=== PATIENT | female | born 1955 | race Caucasian/White ===

== ENCOUNTER 2018-12-28 18:43 | Emergency (ER) | payer OTHER ==
[2018-12-28 19:09] LABS: Absolute Lymphocytes (CBC) 1.1 K/uL (0.7-4.9); Absolute Monocytes 0.7 K/uL (0.1-1.3); Absolute Neutrophil 9.2 K/uL (1.8-8.0); Basophils % 0.6 % (0-1.3); Eosinophils % 0.7 % (0-4.4); Hematocrit 39.7 % (36.0-45.0); Lymphocytes % 9.6 % (15.3-44.8); MPV 9.5 fL (7.6-11.3); Monocytes % 6.7 % (3.3-12.3); Protime INR 0.99; RBC Red Blood Cell Count 4.41 M/uL (3.86-4.86)
[2018-12-28 19:19] LABS: BUN Blood Urea Nitrogen 18 mg/dL (7-18); Bicarbonate 28 mmol/L (21-32); Glucose Level 126 mg/dL (74-106); Potassium 3.6 mmol/L (3.5-5.1); Sodium Level 139 mmol/L (136-145); Troponin (Emerg Dept Use Only) < 0.02 ng/mL (0.0-0.045)
--- NOTE | 2018-12-28 19:30 | RAD REPORT ---
EXAM DESCRIPTION: CT - Ct Stroke Brain Wo Cont - 12/28/2018 7:21 pm CLINICAL HISTORY: Confusion COMPARISON: None. TECHNIQUE: Computed axial tomography of the head was obtained. IV contrast was not requested. All CT scans are performed using dose optimization technique as appropriate and may include automated exposure control or mA/KV adjustment according to patient size. FINDINGS: 4 centimeter bleed posterior left frontal lobe. Mild compression of the left lateral ventr icle The ventricles are normal in caliber. No extra-axial fluid collection is noted. Fluid within the sinuses/ mastoids is not seen. IMPRESSION: 4 centimeter posterior left frontal lobe bleed Exam discussed with Dr. Jacob in the emergency room 7:25 p.m. December 28, 2018
--- NOTE | 2018-12-28 19:37 | RAD REPORT ---
EXAM DESCRIPTION: Michelle Single View12/28/2018 7:14 pm CLINICAL HISTORY: Chest pain COMPARISON: 2017 FINDINGS: The lungs appear clear of acute infiltrate. The heart is borderline enlarged IMPRESSION: No acute abnormalities displayed
[2018-12-28] MEDS ORDERED: ENALAPRILAT 1.25 MG/ML VIAL IV ONE ×2 (19:49→20:21)
--- NOTE | 2018-12-28 20:08 | EDPHYS ---
Physician Documentation [facility] Name: Mayi Coe Age: 63 yrs Sex: Female : 1955 Arrival Date: 12/28/2018 Time: 18:48 Bed 4 Private MD: ED Physician Dwayne Crawford HPI: 12/28 19:57 This 63 yrs old Female presents to ER via EMS with complaints of Altered gs Mental Status. 19:57 The patient presents with confusion. Onset: The symptoms/episode began/occurred just gs prior to arrival. Possible causes: CVA or TIA. Associated signs and symptoms: Pertinent positives: headache. Current symptoms: In the emergency department the patient's symptoms are unchanged from the initial presentation. The patient has not experienced similar symptoms in the past. Historical: - Allergies: 19:10 No Known Allergies; sv - PMHx: 19:10 Heart Murmur; Hypertension; CVA; sv - PSHx: 19:10 Hysterectomy; sv - Immunization history:: Adult Immunizations. - Social history:: Smoking status: unknown. - Ebola Screening: : No symptoms or risks identified at this time. ROS: 19:57 Unable to obtain ROS due to patient's inability to understand questions. gs Exam: 19:57 Head/Face: Normocephalic, atraumatic. Eyes: Pupils equal round and reactive to light, gs extra-ocular motions intact. Lids and lashes normal. Conjunctiva and sclera are non-icteric and not injected. Cornea within normal limits. Periorbital areas with no swelling, redness, or edema. ENT: Nares patent. No nasal discharge, no septal abnormalities noted. Tympanic membranes are normal and external auditory canals are clear. Oropharynx with no redness, swelling, or masses, exudates, or evidence of obstruction, uvula midline. Mucous membranes moist. Neck: Trachea midline, no thyromegaly or masses palpated, and no cervical lymphadenopathy. Supple, full range of motion without nuchal rigidity, or vertebral point tenderness. No Meningismus. Chest/axilla: Normal chest wall appearance and motion. Nontender with no deformity. No lesions are appreciated. Cardiovascular: Regular rate and rhythm with a normal S1 and S2. No gallops, murmurs, or rubs. Normal PMI, no JVD. No pulse deficits. Respiratory: Lungs have equal breath sounds bilaterally, clear to auscultation and percussion. No rales, rhonchi or wheezes noted. No increased work of breathing, no retractions or nasal flaring. Abdomen/GI: Soft, non-tender, with normal bowel sounds. No distension or tympany. No guarding or rebound. No evidence of tenderness throughout. Back: No spinal tenderness. No costovertebral tenderness. Full range of motion. Skin: Warm, dry with normal turgor. Normal color with no rashes, no lesions, and no evidence of cellulitis. MS/ Extremity: Pulses equal, no cyanosis. Neurovascular intact. Full, normal range of motion. 19:57 Constitutional: The patient appears awake. 19:57 Neuro: Orientation: to person, Cranial nerves: no acute changes, Motor: strength is 5/5 in the left arm and left leg, Strength is 1/5 in the right arm and right leg. Vital Signs: 18:46 BP 166 / 108; Pulse 93; Resp 18; Temp 97.5; Pulse Ox 98% ; sv 19:30 BP 166 / 97; Pulse 88; Resp 20; Pulse Ox 100% on R/A; ak1 19:30 BP 164 / 97; ak1 19:41 BP 153 / 98; Pulse 83; ak1 20:00 BP 164 / 97; Pulse 88; Resp 16; Pulse Ox 100% on R/A; ak1 20:15 BP 146 / 78; Pulse 82; Resp 14; Pulse Ox 100% on R/A; ak1 20:30 BP 152 / 97; Pulse 78; Resp 17; Pulse Ox 98% on R/A; ak1 20:40 BP 145 / 75; Pulse 77; Resp 14; Pulse Ox 100% on R/A; ak1 19:30 provider notifed of vitals, no medication to given at this time. ak1 20:15 1.25mg enalaprin held at this time per verbal order from Dr. Crawford. ak1 NIH Stroke Scale Scores: 19:57 NIHSS Score: 17 gs 20:23 NIHSS Score: 13 ak1 MDM: 18:59 Patient medically screened. 12/28 18:58 Order name: Glucose, Ancillary Testing; Complete Time: 19:43 EDOK 12/28 18:59 Order name: Troponin (emerg Dept Use Only); Complete Time: 19:43 12/28 18:59 Order name: Basic Metabolic Panel; Complete Time: 19:43 12/28 18:59 Order name: CBC with Diff; Complete Time: 19:43 12/28 18:59 Order name: Protime (+inr); Complete Time: 19:43 12/28 18:59 Order name: Ptt, Activated; Complete Time: 19:43 12/28 18:59 Order name: CT Stroke Brain w/o Contrast; Complete Time: 19:43 12/28 18:59 Order name: Stroke CXR 1 View; Complete Time: 19:43 12/28 18:59 Order name: EKG; Complete Time: 19:01 12/28 18:59 Order name: Accucheck; Complete Time: 19:22 12/28 18:59 Order name: Cardiac monitoring; Complete Time: 19:22 12/28 18:59 Order name: EKG - Nurse/Tech; Complete Time: 19:56 12/28 18:59 Order name: IV Saline Lock; Complete Time: 19:22 12/28 18:59 Order name: Labs collected and sent; Complete Time: 19:22 12/28 18:59 Order name: NPO; Complete Time: 19:22 12/28 18:59 Order name: O2 Per Protocol; Complete Time: 19:22 12/28 18:59 Order name: O2 Sat Monitoring; Complete Time: 19:22 12/28 18:59 Order name: Stroke Swallow Screen gs Administered Medications: 19:40 Drug: Enalaprilat 0.625 mg Route: IV; Rate: calculated rate; Site: left antecubital; ak1 20:30 Follow up: IV Status: Completed infusion ak1 20:40 Not Given (vitals signs reported to Dr. Crawford. ): Enalaprilat 1.25 mg IV at calculated ak1 rate once; (slow IV push) verbal order dr. crawford Point of Care Testing: Blood Glucose: 18:52 Blood Glucose: 114 mg/dL; sv Ranges: Critical Glucose Levels:Adult <50 mg/dl or >400 mg/dl <40 mg/dl or >180 mg/dl Disposition: 20:04 Critical Care:. Disposition: 12/28/18 20:07 Transfer ordered to [facility]. Diagnosis is Hemiplegia and hemiparesis following nontraumatic intracerebral hemorrhage affecting right dominant side. - Reason for transfer: Higher level of care. - Accepting physician is rut. - Condition is Stable. - Problem is new. - Symptoms are unchanged. Critical care time excluding procedures: 20:04 Critical care time: Bedside Care: 10 minutes, Consultation: 10 minutes, Family gs Intervention: 10 minutes. Total time: 30 minutes NIH Stroke Scale - NIH Stroke Score Date: 12/28/2018 Time: 19:57 Total Score = 17 1a. Level of Consciousness (LOC) - 0(Alert) 1b. Level of Consciousness (LOC) (Year \T\ Age) - 2(Neither) 1c. LOC Commands (Open \T\ Closes Eyes/Propellant Assembler) - 2(Neither) 2. Best Gaze (Lateral Gaze Paresis) - 0(Normal) 3. Visual Field Loss - 0(No visual loss) 4. Facial Palsy - 0(Normal) 5a. Left Arm: Motor (10-second hold) - 0(No drift) 5b. Right Arm: Motor (10-second hold) - 4(No movement) 6a. Left Leg: Motor (5-second hold - always test supine) - 0(No drift) 6b. Right Leg: Motor (5-second hold - always test supine) - 3(No effort against gravity) 7. Limb Ataxia (finger/nose \T\ heel/marino - test with eyes open) - 0(Absent) 8. Sensory Loss (pinprick arms/legs/face) - 1(Mild to moderate loss) 9. Best Language: Aphasia (description/naming/reading) - 2(Severe aphasia) 10. Dysarthria (speech clarity - read or repeat words) - 2(Severe) 11. Extinction and Inattention (visual/tactile/auditory/spatial/personal) - 1(Present) Initials: areli NIH Stroke Scale - NIH Stroke Score Date: 12/28/2018 Time: 20:23 Total Score = 13 1a. Level of Consciousness (LOC) - 0(Alert) 1b. Level of Consciousness (LOC) (Year \T\ Age) - 2(Neither) 1c. LOC Commands (Open \T\ Closes Eyes/Propellant Assembler) - 1(One) 2. Best Gaze (Lateral Gaze Paresis) - 0(Normal) 3. Visual Field Loss - 0(No visual loss) 4. Facial Palsy - 1(Minor Paralysis) 5a. Left Arm: Motor (10-second hold) - 0(No drift) 5b. Right Arm: Motor (10-second hold) - 3(No effort against gravity) 6a. Left Leg: Motor (5-second hold - always test supine) - 0(No drift) 6b. Right Leg: Motor (5-second hold - always test supine) - 3(No effort against gravity) 7. Limb Ataxia (finger/nose \T\ heel/marino - test with eyes open) - 1(Present in one limb) 8. Sensory Loss (pinprick arms/legs/face) - 1(Mild to moderate loss) 9. Best Language: Aphasia (description/naming/reading) - 1(Mild to moderate aphasia) 10. Dysarthria (speech clarity - read or repeat words) - 0(Normal) 11. Extinction and Inattention (visual/tactile/auditory/spatial/personal) - 0(No abnormality) Initials: [facility] Signatures: Dispatcher [employer] Birgit Woo RN RN Raquel Martinez RN RN [facility] Dwayne Crawford MD MD Corrections: (The following items were deleted from the chart) 20:43 20:07 12/28/2018 20:07 Transfer ordered to [address] Diagnosis is Hemiplegia and hemiparesis following nontraumatic intracerebral hemorrhage affecting right dominant side. Reason for transfer: Higher level of care. Accepting physician is rut. Condition is Stable. Problem is new. Symptoms are unchanged. gs
--- NOTE | 2018-12-28 20:08 | ER ---
Nurse's Notes [facility] Name: Mayi Coe Age: 63 yrs Sex: Female : 1955 Arrival Date: 12/28/2018 Time: 18:48 Bed 4 Private MD: Diagnosis: Hemiplegia and hemiparesis following nontraumatic intracerebral hemorrhage affecting right dominant side Presentation: 12/28 18:32 Method Of Arrival: EMS: [facility] 18:32 Transition of care: patient was not received from another setting of care. ss 18:32 Acuity: CRISTINE 2 ss 18:40 Presenting complaint: EMS states: spouse called EMS, pt was found in the bathroom by sv the spouse and when EMS got to her house she ambulated to the stretcher. Equal senior tech manufacturing engineering and leg strength, noted right facial droop, slurred speech and aphasic, Afib 90-120s BP 182/98 99% RA. 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 Onset of symptoms was December 28, 2018 at 18:00. Care prior to arrival: IV initiated. 18 GA, in the left antecubital area. 19:32 Risk Assessment: Do you want to hurt yourself or someone else? Patient reports no ak1 desire to harm self or others. Initial Sepsis Screen: Does the patient meet any 2 criteria? No. Patient's initial sepsis screen is negative. Does the patient have a suspected source of infection? No. Patient's initial sepsis screen is negative. 20:17 An acute neurological deficit is present. ak1 Triage Assessment: 18:46 General: Appears in no apparent distress. uncomfortable, Behavior is calm. Pain: Denies sv pain. Neuro: Level of Consciousness is awake, confused, Oriented to none Speech is slurred, with expressive aphasia noted. Respiratory: Airway is patent Respiratory effort is even, unlabored, Respiratory pattern is regular, symmetrical. Derm: Skin is normal. Stroke Activation: Physician: Stroke Attending; Name: ; Notified At: ; Arrived At: Physician: Chief Stroke Resident; Name: ; Notified At: ; Arrived At: Physician: Stroke Resident; Name: ; Notified At: ; Arrived At: Physician: ED Attending; Name: ; Notified At: ; Arrived At: Physician: ED Resident; Name: ; Notified At: ; Arrived At: 20:17 unknown, pt received from [facility] at 1900. ak1 Historical: - Allergies: 19:10 No Known Allergies; sv - PMHx: 19:10 Heart Murmur; Hypertension; CVA; sv - PSHx: 19:10 Hysterectomy; sv - Immunization history:: Adult Immunizations. - Social history:: Smoking status: unknown. - Ebola Screening: : No symptoms or risks identified at this time. Screenin:31 Abuse screen: Denies threats or abuse. Denies injuries from another. Nutritional ak1 screening: No deficits noted. Tuberculosis screening: No symptoms or risk factors identified. Fall Risk None identified. Assessment: 18:49 Reassessment: family at bedside speaking with Dr. Crawford. 19:00 Reassessment: Spouse states pt does not take any blood thinners but she did take an ASA sv 325 mg PO about an hour ago "because she felt weird". 19:32 General: Appears in no apparent distress. Pain: Denies pain. Neuro: Level of ak1 Consciousness is awake, alert, confused, pt unable to recall name or date of .. Oriented to person, pt responds to name and verbal stimuli but can not stated her birthday or name. . Office Services Representative are weak on right pt unable to make a fist, surveillance supervisor or plate gauger right arm. . Paralysis pt with paralysis to right arm and right leg. . Gait is pt unable to move right leg. Speech clear. Cardiovascular: No deficits noted. Respiratory: No deficits noted. GI: No signs and/or symptoms were reported involving the gastrointestinal system. : No signs and/or symptoms were reported regarding the genitourinary system. EENT: No signs and/or symptoms were reported regarding the EENT system. Derm: No signs and/or symptoms reported regarding the dermatologic system. Musculoskeletal: No signs and/or symptoms reported regarding the musculoskeletal system. 19:35 Reassessment: Neurologist at [facility] requested the BP meds be given. ak1 19:45 Reassessment: family updated no beds at [facility]. Dr. Crawford on phone with [address] 20:23 The patient has not been NPO before screening. The patient is alert, and able to follow ia1 commands. The patient does not exhibit slurred or garbled speech. The patient is not exhibiting difficulty speaking. The patient is exhibiting difficulty understanding words. The patient is able to swallow own secretions with no drooling or need for suction. The patient did not tolerate one teaspoon of water. Drooling, immediate coughing, gurgling, or clearing of the throat was noted. Bedside swallow screening discontinued. Patient kept NPO until cleared by Speech Therapy or Physician. T-PA (Activase) Screening: Contraindications: Intracranial hemorrhage and its risk factor and suspicion of subarachnoid bleed: Yes. 20:26 Reassessment: pt daughter Shelby [phone], pt son Gil [phone]. ak1 20:26 Provider notified of bedside swallow screening results: Dwayne Crawford MD. ak1 20:41 Reassessment: pt drooling with unclear speech, lethargic and drowsy while loading on to [facility] stretcher. 145/75 BP 77 pulse. report given to Alexei Mcghee air support control officer. Vital Signs: 18:46 BP 166 / 108; Pulse 93; Resp 18; Temp 97.5; Pulse Ox 98% ; sv 19:30 BP 166 / 97; Pulse 88; Resp 20; Pulse Ox 100% on R/A; ak1 19:30 BP 164 / 97; ak1 19:41 BP 153 / 98; Pulse 83; ak1 20:00 BP 164 / 97; Pulse 88; Resp 16; Pulse Ox 100% on R/A; ak1 20:15 BP 146 / 78; Pulse 82; Resp 14; Pulse Ox 100% on R/A; ak1 20:30 BP 152 / 97; Pulse 78; Resp 17; Pulse Ox 98% on R/A; ak1 20:40 BP 145 / 75; Pulse 77; Resp 14; Pulse Ox 100% on R/A; ak1 19:30 provider notifed of vitals, no medication to given at this time. ak1 20:15 1.25mg enalaprin held at this time per verbal order from Dr. Crawford. ak1 NIH Stroke Scale Scores: 19:57 NIHSS Score: 17 gs 20:23 NIHSS Score: 13 ak1 ED Course: 18:[address] via stretcher. sv 18:40 Maintain EMS IV. Dressing intact. Good blood return noted. Site clean \\T\\ dry. Gauge \\T\\ sv site: 18G L AC. 18:45 Patient moved back from CT. sv 18:45 Arm band placed on. sv 18:45 Patient has correct armband on for positive identification. Placed in gown. Bed in low sv position. Call light in reach. Adult w/ patient. equipment monitor phototypesetting on. Pulse ox on. NIBP on. Head of bed elevated. 18:48 Patient arrived in ED. ss 18:49 Triage completed. ss 18:50 Initial lab(s) drawn, by ED staff, sent to lab. sv 18:59 Dwanye Crawford MD is Attending Physician. gs 19:05 Report given to Asia TAMAYO and Raquel RN. sv 19:15 Stroke CXR 1 View In Process Unspecified. EDMS 19:21 CT Stroke Brain w/o Contrast In Process Unspecified. EDMS 19:29 Raquel Martinez, BELKIS is Primary Nurse. ak1 20:27 No provider procedures requiring assistance completed. Patient transferred, IV remains ak1 in place. Administered Medications: 19:40 Drug: Enalaprilat 0.625 mg Route: IV; Rate: calculated rate; Site: left antecubital; ak1 20:30 Follow up: IV Status: Completed infusion ak1 20:40 Not Given (vitals signs reported to Dr. Crawford. ): Enalaprilat 1.25 mg IV at calculated ak1 rate once; (slow IV push) verbal order dr. crawford Point of Care Testing: Blood Glucose: 18:52 Blood Glucose: 114 mg/dL; sv Ranges: Outcome: 20:07 ER care complete, transfer ordered by . gs 20:28 Transferred by ground EMS to [facility], Transfer form completed. X-rays sent ak1 w/ patient. Note: report given to Cris [facility] ER triage nurse. 20:28 Condition: stable 20:28 Instructed on the need for transfer. 20:43 Patient left the ED. ak1 NIH Stroke Scale - NIH Stroke Score Date: 12/28/2018 Time: 19:57 Total Score = 17 1a. Level of Consciousness (LOC) - 0(Alert) 1b. Level of Consciousness (LOC) (Year \\T\\ Age) - 2(Neither) 1c. LOC Commands (Open \\T\\ Closes Eyes/Swatch Checker) - 2(Neither) 2. Best Gaze (Lateral Gaze Paresis) - 0(Normal) 3. Visual Field Loss - 0(No visual loss) 4. Facial Palsy - 0(Normal) 5a. Left Arm: Motor (10-second hold) - 0(No drift) 5b. Right Arm: Motor (10-second hold) - 4(No movement) 6a. Left Leg: Motor (5-second hold - always test supine) - 0(No drift) 6b. Right Leg: Motor (5-second hold - always test supine) - 3(No effort against gravity) 7. Limb Ataxia (finger/nose \\T\\ heel/marino - test with eyes open) - 0(Absent) 8. Sensory Loss (pinprick arms/legs/face) - 1(Mild to moderate loss) 9. Best Language: Aphasia (description/naming/reading) - 2(Severe aphasia) 10. Dysarthria (speech clarity - read or repeat words) - 2(Severe) 11. Extinction and Inattention (visual/tactile/auditory/spatial/personal) - 1(Present) Initials: NIH Stroke Scale - NIH Stroke Score Date: 12/28/2018 Time: 20:23 Total Score = 13 1a. Level of Consciousness (LOC) - 0(Alert) 1b. Level of Consciousness (LOC) (Year \\T\\ Age) - 2(Neither) 1c. LOC Commands (Open \\T\\ Closes Eyes/Swatch Checker) - 1(One) 2. Best Gaze (Lateral Gaze Paresis) - 0(Normal) 3. Visual Field Loss - 0(No visual loss) 4. Facial Palsy - 1(Minor Paralysis) 5a. Left Arm: Motor (10-second hold) - 0(No drift) 5b. Right Arm: Motor (10-second hold) - 3(No effort against gravity) 6a. Left Leg: Motor (5-second hold - always test supine) - 0(No drift) 6b. Right Leg: Motor (5-second hold - always test supine) - 3(No effort against gravity) 7. Limb Ataxia (finger/nose \\T\\ heel/marino - test with eyes open) - 1(Present in one limb) 8. Sensory Loss (pinprick arms/legs/face) - 1(Mild to moderate loss) 9. Best Language: Aphasia (description/naming/reading) - 1(Mild to moderate aphasia) 10. Dysarthria (speech clarity - read or repeat words) - 0(Normal) 11. Extinction and Inattention (visual/tactile/auditory/spatial/personal) - 0(No abnormality) Initials: ak1 Signatures: Dispatcher [employer] Birgit Woo RN Lexi Moreno RN RN ss Krenek, Amber, RN RN ak1 Dwayne Crawford MD MD gs Corrections: (The following items were deleted from the chart) 19:14 18:40 Presenting complaint: EMS states: spouse called EMS, pt was found in the bathroom by the spouse and when EMS got to her house she ambulated to the stretcher. 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 20:43 20:15 BP 152 / 97; Pulse 78bpm; Resp 17bpm; Pulse Ox 98% RA; ak1 ak1
[2018-12-28 21:59] VITALS: TEMP 97.5
[2018-12-28 22:06] VITALS: BP 145/75; O2SAT 100
--- NOTE | 2018-12-29 07:48 | EKG ---
Test Date: 2018-12-28 Test Time: 19:10:15 Curriculum Writer: [place] MEASUREMENT RESULTS: Intervals: Rate: 77 CA: 162 QRSD: 78 QT: 398 QTc: 450 [place]: P: 21 CA: 162 QRS: 28 T: 48 INTERPRETIVE STATEMENTS: Sinus rhythm with premature atrial complexes ST abnormality, non specific Abnormal ECG Compared to ECG 02/26/2017 06:40:35 Atrial premature complex(es) now present Sinus bradycardia no longer present ST (T wave) deviation still present Electronically Signed On 12-29-18 07:47:56 PATTERN CHANGER by Mateo Mai
== END 2018-12-28 20:43 | disposition short-term general hospital (02) ==
LOC: ER 18:43
DX: I61.9 Nontraumatic intracerebral hemorrhage, unspecified (principal); G81.91 Hemiplegia, unspecified affecting right dominant side; I10 Essential (primary) hypertension; Z86.73 Personal history of transient ischemic attack (TIA), and cerebral infarction without residual deficits
CPT/HCPCS: 36415; 70450; 71045; 80048; 82962; 84484; 85025; 85610; 85730; 93005; 96365; 99285

== ENCOUNTER 2019-05-11 11:34 | Observation (INO) | payer OTHER ==
--- NOTE | 2019-05-11 12:18 | RAD REPORT ---
EXAM DESCRIPTION: RAD - Chest Single View - 05/11/2019 12:10 pm CLINICAL HISTORY: CHEST PAIN Chest pain. COMPARISON: Chest Single View dated 12/28/2018; Chest Single View dated 02/25/2017 FINDINGS: Portable technique limits examination quality. Mild interstitial pulmonary edema. The heart is mildly enlarged in size. Mild dextroscoliosis of the thoracic spine.Trace left pleural fluid. IMPRESSION: Mild CHF versus volume overload pattern.
[2019-05-11 12:41] LABS: Absolute Lymphocytes (CBC) 0.5 K/uL (0.7-4.9); Basophils % 1.1 % (0-1.3); Eosinophils % 3.3 % (0-4.4); Hematocrit 36.5 % (36.0-45.0); Lymphocytes % 11.5 % (15.3-44.8); MPV 9.2 fL (7.6-11.3); Monocytes % 12.1 % (3.3-12.3); Protime INR 0.96; RBC Red Blood Cell Count 4.05 M/uL (3.86-4.86)
[2019-05-11 12:50] LABS: BUN Blood Urea Nitrogen 10 mg/dL (7-18); Bicarbonate 29 mmol/L (21-32); Glucose Level 100 mg/dL (74-106); NT PRO-BNP 311 pg/mL (<125); Sodium Level 139 mmol/L (136-145); Troponin (Emerg Dept Use Only) < 0.02 ng/mL (0.0-0.045)
--- NOTE | 2019-05-11 14:14 | ER ---
Nurse's Notes [facility] Name: Mayi Coe Age: 63 yrs Sex: Female : 1955 Arrival Date: 05/11/2019 Time: 11:37 Bed 6 Private MD: Diagnosis: Chest pain, unspecified Presentation: 05/11 11:50 Presenting complaint: EMS states: Pt was doing some strenuous physical therapy when she tr5 started to have some chest pain and felt some pressure in her chest. Pt was hypertensive with the systolics in the 160s. Pt has a history of stroke with a R sided weakness. Transition of care: patient was not received from another setting of care. Onset of symptoms was May 11, 2019. Risk Assessment: Do you want to hurt yourself or someone else? Patient reports desire/thoughts of hurting themselves or someone else. Provider notified. Initial Sepsis Screen: Does the patient meet any 2 criteria? No. Patient's initial sepsis screen is negative. Does the patient have a suspected source of infection? No. Patient's initial sepsis screen is negative. Care prior to arrival: None. 11:50 Method Of Arrival: EMS: [facility] tr5 11:50 Acuity: CRISTINE 2 tr5 Triage Assessment: 12:02 General: Appears in no apparent distress. Behavior is calm, cooperative. Pain: tr5 Complains of pain in xyphoid area and mid-sternal area Pain does not radiate. Quality of pain is described as pressure, Pain began 1 hour ago. Alleviated by rest. EENT: No signs and/or symptoms were reported regarding the EENT system. Neuro: Level of Consciousness is awake, alert, obeys commands, Oriented to person, place, time, situation, Neuro:. Cardiovascular: Reports chest pain, Heart tones present Bruits absent Capillary refill < 3 seconds Pulses are all present. Edema is absent. Respiratory: Airway is patent Trachea midline Respiratory effort is even, unlabored, Respiratory pattern is regular, symmetrical, Breath sounds are clear bilaterally. GI: No signs and/or symptoms were reported involving the gastrointestinal system. : No signs and/or symptoms were reported regarding the genitourinary system. Derm: Skin is intact, is healthy with good turgor, Skin is dry, Wound noted top of head Wound is Pt had a craniectomy done in the past and has a helmet she wears at all time for protection. Musculoskeletal: Capillary refill < 3 seconds, Range of motion: intact in all extremities. Historical: - Home Meds: 12:00 amlodipine oral [Active]; lisinopril Oral [Active]; tr5 - PMHx: 12:00 CVA; Heart Murmur; Hypertension; tr5 - Immunization history:: Adult Immunizations up to date. - Social history:: Smoking status: Patient/guardian denies using tobacco, never smoked. - Ebola Screening: : Patient negative for fever greater than or equal to 101.5 degrees Fahrenheit, and additional compatible Ebola Virus Disease symptoms. - Family history:: Mother has/had heart disease. - Hospitalizations: : No recent hospitalization is reported. - History obtained from: . Screenin:10 Abuse screen: Denies threats or abuse. Nutritional screening: No deficits noted. tr5 Tuberculosis screening: No symptoms or risk factors identified. Fall Risk No fall in past 12 months (0 pts). Secondary diagnosis (15 points) impaired mobility, CVA, IV access (20 points). Ambulatory Aid- None/Bed Rest/Nurse Assist (0 pts). Gait- Normal/Bed Rest/Wheelchair (0 pts) Mental Status- Oriented to own ability (0 pts). Total Crockett Fall Scale indicates Low Risk Score (25-44 pts). Side Rails Up X 2 Placed close to Nursing Station Family Present and informed to notify staff if they need to leave bedside As available Patient and Family Educated on Fall Prevention Program and strategies. Assessment: 13:13 Pain: Denies pain. tr5 13:13 Reassessment: Patient appears in no apparent distress at this time. Patient and/or tr5 family updated on plan of care and expected duration. Pain level reassessed. Patient is alert, oriented x 3, equal unlabored respirations, skin warm/dry/pink. 14:30 Reassessment: Patient appears in no apparent distress at this time. Patient and/or tr5 family updated on plan of care and expected duration. Pain level reassessed. Patient states feeling better. 15:50 Reassessment: Patient and/or family updated on plan of care and expected duration. Pain tr5 level reassessed. Patient is alert, oriented x 3, equal unlabored respirations, skin warm/dry/pink. 16:26 Reassessment: Called to give report. Nurse will call back to receive report. tr5 16:55 Reassessment: Report given to Billie TAMAYO. tr5 Vital Signs: 11:49 BP 146 / 78; Pulse 62; Resp 17; Temp 98.9(O); Pulse Ox 98% on R/A; mh5 12:50 BP 152 / 76; Pulse 62; Resp 15; Pulse Ox 97% on R/A; tr5 13:15 BP 152 / 76; Pulse 60; Resp 12; Pulse Ox 98% on R/A; mh5 14:10 BP 157 / 79; Pulse 62; Resp 16; Temp 98.7(O); Pulse Ox 99% ; mh5 14:42 BP 151 / 70; Pulse 62; Resp 17; Temp 97.7(O); Pulse Ox 97% on R/A; mh5 15:49 BP 147 / 70; Pulse 63; Resp 16; Pulse Ox 98% on R/A; tr5 ED Course: 11:37 Patient arrived in ED. sv 11:39 Mendoza Gudino MD is Attending Physician. rn 11:49 Antonio Moody RN is Primary Nurse. tr5 11:51 Arm band placed on. sv 11:51 Patient has correct armband on for positive identification. Bed in low position. Call [facility] light in reach. Side rails up X 1. Adult w/ patient. monitor technician on. Pulse ox on. NIBP on. 11:53 Triage completed. tr5 11:55 EKG done, by computer engineering technologist. reviewed by Mendoza Gudino MD. at1 11:55 Patient maintains SpO2 saturation greater than 95% on room air. tr5 11:55 Inserted saline lock: 20 gauge in right forearm, using aseptic technique. tr5 12:00 SEIZURE PADS ON BED. mh5 12:10 XRAY Chest (1 view) In Process Unspecified. EDMS 13:10 Basic Metabolic Panel Sent. sv 13:10 CBC with Diff Sent. sv 13:10 NT PRO-BNP Sent. sv 14:13 Gay Root MD is Hospitalizing Provider. rn 14:50 EMPTIED 1000 CC FROM FERMIN. mh5 15:50 Awaiting bed assignment. tr5 16:54 transfer. tr5 17:46 No provider procedures requiring assistance completed. Patient admitted, IV remains in tr5 place. Administered Medications: No medications were administered Outcome: 14:13 Decision to Hospitalize by Provider. rn 17:48 Admitted to Med/surg accompanied by tech, via stretcher, with chart, Report called to tr5 Billie TAMAYO 17:49 Condition: stable tr5 17:49 Instructed on the need for admit. 17:50 Patient left the ED. tr5 Signatures: Dispatcher [employer] Birgit Woo RN RN sv Nieto, Roman, MD MD rn Gonzales, Amanda, worm farmer EKG Tat1 Kai, Angela Antonio Soni RN RN tr5 Corrections: (The following items were deleted from the chart) 16:54 16:54 transfer transportation to receiving facility. tr5 tr5
--- NOTE | 2019-05-11 14:14 | EDPHYS ---
Physician Documentation [facility] Name: Mayi Coe Age: 63 yrs Sex: Female : 1955 Arrival Date: 05/11/2019 Time: 11:37 Bed 6 Private MD: ED Physician Mendoza Gudino HPI: 05/11 12:18 This 63 yrs old Female presents to ER via EMS with complaints of Chest Pain. rn 12:19 The patient or guardian reports chest pain that is located primarily in the substernal rn area. Onset: just prior to arrival. The pain does not radiate. Associated signs and symptoms: The patient has no apparent associated signs or symptoms, Pertinent negatives: abdominal pain, cough, diaphoresis, dizziness, lightheadedness, palpitations, shortness of breath, syncope, vomiting. The chest pain is described as a heaviness. Duration: The patient or guardian reports a single episode, that is still ongoing. Modifying factors: The symptoms are alleviated by nothing. the symptoms are aggravated by nothing. Severity of pain: At its worst the pain was moderate in the emergency department the pain has improved. The patient has not experienced similar symptoms in the past. The patient has not recently seen a physician. Patient had intense PT session today, was doing ok, a little tired, took a nap, woke up with chest pain, non-radiating, not worse with movement or palpation, no cough or sob, reports doesn't normally have chest pain, steadily getting better without treatment, didn't just eat, no trauma, no diaphoresis. . Historical: - Home Meds: 12:00 amlodipine oral [Active]; lisinopril Oral [Active]; tr5 - PMHx: 12:00 CVA; Heart Murmur; Hypertension; tr5 - Immunization history:: Adult Immunizations up to date. - Social history:: Smoking status: Patient/guardian denies using tobacco, never smoked. - Ebola Screening: : Patient negative for fever greater than or equal to 101.5 degrees Fahrenheit, and additional compatible Ebola Virus Disease symptoms. - Family history:: Mother has/had heart disease. - Hospitalizations: : No recent hospitalization is reported. - History obtained from: . ROS: 12:19 Constitutional: Negative for fever, chills, and weight loss, Eyes: Negative for injury, rn pain, redness, and discharge, Neck: Negative for injury, pain, and swelling, Cardiovascular: Negative for palpitations, and edema, Respiratory: Negative for shortness of breath, cough, wheezing, and pleuritic chest pain, Abdomen/GI: Negative for abdominal pain, nausea, vomiting, diarrhea, and constipation, MS/Extremity: Negative for injury and deformity, Skin: Negative for injury, rash, and discoloration, Neuro: Negative for headache, weakness, numbness, tingling, and seizure. Exam: 12:19 Constitutional: This is a well developed, well nourished patient who is awake, alert, rn and in no acute distress. Head/Face: Normocephalic, atraumatic. ENT: dry MM Cardiovascular: Regular rate and rhythm. No pulse deficits. Respiratory: Lungs have equal breath sounds bilaterally, clear to auscultation. No increased work of breathing, no retractions or nasal flaring. Abdomen/GI: soft, non-tender MS/ Extremity: Pulses equal, no cyanosis. Neurovascular intact. Full, normal range of motion. Equal circumference. Neuro: Awake and alert, GCS 15, oriented to person, place, time, and situation. + slurred and broken speech. + residual right sided weakness. Vital Signs: 11:49 BP 146 / 78; Pulse 62; Resp 17; Temp 98.9(O); Pulse Ox 98% on R/A; mh5 12:50 BP 152 / 76; Pulse 62; Resp 15; Pulse Ox 97% on R/A; tr5 13:15 BP 152 / 76; Pulse 60; Resp 12; Pulse Ox 98% on R/A; mh5 14:10 BP 157 / 79; Pulse 62; Resp 16; Temp 98.7(O); Pulse Ox 99% ; mh5 14:42 BP 151 / 70; Pulse 62; Resp 17; Temp 97.7(O); Pulse Ox 97% on R/A; mh5 15:49 BP 147 / 70; Pulse 63; Resp 16; Pulse Ox 98% on R/A; tr5 MDM: 11:39 Patient medically screened. rn 14:09 Differential diagnosis: acute myocardial infarction, acute pericarditis, coronary rn artery disease chest wall pain, costochondritis, gastroesophageal reflux disease (GERD), pericarditis, pleurisy, pneumonia, pneumothorax, stable angina, unstable angina. HEART Score: History: Slightly Suspicious (0), ECG: Non specific repolarization disturbance / LBTB / PM (1), Age: > or = 65 years (2), Risk Factors: > or = 3 Risk factors for atherosclerotic disease (2), Troponin: < or = 1 x Normal Limit (0). Data reviewed: vital signs, nurses notes, lab test result(s), EKG, radiologic studies, plain films, and as a result, I will admit patient. Counseling: I had a detailed discussion with the patient and/or guardian regarding: the historical points, exam findings, and any diagnostic results supporting the discharge/admit diagnosis, lab results, radiology results, the need for further work-up and treatment in the hospital. Response to treatment: the patient's symptoms have mildly improved after treatment, and as a result, I will admit patient. Admission orders: after a detailed discussion of the patient's condition and case, the admit orders are written by me. ED course: Pt without clear etiology of chest pain, no recent stress or cath, HEART score 5, and new symptom for her, states not normally type to complain. Will admit for chest pain rule out.. 05/11 11:49 Order name: Basic Metabolic Panel 05/11 11:49 Order name: CBC with Diff 05/11 11:49 Order name: NT PRO-BNP 05/11 11:49 Order name: PT-INR; Complete Time: 13:07 05/11 11:49 Order name: Troponin (emerg Dept Use Only); Complete Time: 13:07 05/11 11:50 Order name: Basic Metabolic Panel; Complete Time: 13:07 [facility] 05/11 11:49 Order name: XRAY Chest (1 view); Complete Time: 12:26 05/11 11:50 Order name: CBC with Automated Diff; Complete Time: 13:07 [facility] 05/11 11:50 Order name: NT PRO-BNP; Complete Time: 13:07 [facility] 05/11 14:45 Order name: Echo with Doppler [facility] 05/11 14:46 Order name: Troponin I [facility] 05/11 14:46 Order name: Troponin I [facility] 05/11 14:46 Order name: Troponin I [facility] 05/11 14:46 Order name: Troponin I [facility] 05/11 11:49 Order name: EKG; Complete Time: 11:51 rn 05/11 11:49 Order name: Cardiac monitoring; Complete Time: 11:50 rn 05/11 11:49 Order name: EKG - Nurse/Tech; Complete Time: 11:51 rn 05/11 11:49 Order name: IV Saline Lock; Complete Time: 11:51 rn 05/11 11:49 Order name: Labs collected and sent; Complete Time: 11:51 rn 05/11 11:49 Order name: O2 Per Protocol; Complete Time: 11:51 rn 05/11 11:49 Order name: O2 Sat Monitoring; Complete Time: 11:51 rn 05/11 14:45 Order name: CONS Physician Consult [facility] Administered Medications: No medications were administered Disposition: 05/11/19 14:13 Hospitalization ordered by Gay Root for Observation. Preliminary diagnosis is Chest pain, unspecified. - Bed requested for Telemetry/MedSurg (observation). - Status is Observation. tr5 - Condition is Stable. - Problem is new. - Symptoms have improved. UTI on Admission? No Signatures: Dispatcher [employer] [facility] Pooja Landry RN RN dw Nieto, Roman, MD MD rn Rodriguez, Tommie, RN RN tr5 Corrections: (The following items were deleted from the chart) 13:07 12:19 Constitutional: This is a well developed, well nourished patient who is awake, rn alert, and in no acute distress. Head/Face: Normocephalic, atraumatic. ENT: dry MM Cardiovascular: Regular rate and rhythm. No pulse deficits. Respiratory: Lungs have equal breath sounds bilaterally, clear to auscultation. No increased work of breathing, no retractions or nasal flaring. Abdomen/GI: soft, non-tender MS/ Extremity: Pulses equal, no cyanosis. Neurovascular intact. Full, normal range of motion. Equal circumference. Neuro: Awake and alert, GCS 15, oriented to person, place, time, and situation. + slurred and broken speech. + residual right sided weakness. rn 16:16 14:13 Hospitalization Ordered by Gay Root MD for Observation. Preliminary dw diagnosis is Chest pain, unspecified. Bed requested for Telemetry/MedSurg (observation). Status is Observation. Condition is Stable. Problem is new. Symptoms have improved. UTI on Admission? No. rn 17:50 16:16 05/11/2019 14:13 Hospitalization Ordered by Gay Root MD for Observation. tr5 Preliminary diagnosis is Chest pain, unspecified. Bed requested for Telemetry/MedSurg (observation). Status is Observation. Condition is Stable. Problem is new. Symptoms have improved. UTI on Admission? No. dw
--- NOTE | 2019-05-11 15:14 | P.HP ---
Certification for Inpatient Patient admitted to: Observation With expected LOS: <2 Midnights Patient will require the following post-hospital care: None Practitioner: I am a practitioner with admitting privileges, knowledge of patient current condition, hospital course, and medical plan of care. Services: Services provided to patient in accordance with Admission requirements found in Title 42 Section 412.3 of the Code of Federal Regulations Patient History Date of Service: 05/11/19 Reason for admission: Chest pain History of Present Illness: 63-year-old female with significant past medical history of hypertension, previous CVA who presented to the ED with chest pain. Patient said the chest pain started last night and has got progressively worse and the she decided to come to the ER to get a further checked out. Patient denies having any shortness of breath nausea vomiting abdominal pain or any other associated symptoms. Patient describes pain as dull. Pain is not radiating anywhere. In the ER patient had extensive workup done along with lab work. Troponin x1 was negative. EKG was nonspecific. Given the past medical history and high HAART score patient was admitted to the hospital for further workup Allergies No Known Allergies Allergy (Unverified 09/01/17 08:39) Home Medications: Acetylcarnitine [Acetyl l-Carnitine] 500 mg PO DAILY 02/25/17 Alpha Lipoic Acid 200 mg PO DAILY 02/25/17 Amlodipine [Norvasc*] 5 mg PO DAILY 02/25/17 Aspirin [Aspirin EC 81 MG] 81 mg PO DAILY 02/25/17 Ca Citrate/Mgox/Vit D3/B6/Min [Citracal Plus Tablet] 1 each PO DAILY 02/25/17 Estrogens,Conj [Premarin*] 0.3 mg PO SEECOM 02/25/17 Lisinopril 40 mg PO DAILY AFTER SUPPER 02/25/17 Multivitamin [One-Daily Multi-Vitamin] 1 each PO SEECOM 02/25/17 Ubidecarenone [Co Q-10] 100 mg PO DAILY 02/25/17 Vitamin E 400 unit PO DAILY 02/25/17 Codeine/APAP [Tylenol W/Codeine #3 tab] 1 tab PO Q4HP PRN #30 tab 09/02/17 Sulfamethoxazole/Trimethoprim [Bactrim Ds Tablet] 1 each PO BID #10 tablet 09/02 - Past Medical/Surgical History Diabetic: No -: htn -: CVA Past Surgical History: Reviewed- Non-Contributory -: hysterectomy - Family History Family History: Reviewed- Non-Contributory - Social History Smoking Status: Never smoker Smoking therapy provided: No Patient receptive to therapy: No Alcohol use: Yes CD- Drugs: No Caffeine use: Yes Place of Residence: Home Review of Systems 10-point ROS is otherwise unremarkable Physical Examination - Physical Exam General: Alert, In no apparent distress HEENT: Atraumatic, PERRLA, Mucous membr. moist/pink, EOMI, Sclerae nonicteric Neck: Supple, 2+ carotid pulse no bruit, No LAD, Without JVD or thyroid abnormality Respiratory: Clear to auscultation bilaterally, Normal air movement Cardiovascular: Regular rate/rhythm, Normal S1 S2 Gastrointestinal: Normal bowel sounds, No tenderness Musculoskeletal: No tenderness Integumentary: No rashes Neurological: Normal gait, Normal speech, Normal strength at 5/5 x4 extr, Normal tone, Normal affect Lymphatics: No axilla or inguinal lymphadenopathy - Studies Laboratory Data (last 24 hrs) 05/11/19 12:05: PT 11.4, INR 0.96 05/11/19 12:05: WBC 4.5 D, Hgb 12.3, Hct 36.5, Plt Count 281 05/11/19 12:05: Sodium 139, Potassium 4.0, BUN 10, Creatinine 0.71, Glucose 100 Assessment and Plan - Problems (Diagnosis) (1) Chest pain Current Visit: No Status: Acute Plan: Chest pain ACS rule out. HAART score of 5 -initial troponin x1 negative in the ER along with EKG with nonspecific changes -fissure with no chest pain at this time -cardiac tele at this time. Will consult cardiology -echocardiogram ordered at this time as well will trend troponin x2 -ACS medication Qualifiers: Chest pain type: unspecified (2) CVA (cerebral vascular accident) Current Visit: Yes Status: Chronic Plan: Prior history of CVA with right-sided residual deficit -will monitor patient closely Qualifiers: CVA mechanism: unspecified Qualified Code(s): I63.9 - Cerebral infarction, unspecified (3) HTN (hypertension) Current Visit: No Status: Chronic Plan: Stable at this time Qualifiers: Hypertension type: essential hypertension (4) MVP (mitral valve prolapse) Current Visit: No Status: Chronic Plan: Stable at this time - Plan Admit patient to med surg for ACS rule out. Discharge Plan: Home Plan to discharge in: 48 Hours - Advance Directives Does patient have a Living Will: No Does patient have a Durable POA for Healthcare: No - Code Status/Comfort Care Code Status Assessed: Yes Critical Care: No
[2019-05-11] MEDS: INSULIN -REGULAR HUMAN 50 UNIT/0.5 ML ML SQ SCH ×2 (18:28→21:00)
[2019-05-11] MEDS ORDERED: GLUCAGON 1 MG/VIAL IM PRN (18:41)
[2019-05-11] MEDS ORDERED: D50W 25 GM/50 ML SYRINGE IV PRN (18:41)
[2019-05-11] MEDS: ENOXAPARIN 40 MG/0.4 ML SQ SCH (21:56)
[2019-05-12 06:21] LABS: Urine Appearance TURBID; Urine Bilirubin NEGATIVE (NEG); Urine Blood 2+ (NEG); Urine Color YELLOW; Urine Glucose NEGATIVE (NEG); Urine Protein TRACE (NEG); Urine Specific Gravity <=1.005 (1.005-1.030); Urine Urobilinogen 0.2 mg/dL (0.2-1.0)
[2019-05-12 06:31] LABS: Absolute Lymphocytes (CBC) 0.6 K/uL (0.7-4.9); Basophils % 1.5 % (0-1.3); Eosinophils % 3.5 % (0-4.4); Lymphocytes % 12.3 % (15.3-44.8); MPV 8.9 fL (7.6-11.3); Monocytes % 11.8 % (3.3-12.3); RBC Red Blood Cell Count 3.99 M/uL (3.86-4.86)
[2019-05-12 06:32] LABS: Urine Microscopic Reflex ORDER UMIC
[2019-05-12 06:35] LABS: Albumin 3.6 g/dL (3.4-5.0); Bilirubin Total 0.6 mg/dL (0.2-1.0); Potassium 3.9 mmol/L (3.5-5.1); Protein, Total 6.8 g/dL (6.4-8.2)
[2019-05-12 06:39] LABS: Urine Culture Reflex Order REFLEXED
[2019-05-12 06:40] LABS: Urine Bacteria LOADED /HPF (<20)
--- NOTE | 2019-05-12 07:04 | EKG ---
Test Date: 2019-05-11 Test Time: 11:52:08 Enterprise Resource Planning Consultant: RAZA MEASUREMENT RESULTS: Intervals: Rate: 63 VA: 184 QRSD: 76 QT: 432 QTc: 442 [place]: P: 24 VA: 184 QRS: 42 T: 56 INTERPRETIVE STATEMENTS: Sinus rhythm with marked sinus arrhythmia Left ventricular hypertrophy with repolarization abnormality Abnormal ECG Compared to ECG 12/28/2018 19:10:15 Left ventricular hypertrophy now present Early repolarization now present Atrial premature complex(es) no longer present ST (T wave) deviation no longer present Electronically Signed On 05-12-19 07:02:32 CDT by Sathya Gonzalez
[2019-05-12] MEDS: INSULIN -REGULAR HUMAN 50 UNIT/0.5 ML ML SQ SCH ×3 (07:30→15:29)
[2019-05-12] MEDS: ENOXAPARIN 40 MG/0.4 ML SQ SCH (09:01)
--- NOTE | 2019-05-12 11:51 | P.SSS ---
Patient History Date of Service: 05/12/19 Reason for admission: Chest pain History of Present Illness: 63-year-old female with significant past medical history of hypertension, previous CVA who presented to the ED with chest pain. Patient said the chest pain started last night and has got progressively worse and the she decided to come to the ER to get a further checked out. Patient denies having any shortness of breath nausea vomiting abdominal pain or any other associated symptoms. Patient describes pain as dull. Pain is not radiating anywhere. In the ER patient had extensive workup done along with lab work. Troponin x1 was negative. EKG was nonspecific. Given the past medical history and high HAART score patient was admitted to the hospital for further workup Allergies No Known Allergies Allergy (Unverified 09/01/17 08:39) Home Medications: Acetaminophen [Tylenol] 2 tab PO Q6H PRN 05/12/19 Buspirone HCl [Buspar] 1 tab PO BID 05/12/19 Citalopram [Celexa*] 1 tab PO DAILY 05/12/19 Cyclosporine [Restasis] 1 drop EACH EYE Q12H 05/12/19 Docusate [Colace Cap*] 1 tab PO BID 05/12/19 Enema, Fleet Adult [Fleet Enema Adult*] 1 appl DAILY PRN 05/12/19 Gabapentin 1 tab PO BEDTIME 05/12/19 Labetalol HCl [Trandate*] 1 tab PO TID 05/12/19 Lisinopril [Prinivil*] 1 tab PO Q12H 05/12/19 Loratadine [Claritin*] 1 tab PO DAILY 05/12/19 Memantine HCl 2 tab PO BID 05/12/19 Pantoprazole [Protonix Tab*] 1 tab PO DAILY 05/12/19 Polyethyl Gly 3350 [Glycolax*] 17 gm PO DAILY PRN 05/12/19 Potassium Chloride 30 ml PO DAILY 05/12/19 Sennosides 2 tab PO BID 05/12/19 Simethicone 1 tab PO Q8H PRN 05/12/19 - Past Medical/Surgical History Has patient received pneumonia vaccine in the past: Yes Diabetic: No -: htn -: CVA -: hysterectomy -: craniotomy - Family History Family History: Reviewed- Non-Contributory - Social History Smoking Status: Never smoker Alcohol use: Yes CD- Drugs: No Caffeine use: Yes Place of Residence: [facility] Review of Systems 10-point ROS is otherwise unremarkable Physical Examination - Vital Signs Temperature: 97.1 F Blood Pressure: 133/73 Pulse: 69 Respirations: 17 Pulse Ox (%): 98 - Physical Exam General: Alert, In no apparent distress HEENT: Atraumatic, PERRLA, Mucous membr. moist/pink, EOMI, Sclerae nonicteric Neck: Supple, 2+ carotid pulse no bruit, No LAD, Without JVD or thyroid abnormality Respiratory: Clear to auscultation bilaterally, Normal air movement Cardiovascular: Regular rate/rhythm, Normal S1 S2 Gastrointestinal: Normal bowel sounds, No tenderness Musculoskeletal: No tenderness Integumentary: No rashes Neurological: Normal gait, Normal speech, Normal strength at 5/5 x4 extr, Normal tone, Normal affect Lymphatics: No axilla or inguinal lymphadenopathy - Studies Laboratory Data (last 24 hrs) 05/11/19 12:05: PT 11.4, INR 0.96 05/11/19 12:05: WBC 4.5 D, Hgb 12.3, Hct 36.5, Plt Count 281 05/11/19 12:05: Sodium 139, Potassium 4.0, BUN 10, Creatinine 0.71, Glucose 100 - Diagnosis (Problem(s)) (1) Chest pain Current Visit: No Status: Acute Plan: Chest pain ACS rule out. HAART score of 5 -initial troponin x1 negative in the ER along with EKG with nonspecific changes -echocardiogram with no acute changes -cardiology consulted recommendations appreciated at this time -no further workup required to rule out ACS -will discharge patient back to [facility] Qualifiers: Chest pain type: unspecified (2) CVA (cerebral vascular accident) Current Visit: Yes Status: Chronic Qualifiers: CVA mechanism: unspecified Qualified Code(s): I63.9 - Cerebral infarction, unspecified (3) HTN (hypertension) Current Visit: No Status: Chronic Qualifiers: Hypertension type: essential hypertension (4) MVP (mitral valve prolapse) Current Visit: No Status: Chronic Treatment Summary: Discharge patient back to [facility] at this time. - Disposition Disposition: TRANSFER TO [facility] Condition: GOOD Diet: Regular Activity: Ad marleni
[2019-05-12 13:32] VITALS: O2SAT 98
[2019-05-12 14:05] VITALS: BP 152/72; TEMP 98
--- NOTE | 2019-05-13 08:01 | ECHO ---
HEIGHT: 5 ft 0 in WEIGHT: 102 lb 9.6 oz DATE OF STUDY: 05/11/[address]: Gay Root MD 2-DIMENSIONAL: YES M.MODE: YES DOPPLER: YES COLOR FLOW: YES TDS: NO PORTABLE: YES DEFINITY: NO BUBBLE STUDY: NO DIAGNOSIS: CHEST PAIN CARDIAC HISTORY: CATHERIZATION: NO SURGERY: NO PROSTHETIC VALVE: NO PACEMAKER: NO MEASUREMENTS (cm) DIASTOLIC (NORMALS) SYSTOLIC (NORMALS) IVSd 0.8 (0.6-1.2) LA Diam 2.8 (1.9-4.0) LVEF 71% LVIDd 4.5 (3.5-5.7) LVIDs 2.7 (2.0-3.5) %FS 41% LVPWd 1.1 (0.6-1.2) Ao Diam 2.9 (2.0-3.7) 2 DIMENSIONAL ASSESSMENT: RIGHT ATRIUM: NORMAL LEFT ATRIUM: NORMAL RIGHT VENTRICLE: NORMAL LEFT VENTRICLE: NORMAL TRICUSPID VALVE: NORMAL MITRAL VALVE: MITRAL VALVE PROLAPSE PULMONIC VALVE: NORMAL AORTIC VALVE: NORMAL PERICARDIAL EFFUSION: NONE AORTIC ROOT: NORMAL LEFT VENTRICULAR WALL MOTION: NORMAL. DOPPLER/COLOR FLOW: MILD MITRAL, TRICUSPID AND AORTIC REGURGITATION. COMMENTS: MILD MITRAL, TRICUSPID AND AORTIC REGURGITATION. NORMAL LEFT VENTRICULAR SIZE AND FUNCTION. MITRAL VALVE PROLAPSE. NO WALL MOTION ABNORMALITY. TECHNOLOGIST: LEONIDAS FERREIRA
--- NOTE | 2019-05-13 12:03 | CON ---
Date of Consultation: 05/12/[address] Root's service on 05/11/2019 for chest pain. I saw the patient on 05/12/2019. History Of Present Illness: The patient is a 63-year-old white woman. She has a history of CVA in t he past, mitral valve prolapse, mitral regurgitation, gastroesophageal reflux disease, and hypertensi on. She came in with atypical chest pain, sharp, stabbing. No nausea or vomiting, diaphoresis. She denied PND, orthopnea, pedal edema, palpitations, or syncope. She has already ruled out for NE by t he time I saw her. Her EKG showed sinus rhythm with occasional PACs. Chest x-ray showed mild conges tive heart failure. She is diuresed and improved and is asymptomatic now. Echocardiogram shows normal ejection fraction with mitral valve prolapse and mild mitral regurgitatio n. Allergies: NONE. Review of Systems: Negative. Social History: Negative. Family History: Noncontributory. Medications: Include labetalol, gabapentin, Celexa, Protonix, BuSpar, Prinivil. Physical Examination: General: She was in no acute distress. Vital Signs: Stable. She was afebrile. HEENT: Negative. Neck: Supple without any bruit, lymphadenopathy, JVD, or thyromegaly. Chest: Her chest revealed some fine rales at both bases. Cardiac: Revealed a regular rhythm and rate without any murmurs, gallops, or rubs. Abdomen: Her abdomen was benign. Extremities: Revealed no clubbing, cyanosis, or edema. Diagnostic Data: As stated earlier. Impression And Plan: 1.Mild congestive heart failure, acute diastolic. 2.Mitral valve prolapse. 3.Mild mitral regurgitation. 4.Premature ventricular contractions. 5.History of cerebrovascular accident. 6.Hypertension. 7.Gastroesophageal reflux disease. I think Ms. Coe needs to continue her present regimen at home. She is already on an BRUCE inhi bitor. I would put her on a low dose Lasix. She can go home whenever it is okay with Dr. Root. I will make arrangements for her to have an outpatient stress test. SHANA/RAMU Voice ID: [id number] Report ID: [id number]
== END 2019-05-12 19:36 ==
LOC: ER 11:34 → ERHOLD 14:43 → 2ND 17:44
PROVIDERS: ADMIT Family Medicine; ATTEND Family Medicine
DX: R07.9 Chest pain, unspecified (principal); I11.0 Hypertensive heart disease with heart failure; I50.31 Acute diastolic (congestive) heart failure; K21.9 Gastro-esophageal reflux disease without esophagitis; I34.1 Nonrheumatic mitral (valve) prolapse; I49.3 Ventricular premature depolarization; Z86.73 Personal history of transient ischemic attack (TIA), and cerebral infarction without residual deficits
CPT/HCPCS: 93005; 93306; 87088; 85025 ×2; 87086; 80048; 36415; 85610; 82962 ×4; 87077; 87186; 84484 ×3; 80053; 83880; 71045; 99285; J1650 ×2; G0378 ×2; 81003; 81015

== ENCOUNTER 2019-12-22 11:17 | Emergency (ER) | payer OTHER ==
[2019-12-22 12:09] LABS: Absolute Lymphocytes (CBC) 0.5 K/uL (0.7-4.9); Basophils % 1.2 % (0-1.3); Hematocrit 39.6 % (36.0-45.0); Lymphocytes % 13.7 % (15.3-44.8); MPV 8.7 fL (7.6-11.3)
[2019-12-22 12:33] LABS: Albumin 3.8 g/dL (3.4-5.0); Bilirubin Direct 0.2 mg/dL (0-0.2); Bilirubin Total 0.5 mg/dL (0.2-1.0); Potassium 3.9 mmol/L (3.5-5.1); Protein, Total 7.4 g/dL (6.4-8.2)
--- NOTE | 2019-12-22 12:38 | RAD REPORT ---
EXAM DESCRIPTION: RAD - Abdomen Acute Series - 12/22/2019 12:17 pm CLINICAL HISTORY: Abd pain;Constipation COMPARISON: Chest Single View dated 05/11/2019; Chest Single View dated 12/28/2018; Chest Single View d ated 02/25/2017 FINDINGS: Lung volumes are normal. Patient has a baseline prominent interstitial pattern. Numerous s mall areas of airspace opacification have developed primarily in the upper lung garrett, worse in the left upper lobe. No large area of consolidation. Correlation is needed with any clinical presentation for pneumonia or possibly atypical mycoplasma pneumonia. Heart size and pulmonary vasculature are no rmal. No pleural effusion or pneumothorax. Heart size is upper normal and stable. Vasculature is raffy lar to comparison. Prominent right convex scoliotic curvature is noted. Bowel gas pattern is nonspecific. There is present filling but not dilating the colon. No abnormal st ool volume. No dilated small bowel loops. No free air or pneumatosis present. Stomach size is normal. No suspicious calcifications seen. Left convex scoliotic curvature in the lower lumbar degenerative change present. No other suspicious for significant findings. IMPRESSION: No abnormal stool volume. No obstruction, free air or other significant abdominal or pel wendy finding. Patient does have multiple small nodular opacities in the lung garrett primarily left upper lobe. Thes e are new from the May 2019 study. Correlation is needed with any pneumonia clinical findings. This could be an atypical mycoplasma pneu monia.
--- NOTE | 2019-12-22 13:28 | ER ---
Nurse's Notes [facility] Name: Mayi Coe Age: 64 yrs Sex: Female : 1955 Arrival Date: 12/22/2019 Time: 11:23 Bed 6 Private MD: Diagnosis: Pneumonia, unspecified organism;Weakness Presentation: 12/22 11:24 Presenting complaint: EMS states: Pt from home, called EMS for abdominal pain, ph reports that she has not had a BM for 2 days which is not normal for her, gave enemas this AM and she had 1 BM before EMS arrival, pt reports abdominal pain 5/10, denies N/V or fever. Transition of care: patient was not received from another setting of care. Onset of symptoms was December 22, 2019. Risk Assessment: Do you want to hurt yourself or someone else? Patient reports no desire to harm self or others. Initial Sepsis Screen: Does the patient meet any 2 criteria? No. Patient's initial sepsis screen is negative. Does the patient have a suspected source of infection? No. Patient's initial sepsis screen is negative. Care prior to arrival: IV initiated. 20 GA, in the left hand. 11:24 Method Of Arrival: EMS: [email or web address] ph 11:24 Acuity: CRISTINE 4 ph Historical: - Allergies: 11:28 No Known Allergies; ph - PMHx: 11:28 CVA; Heart Murmur; Hypertension; Crohn's; Diverticulitis; Seizures; Aphasia; ph - Immunization history:: Adult Immunizations unknown. - Coronavirus screen:: The patient has NOT traveled to [place] in the past 14 days. The patient has NOT had contact with known/suspected case of Coronavirus?. - Social history:: Smoking status: unknown. - Ebola Screening: : No symptoms or risks identified at this time. Screenin:32 Abuse screen: Denies threats or abuse. Denies injuries from another. Nutritional ph screening: No deficits noted. Tuberculosis screening: No symptoms or risk factors identified. Fall Risk None identified. Assessment: 11:26 General: Appears in no apparent distress. comfortable, slender, Behavior is calm, rb1 cooperative, Denies fever. Pain: Denies pain. Neuro: Level of Consciousness is awake, alert, obeys commands, Oriented to person, place, situation, Speech with expressive aphasia noted. Cardiovascular: Capillary refill < 3 seconds is brisk in bilateral fingers. Respiratory: Airway is patent Respiratory effort is even, unlabored, Respiratory pattern is regular, symmetrical. GI: Bowel sounds present X 4 quads. Abd is soft Abd is non tender X 4 quads Parent/caregiver reports the patient having constipation, reports that he administered 2 Fleet enemas this morning at 0945 and had results a few minutes later. reports a large bowel movement with loose stool and some formed stool. : No signs and/or symptoms were reported regarding the genitourinary system. Derm: Skin is pink, warm \T\ dry. 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 11:26 General: reports that the pt. complained of lower left abdominal pain this rb1 morning. Pt. denies pain at this time. 12:25 Reassessment: Patient appears in no apparent distress at this time. Patient and/or rb1 family updated on plan of care and expected duration. Pain level reassessed. Patient is alert, oriented x 3, equal unlabored respirations, skin warm/dry/pink. 13:35 Reassessment: Patient appears in no apparent distress at this time. No changes from rb1 previously documented assessment. at the bedside. Vital Signs: 11:29 BP 174 / 94; Pulse 59; Resp 18; Temp 98.3; Pulse Ox 99% on R/A; ph 12:29 BP 180 / 86; Pulse 57; Resp 17; Pulse Ox 98% on R/A; rb1 13:25 BP 182 / 83; Pulse 60; Resp 19; Pulse Ox 99% on R/A; rb1 ED Course: 11:23 Patient arrived in ED. ph 11:24 Sukhwinder Carreno MD is Attending Physician. kdr 11:26 Maintain EMS IV. Dressing intact. Good blood return noted. Site clean \T\ dry. Gauge \T\ rb 1 site: 18 G left wrist. 11:27 Triage completed. ph 11:29 Arm band placed on Patient placed in an exam room, on a stretcher. ph 11:32 Patient has correct armband on for positive identification. Bed in low position. Call ph light in reach. Side rails up X 1. Pulse ox on. NIBP on. Door closed. Noise minimized. Warm blanket given. 11:41 Jacey Castro, RN is Primary Nurse. rb1 12:00 Initial lab(s) drawn, by wa, sent to lab. 3 14:11 No provider procedures requiring assistance completed. IV discontinued, intact, rb1 bleeding controlled, No redness/swelling at site. Pressure dressing applied. Administered Medications: 13:50 Drug: Doxycycline 100 mg Route: PO; rb1 14:12 Follow up: Response: No adverse reaction rb1 Outcome: 13:27 Discharge ordered by . [facility] 14:11 Discharged to home via wheelchair, with family. rb1 14:11 Condition: stable 14:11 Discharge instructions given to family, Instructed on discharge instructions, follow up and referral plans. medication usage, Demonstrated understanding of instructions, follow-up care, medications, Prescriptions given X 1. 14:12 Patient left the ED. rb1 Signatures: Sukhwinder Carreno MD MD [facility] Malu Faria RN RN Jacey Castro, BELKIS RN [facility] Natalia Tobar 3
--- NOTE | 2019-12-22 13:29 | EDPHYS ---
Physician Documentation [facility] Name: Mayi Coe Age: 64 yrs Sex: Female : 1955 Arrival Date: 12/22/2019 Time: 11:23 Bed 6 Private MD: ED Physician Sukhwinder Carreno HPI: 12/22 14:23 This 64 yrs old Female presents to ER via EMS with complaints of Constipation.kdr 14:23 The patient presents with abdominal pain Possible obstruction. Onset: The kdr symptoms/episode began/occurred today. The symptoms do not radiate. Associated signs and symptoms: Pertinent positives: constipation, nausea, Pertinent negatives: anorexia, blood in stools, chest pain, diarrhea, dysuria, fever, headache, hematuria, nausea, palpitations, shortness of breath, vaginal discharge, vomiting. The symptoms are described as achy, dull, intermittent, vague. Modifying factors: The symptoms are alleviated by nothing, the symptoms are aggravated by nothing. Severity of pain: At its worst the pain was mild in the emergency department the pain has resolved. The patient has experienced similar episodes in the past, a few times. The patient has not recently seen a physician. Historical: - Allergies: 11:28 No Known Allergies; ph - PMHx: 11:28 CVA; Heart Murmur; Hypertension; Crohn's; Diverticulitis; Seizures; Aphasia; ph - Immunization history:: Adult Immunizations unknown. - Coronavirus screen:: The patient has NOT traveled to [place] in the past 14 days. The patient has NOT had contact with known/suspected case of Coronavirus?. - Social history:: Smoking status: unknown. - Ebola Screening: : No symptoms or risks identified at this time. ROS: 14:23 Constitutional: Negative for fever, chills, and weight loss, Eyes: Negative for injury, kdr pain, redness, and discharge, ENT: Negative for injury, pain, and discharge, Neck: Negative for injury, pain, and swelling, Cardiovascular: Negative for chest pain, palpitations, and edema, Respiratory: Negative for shortness of breath, cough, wheezing, and pleuritic chest pain, Back: Negative for injury and pain, : Negative for injury, bleeding, discharge, and swelling, MS/Extremity: Negative for injury and deformity, Skin: Negative for injury, rash, and discoloration, Neuro: Negative for headache, numbness, tingling, and seizure activity - she is weak on the right from a prior stroke and these findings are currently unchanged Psych: Negative for depression, anxiety, suicide ideation, homicidal ideation, and hallucinations, Allergy/Immunology: Negative for hives, rash, and allergies, Endocrine: Negative for neck swelling, polydipsia, polyuria, polyphagia, and marked weight changes, Hematologic/Lymphatic: Negative for swollen nodes, abnormal bleeding, and unusual bruising. 14:23 Abdomen/GI: Positive for abdominal pain, constipation, Negative for nausea, vomiting, and diarrhea. Exam: 14:23 Constitutional: This is a well developed, well nourished patient who is awake, alert, kdr and in no acute distress. Head/Face: Normocephalic, atraumatic. Eyes: Pupils equal round and reactive to light, extra-ocular motions intact. Lids and lashes normal. Conjunctiva and sclera are non-icteric and not injected. Cornea within normal limits. Periorbital areas with no swelling, redness, or edema. Neck: Trachea midline, no thyromegaly or masses palpated, and no cervical lymphadenopathy. Supple, full range of motion without nuchal rigidity, or vertebral point tenderness. No Meningismus. Chest/axilla: Normal chest wall appearance and motion. Nontender with no deformity. No lesions are appreciated. Cardiovascular: Regular rate and rhythm with a normal S1 and S2. No gallops, murmurs, or rubs. Normal PMI, no JVD. No pulse deficits. Respiratory: Lungs have equal breath sounds bilaterally, clear to auscultation and percussion. No rales, rhonchi or wheezes noted. No increased work of breathing, no retractions or nasal flaring. Abdomen/GI: Soft, non-tender, with normal bowel sounds. No distension or tympany. No guarding or rebound. No evidence of tenderness throughout. Back: No spinal tenderness. No costovertebral tenderness. Full range of motion. Skin: Warm, dry with normal turgor. Normal color with no rashes, no lesions, and no evidence of cellulitis. MS/ Extremity: Pulses equal, no cyanosis. Neurovascular intact. Full, normal range of motion. Psych: Awake, alert, with orientation to person, place and time. Behavior, mood, and affect are within normal limits. 14:23 Abdomen/GI: Rectal exam: is unremarkable, rectal tone normal, Stool: Vital Signs: 11:29 BP 174 / 94; Pulse 59; Resp 18; Temp 98.3; Pulse Ox 99% on R/A; ph 12:29 BP 180 / 86; Pulse 57; Resp 17; Pulse Ox 98% on R/A; rb1 13:25 BP 182 / 83; Pulse 60; Resp 19; Pulse Ox 99% on R/A; rb1 MDM: 13:27 Patient medically screened. kdr 14:23 Data reviewed: vital signs, nurses notes, lab test result(s), radiologic studies. kdr Counseling: I had a detailed discussion with the patient and/or guardian regarding: the historical points, exam findings, and any diagnostic results supporting the discharge/admit diagnosis, lab results, radiology results, the need for outpatient follow up. 12/22 11:43 Order name: Basic Metabolic Panel [facility] 12/22 11:43 Order name: CBC with Diff [facility] 12/22 11:43 Order name: Creatinine for Radiology [facility] 12/22 11:43 Order name: Hepatic Function [facility] 12/22 11:43 Order name: Lipase [facility] 12/22 12:10 Order name: CBC with Automated Diff; Complete Time: 12:38 EDPR 12/22 11:43 Order name: IV Saline Lock; Complete Time: 11:53 [facility] 12/22 11:43 Order name: Abdomen Acute Series XRAY [facility] 12/22 12:33 Order name: Creatinine (Radiology Only); Complete Time: 12:38 EDPR 12/22 12:37 Order name: Basic Metabolic Panel; Complete Time: 12:38 EDPR 12/22 12:37 Order name: Liver (Hepatic) Function; Complete Time: 12:38 EDPR 12/22 12:37 Order name: Lipase; Complete Time: 12:38 EDPR 12/22 12:47 Order name: RAD; Complete Time: 13:18 EDPR 12/22 11:43 Order name: Labs collected and sent; Complete Time: 12:04 kdr Administered Medications: 13:50 Drug: Doxycycline 100 mg Route: PO; rb1 14:12 Follow up: Response: No adverse reaction rb1 Disposition: 12/22/19 13:27 Discharged to Home. Impression: Pneumonia, unspecified organism, Weakness. - Condition is Stable. - Discharge Instructions: Community-Acquired Pneumonia, Adult, [id number], Weakness, [id number]. - Prescriptions for Doxycycline Hyclate 100 mg Oral Tablet - take 1 tablet by ORAL route every 12 hours for 7 days; 14 tablet. - Medication Reconciliation Form, Thank You Letter, Antibiotic Education form. - Follow up: Private Physician; When: 2 - 3 days; Reason: If symptoms return, Further diagnostic work-up, Recheck today's complaints, Continuance of care, Re-evaluation by your physician. - Problem is new. - Symptoms have improved. - Notes: Your chest X-ray indicated that you may have mycoplasma pneumonia. Please follow-up with your dotors at your earliest convenience Signatures: Dispatcher [employer] EDMS Sukhwinder Carreno MD MD kdr Malu Faria RN RN ph Jacey Castro, RN RN rb1 Corrections: (The following items were deleted from the chart) 13:27 13:27 12/22/2019 13:27 Discharged to Home. Impression: Pneumonia, unspecified organism. kdr Condition is Stable. Forms are Medication Reconciliation Form, Thank You Letter, Antibiotic Education, Prescription Opioid Use. Follow up: Private Physician; When: 2 - 3 days; Reason: If symptoms return, Further diagnostic work-up, Recheck today's complaints, Continuance of care, Re-evaluation by your physician. Problem is new. Symptoms have improved. kdr 14:12 13:27 12/22/2019 13:27 Discharged to Home. Impression: Pneumonia, unspecified organism; rb1 Weakness. Condition is Stable. Forms are Medication Reconciliation Form, Thank You Letter, Antibiotic Education, Prescription Opioid Use. Follow up: Private Physician; When: 2 - 3 days; Reason: If symptoms return, Further diagnostic work-up, Recheck today's complaints, Continuance of care, Re-evaluation by your physician. Problem is new. Symptoms have improved. kdr
[2019-12-22] MEDS ORDERED: DOXYCYCLINE 100 MG CAP PO ONE (13:48)
[2019-12-23 08:37] VITALS: TEMP 98.3
[2019-12-23 08:39] VITALS: BP 182/83; O2SAT 99
== END 2019-12-22 14:12 | disposition home or self-care (01) ==
LOC: ER 11:17
DX: J18.9 Pneumonia, unspecified organism (principal); I10 Essential (primary) hypertension
CPT/HCPCS: 36415; 74022; 80048; 80076; 83690; 85025; 99284

== ENCOUNTER 2020-05-02 22:02 | Emergency (ER) | payer OTHER ==
--- OUTSIDE RECORDS SUMMARY | 2020-05-02 22:13 | XMS REPORT | Continuity of Care Document ---
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 Neuro, Staphylococcus [place] aureus (organism) [facility], Carlos Alberto Johnson [facility] IPH Active 12/28/[address] ICH Active 12/28/[address] NONTRAUMATIC Active 12/28/19 [facility] INTRACEREBRAL 19 HEMORRHAGE IN BI/SAH Active 12/28/19 [facility] Traumatic subdural 02/13/2019 [facility] hemorrhage without loss of consciousness, initial encounter Epilepsy, 09/07/2019 unspecified, not [place] intractable, without status epilepticus Cerebrovascular Active Problem 09/07/201912/28-right [facility], [place] accident (disorder) [facility], Elizabeth 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) Queenie ro,[facility], Carlos Alberto Johnson [facility] 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) Neuro,[facility], Carlos Alberto Johnson [facility] Dysphagia Active Problem 09/07/2019 Mischer (disorder) Neuro,[facility], Carlos Alberto Johnson [facility] Global aphasia Active Problem 09/07/2019 Misc her (finding) Neuro,[facility], Carlos Alberto Johnson [facility] 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/07/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, systemic N euro, arterial (disorder) [facility],Carlos Alberto Medel [facility] Intracerebral Active Problem 09/07/2019 Misch er hemorrhage, Neuro,MH intraventricular [place] as (disorder) [facility],Carlos Alberto Medel [facility] Subcortical Active Problem 09/07/2019 Mischer hemorrhage Neuro,MH (disorder) [facility],[place] Johnson,Carlos Alberto H [facility] 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, 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 Medical (disorder) Center,[place] Johnson,Carlos Alberto H [facility] NONTRAUMATIC [place] INTRACEREBRAL Medica [place] HEMORRHAGE, U Center TRAUM SUBDR HEM W/O Active [facility] LOSS OF CONSCIOUSNES OTHER MUSCLE SPASM Active H [facility] EPILEPSY, UNSP, NOT Active [facility] INTRACTABLE, Sophia WITHOUT UNSPECIFIED Active [facility] CONVULSIONS Sophia ENCNTR FOR GENERAL Active emorial ADULT MEDICAL EXAM H ermann W/ DVRTCLOS OF LG INT Active [facility]orial W/O PERFORATION OR H ermann AB Medications Medication Details Route Status Patient Ordering Order Source Instructions Provider Date Levetiracetam 500 1,000 mg = 2 Active H MG Oral Tablet tab, PO, Q12H, 2018 Hai tovar [Keppra] # 360 tab, 2 Refill(s), Pharmacy: [facility]/pharmacy #[id number] Levetiracetam 500 Notes: (Same No Longer MG Oral Tablet as:Keppra) Active 2018 Livan nd [Keppra] Keppra Notes: Same as: Inactive Keppra 2019 Gray Levetiracetam 500 Notes: (Same No Longer MG Oral Tablet as:Keppra) Active 2018 Livan nd [Keppra] Buspirone Notes: (Same No Longer As: BuSpar) Active 2019 [place] Citalopram 10 mg, 1 tab, No Longer Route: PO, Drug Active 2019 [place] form: TAB, Daily, Dosing Weight 52.273, kg, Start date: 09/03/19 9:00:00 CDT, Duration: 30 day, Stop date: 10/02/19 9:00:00 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 (Same Active 2018 [place] as:Trandate, Normodyne) Memantine Notes: (Same No Longer As: Namenda) Active 2019 [place] Potassium Chloride Notes: (Same No Longer 1.33 MEQ/ML Oral as: Potassium Active 2018 [place] Solution Chloride) sennosides, [facility] Notes: (Same No Longer H 8.6 MG Oral Tablet as: Senokot) Active 2018 [place] Miralax Notes: Dissolve No Longer in 8 oz of Active 2018 [place] water or juice. (Same as: Miralax) pantoprazole Notes: Tablet No Longer should not be Active 2018 [place] chewed or crushed. (Same as: Protonix) gabapentin 300 MG Notes: (Same No Longer Oral Capsule as: Neurontin) Active 2018 [facility] Lisinopril Notes: (Same No Longer as: Prinivil, Active 2018 [place] Zestril) Simethicone Notes: (Same No Longer as: Mylicon) Active 2019 [place] Docusate Sodium Notes: (Same No Longer H 100 MG Oral as: Colace) (Do Active 2018 [facility] Capsule Not Crush) Cyclosporine 0.5 1 drp, BOTH No Longer H MG/ML Ophthalmic EYES, BID, # 30 Active 2019 [place] Suspension mL, 0 Refill(s) [Restasis] POLYETHYLENE 17 gm, PO, Active GLYCOL 3350 142 Daily, # 255 2019 [place] MG/ML Oral gm, 0 Refill(s) Solution [Glycolax] duloxetine 30 MG 30 mg = 1 cap, Active Enteric Coated PO, Daily, # 30 2019 [place] Capsule [Cymbalta] cap, 0 Refill(s) Lorazepam Notes: (Same No Longer as: Ativan) Active 2019 [place] Sodium Chloride 1,000 mL, Rate: No Longer 0.9% IV 1,000 mL 125 ml/hr, Active 2019 [facility] Infuse over: 8 hr, Route: IV, Dosing Weight 48.636 kg, Total Volume: 1,000, Start date: 09/02/19 14:00:00 CDT, Duration: 30 day, Stop date: 10/02/19 13:59:00 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, 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, m2, 0 Saline Flush 0.9% Notes: Same as: No Longer 08/10 BD Posiflush Active 2019 [place] Sterile Levetiracetam 1,000 mg, 100 Inactive mL, Route: IV, 2019 Gray Drug form: INJ, ONCE, Dosing Weight 48.636, kg, Priority: STAT, Start date: 09/02/19 13:47:00 CDT, Stop date: 09/02/19 13:47:00 CDT, 0 Levetiracetam 500 500 mg = 1 tab, Active [place] MG Oral Tablet PO, BID, # 60 2019 Med ical [Keppra] tab, 0 Center Refill(s) Docusate Sodium 100 mg = 1 cap, Active [place] 100 MG Oral PO, Daily, PRN 2019 Medic al Capsule Constipation, # Center 20 cap, 0 Refill(s) tramadol 50 mg = 1 tab, Active [place] hydrochloride 50 PO, Q4H, PRN 2019 Me dical MG Oral Tablet Pain, X 10 day, C enter # 60 tab, 0 Refill(s) heparin sodium, Notes: porcine No Longer [place] porcine 2500 heparin Active 2019 Medical UNT/ML Injectable Center Solution Rocephin 1 gm, Route: No Longer [place] IVPB, Drug Active 2019 Medical form: PDR/INJ, Center [id number], Dosing Weight 48.636, kg, Start date: 07/21/19 9:00:00 CDT, Duration: 1 day, Stop date: 07/21/19 9:00:00 CDT, ABX Indication: Surgical Prophylaxis Vancomycin 2001 mg: Inactive [place] infuse over 2.5 2019 Medical hours Center gabapentin 50 Notes: (Same No Longer [place] MG/ML Oral as: Neurontin) Active 2019 Medica l Solution Center remove patch Notes: Remove No Longer [place] patch 12 hours Active 2018 Medical after Center application each day. Rocephin Notes: (Same No Longer [place] As: Rocephin). Active 2018 Medical MEDICATION Center WASTE Product Size: 2000 mg Product Wasted: ___ mg Hydralazine Notes: (Same Inactive [place] as as: Apresoline) 2019 Medical Push over 5 Center minutes ondansetron (ANES) Route: IV, Drug Inactive 07/10 [place] form: INJ, 2018 Medical ONCE, Stop Center date: 07/20/19 12:54:00 CDT Isolyte S PH 7.4 Route: IV, Inactive [place] (ANES) 1000 mL Total Volume: 2018 Med ical 1,000, Start Center date: 07/20/19 10:49:00 CDT, Stop date: 07/20/19 11:49:00 CDT glycopyrrolate Route: IV, Drug Inactive [place] (ANES) form: INJ, 2018 Medical ONCE, Stop Center date: 07/20/19 10:06:00 CDT lidocaine (ANES) Route: IV, Drug Inactive [place] form: INJ, 2018 Medical ONCE, Stop Center date: 07/20/19 10:01:00 CDT propofol (ANES) Route: IV, Drug Inactive [place] form: INJ, 2018 Medical ONCE, Stop Center date: 07/20/19 10:01:00 CDT rocuronium (ANES) Route: IV, Drug Inactive 07/20 [place] form: INJ, 2018 Medical ONCE, Stop Center date: 07/20/19 10:01:00 CDT fentaNYL (ANES) Route: IV, Drug Inactive [place] form: INJ, 2018 Medical ONCE, Stop Center date: 07/20/19 10:01:00 CDT dexamethasone Route: IV, Drug Inactive H [place] (ANES) form: INJ, 2018 Medical ONCE, Stop Center date: 07/20/19 10:01:00 CDT phenylephrine Route: IV, Drug Inactive H [place] (ANES) form: INJ, 2018 Medical ONCE, Stop Center date: 07/20/19 10:01:00 CDT ePHEDrine (ANES) Route: IV, Drug Inactive [place] form: INJ, 2019 Medical ONCE, Stop Center date: 07/20/19 10:01:00 CDT cefTRIAXone (ANES) Route: IV, Drug Inactive 07/10 [place] form: INJ, 2018 Medical ONCE, Stop Center date: 07/20/19 10:01:00 CDT busPIRone 5 mg 5 mg = 1 tab, Active [place] oral tablet PO, BID, 0 2018 Medical Refill(s) Center Sodium Chloride Route: IV, Drug Inactive [place] 0.9% IV (ANES) 90 form: INJ, 2018 Med ical mL + levETIRAcetam Start date: C enter (ANES) 1000 mg 07/20/19 9:44:00 CDT, Stop date: 07/20/19 10:44:00 CDT memantine 10 mg 10 mg = 1 tab, Active H [place] oral tablet PO, BID, # 60 2019 Medica l tab, 0 Center Refill(s) Cyclosporine 0.5 1 drp, BOTH Active [place] MG/ML Ophthalmic EYES, BID, # 30 2019 Medical Suspension mL, 0 Refill(s) Cente r [Restasis] Potassium Chloride 40 mEq = 30 mL, Active 07/20 [place] 1.33 MEQ/ML Oral PO, Daily, 0 2019 Me dical Solution Refill(s) Center citalopram 10 mg 10 mg = 1 tab, Active [place] oral tablet PO, Daily, 0 2019 Medical Refill(s) Center gabapentin 300 MG 300 mg = 1 cap, Active [place] Oral Capsule PO, Bedtime, 0 2019 Medi zak Refill(s) Center famotidine (ANES) Route: IV, Drug Inactive 07/20 [place] form: INJ, 2018 Medical ONCE, Stop Center date: 07/20/19 9:31:00 CDT Sodium Chloride Route: IV, Drug Inactive [place] 0.9% IV (ANES) 235 form: INJ, 2018 Me dical mL + vancomycin Start date: Cent er (ANES) 1500 mg 07/20/19 9:24:00 CDT, Stop date: 07/20/19 10:24:00 CDT propofol (ANES) 10 Route: IV, Drug Inactive 07/10 [place] mg form: INJ, 2018 Medical Start date: Center 07/20/19 9:15:00 CDT, Stop date: 07/20/19 10:15:00 CDT remifentanil Route: IV, Drug Inactive [place] (ANES) 1 mg form: INJ, 2018 Medical Start date: Center 07/20/19 9:15:00 CDT, Stop date: 07/20/19 10:15:00 CDT Sodium Chloride Route: IV, Inactive [place] 0.9% IV (ANES) 500 Total Volume: 2019 Medical mL 500, Start Center date: 07/20/19 9:15:00 CDT, Stop date: 07/20/19 10:15:00 CDT Levetiracetam Notes: Same as No Longer [place] Keppra Mix Active 2019 Medical with 100 mL NS, Center LR or D5W MEDICATION WASTE Product Size: 500 mg Product Wasted: ___ mg Vancomycin 1,000 mg, Inactive [place] Route: IVPB, 2018 Medical Drug form: INJ, Center Q12H, Dosing Weight 48.636, kg, TIME CRITICAL MEDICATION, Start date: 07/20/19 9:00:00 CDT, Duration: 1 doses or times, Stop date: 07/20/19 9:00:00 CDT, ABX Indication: Surgical Prophylaxis Docusate Notes: (Same No Longer [place] as: Colace) (Do Active 2019 Medical Not Crush) Center sennosides, [facility] Notes: (Same No Longer [place] as: Senokot) Active 2019 Medical Center Lidocaine 0.05 Notes: Apply No Longer [place] MG/MG Transdermal only once for Active 2019 Medical Patch up to 12 hours Center in a 24-hour period (12 hours on and 12 hours off). (Same as: Lidoderm) "Remove old patch before application of new patch" Saline Flush 0.9% Notes: (Same No Longer [place] as: BD Active 2019 Medical Posiflush) Center Citalopram Notes: (Same No Longer [place]an as As: CeleXA) Active 2019 Medical Center Labetalol Notes: With No Longer [place] food. (Same Active 2019 Medical as:Trandate, Center Normodyne) Lisinopril Notes: (Same No Longer [place] as as: Prinivil, Active 2019 [facility] Zestril) Center Memantine Notes: (Same No Longer [place] As: Namenda) Active 2019 Medical Center pantoprazole Notes: Tablet No Longer [place] should not be Active 2019 Medical chewed or Center crushed. (Same as: Protonix) Miralax Notes: Dissolve No Longer [place] as in 8 oz of Active 2019 Medical water or juice. Center (Same as: Miralax) Buspirone Notes: (Same No Longer [place] As: BuSpar) Active 2019 Medical Center Lactated Ringers Route: IV, Inactive [place] Injection IV Total Volume: 2019 Medic al (ANES) 1000 mL 1,000, Start Cent er date: 07/20/19 8:49:00 CDT, Stop date: 07/20/19 9:49:00 CDT Simethicone Notes: (Same No Longer [place] as: Mylicon) Active 2019 Medical Center Acetaminophen Notes: Do not No Longer [place] exceed 4 Active 2019 Medical gm/day. (Same Center as: Tylenol) Bisacodyl Notes: (Same No Longer [place] As: Dulcolax, Active 2019 [facility] Bisco-Lax) Center Ondansetron Notes: (Same No Longer [place] as: Zofran) Active 2019 Medical MEDICATION Center WASTE Product Size: 4 mg Product Wasted: ___ mg Hydralazine Notes: (Same No Longer [place] as: Apresoline) Active 2019 Medical Push over 5 Center minutes Labetalol 10 mg, 2 mL, No Longer [place] Route: IVP, Active 2019 Medical Drug form: INJ, Center Q15Min, Dosing Weight 48.636, kg, PRN Hypertension, Start date: 07/20/19 8:21:00 CDT, Duration: 3 doses or times, Stop date: Limited # of times, 0 phenol Notes: No Longer [place] Chloraseptic Active 2019 Medical [place] (Same as: [place] Chloraseptic, Sore Throat [place]) WASTE: F/P - Black; E - Municipal Trash Bin Dilaudid Notes: Same as No Longer [place] as Dilaudid Active 2018 [facility] Tramadol Notes: Not to [place] Longer [place] exceed Active 2019 Medical 400mg/day. Center (Same As: Ultra) Reglan Notes: (Same No Longer [place] as: Reglan) Active 2019 [facility] Center Saline Flush 0.9% Notes: (Same No Longer [place] as: BD Active 2018 [facility] Posiflush) [place] Dextrose 50% 25 gm, 50 mL, No Longer [place] Syringe Route: IVP, Active 2018 Medical Drug Form: INJ, [place] Dosing Weight 48.636, kg, PRN, PRN Abnormal Lab Result, Start date: 07/20/19 8:21:00 CDT, Duration: 30 day, Stop date: 08/19/19 8:20:00 CDT, 0 Regular Insulin, Notes: (Same No Longer [place] Human 100 UNT/ML as: Humulin R) Active 2018 Medical Injectable Roll in palms Center Solution of hands gently; Do not shake vigorously. WASTE: F/P - Black; E - Municipal Trash Bin Stable for 31 days at room temperature Expires in days from D ate ceFAZolin Notes: (Same as No Longer [place] Ancef) Active 2019 [facility] NS + KCL 20mEq/L Notes: PREMIX No Longer [place] 1000ml (Premix) IV - Do Not Active 2018 Medi zak 1,000 mL Alter WASTE: Center F/P - Sink; E - Municipal Trash Bin simethicone 80 mg 80 mg = 1 tab, Active [place] oral tablet PO, TID-After 2019 Medica l Meals, 0 Center Refill(s) potassium chloride 20 mEq = 10 mL, No Longer [place] 30 mEq/15 mL oral PO, Daily, # Active 2019 M edical liquid 900 ml, 0 Center Refill(s) Miralax 17 gm, PO, Active [place] Daily, 0 2018 Medical Refill(s) Center tramadol 50 mg = 1 tab, Active [facility] hydrochloride 50 PO, Q6H, PRN 2019 MG Oral Tablet Pain Score 6-10, X 7 day, # 50 tab, 0 Refill(s) Tramadol 50 mg, 1 tab, Inactive [facility] Route: PO, Drug 2019 form: TAB, ONCE, Dosing Weight 46.932, kg, Start date: 02/11/19 0:38:00 CDT, Stop date: 02/11/19 0:38:00 CDT Bethanechol Notes: Take on No Longer [facility] empty stomach. Active 2018 (Same As: Urecholine) Lisinopril Notes: (Same No Longer [facility] as: Prinivil, Active 2018 Zestril) lisinopril 10 mg 10 mg = 1 tab, Active [facility] oral tablet PO, Q12H, 0 2019 Refill(s) labetalol 100 mg 100 mg = 1 tab, Active [facility] oral tablet PEG, Q8H-06, 0 2018 Refill(s) heparin 5,000 unit = 1 Active [facility] mL, SUB-Q, 2019 Q8H-06, 0 Refill(s) citalopram 20 mg 10 mg = 0.5 Active [facility] oral tablet tab, PEG, 2019 Daily, 0 Refill(s) Acetaminophen 650 mg = 20.3 Active [facility] mL, PEG, Q6H, 2019 PRN Pain Score 4-6, 0 Refill(s) pantoprazole 40 mg 40 mg = 1 tab, Active [facility] oral enteric PO, BID, STOP 2019 coated tablet DATE 03/11/19, was for H. pylori treatment, 0 Refill(s) memantine 5 mg 10 mg = 2 tab, Active [facility] oral tablet PO, BID, 0 2019 Refill(s) gabapentin 50 300 mg, PEG, Active TI RR MG/ML Oral Bedtime, 0 2018 Solution Refill(s) sennosides, [facility] 25.8 mg = 3 Active T [facility] 8.6 MG Oral Tablet tab, PEG, 2019 QNoon, 0 Refill(s) Potassium Chloride 40 mEq, PEG, Active [facility] 1.33 MEQ/ML Oral Daily, 0 2018 Solution Refill(s) Docusate Sodium 283 mg = 1 ea, Active H [facility] 56.6 MG/ML Enema AK, Every Other 2019 [Enemeez] Day-5PM, 0 Refill(s) Docusate Sodium 100 mg = 1 cap, Active [facility] 100 MG Oral PO, TID, 0 2018 Capsule [Colace] Refill(s) Protonix Notes: Tablet No Longer [facility] should not be Active 2019 chewed or crushed. (Same as: Protonix) Bethanechol Notes: Take on No Longer [facility] empty stomach. Active 2019 (Same As: Urecholine) Memantine Notes: (Same No Longer [facility] As: Namenda) Active 2019 Lisinopril Notes: (Same No Longer [facility] as: Prinivil, Active 2019 Zestril) Docusate Sodium Notes: (Same No Longer H [facility] 100 MG Oral as: Colace) (Do Active 2019 Capsule [Colace] Not Crush) Docusate Sodium Notes: Same as Inactive [facility] 56.6 MG/ML Enema Enemeez Non 2019 [Enemeez] formulary item Bisacodyl Notes: (Same Inactive [facility] As: Dulcolax, 2019 Bisco-Lax) Miralax Notes: Dissolve No Longer [facility] in 8 oz of Active 2019 water or juice. (Same as: Miralax) Mupirocin 0.02 1 appl, Route: No Longer [facility] MG/MG Nasal NASAL, BID, Active 2018 Ointment Drug form: OINT, Start date: 02/04/19 21:00:00 CDT, Duration: 5 day, Stop date: 02/09/19 8:30:00 CDT Docusate Sodium Notes: (Same No Longer H [facility] 100 MG Oral as: Colace) (Do Active 2019 Capsule [Colace] Not Crush) potassium nitrate Notes: WASTE: No Longer [facility] 250 MG/ML / Silver F/P - Black; E Active 2018 Nitrate 750 MG/ML - Municipal Medicated Pad Trash Bin Marinol Notes: (Same No Longer [facility] as: Marinol) Active 2019 sennosides, [facility] Notes: (Same No Longer H [facility] as: Senokot) Active 2018 Saline Flush 0.9% Notes: (Same No Longer [facility] as: BD Active 2018 Posiflush) normal saline 0.9% 1,000 mL, Rate: No Longer [facility] IV 1,000 mL 100 ml/hr, Active 2019 Infuse over: 10 hr, Route: IV, Dosing Weight 46.932 kg, Total Volume: 1,000, Start date: 02/03/19 8:26:00 CDT, Duration: 2 day, Stop date: 02/05/19 8:25:00 CDT, 1.45, m2 Rocephin Notes: (Same No Longer [facility] As: Rocephin). Active 2018 Use with 100 mL NS and infuse over 30 min MEDICATION WASTE Product Size: 2000 mg Product Wasted: ___ mg Saline Flush 0.9% Notes: (Same No Longer [facility] as: BD Active 2019 Posiflush) Bethanechol Notes: Take on No Longer [facility] empty stomach. Active 2019 (Same As: Urecholine) Labetalol Notes: With No Longer [facility] food. (Same Active 2018 as:Trandate, Normodyne) Docusate Sodium Notes: Same as No Longer [facility] 56.6 MG/ML Enema Enemeez Non Active 2019 [Enemeez] formulary item Memantine Notes: (Same No Longer [facility] As: Namenda) Active 2019 Potassium Chloride Notes: (Same No Longer [facility] 1.33 MEQ/ML Oral as: K-Dur 20) Active 2019 Solution "Do Not Crush" Give with food and full glass of water For patients unable to swallow tablet, dissolve in one half glass of water. Allow about 2 minutes for the tablets to disintegrate. Stir before giving to prepare slurry and administer. Please exclude Patient’s with feeding tube less than 14 Swiss (Dobhoff, J-tube etc) and pediatric and patients. Mupirocin 0.02 1 appl, Route: No Longer [facility] MG/MG Nasal NASAL, BID, Active 2019 Ointment Drug form: OINT, Start date: 01/26/19 21:00:00 CDT, Duration: 5 day, Stop date: 01/31/19 8:30:00 CDT Docusate Sodium Notes: Same as No Longer [facility] 56.6 MG/ML Enema Enemeez Non Active 2019 [Enemeez] formulary item Potassium Chloride Notes: (Same No Longer [facility] 1.33 MEQ/ML Oral as: Potassium Active 2019 Solution Chloride) sennosides, [facility] Notes: (Same No Longer H [facility] as: Senokot) Active 2019 gabapentin 300 MG Notes: (Same No Longer [facility] Oral Capsule as: Neurontin) Active 2019 monofluorophosphat Notes: Same as: No Longer [facility] e Biotene with Active 2019 Calcium Fleet Enema 133 mL, Route: Inactive [facility] AK, Drug Form: 2019 ZAC, Dosing Weight 46.932, kg, ONCE, Start date: 01/23/19 12:40:00 CDT, Stop date: 01/23/19 12:40:00 CDT Potassium Chloride Notes: (Same No Longer [facility] 1.33 MEQ/ML Oral as: K-Dur 20) Active 2019 Solution "Do Not Crush" Give with food and full glass of water For patients unable to swallow tablet, dissolve in one half glass of water. Allow about 2 minutes for the tablets to disintegrate. Stir before giving to prepare slurry and administer. Please exclude Patient’s with feeding tube less than 14 Swiss (Dobhoff, J-tube etc) and pediatric and patients. Potassium Chloride Notes: (Same No Longer [facility] 1.33 MEQ/ML Oral as: Potassium Active 2018 Solution Chloride) pneumococcal Notes: Shake No Longer [facility] 13-valent vaccine well prior to 2018 use (Same as: Prevnar 13) Nystatin Notes: (Same No Longer [facility] as:Mycostatin) Active 2018 Shake well. Tylenol 650 mg, Route: Inactive [facility] PEG, Drug form: 2019 LIQ, Q6H, Dosing Weight 46.932, kg, PRN Pain Score 6-10, Start date: 01/20/19 12:07:00 CDT, Duration: 30 day, Stop date: 02/19/19 12:06:00 CDT Potassium Chloride Notes: (Same No Longer [facility] 1.33 MEQ/ML Oral as: K-Dur 20) Active 2018 Solution "Do Not Crush" Give with food and full glass of water For patients unable to swallow tablet, dissolve in one half glass of water. Allow about 2 minutes for the tablets to disintegrate. Stir before giving to prepare slurry and administer. Please exclude Patient’s with feeding tube less than 14 Swiss (Dobhoff, J-tube etc) and pediatric and patients. Lisinopril Notes: (Same No Longer [facility] as: Prinivil, Active 2018 Zestril) Citalopram Notes: (Same No Longer [facility] As: CeleXA) Active 2018 Amlodipine Notes: (Same No Longer [facility] as: Norvasc) Active 2019 Labetalol Notes: With No Longer [facility] food. (Same Active 2018 as:Trandate, Normodyne) heparin Notes: porcine No Longer [facility] heparin Active 2018 Streptococcus 0.5 mL, Route: No Longer 01/20/ H [facility] pneumoniae IM, ONCALL, Active 2019 serotype 1 Start date: capsular antigen 01/19/19 diphtheria [id number] 21:39:24 CDT, protein conjugate Stop date: vaccine / 02/18/19 Streptococcus 21:34:24 CDT pneumoniae serotype 14 capsular antigen diphtheria [id number] protein conjugate vaccine / Streptococcus pneumoniae serotype 18C capsular antigen d lansoprazole Notes: Take 1 No Longer [facility] hour before or Active 2019 2 hours after meal; Expires in 14 days. Shake well before use. (Same as:Prevacid) Compounded Product - formulation not commercially available guar gum oral Notes: (Same No Longer [facility] powder as: Nutrisource Active 2019 (NutriSource) Fiber) Dissolve packet in at least 4 oz (120 mL) of water and stir until completely dissolved before administering down the feeding tube. Clarithromycin Notes: (Same No Longer [facility] As: Biaxin) Active 2019 Amoxicillin Notes: (Same No Longer TI RR as: Amoxil) Active 2019 Levetiracetam Notes: Same as No Longer H [facility] Keppra Mix Active 2019 with 100 mL NS, LR or D5W MEDICATION WASTE Product Size: 500 mg Product Wasted: ___ mg Midazolam Notes: (Same No Longer [facility] as:Versed) Active 2019 Saline Flush 0.9% Notes: (Same No Longer [facility] as: BD Active 2018 Posiflush) Tramadol Notes: Not to No Longer [facility] exceed Active 2019 400mg/day. (Same As: Ultram) Acetaminophen Notes: Max No Longer TI RR acetaminophen = Active 2019 4000mg/day (4 gm/day). (Same as: Tylenol) Acetaminophen 650 mg, PEG, No Longer [facility] Q6H, 0 Active 2018 Refill(s) Tramadol 50 mg, PEG, No Longer [facility] Q6H, PRN Pain, Active 2019 # 20 tab, 0 Refill(s) Citalopram 10 mg, PEG, No Longer [facility] Daily, 0 Active 2018 Refill(s) tramadol Notes: Not to Inactive [place] hydrochloride 50 exceed 2019 Medical MG Oral Tablet 400mg/day. Center (Same As: Ultram) Centrum Silver Notes: (Same Inactive [place] [facility] as:Thera-M, 2019 Medical Theragran-M) Center WASTE: F/P - Black; E - Municipal Trash Bin Give with food. Potassium Chloride Notes: (Same Inactive [facility] as: KCL) 2019 Medical Infuse over 2 Center hours. Potassium Chloride Notes: (Same Inactive [facility] 1.33 MEQ/ML Oral as: Potassium 2019 [facility] Solution Chloride) [place] Potassium Chloride Notes: (Same Inactive [facility] as: KCL) 2019 Medical Infuse over 2 Center hours. Citalopram 10 mg, 1 tab, [place] Route: PO, Drug Active 2019 Medical form: TAB, Center Daily, Dosing Weight 63.636, kg, Start date: 01/18/19 9:30:00 CDT, Duration: 30 day, Stop date: 02/17/19 9:00:00 CDT Lanolin 0.157 1 appl, Route: Inactive [place] MG/MG / Menthol TOP, Dosing 2018 Medi zak 0.0044 MG/MG / Weight 63.636, Ce nter Petrolatum 0.24 kg, PRN, PRN MG/MG / Zinc Oxide Perineal Care, 0.206 MG/MG Start date: Topical Ointment 01/17/19 [Calmoseptine] 7:07:00 CDT lansoprazole 30 mg, PEG, [place] Q12H, 0 2018 Medical Refill(s) [place] Lanolin 0.157 1 appl, TOP, 5X No Longer [facility] [place] MG/MG / Menthol Day, PRN as Active 2019 Medi zak 0.0044 MG/MG / needed for [place] Petrolatum 0.24 itching, 0 MG/MG / Zinc Oxide Refill(s) 0.206 MG/MG Topical Ointment [Calmoseptine] labetalol 200 mg 200 mg = 1 tab, On Hold [facility] oral tablet DHT, Q8H, 0 2018 Medical Refill(s) [place] heparin 5000 SUB-Q, Q8H, 0 [place] units/0.5 mL Refill(s) 2019 Medical injectable [place] solution guar gum oral PEG, Q12H, 0 [place] powder Refill(s) 2019 Medical ([employer]) [place] clarithromycin 250 500 mg = 10 mL, On Hold 01/14 [facility] mg/5 mL oral PEG, [id number], 0 2019 Med ical liquid Refill(s) Center amoxicillin 250 1,000 mg = 20 On Hold [facility] [place] mg/5 mL oral mL, PEG, 2019 Medical liquid [id number], 0 Center Refill(s) lisinopril 10 mg 10 mg = 1 tab, On Hold [facility] [place] oral tablet PO, Daily, 0 2018 Medical Refill(s) Center amLODIPine 10 mg 10 mg = 1 tab, On Hold [facility] [place] oral tablet GT, Daily, 0 2018 Medical Refill(s) Center Amoxil Notes: (Same No Longer [facility] [place] As: Amoxil) Active 2019 Medical Center Zosyn Notes: (Same Inactive [facility] [place] as: Zosyn) 2019 Medical Dosing based on Center Piperacillin component MEDICATION WASTE Product Size: 4500 mg Product Wasted: _0__ mg Lanolin 0.157 Notes: (Same No Longer [facility] [place] MG/MG / Menthol as: Active 2019 Medical 0.0044 MG/MG / Calmoseptine) [address] Petrolatum 0.24 MG/MG / Zinc Oxide 0.206 MG/MG Topical Ointment [Calmoseptine] Versed Notes: (Same Inactive [facility] [place] as: Versed) 2019 Medical MEDICATION Center WASTE Product Size: 2 mg Product Wasted: _0__ mg Lisinopril Notes: (Same No Longer [place] as as: Prinivil, Active 2019 Medical Zestril) [place] Potassium Chloride Notes: (Same Inactive [facility] [place] 1.33 MEQ/ML Oral as: Potassium 2019 edical Solution Chloride) [place] Potassium Chloride 40 mEq, 30 mL, Inactive 01/11 [facility] 1.33 MEQ/ML Oral Route: PO, Drug 2019 Medical Solution form: LIQ, Center ONCE, Dosing Weight 63.636, kg, Start date: 01/11/19 8:02:00 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, Stop date: 01/11/19 8:02:00 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 Dextrose 50% 50 mL, Route: Inactive [place] Syringe IVP, Dosing 2019 Medical Weight 63.636, Center kg, PRN, PRN Blood Glucose Results, Start date: 01/10/19 15:23:00 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, Duration: 30 day, Stop date: 02/09/19 16:22:00 CDT Glucagon 1 mg, Route: Inactive [facility] [place] IM, PRN, Dosing 2019 Medical Weight 63.636, Center kg, PRN Blood Glucose Results, Start date: 01/10/19 15:23:00 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, Duration: 30 day, Stop date: 02/09/19 16:22:00 CDT Amoxicillin 1,000 mg, Inactive [facility] [place] Route: PEG, 2019 Medical BID, Dosing Center Weight 63.636, kg, Start date: 01/09/19 17:00:00 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, Duration: 30 day, Stop date: 02/08/19 9:00:00 CDT Prevacid Notes: Take 1 [place] Longer [place] hour before or Active 2019 Medical 2 hours after Center meal; Expires in 14 days. Shake well before use. (Same as:Prevacid) Compounded Product - formulation not commercially available Protonix 40 mg, Route: Inactive [facility] PEG, Drug form: 2019 Medical GRAN/REC, Center BID-Before Meals, Dosing Weight 63.636, kg, Start date: 01/09/19 16:30:00 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, Duration: 30 day, Stop date: 02/08/19 7:30:00 CDT Clarithromycin Notes: DO NOT No Longer 01/09/ H [place] Refrigerate - Active 2019 [facility] [place] (Same As: Biaxin) Amoxicillin Notes: (Same [place] As: Amoxil) Active 2019 [facility] guar gum oral 4 gm, 1 pkt, No Longer [facility] powder Route: PEG, Active 2019 Medical ([employer]) Drug Form: [place] PCKT, Dosing Weight 63.636, kg, Q12H, Start date: 01/09/19 10:53:00 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, Duration: 30 day, Stop date: 02/08/19 9:00:00 CDT Sodium Chloride 3% Notes: SEE RT No Longer 01/09 [facility] [place] inhalation DOCUMENTATION Active 2019 Medical solution (Same as: [place] Hypertonic Saline 3%, Inhalation) Albuterol 0.833 Notes: (Same No Longer [facility] MG/ML / as: Duoneb) Active 2019 Medical Ipratropium Center [place] 0.167 MG/ML Inhalant Solution [DuoNeb] NS (Bolus) IV 1,000 mL, 1,000 Inactive [facility] ml/hr, Infuse 2019 Medical Over: 1 hr, [place] Route: IV, ONCE, Priority: STAT, Dosing Weight 63.636 kg, Start date: 01/08/19 16:51:00 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, Stop date: 01/08/19 16:51:00 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 Lasix Notes: (Same Inactive [facility] [place] as: Lasix) 2019 [facility] Sodium Chloride 3% Notes: SEE RT No Longer 01/08 [facility] [place] inhalation DOCUMENTATION Active 2019 Medical solution (Same as: [place] Hypertonic Saline 3%, Inhalation) Lasix Notes: (Same Inactive [facility] [place] as: Lasix) 2019 [facility] Vancomycin 2001 mg: No Longer [facility] infuse over 2.5 Active 2019 Medical hours For [place] adult patients only: Round to nearest 250 mg per Medical Staff approval MEDICATION WASTE Product Size: 1000 mg Product Wasted: ___ mg magnesium citrate Notes: (Same Inactive [facility] 58.2 MG/ML Oral as: Citrate of 2018 edical Solution Magnesia) Center Concentration: 1.745 gm / 30 mL Labetalol Notes: With No Longer [facility] food. (Same Active 2019 Medical as:Trandate, [place] Normodyne) Vancomycin 2001 mg: Inactive [facility] infuse over 2.5 2019 Medical hours For [place] adult patients only: Round to nearest 250 mg per Medical Staff approval MEDICATION WASTE Product Size: 1000 mg Product Wasted: ___ mg Vancomycin 20 mg/kg, Inactive [facility] [place] Route: IV, Drug 2019 Medical form: INJ, Center ONCE, Dosing Weight 63.636, kg, Start date: 01/06/19 13:45:00 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, Stop date: 01/06/19 13:45:00 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, Pediatric Dosing, ABX Indication: Pneumonia Zosyn Notes: (Same No Longer [facility] [place] as: Zosyn) Active 2019 Medical Dosing based on Center Piperacillin component MEDICATION WASTE Product Size: 4500 mg Product Wasted: ___ mg Sodium Chloride 3% Notes: SEE RT No Longer 01/06 [facility] [place] inhalation DOCUMENTATION Active 2019 Medical solution (Same as: [place] Hypertonic Saline 3%, Inhalation) Iohexol Notes: (Same Inactive [facility] [place] as:Omnipaque 2019 Medical 350). WASTE: Center F/P - Black; E - Municipal Trash Bin normal saline 0.9% 1,000 mL, Rate: No Longer [facility] IV 1,000 mL 75 ml/hr, Active 2019 Medical Infuse over: Center 13.3 hr, Route: IV, Dosing Weight 63.636 kg, Total Volume: 1,000, Start date: 01/06/19 8:53:00 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, Duration: 30 day, Stop date: 02/05/19 8:52:00 CDT, 1.69, m2 Dulcolax Laxative Notes: (Same Inactive [facility] [place] As: Dulcolax, 2019 Medical Bisco-Lax) Center Albuterol 0.833 Notes: (Same No Longer [facility] MG/ML / as: Duoneb) Active 2019 Medical Ipratropium Center [place] 0.167 MG/ML Inhalant Solution [DuoNeb] Lasix Notes: (Same Inactive [facility] as: Lasix) 2019 Medical MEDICATION Center WASTE Product Size: 40 mg Product Wasted: ___ mg Water 1000 MG/ML 914.5 mL, Rate: No Longer 01/05 [facility] [place] Injectable 75 ml/hr, Active 2019 Medical Solution Infuse over: Center 13.3 hr, Route: IV, Dosing Weight 63.636 kg, Total Volume: 1,000, Start date: 01/05/19 9:08:00 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, Duration: 30 day, Stop date: 02/04/19 9:07:00 CDT, For IMU and ICU use only. See Order Comments!!, 1.69, m2 Tylenol 650 mg, Route: Inactive [place] PO, ONCE, 2019 Medical Dosing Weight Center 63.636, kg, Priority: NOW, Start date: 01/05/19 8:04:00 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, Stop date: 01/05/19 8:04:00 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 vancomycin Notes: TIME No Longer [facility] s CRITICAL Active 2019 Medical MEDICATION Center (Same As: Vancocin) For adult patients only: Round to nearest 250 mg per Medical Staff approval Albuterol 0.833 Notes: (Same Inactive [facility] MG/ML / as: Duoneb) 2019 [facility] Ipratropium Center [place] 0.167 MG/ML Inhalant Solution [DuoNeb] Calcium Carbonate Notes: (Same No Longer [facility] [place] 500 MG Chewable As: Tums) Active 2018 Medica l Tablet Calcium Center Carbonate 500 mg = 200 mg elemental calcium Dose = mg calcium carbonate ( mg elemental calcium) Potassium Chloride Notes: (Same No Longer [facility] [place] as: KCL) Active 2018 Medical Infuse no Center faster than 10 mEq/hr if given peripherally. sodium phosphate Notes: Infuse No Longer [facility] [place] over 4 hour. Do Active 2018 Medical not infuse Center phosphorous concurrently in the same line as TPN or IVF that contains calcium. For double lumen central lines, phosphorous may be infused in a separate lumen from TPN. potassium Notes: (Same No Longer [facility] phosphate as: K Active 2018 Medical Phosphate.) Do Center not infuse phosphorous concurrently in the same line as TPN or IVF that contains calcium. For double lumen central lines, phosphorous may be infused in a separate lumen from TPN. 1 mMol phoshate has 1.47 mEq potassium Infuse over 4 hours Calcium Gluconate Notes: WASTE: No Longer [facility] F/P - Sink; E - Active 2018 [facility] Trash Center Bin Magnesium Sulfate Notes: WASTE: No Longer [facility] F/P - Sink; E - Active 2018 [facility] Trash Center Bin potassium Notes: (Same No Longer [facility] phosphate-sodium as: Phos-NaK) Active 2018 edical phosphate 250 Each 1.5 gm pkt Ce nter mg-280 mg-160 mg has 250mg oral powder for phosphorous. reconstitution Mix w/2.5oz water and stir. Magnesium Oxide Notes: (Same No Longer [facility] as: Mag-Ox 400) Active 2018 [facility] Magnesium oxide Center [id number] elemental magnesium Dose=____mg magnesium oxide (___mg elemental magnesium) vancomycin + 2001 mg: Inactive [place] Sodium Chloride infuse over 2.5 2019 Medical 0.9% IV 250 mL hours For Center adult patients only: Round to nearest 250 mg per Medical Staff approval MEDICATION WASTE Product Size: 1000 mg Product Wasted: ___ mg cefepime Notes: (Same No Longer [place] As: Maxipime) Active 2019 Medical MEDICATION Center WASTE Product Size: 1000 mg Product Wasted: _0__ mg Albuterol 0.833 Notes: (Same No Longer H [place] MG/ML / as: Duoneb) Active 2019 [facility] Ipratropium Center [place] 0.167 MG/ML Inhalant Solution [DuoNeb] Prevacid Notes: Take 1 [place] Longer [place] hour before or Active 2019 Medical 2 hours after Center meal; Expires in 14 days. Shake well before use. (Same as:Prevacid) Compounded Product - formulation not commercially available Ondansetron 4 mg, Route: Inactive [place] as IVP, ONCE, 2019 Medical Dosing Weight Center 63.636, kg, PRN Nausea & Vomiting, Start date: 01/03/19 9:48:00 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 Flumazenil 0.2 mg, Route: Inactive [place] IVP, PRN, 2019 Medical Dosing Weight [place] 63.636, kg, PRN Benzodiazepine Reversal, Initial dose, Start date: 01/03/19 9:48:00 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, Duration: 30 day, Stop date: 02/02/19 10:47:00 CDT Naloxone 0.4 mg, Route: [place]active [place] IVP, Q2MIN, 2018 Medical Dosing Weight Center 63.636, kg, PRN Narcotic Reversal, Start date: 01/03/19 9:48:00 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, Duration: 8 doses or times, Stop date: Limited # of times Oxycodone 5 mg, Route: Inactive [place] NG, Drug form: 2019 Medical LIQ, Q4H, [place] Dosing Weight 63.636, kg, PRN Pain Score 4-6, Start date: 01/03/19 9:48:00 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, Duration: 30 day, Stop date: 02/02/19 9:47:00 CDT Morphine 2 mg, Route: Inactive [place] IVP, Q5Min, 2019 Medical Dosing Weight Center 63.636, kg, PRN Pain Score 4-6, Start date: 01/03/19 9:48:00 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, Duration: 5 doses or times, Stop date: Limited # of times Labetalol 10 mg, Route: Inactive [place] IVP, Q5Min, 2019 Medical Dosing Weight Center 63.636, kg, PRN Elevated BP, Start date: 01/03/19 9:48:00 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, Duration: 5 doses or times, Stop date: Limited # of times Acetaminophen 1,000 mg, Inactive [place] Route: PO, Drug 2019 Medical form: TAB, Center ONCE, Dosing Weight 63.636, kg, PRN Pain Score 1-3, Start date: 01/03/19 9:48:00 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 Labetalol Notes: With No Longer [place] food. (Same Active 2019 Medical as:Trandate, [place] Normodyne) potassium 1 pkt, Route: Inactive [place] phosphate-sodium PO, Dosing 2019 Medi zak phosphate 250 Weight 63.636, [address] mg-280 mg-160 mg kg, BID, Start oral powder for date: 01/01/19 reconstitution 17:00:00 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, Duration: 30 day, Stop date: 01/31/19 9:00:00 CDT Hydralazine Notes: (Same [place] Long[place] as: Apresoline) Active 2019 Medical Push over 5 Center minutes potassium Notes: (Same Inactive [place] phosphate-sodium as: Phos-NaK) 2019 M edical phosphate 250 Each 1.5 gm pkt Ce nter mg-280 mg-160 mg has 250mg oral powder for phosphorous. reconstitution Mix w/2.5oz water and stir. Miralax Notes: Dissolve No Longer [place] as in 8 oz of Active 2019 Medical water or juice. Center (Same as: Miralax) Amlodipine Notes: (Same No Longer [place] as as: Norvasc) Active 2019 Medical Center Tylenol Notes: Do not No Longer [place] exceed 4 Active 2019 Medical gm/day. (Same Center as: Tylenol) heparin sodium, Notes: porcine No Longer [place] porcine 2500 heparin Active 2018 Medical UNT/ML Injectable Center Solution sennosides, [facility] Notes: (Same No Longer M H [place] 8.6 MG Oral Tablet as: Senokot) Active 2019 [facility] docusate sodium Notes: (Same No Longer H [place] as: Colace) Active 2019 [facility] Amlodipine Notes: (Same No Longer [place] as: Norvas) Active 2019 [facility] lisinopril 40 mg 40 mg = 1 tab, No Longer [place] oral tablet PO, Daily, 0 Active 2018 Medical Refill(s) [place] omega-3 PO, 0 Refill(s) No Longer [place] as polyunsaturated Active 2018 [facility] fatty acids [place] amLODIPine 5 mg 5 mg = 1 tab, No Longer [place] oral tablet PO, Daily, 0 Active 2018 Medical Refill(s) [place] Aspirin 81 MG 81 mg = 1 tab, No Longer [place] Enteric Coated PO, Daily, # 90 Active 2018 edical Tablet tab, 3 Center Refill(s) Alpha Lipoic Acid PO, 0 Refill(s) No Longer 12/11 [facility] Active 2019 [facility] Vitamin E PO, Daily, [address] [facility] Active 2019 [facility] Estrogens, 0.3 mg = 1 tab, No Longer [place] Conjugated ([facility]) PO, 0 Refill(s) Active 2019 Medical 0.3 MG Oral Tablet Cente r [Premarin] Co-Q10 100 mg oral 100 mg = 1 cap, No Longer [place] capsule PO, Daily, 0 Active 2018 Medical Refill(s) [place] Labetalol Notes: With No Longer [place] food. (Same Active 2019 Medical as:Trandate, [place] Normodyne) Keppra Notes: Same as Inactive [place] Keppra Mix 2019 Medical with 100 mL NS, Center LR or D5W MEDICATION WASTE Product Size: 500 mg Product Wasted: ___ mg Famotidine Notes: (Same No Longer [place] as as: Pepcid) Can Active 2018 Medical be dilute in Center 5-10cc NS IVP: Slow IV push over at least 2 minutes. Saline Flush 0.9% Notes: (Same No Longer [place] as: BD Active 2018 Medical Posiflush) Center sennosides, [facility] Notes: (Same Inactive [place] 8.6 MG Oral Tablet as: Senokot) 2019 [facility] docusate sodium Notes: (Same Inactive [place] as: Colace) 2019 Medical Center Ancef Notes: (Same No Longer [place] As: Ancef, Active 2018 Medical Kefzol) Center MEDICATION WASTE Product Size: 1000 mg Product Wasted: ___ mg ocular lubricant Notes: (Same No Longer [place] as: Lacri-Lube, Active 2018 Medical Puralube, [place] Duratears Naturale, Artificial Tears, and Tears Again ) Fentanyl 1,000 Inactive [place] microgram, 2018 Medical mL, Rate: Center Titrate, Start Dose: 50 microgram/hr, Titration: 25 microgram/hour every 15 minutes, Goal(s): RASS 0, Max Dose: 300 microgram/hr, Route: IV, Dosing Weight 63.636 kg, Total Volume: 20, Start date: 12/29/18 5:36:00 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, Dur... NS (Bolus) IV 1,000 mL, 1,000 Inactive H [place] ml/hr, Infuse 2019 Medical Over: 1 hr, [place] Route: IV, 1,000, Drug form: INJ, ONCE, Priority: STAT, Dosing Weight 63.636 kg, Start date: 12/29/18 5:36:00 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, Stop date: 12/29/18 5:36:00 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 chlorhexidine Notes: (Same No Longer [place] gluconate 1.2 As: Peridex) Active 2018 Medic al MG/ML Mouthwash Center Dextrose 50% 25 gm, 50 mL, No Longer [place] Syringe Route: IVP, 2018 Medical Drug Form: INJ, Center Dosing Weight 63.636, kg, PRN, PRN Blood Glucose Results, Start date: 12/29/18 3:27:00 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, Duration: 30 day, Stop date: 01/28/19 4:26:00 CDT Glucagon 1 mg, Route: No Longer [place] IM, Drug form: Active 2019 Medical PDR/INJ, PRN, Center Dosing Weight 63.636, kg, PRN Blood Glucose Results, Start date: 12/29/18 3:27:00 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, Duration: 30 day, Stop date: 01/28/19 4:26:00 CDT Insulin regular 60 units) No Longer [place] WASTE: F/P - Active 2019 Medical Black; E - Center Municipal Trash Bin Stable for 28 days at room temperature Expires in days from D ate chlorhexidine Notes: (Same No Longer [place] gluconate 1.2 As: Peridex) Active 2018 Medic al MG/ML Mouthwash Center [facility] Notes: (Same No Longer [place] as: Zofran) Active 2019 Medical MEDICATION Center WASTE Product Size: 4 mg Product Wasted: ___ mg Tylenol Notes: Do not No Longer [place] exceed 4 Active 2019 Medical gm/day. (Same Center as: Tylenol) Labetalol 10 mg, 2 mL, [place] Longer [place] Route: IVP, Active 2018 Medical Drug form: INJ, Center Q1H, Dosing Weight 63.636, kg, PRN Hypertension, Start date: 12/29/18 3:27:00 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, Duration: 30 day, Stop date: 01/28/19 4:26:00 CDT Hydralazine Notes: (Same [place] Long[place] as: Apresoline) Active 2019 Medical Push over 5 Center minutes normal saline 0.9% 1,000 mL, Rate: No Longer [place] IV 1,000 mL 50 ml/hr, Active 2019 Medical Infuse over: 20 Center hr, Route: IV, Dosing Weight 63.636 kg, Total Volume: 1,000, Start date: 12/29/18 3:26:00 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, Duration: 30 day, Stop date: 01/28/19 3:25:00 CDT, 1.69, m2 Nicardipine Notes: Same as: Inactive [place] Cardene 2019 Medical Concentration: Center (0.1 mg/ 1 ml) Potassium Chloride Notes: (Same No Longer [place] as: Potassium Active 2018 Medical Chloride) Center Magnesium Oxide Notes: (Same No Longer H [place] as: Mag-Ox 400) Active 2018 [facility] Magnesium oxide Center [id number] elemental magnesium Dose=____mg magnesium oxide (___mg elemental magnesium) Magnesium Sulfate Notes: WASTE: No Longer [place] F/P - Sink; E - Active 2019 [facility] Trash [place] Bin potassium Notes: (Same No Longer [facility] phosphate-sodium as: Phos-NaK) Active 2018 edical phosphate 250 Each 1.5 gm pkt Ce nter mg-280 mg-160 mg has 250mg oral powder for phosphorous. reconstitution Mix w/2.5oz water and stir. sodium phosphate Notes: Infuse No Longer [place] over 4 hour. Do Active 2018 Medical not infuse Center phosphorous concurrently in the same line as TPN or IVF that contains calcium. For double lumen central lines, phosphorous may be infused in a separate lumen from TPN. potassium Notes: (Same No Longer [facility] phosphate as: K Active 2018 Medical Phosphate.) Do Center not infuse phosphorous concurrently in the same line as TPN or IVF that contains calcium. For double lumen central lines, phosphorous may be infused in a separate lumen from TPN. 1 mMol phoshate has 1.47 mEq potassium Infuse over 4 hours Calcium Gluconate Notes: WASTE: No Longer [place] F/P - Sink; E - Active 2018 [facility] Bin Calcium Carbonate Notes: (Same No Longer [place] 500 MG Chewable As: Tums) Active 2018 Medica l Tablet Calcium Center Carbonate 500 mg = 200 mg elemental calcium Dose = mg calcium carbonate ( mg elemental calcium) fentaNYL (ANES) Route: IV, Drug Inactive [place] form: INJ, 2019 Medical ONCE, Stop Center date: 12/29/18 1:34:00 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 calcium chloride Route: IV, Drug Inactive [place] (ANES) form: INJ, 2018 Medical ONCE, Stop Center date: 12/29/18 0:54:00 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 propofol (ANES) Route: IV, Drug Inactive [facility] form: INJ, 2018 Medical ONCE, Stop Center date: 12/29/18 0:24:00 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 rocuronium (ANES) Route: IV, Drug Inactive 12/29 [facility] [place] form: INJ, 2018 Medical ONCE, Stop Center date: 12/29/18 0:24:00 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 ceFAZolin (ANES) Route: IV, Drug Inactive [facility] [place] form: INJ, 2018 Medical ONCE, Stop Center date: 12/29/18 0:14:00 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 dexamethasone Route: IV, Drug Inactive [place] (ANES) form: INJ, 2018 Medical ONCE, Stop Center date: 12/29/18 0:14:00 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 Isolyte S PH 7.4 Route: IV, Inactive [place] (ANES) 1000 mL Total Volume: 2018 Med ical 1,000, Start Center date: 12/29/18 0:12:00 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, Stop date: 12/29/18 1:12:00 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 mannitol (ANES) Route: IV, Drug No Longer [facility] 200 mg form: INJ, Active 2018 Medical Start date: [place] 12/28/18 23:50:00 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, Stop date: 12/29/18 0:50:00 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 potassium chloride Route: IV, Drug No Longer [place] (ANES) 0.2 mEq form: INJ, Active 2018 Medica l Start date: [place] 12/28/18 23:47:00 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, Stop date: 12/29/18 0:47:00 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 levETIRAcetam Route: IV, Drug No Longer [facility] [place] (ANES) 100 mg form: INJ, Active 2018 Medical Start date: [place] 12/28/18 23:45:00 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, Stop date: 12/29/18 0:45:00 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 SUFentanil (ANES) Route: IV, Drug No Longer 12/11 [place] 50 microgram form: INJ, Active 2018 Medical Start date: [place] 12/28/18 23:36:00 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, Stop date: 12/29/18 0:36:00 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 Sodium Chloride Route: IV, No Longer [place] 0.9% IV (ANES) 500 Total Volume: Active 2018 Medical mL 500, Start Center date: 12/28/18 23:36:00 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, Stop date: 12/29/18 0:36:00 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 propofol (ANES) 10 Route: IV, Drug No Longer [place] mg form: INJ, Active 2018 Medical Start date: Center 12/28/18 23:36:00 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, Stop date: 12/29/18 0:36:00 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 Sodium Chloride Route: IV, No Longer [place] 0.9% IV (ANES) Total Volume: Active 2018 Med ical 1000 mL 1,000, Start Center date: 12/28/18 23:30:00 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, Stop date: 12/29/18 0:30:00 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 Saline Flush 0.9% Notes: (Same No Longer [place] as: BD Active 2018 Medical [place]) Center Labetalol 140mmHg, Start No Longer [place] date: 12/28/18 Active 2019 Medical 23:15:00 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, Center Duration: 3 doses or times, Stop date: Limited # of times Sodium Chloride 250 mL, Rate: No Longer Facundo 0.9% (titrate) 250 To prime line Active 2018 [facility] mL and flush Center remaining blood products., Dosing Weight 63.636, kg, Route: IV, Total Volume: 250, Start Date: 12/28/18 23:00:00 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, Duration: 30 day, Stop date: 01/27/19 22:59:00 CDT, Replace Every: 24 hr iodixanol 60 mL, Route: Inactive [place] IVP, Drug Form: 2019 Medical SOLN, Dosing Center Weight 63.636, kg, ONCALL, STAT, Start date: 12/28/18 22:57:00 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, Duration: 1 doses or times, Dose = 2.2ml/kg, Max dose = 100ml -- "To be infused by Radiology Staff ONLY" Nicardipine Notes: Same as: No Longer Facundo Cardene Active 2019 Medical Concentration: Center (0.2 mg /1 ml ) propofol 10 mg/mL Notes: If No Longer Facundo (Titrate.) IV Diprivan - Active 2018 Medical 1,000 mg change bottle & Center tubing every 12 hr Per state nursing law propofol can only be given by a nurse if patient is intubated or being intubated (unless the nurse is a SOFTWARE INSTALLATION ENGINEER). Same as: Diprivan Propofol Notes: If No Longer [place] Diprivan - Active 2018 Medical change bottle & Center tubing every 12 hr Per state nursing law propofol can only be given by a nurse if patient is intubated or being intubated (unless the nurse is a SOFTWARE INSTALLATION ENGINEER). Same as: Diprivan Rocuronium Notes: (Same No Longer [place] as as: Zemeron) Active 2018 Medical Center Keppra Notes: Same as No Longer [place] Keppra Mix Active 2018 Medical with 100 mL NS, Center LR or D5W MEDICATION WASTE Product Size: 500 mg Product Wasted: ___ mg Saline Flush 0.9% Notes: (Same No Longer [place] as: BD Active 2018 Medical [place]) Center Allergies, Adverse Reactions, Alerts Substance Category Reaction Severity Reaction Status Date Comments S ource type Reported No Known Assertion Drug Medication allergy Yissel and Allergies Immunizations Immunization Date Given Site Status Last Comments Source Updated pneumococcal 01/24/2019 Left completed Brody weaver 13-valent vaccine deltoid Ne uro,[facility] [place], Carlos Alberto Johnson [facility] Results Order Name Results Value Reference Date Interpretation Comments Yuli rce Range CHEM PANEL Magnesium 1.6 1.8 - 2.4 09/05 Lvl Gray CHEM PANEL Phosphorus 3.3 2.5 - 4.5 09/05 [facility] ELECTROLYTE AGAP 10.2 10.0 - 09/05 S 20.0 [facility] ELECTROLYTE Glucose Lvl 84 70 - 99 09/05 S [facility] ELECTROLYTE BUN 11 7 - 22 09/05 S [facility] ELECTROLYTE Creatinine 0.69 0.50 - 09/05 MH S Lvl 1.40 [facility] ELECTROLYTE Sodium Lvl 140 135 - 145 09/05 S [facility] ELECTROLYTE Potassium 3.2 3.5 - 5.1 09/05 S Lvl Gray ELECTROLYTE Chloride Lvl 109 95 - 109 09/05 [facility] ELECTROLYTE CO2 24 24 - 32 09/05 [facility] ELECTROLYTE Calcium Lvl 8.4 8.5 - 10.5 09/05 [facility] ELECTROLYTE eGFR 91 09/05 Comment: The Gray eGFR is calculated using the CKD-EPI formula. In most young, healthy individuals the eGFR will be >90 mL/min/1.73m2 . The eGFR declines with age. An eGFR of 60-89 may be normal in some populations, particularly the elderly, for whom the CKD-EPI formula has not been extensively validated. Use of the eGFR is not recommended in the following populations:< br/>
Cary viduals with unstable creatinine concentration s, including patients and those with serious co-morbid conditions.<b r/>
Patie nts with extremes in muscle mass or diet.

The data above are obtained from the National Kidney Disease Education Program (NKDEP) which additionally recommends that when the eGFR is used in patients with extremes of body mass index for purposes of drug dosing, the eGFR should be multiplied by the estimated BMI. HEMATOLOGY WBC 3.5 3.7 - 10.4 09/05 [facility] HEMATOLOGY RBC 3.77 4.20 - 09/05 MH 5.40 [facility] HEMATOLOGY Hgb 11.2 12.0 - 09/05 MH 16.0 [facility] HEMATOLOGY Hct 34.1 36.0 - 09/05 MH 48.0 [facility] HEMATOLOGY MCV 90.5 80.0 - 09/05 MH 98.0 [facility] HEMATOLOGY MCH 29.7 27.0 - 09/05 MH 31.0 [facility] HEMATOLOGY MCHC 32.8 32.0 - 09/05 MH 36.0 [facility] HEMATOLOGY RDW 15.2 11.5 - 09/05 MH 14.5 [facility] HEMATOLOGY Platelet 217 133 - 450 09/05 [facility] HEMATOLOGY MPV 8.6 7.4 - 10.4 09/05 [facility] HEMATOLOGY Segs 63.3 45.0 - 09/05 MH 75.0 /2018 [facility] HEMATOLOGY Lymphocytes 16.4 20.0 - 09/05 MH 40.0 [facility] HEMATOLOGY Monocytes 13.3 2.0 - 12.0 09/05 [facility] HEMATOLOGY Eosinophils 5.6 0.0 - 4.0 09/05 [facility] HEMATOLOGY Basophils 1.4 0.0 - 1.0 09/05 [facility] HEMATOLOGY Neutrophils 2.2 1.5 - 8.1 09/05 [facility] HEMATOLOGY Lymphocytes 0.6 1.0 - 5.5 09/05 [facility] HEMATOLOGY Monocytes # 0.5 0.0 - 0.8 09/05 [facility] HEMATOLOGY Eosinophils 0.2 0.0 - 0.5 09/05 [place] CHEM PANEL Glucose Lvl 99 70 - 99 09/04 [place] CHEM PANEL BUN 9 7 - 22 09/04 [facility] CHEM PANEL Creatinine 0.77 0.50 - 09/04 Lvl 1.40 [facility] CHEM PANEL Sodium Lvl 140 135 - 145 09/04 [facility] CHEM PANEL Potassium 3.9 3.5 - 5.1 09/04 Lvl [place] CHEM PANEL Chloride Lvl 109 95 - 109 09/04 [facility] CHEM PANEL CO2 26 24 - 32 09/04 [facility] CHEM PANEL Calcium Lvl 8.2 8.5 - 10.5 09/04 [facility] CHEM PANEL eGFR 81 09/04 [facility] Comment: The Gray eGFR is calculated using the CKD-EPI formula. In most young, healthy individuals the eGFR will be >90 mL/min/1.73m2 . The eGFR declines with age. An eGFR of 60-89 may be normal in some populations, particularly the elderly, for whom the CKD-EPI formula has not been extensively validated. Use of the eGFR is not recommended in the following populations:< br/>
Cary viduals with unstable creatinine concentration s, including patients and those with serious co-morbid conditions.<b r/>
Patie nts with extremes in muscle mass or diet.

The data above are obtained from the National Kidney Disease Education Program (NKDEP) which additionally recommends that when the eGFR is used in patients with extremes of body mass index for purposes of drug dosing, the eGFR should be multiplied by the estimated BMI. CHEM PANEL AGAP 8.9 10.0 - 09/04 MH 20.0 [facility] HEMATOLOGY Segs 71.4 45.0 - 09/04 MH 75.0 /2018 [facility] HEMATOLOGY Lymphocytes 11.2 20.0 - 09/04 MH 40.0 Gray HEMATOLOGY Monocytes 12.7 2.0 - 12.0 09/04 [facility] HEMATOLOGY Eosinophils 3.8 0.0 - 4.0 09/04 [facility] HEMATOLOGY Basophils 0.9 0.0 - 1.0 09/04 [facility] HEMATOLOGY Neutrophils 2.7 1.5 - 8.1 09/04 MH # /2018 [facility] HEMATOLOGY Lymphocytes 0.4 1.0 - 5.5 09/04 MH # Gray HEMATOLOGY Monocytes # 0.5 0.0 - 0.8 09/04 [facility] HEMATOLOGY Eosinophils 0.1 0.0 - 0.5 09/04 MH # /2018 [facility] HEMATOLOGY WBC 3.8 3.7 - 10.4 09/04 [facility] HEMATOLOGY RBC 3.77 4.20 - 09/04 MH 5.40 Gray HEMATOLOGY Hgb 11.5 12.0 - 09/04 MH 16.0 Gray HEMATOLOGY Hct 33.6 36.0 - 09/04 MH 48.0 Gray HEMATOLOGY MCV 89.1 80.0 - 09/04 MH 98.0 Gray HEMATOLOGY MCH 30.6 27.0 - 09/04 MH 31.0 Gray HEMATOLOGY MCHC 34.4 32.0 - 09/04 MH 36.0 Gray HEMATOLOGY RDW 15.3 11.5 - 09/04 MH 14.5 Gray HEMATOLOGY Platelet 192 133 - 450 09/04 [facility] HEMATOLOGY MPV 8.0 7.4 - 10.4 09/04 Gray DRUG SCREEN U Amph Scr Negative Negative 09/02 *NA* Gray (09/02/19 2:51 PM) DRUG SCREEN U Norma Scr Negative Negative 09/02 MH *NA* [facility] (09/02/19 2:51 PM) DRUG SCREEN U Benzodiaz Negative Negative 09/02 MH Scr *NA* [facility] (09/02/19 2:51 PM) DRUG SCREEN U Cocaine Negative Negative 09/02 MH Scr *NA* [facility] (09/02/19 2:51 PM) DRUG SCREEN U Cannab Scr Negative Negative 09/02 *NA* [facility] (09/02/19 2:51 PM) DRUG SCREEN U Opiate Scr Negative Negative 09/02 MH *NA* [facility] (09/02/19 2:51 PM) DRUG SCREEN U Negative Negative 09/02 Phencyclidin *NA Gray e Scr (09/02/19 2:51 PM) DRUG SCREEN U Methadone Negative Negative 09/02 Scr *NA* [facility] (09/02/19 2:51 PM) DRUG SCREEN U Propoxyph Negative Negative 09/02 Scr *NA* Gray (09/02/19 2:51 PM) DRUG SCREEN UDS Note See Note 09/02 (09/02/19 2:51 PM) Ysisel and URINE AND UA Color Yellow Yellow 09/02 STOOL *NA* Gray (09/02/19 2:51 PM) URINE AND UA Turbidity Marked Clear 09/02 STOOL *ABN* Gray (09/02/19 2:51 PM) URINE AND UA Spec Grav 1.009 <=1.030 09/02 STOOL Gray URINE AND UA pH 7.0 5.0 - 8.0 09/02 STOOL Gray URINE AND UA Protein Negative Negative 09/02 STOOL mg/dL mg/dL Gray URINE AND UA Ketones Negative Negative 09/02 STOOL mg/dL mg/dL Gray URINE AND UA Bili Negative Negative 09/02 STOOL *NA* Gray (09/02/19 2:51 PM) URINE AND UA Blood Negative Negative 09/02 STOOL (09/02/19 2:51 PM) Yissel and URINE AND UA Nitrite Negative Negative 09/02 STOOL (09/02/19 2:51 PM) Yissel and URINE AND UA Leuk Est Negative Negative 09/02 STOOL (09/02/19 2:51 PM) Yissel and URINE AND UA Sq Epi Occasional Few /LPF 09/02 STOOL /LPF /2018 Gray URINE AND UA WBC 2 0 - 5 09/02 STOOL Gray URINE AND UA Bacteria Occasional None Seen 09/02 STOOL /HPF /HPF Gray URINE AND UA Mucus Few /LPF None Seen 09/02 STOOL /LPF Gray URINE AND UA Glucose 50 09/02 STOOL Gray URINE AND UA <=1.0 0.1 - 1.0 09/02 STOOL Urobilinogen mg/dL Gray CHEM PANEL Glucose Lvl 110 70 - 99 09/02 [facility] CHEM PANEL BUN 10 7 - 22 09/02 [facility] CHEM PANEL Creatinine 0.89 0.50 - 10 MH Lvl 1.40 [facility] CHEM PANEL Sodium Lvl 136 135 - 145 09/02 [facility] CHEM PANEL Potassium 3.6 3.5 - 5.1 09/02 Lvl [facility] CHEM PANEL Chloride Lvl 106 95 - 109 09/02 [facility] CHEM PANEL CO2 25 24 - 32 09/02 [facility] CHEM PANEL Calcium Lvl 9.1 8.5 - 10.5 09/02 [facility] CHEM PANEL Total 7.3 6.4 - 8.4 09/02 Protein Gray CHEM PANEL Albumin Lvl 3.8 3.5 - 5.0 09/02 Gray CHEM PANEL ALT 14 0 - 65 09/02 [facility] CHEM PANEL AST 18 0 - 37 09/02 [facility] CHEM PANEL Alk Phos 85 39 - 136 09/02 [facility] CHEM PANEL Bili Total 0.6 0.2 - 1.3 09/02 Gray CHEM PANEL eGFR 67 09/02 Comment: The Gray eGFR is calculated using the CKD-EPI formula. In most young, healthy individuals the eGFR will be >90 mL/min/1.73m2 . The eGFR declines with age. An eGFR of 60-89 may be normal in some populations, particularly the elderly, for whom the CKD-EPI formula has not been extensively validated. Use of the eGFR is not recommended in the following populations:< br/>
Cary viduals with unstable creatinine concentration s, including patients and those with serious co-morbid conditions.<b r/>
Patie nts with extremes in muscle mass or diet.

The data above are obtained from the National Kidney Disease Education Program (NKDEP) which additionally recommends that when the eGFR is used in patients with extremes of body mass index for purposes of drug dosing, the eGFR should be multiplied by the estimated BMI. CHEM PANEL AGAP 8.6 10.0 - 09/02 MH 20.0 Gray CHEM PANEL B/C Ratio 11 6 - 25 09/02 [facility] CHEM PANEL Globulin 3.5 2.7 - 4.2 09/02 Gray CHEM PANEL A/G Ratio 1.1 0.7 - 1.6 09/02 Gray CHEM PANEL Lactic Acid 1.5 0.5 - 2.2 09/02 MH Lvl /2018 [facility] HEMATOLOGY WBC 6.1 3.7 - 10.4 09/02 [facility] HEMATOLOGY RBC 4.39 4.20 - 09/02 MH 5.40 Gray HEMATOLOGY Hgb 13.3 12.0 - 09/02 MH 16.0 Gray HEMATOLOGY Hct 38.7 36.0 - 09/02 MH 48.0 Gray HEMATOLOGY MCV 88.2 80.0 - 09/02 MH 98.0 Gray HEMATOLOGY MCH 30.2 27.0 - 09/02 MH 31.0 Gray HEMATOLOGY MCHC 34.2 32.0 - 09/02 MH 36.0 Gray HEMATOLOGY RDW 15.4 11.5 - 09/02 MH 14.5 Gray HEMATOLOGY Platelet 249 133 - 450 09/02 Gray HEMATOLOGY MPV 7.8 7.4 - 10.4 09/02 [facility] HEMATOLOGY Segs 84.9 45.0 - 09/02 MH 75.0 Gray HEMATOLOGY Lymphocytes 6.4 20.0 - 09/02 MH 40.0 Gray HEMATOLOGY Monocytes 8.2 2.0 - 12.0 09/02 [facility] HEMATOLOGY Eosinophils 0.1 0.0 - 4.0 09/02 [facility] HEMATOLOGY Basophils 0.4 0.0 - 1.0 09/02 [facility] HEMATOLOGY Neutrophils 5.2 1.5 - 8.1 09/02 MH # Gray HEMATOLOGY Lymphocytes 0.4 1.0 - 5.5 09/02 MH # Gray HEMATOLOGY Monocytes # 0.5 0.0 - 0.8 09/02 Gray CHEM PANEL Glucose Lvl 88 70 - 99 07/21 [facility] CHEM PANEL BUN 10 7 - 22 07/21 [facility] CHEM PANEL Creatinine 0.82 0.50 - 07/21 [facility] Lvl 1.40 [facility] CHEM PANEL Sodium Lvl 134 135 - 145 07/21 [facility] CHEM PANEL Potassium 5.0 3.5 - 5.1 07/21 Result [facility] [place] Comment: [facility] hemolyzed.. CHEM PANEL Chloride Lvl 102 95 - 109 07/21 [facility] CHEM PANEL CO2 27 24 - 32 07/21 [facility] CHEM PANEL Calcium Lvl 9.0 8.5 - 10.5 07/21 [facility] CHEM PANEL AGAP 10.0 10.0 - 07/21 20.0 [facility] CHEM PANEL eGFR 75 07/21 Result Comment: The Medical eGFR is Center calculated using the CKD-EPI formula. In most young, healthy individuals the eGFR will be >90 mL/min/1.73m2 . The eGFR declines with age. An eGFR of 60-89 may be normal in some populations, particularly the elderly, for whom the CKD-EPI formula has not been extensively validated. Use of the eGFR is not recommended in the following populations:< br/>
Cary viduals with unstable creatinine concentration s, including patients and those with serious co-morbid conditions.<b r/>
Patie nts with extremes in muscle mass or diet.

The data above are obtained from the National Kidney Disease Education Program (NKDEP) which additionally recommends that when the eGFR is used in patients with extremes of body mass index for purposes of drug dosing, the eGFR should be multiplied by the estimated BMI. CHEM PANEL Magnesium 1.9 1.8 - 2.4 07/21 [facility] CHEM PANEL Phosphorus 3.6 2.5 - 4.5 07/21 [facility] HEMATOLOGY WBC 6.5 3.7 - 10.4 07/21 [facility] HEMATOLOGY RBC 3.99 4.20 - 07/21 MH [place] 5.40 [facility] HEMATOLOGY Hgb 12.1 12.0 - 07/21 [facility] 16.0 /2019 [facility] HEMATOLOGY Hct 36.2 36.0 - 07/21 [place] 48.0 /2019 [facility] HEMATOLOGY MCV 90.6 80.0 - 07/21 [place] 98.0 /2019 [facility] HEMATOLOGY MCH 30.4 27.0 - 07/21 [place] 31.0 /2019 [facility] HEMATOLOGY MCHC 33.5 32.0 - 07/21 [place] 36.0 /2019 [facility] HEMATOLOGY RDW 14.4 11.5 - 07/21 [facility] 14.5 /2019 [facility] HEMATOLOGY Platelet 296 133 - 450 07/21 [facility] /2018 [facility] HEMATOLOGY MPV 9.3 7.4 - 10.4 07/21 [facility] /2018 [facility] HEMATOLOGY Segs 80.3 45.0 - 07/21 [facility] 75.0 [facility] HEMATOLOGY Lymphocytes 9.0 20.0 - 07/21 [facility] 40.0 [facility] HEMATOLOGY Monocytes 9.6 2.0 - 12.0 07/21 [facility] /2018 [facility] HEMATOLOGY Eosinophils 0.6 0.0 - 4.0 07/21 [facility] s /2018 [facility] HEMATOLOGY Basophils 0.5 0.0 - 1.0 07/21 [facility] HEMATOLOGY Neutrophils 5.2 1.5 - 8.1 07/21 [place] # /2018 [facility] HEMATOLOGY Lymphocytes 0.6 1.0 - 5.5 07/21 [facility] s # /2019 [facility] HEMATOLOGY Monocytes # 0.6 0.0 - 0.8 07/21 [facility] 2019 [facility] BLOOD BANK ABO/Rh A POS 07/20 [facility] [place] RESULTS [facility] BLOOD BANK Antibody Negative 07/20 [facility] RESULTS Scrn (07/20/19 7:43 AM) [facility] ELECTROLYTE AGAP 13.0 10.0 - 07/20 [facility] S 20.0 2019 [facility] ELECTROLYTE Glucose Lvl 99 70 - 99 07/20 [facility] S /2019 [facility] ELECTROLYTE BUN 12 7 - 22 07/20 [facility] /2019 [facility] ELECTROLYTE Creatinine 1.04 0.50 - 07/20 [facility] S Lvl 1.40 [facility] ELECTROLYTE Sodium Lvl 137 135 - 145 07/20 [facility]2019 [facility] ELECTROLYTE Potassium 4.0 3.5 - 5.1 07/20 [facility] S Lvl [facility] ELECTROLYTE Chloride Lvl 101 95 - 109 07/20 [facility] S [facility] ELECTROLYTE CO2 27 24 - 32 07/20 [facility] S [facility] ELECTROLYTE Calcium Lvl 9.2 8.5 - 10.5 07/20 [place] [facility] ELECTROLYTE eGFR 57 07/20 [facility] Comment: The Medical eGFR is Center calculated using the CKD-EPI formula. In most young, healthy individuals the eGFR will be >90 mL/min/1.73m2 . The eGFR declines with age. An eGFR of 60-89 may be normal in some populations, particularly the elderly, for whom the CKD-EPI formula has not been extensively validated. Use of the eGFR is not recommended in the following populations:< br/>
Cary viduals with unstable creatinine concentration s, including patients and those with serious co-morbid conditions.<b r/>
Patie nts with extremes in muscle mass or diet.

The data above are obtained from the National Kidney Disease Education Program (NKDEP) which additionally recommends that when the eGFR is used in patients with extremes of body mass index for purposes of drug dosing, the eGFR should be multiplied by the estimated BMI. HEMATOLOGY Segs 61.4 45.0 - 07/20 [facility] 75.0 [facility] HEMATOLOGY Lymphocytes 19.7 20.0 - 07/20 [facility] 40.0 [facility] HEMATOLOGY Monocytes 14.1 2.0 - 12.0 07/20 [facility] HEMATOLOGY Eosinophils 1.8 0.0 - 4.0 07/20 [facility] s [facility] HEMATOLOGY Basophils 3.0 0.0 - 1.0 07/20 [facility] HEMATOLOGY Neutrophils 1.9 1.5 - 8.1 07/20 [facility] s # [facility] HEMATOLOGY Lymphocytes 0.6 1.0 - 5.5 07/20 [facility] # [facility] HEMATOLOGY Monocytes # 0.4 0.0 - 0.8 07/20 [facility] s [facility] HEMATOLOGY Eosinophils 0.1 0.0 - 0.5 07/20 [facility] # [facility] HEMATOLOGY Basophils # 0.1 0.0 - 0.2 07/20 [place] /2018 [facility] HEMATOLOGY WBC 3.0 3.7 - 10.4 07/20 [facility] HEMATOLOGY RBC 4.32 4.20 - 07/20 [place] 5.40 /2018 [facility] HEMATOLOGY Hgb 13.3 12.0 - 07/20 [place] 16.0 /2018 [facility] HEMATOLOGY Hct 39.0 36.0 - 07/20 [place] 48.0 /2018 [facility] HEMATOLOGY MCV 90.2 80.0 - 07/20 [place] 98.0 /2018 [facility] HEMATOLOGY MCH 30.7 27.0 - 07/20 [place] 31.0 /2018 [facility] HEMATOLOGY MCHC 34.1 32.0 - 07/20 [place] 36.0 /2018 [facility] HEMATOLOGY RDW 14.1 11.5 - 07/20 [facility] 14.5 [facility] HEMATOLOGY Platelet 267 133 - 450 07/20 [facility] HEMATOLOGY MPV 8.2 7.4 - 10.4 07/20 [facility] HEMATOLOGY INR 1.01 0.85 - 07/20 [place] 1.17 /2018 [facility] HEMATOLOGY PT 13.1 12.0 - 07/20 [place] 14.7 /2018 [facility] HEMATOLOGY PTT 27.5 22.9 - 07/20 [place] 35.8 /2019 [facility] CHEM PANEL Globulin 3.5 2.7 - 4.2 02/09 [facility] CHEM PANEL B/C Ratio 16 6 - 25 02/09 [facility] CHEM PANEL AGAP 12.9 10.0 - 02/09 [facility] 20.0 CHEM PANEL A/G Ratio 0.9 0.7 - 1.6 02/09 [facility] CHEM PANEL eGFR 95 02/09 [facility] Comment: The eGFR is calculated using the CKD-EPI formula. In most young, healthy individuals the eGFR will be >90 mL/min/1.73m2 . The eGFR declines with age. An eGFR of 60-89 may be normal in some populations, particularly the elderly, for whom the CKD-EPI formula has not been extensively validated. Use of the eGFR is not recommended in the following populations:< br/>
Cary viduals with unstable creatinine concentration s, including patients and those with serious co-morbid conditions.<b r/>
Patie nts with extremes in muscle mass or diet.

The data above are obtained from the National Kidney Disease Education Program (NKDEP) which additionally recommends that when the eGFR is used in patients with extremes of body mass index for purposes of drug dosing, the eGFR should be multiplied by the estimated BMI. CHEM PANEL Potassium 3.9 3.5 - 5.1 04/ [facility] Lvl /2018 CHEM PANEL Chloride Lvl 104 95 - 109 / [facility] /2018 CHEM PANEL CO2 25 24 - 32 04/ [facility] /2018 CHEM PANEL Calcium Lvl 9.7 8.5 - 10.5 / [facility] /2018 CHEM PANEL Bili Total 0.2 0.2 - 1.3 02/09 [facility] /2018 CHEM PANEL Total 6.8 6.4 - 8.4 02/09 [facility] Protein CHEM PANEL AST 14 0 - 37 / [facility] /2018 CHEM PANEL Creatinine 0.63 0.50 - 04/ MH [facility] Lvl 1.40 /2018 CHEM PANEL Sodium Lvl 138 135 - 145 / [facility] /2018 CHEM PANEL ALT 24 0 - 65 / [facility] /2018 CHEM PANEL Albumin Lvl 3.3 3.5 - 5.0 / [facility] /2018 CHEM PANEL Alk Phos 87 39 - 136 / [facility] /2018 CHEM PANEL Glucose Lvl 77 70 - 99 / [facility] /2018 CHEM PANEL BUN 10 7 - 22 / [facility] /2018 CHEM PANEL Magnesium 2.3 1.8 - 2.4 / [facility] Lvl /2018 HEMATOLOGY Basophils # 0.1 0.0 - 0.2 / [facility] /2018 HEMATOLOGY Eosinophils 0.2 0.0 - 0.5 / [facility] # /2018 HEMATOLOGY Monocytes # 0.5 0.0 - 0.8 / [facility] /2018 HEMATOLOGY Lymphocytes 0.8 1.0 - 5.5 / [facility] # /2018 HEMATOLOGY Neutrophils 1.8 1.5 - 8.1 / [facility] # /2018 HEMATOLOGY Segs 54.1 45.0 - 04/03 [facility] 75.0 /2018 HEMATOLOGY Basophils 2.0 0.0 - 1.0 04/ MH [facility] /2018 HEMATOLOGY Eosinophils 5.0 0.0 - 4.0 04/ MH [facility] /2018 HEMATOLOGY Monocytes 15.2 2.0 - 12.0 04/ MH [facility] /2018 HEMATOLOGY Lymphocytes 23.7 20.0 - 04/03 MH [facility] 40.0 HEMATOLOGY MPV 8.1 7.4 - 10.4 04/ [facility] /2018 HEMATOLOGY Platelet 285 133 - 450 04/ MH [facility] /2018 HEMATOLOGY MCH 30.3 27.0 - 04/ MH [facility] 31.0 HEMATOLOGY MCV 89.5 80.0 - 04/ [facility] 98.0 /2018 HEMATOLOGY RDW 15.7 11.5 - 04 [facility] 14.5 HEMATOLOGY MCHC 33.8 32.0 - 04/ [facility] 36.0 HEMATOLOGY Hgb 11.8 12.0 - 02/09 [facility] 16.0 HEMATOLOGY RBC 3.89 4.20 - 02/09 [facility] 5.40 HEMATOLOGY WBC 3.3 3.7 - 10.4 04 [facility] /2018 HEMATOLOGY Hct 34.8 36.0 - 04 [facility] 48.0 ELECTROLYTE Chloride Lvl 104 95 - 109 02/04 [facility] R S ELECTROLYTE Potassium 3.9 3.5 - 5.1 02/04 [facility] S Lvl ELECTROLYTE CO2 26 24 - 32 02/04 [facility] S ELECTROLYTE Glucose Lvl 90 70 - 99 02/04 [facility] S ELECTROLYTE BUN 13 7 - 22 02/04 [facility] S ELECTROLYTE Creatinine 0.61 0.50 - 02/04 [facility] S Lvl 1.40 ELECTROLYTE Sodium Lvl 138 135 - 145 02/04 [facility] S ELECTROLYTE eGFR 96 02/04 Result [facility] S Comment: The eGFR is calculated using the CKD-EPI formula. In most young, healthy individuals the eGFR will be >90 mL/min/1.73m2 . The eGFR declines with age. An eGFR of 60-89 may be normal in some populations, particularly the elderly, for whom the CKD-EPI formula has not been extensively validated. Use of the eGFR is not recommended in the following populations:< br/>
Cary viduals with unstable creatinine concentration s, including patients and those with serious co-morbid conditions.<b r/>
Patie nts with extremes in muscle mass or diet.

The data above are obtained from the National Kidney Disease Education Program (NKDEP) which additionally recommends that when the eGFR is used in patients with extremes of body mass index for purposes of drug dosing, the eGFR should be multiplied by the estimated BMI. ELECTROLYTE Calcium Lvl 9.6 8.5 - 10.5 02/04 [facility] S /2018 ELECTROLYTE AGAP 11.9 10.0 - 02/04 [facility] S 20.0 GENTAMICIN: Culture: >100,000 02/03 [facility] SUSC:PT:ISO Urine CFU/mL /2018 LATE:ORDQN: [place] KELY a coli GENTAMICIN: Escherichia [place] 02/03 TI RR SUSC:PT:ISO coli a coli LATE:ORDQN: KELY URINE AND UA [place] Yeast Few /HPF None Seen 02/02 [facility] R STOOL /HPF /2018 URINE AND UA Bacteria Many /HPF None Seen 02/02 [facility] R STOOL /HPF /2018 URINE AND UA RBC 13 0 - 2 02/02 [facility] STOOL URINE AND UA WBC >182 0 - 5 02/02 [facility] STOOL URINE AND UA Sq Epi Occasional Few /LPF 02/02 [facility] STOOL /LPF /2018 URINE AND UA pH 6.0 5.0 - 8.0 02/02 [facility] STOOL URINE AND UA Protein 30 mg/dL Negative 02/02 [facility] STOOL mg/dL URINE AND UA Spec Grav 1.010 <=1.030 02/02 [facility] STOOL URINE AND UA Leuk Est Large Negative 02/02 [facility] STOOL *ABN* /2018 (02/02/19 6:06 PM) URINE AND UA Glucose Negative Negative 02/02 [facility] STOOL *NA* /2018 (02/02/19 6:06 PM) URINE AND UA Ketones Negative Negative 02/02 [facility] STOOL *NA* /2018 (02/02/19 6:06 PM) URINE AND UA <1.0 0.1 - 1.0 02/02 [facility] STOOL Urobilinogen /2018 URINE AND UA Nitrite Positive Negative 02/02 MH [facility] STOOL *ABN* /2018 (02/02/19 6:06 PM) URINE AND UA Bili Negative Negative 02/02 [facility] STOOL *NA* (02/02/19 6:06 PM) URINE AND UA Blood Negative Negative 02/02 [facility] STOOL (02/02/19 6:06 PM) URINE AND UA Color Dark Yellow Yellow 02/02 [facility] STOOL *NA* /2018 (02/02/19 6:06 PM) URINE AND UA Turbidity Marked Clear 02/02 [facility] STOOL *ABN* (02/02/19 6:06 PM) CHEM PANEL Magnesium 2.1 1.8 - 2.4 02/02 [facility] Lvl CHEM PANEL eGFR 96 02/02 [facility] Comment: The eGFR is calculated using the CKD-EPI formula. In most young, healthy individuals the eGFR will be >90 mL/min/1.73m2 . The eGFR declines with age. An eGFR of 60-89 may be normal in some populations, particularly the elderly, for whom the CKD-EPI formula has not been extensively validated. Use of the eGFR is not recommended in the following populations:< br/>
Cary viduals with unstable creatinine concentration s, including patients and those with serious co-morbid conditions.<b r/>
Patie nts with extremes in muscle mass or diet.

The data above are obtained from the National Kidney Disease Education Program (NKDEP) which additionally recommends that when the eGFR is used in patients with extremes of body mass index for purposes of drug dosing, the eGFR should be multiplied by the estimated BMI. CHEM PANEL Bili Total 0.3 0.2 - 1.3 02/02 [facility] CHEM PANEL Total 7.0 6.4 - 8.4 02/02 [facility] Protein CHEM PANEL AST 15 0 - 37 02/02 [facility] CHEM PANEL CO2 24 24 - 32 02/02 [facility] CHEM PANEL Calcium Lvl 10.1 8.5 - 10.5 02/02 [facility] CHEM PANEL Chloride Lvl 101 95 - 109 02/02 [facility] CHEM PANEL BUN 15 7 - 22 02/02 [facility] CHEM PANEL Creatinine 0.60 0.50 - 02/02 [facility] Lvl 1.40 CHEM PANEL Sodium Lvl 136 135 - 145 02/02 [facility] /2018 CHEM PANEL Potassium 4.0 3.5 - 5.1 02/02 [facility] Lvl /2018 CHEM PANEL Glucose Lvl 82 70 - 99 02/02 [facility] /2018 CHEM PANEL ALT 23 0 - 65 02/02 [facility] /2018 CHEM PANEL Albumin Lvl 3.3 3.5 - 5.0 02/02 [facility] /2018 CHEM PANEL Alk Phos 93 39 - 136 02/02 [facility] /2018 CHEM PANEL A/G Ratio 0.9 0.7 - 1.6 02/02 [facility] /2018 CHEM PANEL B/C Ratio 25 6 - 25 02/02 [facility] /2018 CHEM PANEL Globulin 3.7 2.7 - 4.2 02/02 [facility] /2018 CHEM PANEL AGAP 15.0 10.0 - 02/02 [facility] 20.0 HEMATOLOGY Hgb 11.4 12.0 - 02/02 [facility] 16.0 HEMATOLOGY Hct 33.7 36.0 - 02/02 [facility] 48.0 HEMATOLOGY RBC 3.73 4.20 - 02/02 [facility] 5.40 HEMATOLOGY RDW 16.3 11.5 - 02/02 [facility] 14.5 HEMATOLOGY MCV 90.3 80.0 - 02/02 [facility] 98.0 HEMATOLOGY MCH 30.5 27.0 - 02/02 [facility] 31.0 HEMATOLOGY MCHC 33.7 32.0 - 02/02 [facility] 36.0 HEMATOLOGY MPV 9.5 7.4 - 10.4 02/02 [facility] HEMATOLOGY Platelet 244 133 - 450 02/02 [facility] HEMATOLOGY WBC 6.2 3.7 - 10.4 02/02 [facility] HEMATOLOGY Eosinophils 0.2 0.0 - 0.5 02/02 [facility] # HEMATOLOGY Monocytes # 0.8 0.0 - 0.8 02/02 [facility] HEMATOLOGY Basophils # 0.1 0.0 - 0.2 02/02 [facility] HEMATOLOGY Monocytes 12.7 2.0 - 12.0 02/02 [facility] HEMATOLOGY Eosinophils 3.3 0.0 - 4.0 02/02 [facility] HEMATOLOGY Segs 72.8 45.0 - 02/02 [facility] 75.0 HEMATOLOGY Lymphocytes 10.3 20.0 - 02/02 [facility] 40.0 HEMATOLOGY Lymphocytes 0.6 1.0 - 5.5 02/02 [facility] HEMATOLOGY Basophils 0.9 0.0 - 1.0 02/02 [facility] HEMATOLOGY Neutrophils 4.5 1.5 - 8.1 02/02 [facility] CHEM PANEL Albumin Lvl 3.4 3.5 - 5.0 01/26 [facility] CHEM PANEL Alk Phos 103 39 - 136 01/26 [facility] CHEM PANEL Bili Total 0.5 0.2 - 1.3 01/26 [facility] CHEM PANEL Total 6.9 6.4 - 8.4 01/26 [facility] CHEM PANEL AST 24 0 - 37 01/26 [facility] CHEM PANEL ALT 39 0 - 65 01/26 [facility] CHEM PANEL A/G Ratio 1.0 0.7 - 1.6 01/26 [facility] CHEM PANEL B/C Ratio 17 6 - 25 01/26 [facility] CHEM PANEL Globulin 3.5 2.7 - 4.2 01/26 [facility] CHEM PANEL Magnesium 2.2 1.8 - 2.4 01/26 [facility] l HEMATOLOGY Basophils # 0.1 0.0 - 0.2 01/26 [facility] HEMATOLOGY Lymphocytes 22.1 20.0 - 01/26 [facility] 40.0 HEMATOLOGY Eosinophils 7.5 0.0 - 4.0 01/26 [facility] HEMATOLOGY Eosinophils 0.2 0.0 - 0.5 01/26 [facility] HEMATOLOGY Monocytes # 0.5 0.0 - 0.8 01/26 [facility] HEMATOLOGY Segs 54.3 45.0 - 01/26 [facility] 75.0 HEMATOLOGY Monocytes 14.2 2.0 - 12.0 01/26 [facility] HEMATOLOGY Lymphocytes 0.7 1.0 - 5.5 01/26 [facility] HEMATOLOGY Neutrophils 1.7 1.5 - 8.1 01/26 [facility] # /2018 HEMATOLOGY Basophils 1.9 0.0 - 1.0 01/26 [facility] /2018 HEMATOLOGY Platelet 270 133 - 450 01/26 [facility] /2018 HEMATOLOGY RDW 16.2 11.5 - 01/26 [facility] 14.5 HEMATOLOGY MCHC 33.7 32.0 - 01/26 [facility] 36.0 /2018 HEMATOLOGY MPV 9.1 7.4 - 10.4 01/26 [facility] /2018 HEMATOLOGY WBC 3.2 3.7 - 10.4 01/26 [facility] /2018 HEMATOLOGY MCH 30.2 27.0 - 01/26 [facility] 31.0 HEMATOLOGY Hct 33.4 36.0 - 01/26 [facility] 48.0 HEMATOLOGY Hgb 11.2 12.0 - 01/26 [facility] 16.0 HEMATOLOGY RBC 3.73 4.20 - 01/26 [facility] 5.40 HEMATOLOGY MCV 89.7 80.0 - 01/26 [facility] 98.0 CHEM PANEL Phosphorus 3.1 2.5 - 4.5 01/20 [facility] HEMATOLOGY Anisocyte 1+ None Seen 01/20 [facility] *ABN* /2018 (01/20/19 5:09 AM) HEMATOLOGY Plt Morph Normal 01/20 [facility] (01/20/19 5:09 AM) IMMUNOLOGY Prealbumin 26.9 18.0 - 01/20 [facility] 45.0 ELECTROLYTE Potassium 3.2 3.5 - 5.1 01/19 [facility] /2018 [facility] ELECTROLYTE Chloride Lvl 104 95 - 109 01/19 [facility] ELECTROLYTE CO2 29 24 - 32 01/19 [facility] S /2018 [facility] ELECTROLYTE AGAP 12.2 10.0 - 01/19 [facility] 20.0 [facility] ELECTROLYTE Calcium Lvl 9.3 8.5 - 10.5 01/19 [place] /2018 [facility] ELECTROLYTE eGFR 83 01/19 [facility] Comment: The Medical eGFR is Center calculated using the CKD-EPI formula. In most young, healthy individuals the eGFR will be >90 mL/min/1.73m2 . The eGFR declines with age. An eGFR of 60-89 may be normal in some populations, particularly the elderly, for whom the CKD-EPI formula has not been extensively validated. Use of the eGFR is not recommended in the following populations:< br/>
Cary viduals with unstable creatinine concentration s, including patients and those with serious co-morbid conditions.<b r/>
Patie nts with extremes in muscle mass or diet.

The data above are obtained from the National Kidney Disease Education Program (NKDEP) which additionally recommends that when the eGFR is used in patients with extremes of body mass index for purposes of drug dosing, the eGFR should be multiplied by the estimated BMI. ELECTROLYTE Sodium Lvl 142 135 - 145 01/19 [facility] ELECTROLYTE Potassium 3.2 3.5 - 5.1 01/[address] ELECTROLYTE Creatinine 0.76 0.50 - 01/19 [facility] 1.40 [facility] ELECTROLYTE Glucose Lvl 134 70 - 99 01/[address] ELECTROLYTE BUN 11 7 - 22 01/[address] CHEM PANEL Phosphorus 3.0 2.5 - 4.5 01/[address] CHEM PANEL Magnesium 2.0 1.8 - 2.4 01/[address] CHEM PANEL eGFR 93 01/19 [facility] Comment: The Medical eGFR is Center calculated using the CKD-EPI formula. In most young, healthy individuals the eGFR will be >90 mL/min/1.73m2 . The eGFR declines with age. An eGFR of 60-89 may be normal in some populations, particularly the elderly, for whom the CKD-EPI formula has not been extensively validated. Use of the eGFR is not recommended in the following populations:< br/>
Cary viduals with unstable creatinine concentration s, including patients and those with serious co-morbid conditions.<b r/>
Patie nts with extremes in muscle mass or diet.

The data above are obtained from the National Kidney Disease Education Program (NKDEP) which additionally recommends that when the eGFR is used in patients with extremes of body mass index for purposes of drug dosing, the eGFR should be multiplied by the estimated BMI. CHEM PANEL AGAP 13.1 10.0 - 01/19 [facility] 20.0 [facility] CHEM PANEL Calcium Lvl 9.2 8.5 - 10.5 01/19 [facility] CHEM PANEL Sodium Lvl 141 135 - 145 01/19 [facility] CHEM PANEL CO2 29 24 - 32 01/19 [facility] CHEM PANEL BUN 11 7 - 22 01/19 [facility] CHEM PANEL Creatinine 0.66 0.50 - 01/19 [facility] Lvl 1.40 [facility] CHEM PANEL Potassium 2.1 3.5 - 5.1 01/19 Result [facility] Comment: Medical Critical Center Result(s) called to Jeana Montes 01/19/2019 05:39 byJP. Read back OK. CHEM PANEL Chloride Lvl 101 95 - 109 01/19 [facility] CHEM PANEL Glucose Lvl 97 70 - 99 01/19 [facility] HEMATOLOGY RDW 15.1 11.5 - 01/19 [facility] 14.5 [facility] HEMATOLOGY MCHC 34.1 32.0 - 01/19 36.0 [facility] HEMATOLOGY Platelet 526 133 - 450 01/19 [facility] HEMATOLOGY MCH 30.1 27.0 - 01/19 [facility] 31.0 2019 [facility] HEMATOLOGY MCV 88.3 80.0 - 01/19 [facility] 98.0 [facility] HEMATOLOGY MPV 7.5 7.4 - 10.4 01/19 [facility] HEMATOLOGY RBC 3.77 4.20 - 01/19 5.40 2019 [facility] HEMATOLOGY WBC 3.7 3.7 - 10.4 01/19 [facility] HEMATOLOGY Hct 33.3 36.0 - 01/19 48.0 2019 [facility] HEMATOLOGY Hgb 11.4 12.0 - 01/19 [facility] 16.0 2019 [facility] HEMATOLOGY Monocytes 13.6 2.0 - 12.0 01/19 [facility] HEMATOLOGY Lymphocytes 15.6 20.0 - 01/19 [facility] 40.0 2019 [facility] HEMATOLOGY Eosinophils 0.2 0.0 - 0.5 01/19 [facility] s # [facility] HEMATOLOGY Basophils # 0.1 0.0 - 0.2 01/19 [facility] HEMATOLOGY Basophils 2.8 0.0 - 1.0 01/19 [facility] HEMATOLOGY Eosinophils 4.5 0.0 - 4.0 01/19 [facility] s [facility] HEMATOLOGY Neutrophils 2.4 1.5 - 8.1 01/19 [facility] # /2018 [facility] HEMATOLOGY Monocytes # 0.5 0.0 - 0.8 01/19 [facility] s /2018 [facility] HEMATOLOGY Lymphocytes 0.6 1.0 - 5.5 01/19 [facility] # [facility] HEMATOLOGY Segs 63.5 45.0 - 01/19 [facility] 75.0 [facility] ELECTROLYTE CO2 25 24 - 32 01/13 [facility] S /2018 [facility] ELECTROLYTE Chloride Lvl 109 95 - 109 01/13 [facility] ELECTROLYTE eGFR 94 01/13 [facility] Comment: The Medical eGFR is Center calculated using the CKD-EPI formula. In most young, healthy individuals the eGFR will be >90 mL/min/1.73m2 . The eGFR declines with age. An eGFR of 60-89 may be normal in some populations, particularly the elderly, for whom the CKD-EPI formula has not been extensively validated. Use of the eGFR is not recommended in the following populations:< br/>
Cary viduals with unstable creatinine concentration s, including patients and those with serious co-morbid conditions.<b r/>
Patie nts with extremes in muscle mass or diet.

The data above are obtained from the National Kidney Disease Education Program (NKDEP) which additionally recommends that when the eGFR is used in patients with extremes of body mass index for purposes of drug dosing, the eGFR should be multiplied by the estimated BMI. ELECTROLYTE AGAP 11.5 10.0 - 01/13 [facility] 20.0 [facility] ELECTROLYTE Calcium Lvl 8.7 8.5 - 10.5 01/13 [place] [facility] ELECTROLYTE Sodium Lvl 142 135 - 145 01/13 [facility] ELECTROLYTE Creatinine 0.63 0.50 - 01/13 [facility] Lvl 1.40 [facility] ELECTROLYTE Glucose Lvl 86 70 - 99 01/13 [facility] /2018 [facility] ELECTROLYTE BUN 24 7 - 22 01/13 [facility] S [facility] CARDIAC BNP 119 <=100 03/ [facility] ENZYMES pg/mL /2018 [facility] CHEM PANEL Phosphorus 3.1 2.5 - 4.5 03/ [facility] CHEM PANEL Magnesium 2.1 1.8 - 2.4 03/ [facility] Lvl /2018 [facility] HEMATOLOGY WBC 9.8 3.7 - 10.4 03/ [facility] HEMATOLOGY RBC 3.48 4.20 - 03/05 [place] 5.40 /2019 [facility] HEMATOLOGY Hgb 10.5 12.0 - 03/05 [facility] 16.0 2019 [facility] HEMATOLOGY MPV 7.0 7.4 - 10.4 03 [facility] HEMATOLOGY MCV 89.6 80.0 - 0305 [facility] 98.0 /2019 [facility] HEMATOLOGY MCH 30.0 27.0 - 0305 [facility] 31.0 2019 [facility] HEMATOLOGY MCHC 33.5 32.0 - 03/05 [facility] 36.0 [facility] HEMATOLOGY RDW 14.4 11.5 - 03 [facility] 14.5 [facility] HEMATOLOGY Hct 31.2 36.0 - 03/05 [facility] 48.0 2019 [facility] HEMATOLOGY Platelet 515 133 - 450 03 [facility] HEMATOLOGY Eosinophils 0.3 0.0 - 0.5 03 [facility] HEMATOLOGY Basophils # 0.1 0.0 - 0.2 03/ [facility] HEMATOLOGY Eosinophils 2.7 0.0 - 4.0 03/ [facility] HEMATOLOGY Basophils 0.5 0.0 - 1.0 03/ [facility] HEMATOLOGY Neutrophils 8.3 1.5 - 8.1 03/ [facility] HEMATOLOGY Lymphocytes 0.6 1.0 - 5.5 03/ [facility] HEMATOLOGY Monocytes # 0.6 0.0 - 0.[address] [facility] 2019 [facility] HEMATOLOGY Segs 84.7 45.0 - 03/05 [facility] 75.0 /2019 [facility] HEMATOLOGY Lymphocytes 5.7 20.0 - 03/05 [facility] 40.0 2019 [facility] HEMATOLOGY Monocytes 6.4 2.0 - 12.0 03/ [facility] CHEM PANEL Magnesium 2.2 1.8 - 2.4 03/ [facility] Lvl /2018 [facility] CHEM PANEL Phosphorus 3.4 2.5 - 4.5 03/ [facility] HEMATOLOGY Platelet 547 133 - 450 03/ [facility] HEMATOLOGY MPV 7.4 7.4 - 10.4 03/ [facility] HEMATOLOGY RDW 14.7 11.5 - 03 [facility] 14.5 2019 [facility] HEMATOLOGY MCH 30.3 27.0 - 03 [facility] 31.0 /2019 [facility] HEMATOLOGY MCHC 34.1 32.0 - 03/ [facility] 36.0 2019 [facility] HEMATOLOGY WBC 9.8 3.7 - 10.4 03 [facility] HEMATOLOGY Hgb 10.0 12.0 - 03 [facility] 16.0 /2019 [facility] HEMATOLOGY RBC 3.29 4.20 - 0304 [place] 5.40 /2019 [facility] HEMATOLOGY MCV 89.0 80.0 - 03 [facility] 98.0 2019 [facility] HEMATOLOGY Hct 29.3 36.0 - 03 [facility] 48.0 2019 [facility] HEMATOLOGY Segs 83.9 45.0 - 03/04 [facility] 75.0 /2019 [facility] HEMATOLOGY Lymphocytes 5.4 20.0 - 03/04 [place] 40.0 /2019 [facility] HEMATOLOGY Monocytes 7.2 2.0 - 12.0 03/ [address] HEMATOLOGY Eosinophils 0.3 0.0 - 0.[address] [facility] # /2018 [facility] HEMATOLOGY Basophils # 0.1 0.0 - 0.2 03 [facility] s 2019 [facility] HEMATOLOGY Basophils 0.8 0.0 - 1.0 03/ [address] HEMATOLOGY Lymphocytes 0.5 1.0 - 5.[address] [facility] # /2019 [facility] HEMATOLOGY Eosinophils 2.7 0.0 - 4.[address] [facility] /2019 [facility] HEMATOLOGY Neutrophils 8.2 1.5 - 8.[address] [facility] # /2019 [facility] HEMATOLOGY Monocytes # 0.7 0.0 - 0.[address] [facility] 2019 [facility] PARATHYROID Ca Norm WB 1.19 1.05 - 0304 [facility] [place] PROFILE 1.25 /2019 [facility] PARATHYROID Ca Ion WB 1.18 1.05 - 01/10 [facility] PROFILE 12.03 [facility] TOXICOLOGY Vanco Tr TND * 01/10 [facility] TOXICOLOGY Vanco Tr 15.9 01/10 [facility] HEMATOLOGY INR 1.01 0.85 - 01/09 [facility] 1.17 [facility] HEMATOLOGY PT 13.1 12.0 - 01/09 [facility] 14.7 [facility] HEMATOLOGY PTT 30.3 22.9 - 03 [facility] 35.8 [facility] PARATHYROID Ca Ion WB 1.13 1.05 - 01/09 [facility] PROFILE 12.03 [facility] PARATHYROID Ca Norm WB 1.18 1.05 - 01/09 [facility] PROFILE 12.03 [facility] PARATHYROID Ca Norm WB 1.10 1.05 - 01/08 [facility] PROFILE 12.03 [facility] PARATHYROID Ca Ion WB 1.04 1.05 - 01/08 [facility] PROFILE 12.03 [facility] TOXICOLOGY Vanco Tr TND 2000 01/08 [facility] TOXICOLOGY Vanco Tr 12.5 01/[address] IMMUNOLOGY H pylori Ag Positive Negative 01/07 Result [facility] St[facility] Comment: Medical Performed At: [facility]
[address] [place] [address] [phone]<br/ >Radu Baker MD Ph:[phone] CHEM PANEL Procalcitoni 0.95 0.00 - 01/06 [facility] n Lvl 0.10 [facility] CHEM PANEL Osmolality 282 280 - 300 01/05 [facility] URINE CHEM U Sodium 63 01/[address] URINE CHEM U Osmolality 879 300 - 800 01/05 [facility] BACTERIAL - MRSA by PCR Positive 1 01/05 [place] [facility] *ABN* /2018 Comment: Medical (01/04/19 6:15 PM) "Significant C enter Findings called to Shirin Kwong at 01/05/2019 12:38 by bf. Read Back OK." URINE AND UA Sq Epi None Seen 01/04 [facility] STOOL /2018 [facility] URINE AND UA Mucus Few /LPF None Seen 01/04 [facility] STOOL /LPF /2018 [facility] URINE AND UA WBC <1 0 - 5 01/04 [facility] STOOL /2018 [facility] URINE AND UA Leuk Est Negative Negative 01/04 [facility] STOOL (01/04/19 9:48 AM) /2018 [facility] URINE AND UA RBC <1 0 - 2 01/04 [facility] STOOL [facility] URINE AND UA Bili Negative Negative 01/04 [facility] STOOL *NA* /2018 [facility] (01/04/19 9:48 AM) [place] URINE AND UA 4.0 0.1 - 1.0 01/04 [facility] Urobilinogen /2018 [facility] URINE AND UA Blood Negative Negative 01/04 [facility] STOOL (01/04/19 9:48 AM) /2018 [facility] URINE AND UA Nitrite Negative Negative 01/04 [facility] (01/04/19 9:48 AM) [facility] URINE AND UA Ketones Negative Negative 01/04 [facility] STOOL mg/dL mg/dL [facility] URINE AND UA Protein 20 mg/dL Negative 01/04 [facility] STOOL mg/dL [facility] URINE AND UA pH 6.5 5.0 - 8.0 01/04 [facility] STOOL [facility] URINE AND UA Glucose Negative Negative 01/04 [facility] mg/dL mg/dL [facility] URINE AND UA Turbidity Clear Clear 01/04 [facility] (01/04/19 9:48 AM) [facility] URINE AND UA Spec Grav 1.027 <=1.030 01/04 [facility] STOOL [facility] URINE AND UA Color Yellow Yellow 01/04 [facility] STOOL *NA* /2018 [facility] (01/04/19 9:48 AM) [place] HEMATOLOGY PT 12.5 12.0 - 01/03 [place] 14.7 [facility] HEMATOLOGY INR 0.95 0.85 - 01/03 [place] 1.17 [facility] MOLECULAR C difficile Negative Negative 01/02 [facility] DIAGNOSTIC DNA (01/02/19 3:20 AM) /2018 [facility] HEMATOLOGY Plav Effect 347 12/29 [facility] Plt /2018 [facility] BACTERIAL - MRSA by PCR Negative 12/[place] (12/29/18 3:47 AM) /2018 [facility] CARDIAC Troponin-I 0.02 0.00 - 12/29 [facility] ENZYMES 0.40 Medical Center CHEM PANEL Lactic Acid 1.8 0.5 - 2.2 12/29 [place] L[place] /2018 [facility] CHEM PANEL Total 5.8 6.4 - 8.4 12/29 [facility] Protein [facility] CHEM PANEL Albumin Lvl 3.1 3.5 - 5.0 12/[place] /2018 [facility] CHEM PANEL B/C Ratio 18 6 - 25 12/[address] CHEM PANEL Alk Phos 69 39 - 136 12/29 [facility] CHEM PANEL ALT 23 0 - 65 12/29 [facility] CHEM PANEL AST 20 0 - 37 12/29 [facility] CHEM PANEL Globulin 2.7 2.7 - 4.2 12/29 [facility] CHEM PANEL A/G Ratio 1.1 0.7 - 1.6 12/29 [facility] CHEM PANEL Bili Total 0.4 0.2 - 1.3 12/[address] DRUG SCREEN U Opiate Scr Negative Negative 12/29 [place] *NA* Medical (12/29/18 3:47 AM) Center DRUG SCREEN U Cocaine Negative Negative 12/29 [facility] Scr *NA* Medical (12/29/18 3:47 AM) Center DRUG SCREEN UDS Note See Note 12/29 [facility] (12/29/18 3:47 AM) /2018 Medica l Center DRUG SCREEN U Negative Negative 12/29 [facility] Phencyclidin Medical e Scr (12/29/18 3:47 AM) Center DRUG SCREEN U Norma Sc[place] Negative Negative 12/[place] *[place] Medical (12/29/18 3:47 AM) Center DRUG SCREEN U Benzodiaz Negative Negative 12/29 [place] *NA* Medical (12/29/18 3:47 AM) Center DRUG SCREEN U Cannab Scr Negative Negative 12/29 [place] *NA* Medical (12/29/18 3:47 AM) Center DRUG SCREEN U Amph Scr Negative Negative 12/[place] *NA* Medical (12/29/18 3:47 AM) Center HEMATOLOGY INR 1.10 0.85 - 12/29 [place] 1.17 /2018 [facility] HEMATOLOGY PT 14.0 12.0 - 12/29 [facility] [place] 14.7 /2018 [facility] HEMATOLOGY PTT 26.1 22.9 - 12/29 [place] 35.8 /2018 [facility] HEMATOLOGY R-time Rapid 0.6 0.4 - 0.7 12/29 [facility] HEMATOLOGY [place] 0.5 12/29 [facility] HEMATOLOGY ACT (TEG) 105 86 - 118 12/29 [facility] HEMATOLOGY Angle Rapid 76 64 - 80 12/29 [facility] HEMATOLOGY K-time Rapid 1.2 0.6 - 2.3 12/29 [facility] HEMATOLOGY G-value 8.9 5.0 - 11.6 12/29 [facility] HEMATOLOGY Max 64 52 - 71 12/29 [facility] HEMATOLOGY Estimated % 2.7 0.0 - 7.5 12/29 [place] L[place] [facility] LIPIDS CHD Risk 1.78 3.90 - 12/29 [place] 5.80 [facility] LIPIDS HDL 77 >=61 mg/dL 12/29 [facility] LIPIDS Chol 137 <=199 12/29 [facility] mg/dL [facility] LIPIDS Trig 32 <=149 12/29 [facility] mg/dL [facility] LIPIDS LDL 54 <=99 mg/dL 12/29 [facility] (Calculated) [facility] LIPIDS VLDL 6 12/29 [facility] URINE AND UA Amorph Few /HPF None Seen 12/29 [facility] [place] STOOL Nicolasa /HPF /2018 [facility] URINE AND UA WBC 2 0 - 5 12/29 [facility] [place] STOOL [facility] URINE AND UA Leuk Est Negative Negative 12/29 [facility] [place] STOOL (12/29/18 3:47 AM) [facility] [place] [facility] Nitrite Negative Negative 12/29 [facility] [place] STOOL (12/29/18 3:47 AM) [facility] [place] URINE AND UA Blood Negative Negative 12/29 [facility] [place] STOOL (12/29/18 3:47 AM) [facility] [place] URINE AND UA Bili Negative Negative 12/29 [facility] [place] STOOL *NA* /2018 [facility] (12/29/18 3:47 AM) Center URINE AND UA Ketones Negative Negative 12/29 [facility] [place] STOOL mg/dL mg/dL [facility] URINE AND UA Glucose Negative Negative 12/29 [facility] [place] STOOL mg/dL mg/dL [facility] URINE AND UA <=1.0 0.1 - 1.0 12/29 [facility] [place] STOOL Urobilinogen mg/dL [facility] URINE AND UA Sq Epi None Seen 12/29 [facility] [place] STOOL [facility] URINE AND UA Protein Negative Negative 12/29 [facility] [place] STOOL mg/dL mg/dL [facility] URINE AND UA pH 7.5 5.0 - 8.0 12/29 [facility] [place] STOOL [facility] URINE AND UA Spec Grav 1.027 <=1.030 12/29 [facility] [place] STOOL [facility] URINE AND UA Turbidity Slight Clear 12/29 [facility] [place] STOOL *ABN* /2018 [facility] (12/29/18 3:47 AM) [place] URINE AND UA Color Light Yellow Yellow 12/29 [facility] [place] STOOL *NA* [facility] (12/29/18 3:47 AM) [place] BLOOD BANK ABO/Rh A POS 12/29 [facility] [place] RESULTS [facility] BLOOD BANK Antibody Negative 12/29 [facility] [place] RESULTS Scrn (12/28/18 11:11 PM) [facility] HEMATOLOGY Estimated % 0.8 0.0 - 7.5 12/29 [place] [facility] HEMATOLOGY [place] 0.5 12/29 [facility] HEMATOLOGY ACT (TEG) 105 86 - 118 12/29 [facility] [place] [facility] HEMATOLOGY R-time Rapid 0.6 0.4 - 0.7 12/29 [place] [facility] HEMATOLOGY K-time Rapid 0.8 0.6 - 2.3 12/29 [facility] HEMATOLOGY G-value 12.0 5.0 - 11.6 12/29 [place] Rapid [facility] HEMATOLOGY Max 71 52 - 71 12/29 [facility] Amplitude [facility] HEMATOLOGY Angle Rapid 80 64 - 80 12/29 [facility] BLOOD BANK Platelet Product available 12/29 [facility] [place] RESULTS product (12/28/18 11:00 PM) [facility] CHEM PANEL POC 0.6 0.5 - 1.4 12/29 [facility] Creatinine [facility] CARDIAC Total CK 67 12 - 191 12/29 [facility] [place] ENZYMES [facility] CARDIAC Troponin-I <0.02 0.00 - 12/29 [facility] [place] ENZYMES 0.40 [facility] HEMATOLOGY PTT 20.2 22.9 - 02 [facility] [place] 35.8 /2019 [facility] HEMATOLOGY Plt Morph Normal 12/29 [facility] [place] (12/28/18 9:55 PM) [facility] HEMATOLOGY RBC Morph Normal 12/29 [facility] (12/28/18 9:55 PM) [facility] Pathology Reports No Data Provided for This Section Diagnostic Reports Report Value Date Source Brain wo contrast MRI PROCEDURE INFORMATION: 09/03/2019 [facility] misha Vora Exam: MR Head Without Contrast Exam date and time: 09/03/2019 4:25 PM Clinical history: 64 years old, female; Numbness / parasthesia; Right; Additional info: /worsening rle weakness TECHNIQUE: Imaging protocol: MR of the head without contras t. COMPARISON: BRAIN WO CONTRAST MRI 01/11/2019 2:24 PM, BRAIN WO CONTRAST MRI 01/11/2019 2:24:14 PM FINDINGS: Brain: Encephalomalacic changes and gliosis invo lving the left temporal lobe, left parietal lobe, and left subinsular region w ith few areas of T2 shine through. Foci of susceptibil ity artifact within the left temporal lobe and left basal ganglia compatible with remote microhemorr hages. Confluent areas of hyperintense FLAIR signal within the periventric ular and deep white matter. Diffuse cortical atrophy. No acute ischemic even t, hemorrhage, extra-axial fluid collections, or herniation. The midline st ructures including the corpus callosum and pituitary gland are unremarkable. Brainstem: No signal abnormalities. Ventricles: No hydrocephalus. Normal for age. Bones/joints: Left hemispheric craniotom y changes noted with thickening of the underlying dura. Soft tissues: Unremarkable. Sinuses: Clear. Mastoid air cells: The left mastoid air cells are completely fluid filled. The right mastoid air cells are clear. Orbits: Unremarkable. IMPRESSION: No acute intracranial abnormalities. Encephalomalacic changes and gliosis involving t he left temporal lobe, left parietal lobe, and left subinsular region compat ible with remote infarct. Advanced chronic white matter ischemic changes a nd diffuse cortical atrophy. Left hemispheric craniotomy changes noted. The left mastoid air cells are completely fluid filled. Rosmery Brewster MD On 09/03/2019 17:02:22; [id number] Brain wo contrast CT Radiation Dose CTDIVOL = 0 (mGy): DLP = 904.8 (mGy-cm) 09/03/2019 [facility] PROCEDURE INFORMATION: Exam: CT Head Without Contrast Exam date and time: 09/03/2019 10:27 AM Clinical history: 64 years old, female; Pain; Ot her: Seizure TECHNIQUE: Imaging protocol: Computed tomography of the hea d without contrast. Total DLP: 904.8 mGy-cm Radiation optimization: All CT scans at this facility use at least one of these dose optimization techniques: automated exposure control; mA and/or kV adjustment per patient size (includes targeted e xams where dose is matched to clinical indication); or iterative reconstructio n. COMPARISON: BRAIN WO CONTRAST CT 07/05/2019 and 12/28/2018 FINDINGS: Brain: No acute parenchymal hemorrhage or large subacute infarction. No mass effect or midline shift. Redemonstration of ence phalomalacia in the left frontal lobe, temporal lobe and inferior left parietal lobule. Redemonstration of moderate to severe microvascular ischemic bhavani nges. Ventricles: Widened, consistent with volume los s. Bones: Prior left hemicraniectomy, post interval cranioplasty compared to prior, with expected mild thickening of the dura inferior to the craniotomy. Sinuses: Visualized sinuses are unremarkable. Mastoid air cells: Unchanged opacified left midd le ear and mastoid air cells. Thickening of the right tympanic membrane. Soft tissues: No soft tissue swelling or hematom a. IMPRESSION: No acute intracranial hemorrhage, mass effect or large subacute infarction. Apollo Diamond MD On 09/03/2019 10:50:28; VR-E [id number] Abdomen AP DX ABDOMEN SINGLE VIEW 02/04/2019 [facility] Clinical Indication: Constipation; Comparison: 02/02/2019 FINDINGS: The AP supine view of the ab domen shows a non-obstructive bowel gas pattern. Small volume formed fecal material noted at the descending colon. No rectal fecal impaction. No free intraperitoneal air. The re has been previous cholecy stectomy. Gastrostomy tube noted, tip overlies the stomach. IMPRESSION: 1. Unobstructed bowel gas pattern. 2. Small volume formed fecal material at the teresa cending colon. 3. Stable G-tube position. 4. Previous cholecystectomy. SL: [id number] Abdomen AP DX 1 VIEW ABDOMEN 02/02/2019 [facility] INDICATION: Assess stool burden.. COMPARISON: 01/20/2019 [facility]. Percutaneous gastrostomy tub e projects over the gastric air bubble. There is a moderate amount of colonic stool. Small bowel gas pattern normal. Soft tissues and bony structures normal. Lung bases not included in the [id number]. IMPRESSION: Moderate amount of colonic stool. PEG tube appea rs in good position. END IMPRESSION SL: [id number] Esophagus BA swallow Clinical Indication: Left-si ded intracranial hemorrhage status post craniotomy. 01/24/2019 [facility] w function Rehab DX Comparison: 01/12/2019 Findings: Modified barium swallow study was performed with speech pathologist. Patient ingested barium of v arious textures and consistency while under fluoroscopic evaluation. There was intermittent flash penetration with thin consistency barium self-administered by cup and by straw. No aspiration. Fluoroscopy time: 1.43 minutes; Reference Air Ke rma: 3.37 mGy Impression: No aspiration. Intermittent flash penetration wi th thin consistency barium. Please see speech pathologist report for complet e details. Abdomen AP DX Procedure: Abdominal Radiograph. 01/20/2019 [facility] Clinical Indication: Neurogenic bladder, assess stool burden. Comparison: Abdominal radiograph 01/19/2019. FINDINGS: A supine radiograp h of the abdomen in 2 views demonstrates the balloon tip of a PEG tube projected overlying the stomach bubble. There is a nonspecific bowel gas pattern with minimal retained fecal matter most pronounced in the sigmoid colon. There are colonic diverticula most pronounced in the descending and sigmoid colon. No pathologic calcifications are identified. There are surgical clip s in the right upper quadrant likely postcholecy stectomy. IMPRESSION: 1. Minimal retained fecal matter with colonic di verticulosis. [id number] Chest 1view DX PROCEDURE: Chest Radiograph. 01/20/2019 [facility] Clinical Indication: Shortness of breath. Comparison: Chest radiograph 01/12/2019. FINDINGS: The chest shows minimal diff use bilateral interstitial infiltrate/edema. No focal consolidation is observed. A very small left pleural effusion is suspected. The cardiac silhouette is up per limits of normal in size. There is dextroscoliosis involving the thoracic spine. IMPRESSION: 1. Minimal diffuse bilateral interstitial infiltrate/edema with a very small left pleural effusion. [id number] Abdomen AP DX EXAM: XR ABDOMEN 1 VIEW 01/19/[address] [facility] DATE: 01/19/2019 10:[address] INDICATION: - abdominal pain COMPARISON: 12/31/2018 TECHNIQUE: AP view of the abdomen. FINDINGS: Percutaneous gastrostomy tub e overlies the stomach.. Interval removal of the nasogastric feeding tube. Right upper quadrant surgical clips from cholecystectomy. Bowel: No dilated bowel loops. Solid organs: No organomegal y. Multiple small round calcific densities in the pelvis, likely retained contrast in diverticula. Bones: Grossly unremarkable. IMPRESSION: No abdominal abnormalities. Esophagus BA swallow EXAM: FLUOROSCOPY MODIFIED BARIUM SWALLOW 0 01/12/[address] [facility] function video DX DATE: 01/12/2019 at 1044 hours C enter INDICATION: Dysphagia. ADDITIONAL INFORMATION: None. COMPARISON: None. TECHNIQUE: Oral barium contr ast of differing consistencies was given to the patient to assess swallowing mechanism. The study was performed in conjunction with speech pathology. FLUOROSCOPY TIME: 2 minutes and 34 seconds SKIN DOSE: 10.13 mGy DISCUSSION: The patient was given barium contrast of differe nt consistencies. Thin barium: Symptomatic aspiration. Cowden barium: Penetration into laryngeal vestib ule without aspiration. Pudding barium: No aspiration or penetration. Solid with barium: No aspiration or penetration. IMPRESSION: 1. Symptomatic aspiration of thin barium. 2. Laryngeal penetration without aspiration of nectar consistency barium. 3. No aspiration or penetration with pudding an d solid consistency barium. 4. Please also see detailed chart note by chemo ray pathology. Chest 1view DX EXAM: XR CHEST 1 VIEW 01/12/2019 [facility] edical DATE: 01/12/2019 3:00 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 Center INDICATION: - cough COMPARISON: 01/10/2019 TECHNIQUE: AP chest IMPRESSION: 1. Patchy airspace opacitie s are seen in both lungs suggestive of multifocal infection, improved compared to previous study. 2. Cardiomediastinal is upp er limit of normal size. Aortic atherosclerotic disease. 3. Small right and moderate left bilateral pleu ral effusions. 4. Osseous structures are stable. Brain wo contrast MRI 01/11/2019 [facility] edical EXAMINATION: MRI brain without contrast Center DATE: 01/11/2019 INDICATION: Change in mental status. Fullness of flap FINDINGS: Noncontrast MRI images the b rain consisting of diffusion-weighted, fluid attenuated, and gradient echo axial images are compared to a CT study dated 01/04/2019. There is some conspicuous ar eas restricted diffusion in the posterior limb of the left internal capsule and in the external capsule representing resolving/residual hematoma. Mild areas of diffusion rest riction are present in both caudate head and in the anterior half the lentiform nucleus which could represent some degree of ischemic change. These findings also present on the ADC map. Encephalomalacia changes are present in the perirolandic cortex, chiefly in the left temporal pole. There is a resolving epidura l hemorrhage at the site of the flap. This is smaller than on the comparison CT. No pseudomeningocele is identified. There is a background of chr onic small vessel ischemic changes and global volume loss. IMPRESSION: Expected evolution of findin gs evident on the noncontrast CT exam. There are some mild ischemic changes in the basal ganglia which were not evident. I do not see any progressive edema or enlarging fluid collection to suggest infection. Chest 1view DX EXAM: XR CHEST 1 VIEW 01/10/2019 [facility] edical DATE: 01/10/2019 10:56 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 Center INDICATION: - evaluate for possible PNA COMPARISON: 01/08/2018 TECHNIQUE: AP chest. FINDINGS: Stable enlarged cardiomedias tinal silhouette. There is interval progression of patchy alveolar opacities throughout the lungs. Small left pleural effusion. No pneumothorax. IMPRESSION: 1. Stable enlarged cardiac mediastinal silhouet te. 2. There is interval progre ssion of patchy alveolar opacities through the lungs which may represent edema, ARDS or multifocal pneumonia. 3. Small left pleural effusion. Chest 1view DX EXAM: XR CHEST 1 VIEW 01/08/2019 [facility] edical DATE: 01/08/2019 3:00 AM 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 Cente r INDICATION: - pneumonia COMPARISON: 01/07/2019 TECHNIQUE: AP chest IMPRESSION: 1. Patchy airspace opacitie s are seen in both lungs suggestive of multifocal infection, slightly improved compared to previous study. 2. Cardiomediastinal is upp er limit of normal size. Aortic atherosclerotic disease. 3. Small right and moderate left bilateral pleu ral effusions. 4. Osseous structures are stable. Chest 1view DX EXAM: XR CHEST 1 VIEW 01/07/2019 [facility] edical DATE: 01/07/2019 7:37 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 Center INDICATION: - mucous plug COMPARISON: December 29 8018 TECHNIQUE: AP chest IMPRESSION: 1. Patchy airspace opacitie s are seen in both lungs suggestive of multifocal infection, slightly progressed compared to previous study. 2. Cardiomediastinal is upp er limit of normal size. Aortic atherosclerotic disease. 3. Small bilateral pleural effusions. 4. Osseous structures are stable. Chest Pulmonary EXAM: CTA CHEST WITH CONTRAST 01/06/2019 [facility] DATE: 01/06/2019 8:48 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 Center INDICATION: - respiratory distress, desatting, ADDITIONAL INFORMATION: -- T his is a 63-year-old female with respiratory distress and desaturations. Evaluate for pulmonary embolism. COMPARISON: No prior chest CT is available for c omparison. TECHNIQUE: Volumetric CT acq uisition of the chest was obtained during pulmonary arterial phase after the intravenous administration of contrast. Axial, sagittal, coronal, and oblique MIP reconstructions were created at the acquisition workstation. IV Contrast Dose: 100 mL Omnipaque 350 contras t Total Exam DLP: 457 mGy-- cm FINDINGS: Pulmonary arteries: No filli ng defects are identified in the pulmonary arteries to suggest a pulmonary embolism. Heart is shifted into the le ft hemithorax. Cardiothoracic ratio measures 12/24 cm. The ascending aorta is slightly ectatic measuring 37 mm. The pulmonary trunk is normal in caliber. Scattered aortic zak cifications. Calcifications identified in the left anterior descending and right coronary arteries. No pericardial effusion. The re is a small left pleural effusion. Tiny right pleural effusion. A subcarinal lymph node jose ures 15 mm. Several additional subcentimeter mediastinal lymph nodes. A left hilar lymph node is 12 mm. There are right hilar lymph nodes measuring up to 10 mm. Calcified med iastinal and hilar lymph nodes are the result of granulomatous disease. Scattered debris/mucus in th e trachea. Most of the left lower lobe and left upper lobe bronchi are occluded and filled with mucous. There is volume loss in the left lung. There is abundant, heterogeneously enhancing consolidation in the left lower lobe and in the left upper lobe. There are innumerable, small pulmonary nodules scatte red throughout the lungs barbara aterally that mostly range in size from 2 to 7 mm; they demonstrate an upper lobe predilection.. Rightward curvature of the thoracic spine. IMPRESSION: 1. No pulmonary embolism. 2. Volume loss with heteroge neously enhancing consolidation in the left upper lobe and left lower lobe. This is due to a combination of atelectasis and superimposed infection or aspiration in these lobes. 3. There are innumerable sma ll pulmonary nodules throughout the lungs bilaterally ranging in size from 2 to 7 mm with an upper lung predilection. The 2 major differential diagnostic considerations inclu de infection (including atyp ical etiologies such as mycobacterial and fungal) and pulmonary metastases, depending on the clinical picture. Sarcoidosis is also a consideration. 4. Small left pleural effusion. Tiny right pleur al effusion. 5. Almost all of the left up per lobe and left lower lobe bronchi are filled with mucous/secretions. Consider airway suctioning for clearance. 6. Enlarged mediastinal and hilar lymph nodes. 7. Evidence of old healed granulomatous disease. 8. Aortic and coronary artery calcifications. Chest 1view DX EXAM: XR CHEST 1 VIEW 01/06/2019 [facility] edical DATE: 01/06/2019 3:00 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 Center INDICATION: - respiratory failure. FINDINGS: Comparison is made to yesterday. Cardiomediastinal silhouette is prominent but unchanged. Coronary artery calcifications. Left retrocardiac opacity co uld be due to atelectasis, aspiration or pneumonia. There are diffuse tiny nodules throughout the lungs bilaterally. This could be due to disseminated infection including aty pical etiologies such as myc obacterial and fungal versus metastatic disease depending on the clinical history. IMPRESSION: 1. Diffuse tiny nodularity t hroughout the lungs bilaterally. The two major differential diagnostic considerations include infection (including atypical etiologies such as mycobacterial and fungal) and pulmonary metastases. 2. Left retrocardiac opacity could be due to ate lectasis or consolidation. 3. Left pleural effusion not excluded. Chest 1view DX EXAM: XR CHEST 1 VIEW 01/05/2019 [facility] edical DATE: 01/05/2019 3:00 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 Center INDICATION: - concern for pna COMPARISON: 01/04/2018 TECHNIQUE: AP chest. FINDINGS: Stable prominent cardiac med iastinal silhouette. Stable left retrocardiac opacity is likely pleural effusion with or without consolidation or atelectasis. There is a slight interval improvement of patch y opacities throughout the l ungs bilaterally which may represent edema or multifocal infection. No pneumothorax. IMPRESSION: 1. Slight interval improvem ent of patchy opacities throughout the lungs bilaterally which may represent edema multifocal infection. Other findings are stable. Brain wo contrast CT EXAM: CT BRAIN WITHOUT CONTRAST 01/04/[address] [facility] DATE: 01/04/2019 1:32 PM Center INDICATION: 63-year-old fema le with history of left frontotemporal parenchymal hemorrhage status post evacuation, presenting with a follow-up study for change in mental status, fullness of flap COMPARISON: Noncontrast brain CT 12/30/2018 TECHNIQUE: Axial CT images o f the brain were obtained. Sagittal and coronal reformats. IV contrast: None. DLP: 1018 mGy-cm FINDINGS: Postoperative changes of lef t hemicraniectomy are redemonstrated, with interval resolution of pneumocephalus. Interval removal of extradural drainage catheter is noted, with residual hematoma along the catheter tract. Continuing evolution of resi dual left temporal and left thalamic hematoma, with increased vasogenic edema of the posterior left frontal lobe, the anterior left parietal lobe, and the superior left tempo ral lobe. Despite this, ther e is improving mass effect is demonstrated by resolution of midline shift and decreased effacement of the ipsilateral aspect of the 3rd ventricle. Residual intraventricular ex tension is present with dependently layering hemorrhage in the occipital horns of the lateral ventricles bilaterally, which is slightly decreased on the left. No new intracranial hemorrha ge is identified. Barrios-white matter differentiation is preserved. IMPRESSION: 1. Increased vasogenic carlie a of the subcortical left cerebral hemisphere is likely related to evolving postoperative changes of parenchymal hemorrhage evacuation. Short-term follow-up is recommended. 2. Interval decrease in mas s effect with continuing evolution of residual left temporal and left thalamic hematoma, with slight decrease in intraventricular extension. Chest 1view DX EXAM: XR CHEST 1 VIEW 01/04/2019 [facility] DATE: 01/04/2019 8:40 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 Center INDICATION: - pulse ox 91 on 4L COMPARISON: 12/28/2018 TECHNIQUE: AP chest IMPRESSION: 1. Cardiomediastinal silhou ette is enlarged, unchanged. Aortic atherosclerotic disease. 2. Prominent lung reticulat ions again seen with peribronchial cuffing suggestive of pulmonary edema. Superimposed infection cannot be excluded. 3. Small bilateral pleural effusions. 4. There are left retrocard iac opacities obscuring the left hemidiaphragm and silhouette of the descending thoracic aorta which may represent left pleural effusion with or without underlying atelectasis or consolidation of left lower lobe. 5. Interval extubation. 6. Osseous structures are stable. Abdomen AP DX EXAM: XR ABDOMEN 1 VIEW 12/31/[address] [facility] DATE: 12/31/2018 10:39 PM 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 [facility] INDICATION: - NJ placement COMPARISON: 12/29/2018 TECHNIQUE: Limited AP view of the abdomen for tube placement assessment. Number of images: 1 FINDINGS: Transesophageal feeding tube tip overlying the right lower quadrant, likely in the distal stomach. Transesophageal suction tube: None. Other tubes and lines: None. No other changes. IMPRESSION: Tube positions as above. Brain wo contrast CT EXAM: CT BRAIN WITHOUT CONTRAST 12/30/[address] [facility] DATE: 12/30/2018 4:00 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 Center INDICATION: - Post-op scan COMPARISON: CT brain without contrast 12/29/2018 at 0307. TECHNIQUE: Routine axial pepe ges of the brain were obtained without contrast.Coronal and sagittal reformatted images. IV contrast: None. FINDINGS: Again noted are postoperativ e changes related to decompressive left hemicraniectomy and evacuation of the parenchymal hematoma from the left insula and temporal operculum. Resolving areas of postoperati ve pneumocephalus. The drain age catheter along the left cerebral convexity is unchanged. Expected evolution of areas of residual hemorrhage in the left temporal lobe and thalamus. Intraventricular exten [place] of hemorrhage is again noted with blood products layering dependently in the ventricles. Evolving areas of subarachnoid hemorrhage with decreased conspicuity in the region of the left sylvian fissu re. Although the degree of m idline shift to the right is stable at 5 mm, there is decreased mass effect with decreased effacement of the left lateral and third ventricles. No hydrocephalus. The basal ci sterns are patent. The cerebellar tonsils are ab ove the foramen magnum. IMPRESSION: Expected findings following left hemicraniectomy and evacuation of the left temporal parenchymal hematoma. Decreased mass effect with decreased effacement of the left lateral and third ventricles. 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 Number of images: 1 FINDINGS: Transesophageal feeding tube tip overlying the right lower quadrant, likely within fluid distended distal stomach. Transesophageal suction tube has been removed in the interval. Other tubes and lines: None. No other changes. IMPRESSION: Tube positions as above. Abdomen AP DX EXAM: XR ABDOMEN 1 VIEW 12/29/[address] [facility] DATE: 12/29/2018 8:36 AM Center INDICATION: - line placement ADDITIONAL INFORMATION: None. COMPARISON: 12/28/2018 chest radiograph TECHNIQUE: Limited AP view of the abdomen for tube placement assessment. Number of images: 2 FINDINGS: Transesophageal feeding tube (tip): The tip is in the distal stomach near the pylorus, position just to the right midline on the 2nd image. Transesophageal suction tube (sidehole): The tip and sidehole are in the gastric fundus region. Other tubes, lines and hardware: Cholecystectomy clips are noted. Other: No abnormal intestinal dilatation is iden tified. IMPRESSION: 1. Dobbhoff tube tip is in the stomach. Repositioning recommended if postpyloric feeding is desired. 2. Satisfactory position of gastric suction tub e. Brain wo contrast CT EXAM: CT BRAIN WITHOUT CONTRAST 12/29/[address] [facility] DATE: 12/29/2018 3:07 AM 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 Cent er INDICATION: - S/P L Hemicraniectomy, COMPARISON: Brain CT dated 12/28/2018 TECHNIQUE: Routine axial CT images of the brain were obtained. Reformatted images in the sagittal and coronal plane were included. IV contrast: None. DLP: 963 mGy-cm FINDINGS: Interval decompressive crani ectomy and evacuation of the parenchymal hematoma in the left insula and temporal operculum has been performed. Intraventricular hemorrhage persists, with significant improve ment in the effacement and r ightward displacement of the lateral ventricles. There is still 5 mm rightward midline shift. The perimesencephalic cisterns are now visible. Subarachnoid hemorrhage in the s ylvian fissure is again demo nstrated. There is a drainage catheter in the superficial soft tissues. IMPRESSION: Expected findings following hemicraniectomy and evacuation of the parenchymal hematoma. Brain/Neck CTA EXAM: CT ANGIOGRAM OF THE BRAIN 12/28/[address] [facility] EXAM: CT ANGIOGRAM OF THE NECK C enter DATE: 12/28/2018 10:32 PM 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 INDICATION: - left frontal bleed COMPARISON: Contemporaneous CT examination of [facility] head TECHNIQUE: -Rapid acquisition spiral im ages of the brain and neck were obtained between the aortic arch and the cranial vertex during intravenous infusion of iodinated contrast for the purposes of CT angiography. 3-D CT angiographic images a re created using maximum intensity projection technique at the acquisition workstation. The source images are also presented for interpretation. IV contrast: 60 mL Visipaque 320 ESTIMATED DOSE: Total DLP 15 98 mGy*cm inclusive of the head CT dictated separately FINDINGS: NECK CTA: Partial imaging of the upper thorax demonstrates numerous pulmonary nodules and interstitial increased attenuation. A few calcifications are present. Extensive mediastinal adenopathy is also present. Aortic arch: The great vesse ls originate from the aortic arch in the standard configuration. No origin stenosis is identified. The vertebral artery origins are patent bilaterally. Carotid arteries: Apart from tortuosity, cervical common carotid arteries and cervical internal carotid arteries have a normal course, caliber, and contour. There are areas of calcification at the carot id bifurcations. No resulti ng hemodynamically significant stenosis of the carotid bifurcations or internal carotid arteries is present by NASCET criteria. There is no evidence of vascular injury. Vertebral arteries:The verte bral arteries are co-dominant. The left vertebral artery forms an S-shaped loop at C4-C5. The vertebral arteries have an otherwise normal course, caliber and contour. The soft tissues of the neck and remaining incid ental structures are normal. BRAIN CTA: As a consequence of the larg e hematoma in the posterior frontal and left temporal lobe there is medial displacement of the sylvian branches of the internal carotid artery and elevation of the sylvian triangle which is markedly compressed. A focus of active contrast e xtravasation is noted within the hematoma at its anterior 3rd. A 2nd punctate focus of active hemorrhage is detected in the superolateral portion of the hematoma on MIP image s (series 12 B image 77). Th ere is, however, no lesion at the margin of the hemorrhage to indicate that the hematoma is a result of an underlying arteriovenous malformation. Also as a result of the hemo rrhage there is [id number] subfalcine herniation leading to displacement of the anterior cerebral arteries across midline. These, however, remain patent. Compression of th e left posterior cerebral ar michelle is in correspondence with the tentorial incisura leading to mild stenosis. The anterior and posterior c irculations have an otherwise normal appearance and a standard branching pattern. No branch occlusion, vascular injury, arteritis, vascular malformation or aneurysm is identified. The deep cerebral veins and major venous sinuses are normal. IMPRESSION: 1. Active extravasation int o the left frontotemporal intraparenchymal hemorrhage which now demonstrates intraventricular extension and increased midline shift compared to the outside CT brain at 1843 h ours. There is approximately 1.2 cm rightward midline shift and bilateral uncal herniation. 2. Fluid within the pharynx and hypopharynx is not unusual in a patient who is intubated. 3. Extensive biapical peril ymphatic nodules with large mediastinal lymph nodes. The primary differential for this appearance is sarcoidosis. Atypical infection is also a possibility. Preliminary findings were di scussed by the on-call resident with Dr. 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 Reformatted images in the sagittal and coronal plane were included. IV contrast: None. FINDINGS: Considerable expansion of th e hematoma in the posterior left external capsule has occurred. On similar images where the lesion previously measured 29 x 30 mm it now measures up to 63 x 59 mm. Intraventr icular and subarachnoid spac e extension have occurred. The hemorrhage has dissected inferiorly into the temporal lobe and extends to the anterior temporal pole. Superiorly, the lesion now involves the s ubcortical white matter of t he anterior portion of the superior parietal lobule on the left. As a consequence of the mass ana enlargement of the hemorrhage there is almost complete compression of the left lateral ventricle and development of 11 mm of [id number]-[id number]-ctard subfalcine herniation. Trapping of CSF has occurred within the right lateral ventricle due to compression of the 3rd ventricle and foramen of Monro. Hypodensity surrounds the frontal and atrial portions of the right lateral ventricle indicative of transependyma l CSF flow. The basal cisterns, however, remain patent. No territorial infarct is evident. Incidental imaging of the or bits, paranasal sinuses, skull, and skull base also demonstrates no interval change. IMPRESSION: 1. The left frontotemporal intraparenchymal hemorrhage has significantly increased in size compared to the outside head CT at 1843 hours. 2. The hemorrhage now demon strates intraventricular an subarachnoid space extension. 3. There is increased mass effect with 11 mm rightward midline shift, effacement of the left lateral ventricle and enlargement of the right lateral ventricle with findings of acute hydrocephalus. Preliminary findings were di scussed with via telephone at 2301 hours. Chest 1view DX EXAM: XR CHEST 1 VIEW 12/28/2018 [facility]ical DATE: 12/28/2018 at 2222 hours Ce nter INDICATION: - stroke ADDITIONAL INFORMATION: 'Tra [facility] from [facility] for hemorrhagic CVA w aphasia- onset 1800 HTN CVA heart murmur' COMPARISON: Chest 1 view 12/28/2018 at 1909 hour s TECHNIQUE: AP supine chest. FINDINGS: Lines, tubes and hardware: E ndotracheal tube tip terminates approximately 2 cm above the max. Lungs and pleura: The lungs are hyperinflated. Hilar prominence and indistinct vascularity suggestive of pulmonary vascular congestion. No focal consolidations, pleural effusions, or pneumothorax. Heart and mediastinum: The h eart size is normal for technique. The thoracic aorta is mildly tortuous. Bones: No acute abnormality. There is generalized decreased bone density. Rightward curvature of the mid thoracic spine may be positional or related to scoliosis. IMPRESSION: 1. Interval intubation with the endotracheal tube tip approximately 2 cm above the max. 2. Pulmonary vascular congestion. 3. Hyperinflated lungs. UT SECTION: ER Consultation Notes No Data Provided for This Section Discharge Summaries No Data Provided for This Section History and Physicals No Data Provided for This Section Vital Signs Vital Sign Value Date Comments Source Temperature Oral (F) 97.7 F 09/05/2019 [facility] Heart Rate 58 09/05/2019 [facility] Respitory Rate 16 09/05/2019 [facility] Systolic (mm Hg) 168 09/05/2019 [facility] Diastolic (mm Hg) 82 09/05/2019 [place] Temperature Oral (F) 98.1 F 09/05/2019 [facility] Heart Rate 57 09/05/2019 [facility] Respitory Rate 18 09/05/2019 [facility] Systolic (mm Hg) 159 09/05/2019 [facility] Diastolic (mm Hg) 85 09/05/2019 [place] Temperature Oral (F) 98.4 F 09/05/2019 [facility] Heart Rate 61 09/05/2019 [facility] Respitory Rate 20 09/05/2019 [facility] Systolic (mm Hg) 150 09/05/2019 [facility] Diastolic (mm Hg) 71 09/05/2019 [place] Height 157.48 cm 09/02/2019 [facility] Weight 52.273 09/02/2019 [facility] BMI Calculated 21.08 09/02/2019 [facility] Temperature Oral (F) 97.9 F 07/22/2019 [facility] Heart Rate 76 07/22/2019 [facility] Respitory Rate 18 07/22/2019 [facility] Center Systolic (mm Hg) 133 07/22/2019 [facility] Diastolic (mm Hg) 68 07/22/2019 [facility] Temperature Oral (F) 98.0 F 07/22/2019 [facility] Heart Rate 74 07/22/2019 [facility] Respitory Rate 18 07/22/2019 [facility] Systolic (mm Hg) 127 07/22/2019 [facility] Diastolic (mm Hg) 63 07/22[facility] Systolic (mm Hg) 108 07/22/2019 [facility] Diastolic (mm Hg) 54 07/22/2019 [facility] Heart Rate 80 07/22/2019 [facility] Temperature Oral (F) 97.8 F 07/22/2019 [facility] Center Respitory Rate 17 07/22/2019 [facility] Height 160.02 cm 07/20/2019 [facility] Weight 48.636 07/20/2019 [facility] BMI Calculated 18.99 07/20/2019 [facility] Height 160.02 cm 07/15/2019 [facility] Weight 48.636 07/15/2019 [facility] BMI Calculated 18.99 07/15/2019 [facility] Diastolic (mm Hg) 86 02/11/2019 [facility] Systolic (mm Hg) 154 02/11/2019 [facility] Respitory Rate 16 02/11/2019 [facility] Heart Rate 61 02/11/2019 [facility] Systolic (mm Hg) 163 02/11/2019 [facility] Diastolic (mm Hg) 81 02/11/2019 [facility] Respitory Rate 18 02/11/2019 [facility] Heart Rate 61 02/11/2019 [facility] Systolic (mm Hg) 136 02/10/2019 [facility] Diastolic (mm Hg) 72 02/10/2019 [facility] Heart Rate 59 02/10/2019 [facility] Respitory Rate 16 02/10/2019 [facility] Temperature Oral (F) 98.2 F 02/02/2019 [facility] Weight 46.932 01/20/2019 [facility] BMI Calculated 18.33 01/20/2019 [facility] Height 160.02 cm 01/20/2019 [facility] Temperature Oral (F) 98 F 01/20/2019 [facility] Systolic (mm Hg) 135 01/19/2019 [facility] Diastolic (mm Hg) 69 01/19/2019 [facility] Heart Rate 63 01/19/2019 [facility] Heart Rate 64 01/19/2019 [facility] Temperature Oral (F) 98 F 01/19/2019 [facility] Systolic (mm Hg) 125 01/19/2019 [facility] Diastolic (mm Hg) 75 01/19/2019 [facility] Respitory Rate 16 01/19/2019 [facility] Respitory Rate 16 01/19/2019 [facility] Systolic (mm Hg) 117 01/19/2019 [facility] Diastolic (mm Hg) 64 01/19/2019 [facility] Heart Rate 64 01/19/2019 [facility] Temperature Oral (F) 97.9 F 01/19/2019 [facility] Center Respitory Rate 16 01/19/2019 [facility] Temperature Oral (F) 97.6 F 01/19/2019 [facility] Height 157.48 cm 01/06/2019 [facility] Weight 63.636 01/06/2019 [facility] Weight 63.636 01/04/2019 [facility] Height 157.48 cm 01/04/2019 [facility] Weight 63.636 01/04/2019 [facility] Height 157.48 cm 01/04/2019 [facility] [place] [facility] BMI Calculated 25.66 12/29/2018 [facility] Encounters Location Location Encounter Encounter Reason Attending ADM DC Stat us Source Details Type Number For Provider Date Date Visit [facility] [id number] Dwayne 12/29 01/20 [facility] Diony 0 Jacob [facility] Inpatient [id number] Theresa 01/20 02/11 [facility] 0 Dragojlovic Diony MNA Phone [id number] 06/13 06/15 [facility] Neurosurger Message Neur o y [facility] Inpatient [id number] Wolf 07/20 07/22 [facility] 3 [place] [facility] Inpatient [id number] Kodak Arthur 09/04 09/05 [facility] Outpatient [id number] Jesus Krell 12/20 [facility] Outpatient [id number] Jesus Krell 01/31 [facility] Outpatient [id number] Jesus Krell 05/02 [facility] Procedures Procedure Code Date Perfomer Comments Source Craniotomy [id number] [facility] Hysterectomy [id number] [facility] Assessment and Plan Assessment and Plan Date Source Extracted from:Title: Discharge Summary * 09/05/2019 [facility] Author: Jenelle Samson MD Date: 09/05/19 Discharge Plan Discharge Summary Plan Discharge Status: improved. Discharge instructions given: to patient. Discharge disposition: discharge to home into the care of [facility]. Prescriptions: continue same medications, written and given to patient. Diagnosis History of hemorrhagic stroke with resid ual hemiparesis (DFD63-RC I69.359, Working, Medical). New onset seizure ([id number]-YA R56.9, Working, Medical). Pancolonic diverticulosis (RMT69-TR K57.30, Working, Medical ). Course Improving. Extracted from:Title: TELENEUROLOGY PROGRESS NOTE Author: Jessie Nina MD Date: 09/05/19 TELEMEDICINE NEUROLOGY - PROGRESS NOTE CC: seizure HISTORY OF PRESENT ILLNESS: PER MEDICAL RECORDS: Hx obtained from nurse, previous charts and H &P. 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 Yesterday, she passed out and then ta deangelo to outside hospital where she had a GTC, she was given keppra and sent for evaluation. UPDATED: No concerning events overnight. says she is much imp roved. INPATIENT MEDS: 09/03/19 DULoxetine (Cymbalta) 30 mg PO Daily 09/03/19 busPIRone 5 mg PO BID 09/03/19 citalopram 10 mg PO Daily 09/03/19 cycloSPORINE ophthalmic (Restas is 0.05% ophthalmic emulsion) 1 drp BOTH EYES BID 09/02/19 gabapentin (gabapentin 300 mg oral capsule) 300 mg PO Bedtime 09/03/19 labetalol 100 mg PO TID 09/04/19 levETIRAcetam (Keppra 500 mg oral tablet) 1,000 mg PO Q12H 09/02/19 lisinopril 10 mg PO Q12H 09/03/19 memantine 10 mg PO BID 09/03/19 pantoprazole 40 mg PO Before Breakfast 09/03/19 polyethylene glycol 3350 (MiraLax) 17 gm PO Daily 09/03/19 potassium chloride (potassium c hloride 20 mEq/15 mL oral liquid) 40 mEq PO Daily 09/03/19 senna (senna 8.6 mg oral tablet) 17.2 mg PO BID 09/02/19 simethicone 80 mg PO TID-After Meals PHYSICAL EXAM: -Alert, answers questions appropriately, follows commands -Baseline aphasia present -RUE: not antigravity (baseline) -RLE: + drift (baseline) -LUE: no drift -LLE: no drift DIAGNOSTICS TESTING: MRI brain: No acute intracranial abnormalities. Encephalomalacic changes and gliosis involving the left temp oral lobe, left parietal lobe, and left subinsular region compatible with re mote infarct. Advanced chronic white matter ischemic changes and diffuse c ortical atrophy. Left hemispheric craniotomy changes noted. The left mastoid air cells are completely fluid filled. EEG: The EEG during wakefulness exhibits a ma ximal 9 Hz occipital dominant rhythm. There is prominent left hemispheric slowing noted, maximally in the left temporal region. Throughout much of the recording, sharp waves in the left temporal region are noted, maximally at T5, with periodicity, consistent with periodic lateralized epileptiform discharges (PLEDs). This EEG is very similar to the prior EEG date d 09/03/19, with perhaps very minor impr ovement in that the frequency of periodic sharp waves is slightly less, but overall, this is a similar record. There is occasional myogenic and kinesiogenic artif act. The single channel traffic monitor specialist was not monitored. IMPRESSION: This continues to be a similarly abnorma l EEG due to the presence of left temporal slowing and periodic sharp waves, consistent with PLEDs and a focal disturbance. No obvious ongoing seizure activity noted. Clinical correlation advised. ASSESSMENT/ PLAN: PER MEDICAL RECORDS: Hx obtained from nurse, previous charts and H &P. 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 Yesterday, she passed out and then ta deangelo to outside hospital where she had a GTC, she was given keppra and sent for evaluation. UPDATED: No concerning events overnight. says she is much imp roved. First-time convulsion Previous IPH with craniotomy -Seizure precautions -Continue Keppra 1000mg BID -Ok to discharge when seizure-free for 24 hours -Follow up with Dr. Nate Urrutia [facility] Neurology [address] [facility] [address] [place], [place] [address] (or Neurologist of choice) Discussed with the patient and . All questions answer ed. Will sign off. Please call with questions. ---- Jessie Nina MD (TC) Vascular Neurology [facility] Call Center: [phone] Extracted from:Title: Teleneurology Routine New Consult Author: Edwige Mckay MD Date: 09/03/19 TELEMEDICINE NEUROLOGY - CONSULTATION Date of Consult: 09/03/2019 Time on camera: 8:15 am CC: seizure HISTORY OF PRESENT ILLNESS: Hx obtained from nurse, previous charts and H &P. 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 Yesterday, she passed out and then ta deangelo to outside hospital where she had a GTC, she was given keppra and sent for evaluation. PAST MEDICAL HISTORY: HTN ICH FAMILY MEDICAL HISTORY: Non contributory SOCIAL HISTORY: No history of alcohol us e, tobacco use (smoking and dipping), and drug use (prior and current). MEDS: Buspirone Citalopram Cymbalta Gabapentin Labetalol Lisinopril Memantine Pantoprazole Senna ALLERGIES: None PHYSICAL EXAM: VITAL SIGNS: BP:138/76, T 97.6 Pt is alert, awake, opens and closes eye s, cannot follow any other commands, cannot name, read or repeat. Expressive >Receptive aphasia, HH on right, Rt facial droop, Motor - RUE 2/5 RLE 3/5 LUE 5/5 LLE 5/5 Sensation- decreased on the right Coordination: pt unable to do FTN, HTS d/t weakness and price ot follow commands ASSESSMENT/ PLAN: 64 year old woman with hx of Lt temporal parietal ICH presen ts after a GTC. Currently appears to be back to baseline . No more seizures overnight. There is some mention of pt not tolerating keppra in the past (which was being given for likely seizure prophylaxis). She got keppra overnight and has tolerated it well so far. This hx can be obtained from family. Would empirically treat her with AED at this point given hx of ICH. -Check CT head -EEG routine -Keppra 500mg BID -Seizure precautions Extracted from:Title: PM&R 02/11/2019 [facility] Author: Theresa Vera DO Date: 02/11/19 PM&R DISCHARGE SUMMARY PATIENT NAME: MAYI NINA DATE OF : 51 DATES OF ADMISSION: 01/19/19 -- 02/11/19 ADMITTING PHYSICIAN: Theresa fuller DO, #[id number], Physical Medicine and Rehabilitation, pager [phone] ADMITTING DIAGNOSES: Nontraumatic intracerebral hemorrhage in hemisphere, subcort ical (I61.0) Nontraumatic intracerebral hemorrhage, intraventricular (I61 .5) Aphasia (R47.01) Dysphagia following nontraumatic intracerebral hemorrhage (I 69.191) DISCHARGE DIAGNOSES: Nontraumatic intracerebral hemorrhage in hemisphere, subcort ical (I61.0) Nontraumatic intracerebral hemorrhage, intraventricular (I61 .5) Aphasia (R47.01) Dysphagia following nontraumatic intracerebral hemorrhage (I 69.191) BRIEF HISTORY OF PRESENT ILLNESS: 63yo female PMH HTN presented 12/28/18 wi th right facial weakness, aphasia, and right hemiparesis, found to have L temporoparietal ICH, complicated by cerebral edema requiring decompressive hemicraniecto my and clot evacuation 12/28/18, dysphag ia s/p PEG01/03/19, acute course complicated by H. pylori infection. BRIEF HOSPITAL COURSE: Procedures: none. Consulting Physicians: (none on file) Mayi did well during inpatient rehabili tation with improvements in mobility, self care, and ADLs. While at [facility], she completed antibiotic course for H. pylori infection. She remains on PPI through 03/11/19. She will need H pylori stool antigen rechecked on 02/26/19 and 03/25/19 to assess for eradication. She will require GI follow up for this. To aid in cognitive and language recovery, she was started o n Memantine. For neurogenic bladder, she required lefty eduled laxatives in the setting of history of diverticulitis. Due to neurogenic bladder, she was unabl e to void despite multiple medication trials. She was placed on intermittent cath program, but given discharge to SNF, Humphries replaced. Voiding trial will need to be re-attempted in future, and patient should be seen by Uro logy service. During her rehabilitation course, she di d have an E coli UTI diagnosed 02/03/19 and completed 7 day Rocephin course. She tolerated speech therapies well, and was transitioned to oral diet. However, she continued to require free water flushes to maintain adequate volume due to reduced oral intake. She required potassium supplement due to hypokalemia. She is discharging to SNF for ongoing re habilitation with goal to discharge home thereafter. DISCHARGE PHYSICAL EXAMINATION: Vitals and Temp: Vitals Tmp(F) Pulse BP RR SpO2 FIO2 02/10 19:30 97.4 61 163/81 18 --- --- 02/10 13:00 ---- 59 136/72 -- --- --- 02/10 12:30 97.3 62 146/81 16 --- --- 02/10 08:00 97 65 164/88 16 --- --- 02/09 19:54 98 60 148/73 18 --- --- 24 Hr Tmax: 97.4F (36.33c) at 02/10 19:3 0 Vital Signs are the last 5 in the past 48 hours. Const: resting in bed, comfortable appearing Eyes: anicerteric sclerae, no discharge noted ENT: L hemicrani site mildy sunken, MMM CV: regular S1/S2, no peripheral edema, intact distal pulses Pulm: CTA B GI: regular BS, soft, NT/ND. PEG site C/D. MSK: No pain with PROM of the spastic R upper or lower limb s. Neuro: - Awake, alert, fluent aphasia with para phasias, anomic and grammatical errors. Requires cues regularly to stick to yes/no answers. - No spontaneous movement in the R upper limb. Trace movements against gravity in the R foot and R ankle, otherwise absent on right .Full strength on left. - R facial weakness. Psych: Calm, cooperative DISCHARGE FIM SCORES: PT Current Status PT Treatment Recommendations PT Treatment Recommendations: Ms. Shazia crowley is a 63 y/o female with a PMH of HTN who initially presented to OSH after spouse found patient to be acting strangely and reporting she "didn't fe el right" and doing strange behaviors. C T revealed L temporal/parietal ICH; repeat imaging revealed massive ICH with diffuse brain compression and hydrocephalus. She was taken to OR emergently for decompression hemicraniectomy and clot e vacuation. Pt referred to [facility] for comprehesive inpatient rehab to address deficits. At initial eval, pt presented w/ communication deficits (global aphasia) and postural hypotension, along with signifi cant right sided weakness and functional mobility deficits. Increased tone noted in R PF, knee flexors and hip extensors, with significant spastic dystonia noted in L knee flexors and L hip adductors du ring standing and ambulation tasks. Pt was min A for rolling to L and supervision for rolling to R w/ use of bed rails. Pt is mod A for supine to sit and squat pi vot transfer to [facility] Pt mod-max A for si t to stand and able to tolerate static standing for ~1 min w/ max A for balance. Pt hypotensive w/ positional changes (84/52 seated in [facility] however this improved during second day of evaluation. Pt sco red 11/36 on the Postural Assessment for Stroke Scale and 4/56 on the Coe Balance Scale which puts her at a 100% risk for falls per evidence based norms. Barrier s to therapy include hypotensive episode s w/ positional changes and communication deficits. Pt will benefit from skilled inpatient physical therapy services with emphasis on LE strengthening, transfer t raining, balance re-training, and endura nce training, in order to maximize overall functional mobility and allow her to return to home functioning as safely and independently as possible and with decreased caregiver burden. Performed: 01/20/19 12:50 Mobility Transfer Bed to and From Chair: Minimal contact assistance Performed: 02/11/19 09:35 Ambulation Level Surfaces Ambulation Device: None Performed: 02/11/19 09:35 Ambulation Distance: 110 ft Performed: 02/11/19 09:35 Ambulation Uneven Surfaces Locomotion Walk: Tot A - 1 Performed: 02/11/19 09:35 Locomotion Stair: Does not occur Performed: 02/11/19 09:35 Bed,Chair,Wheelchair: Min A - 4 Performed: 02/11/19 09:35 Wheelchair Mobility Level Surfaces Wheelchair Mobility Level Distance: 55 ft Performed: 09:35 OT Current Status ADL Eating: Supvn/Setup - 5 Performed: 02/11/19 07:35 Grooming: Mod A - 3 Performed: 02/11/19 07:35 Grooming Descriptors: Wheelchair Performed: 02/08/19 02:14 Bathing: Mod A - 3 Performed: 02/11/19 07:35 Bathing Descriptors: Shower, roll in, Corona pported short sit Performed: 02/08/19 02:14 Bathing Equipment: Shower chair w/back Performed: 02/08/19 02:14 Upper Extremity Dressing: Min A - 4 Performed: 02/11/19 07: 35 Lower Extremity Dressing: Min A - 4 Performed: 02/11/19 07: 35 Dressing Descriptors: Jeff techniques, S tanding, Supported short sit Performed: 02/08/19 02:14 Dressing Equipment: Bed rail, Dycem Performed: 02/08/19 02: 14 Toileting: Max A - 2 Performed: 02/10/19 13:26 Toileting Descriptors: Sitting without b ack support, Standing with device Performed: 02/08/19 02:14 Toileting Equipment: Grab bars/rail Performed: 02/08/19 02: 14 Toilet Transfer: Min A - 4 Performed: 02/11/19 09:35 Shower Transfer: Mod A - 3 Performed: 02/11/19 09:35 Vision Vision Status: WFL Performed: 02/11/19 07:35 REGIONAL MAINTENANCE MANAGER Current Status Severity Level Comprehension: Tot A - 1 Performed: 02/11/19 10:00 Comprehension Mode: Auditory, Visual Performed: 02/11/19 10 :00 Expression: Tot A - 1 Performed: 02/11/19 10:00 Expression Mode: Vocal, Nonvocal Performed: 02/11/19 10:00 Memory: Maximal prompting - 2 Performed: 02/11/19 10:00 Problem Solving: Maximal prompting - 2 Performed: 02/11/19 10:00 Social Interaction: Moderate prompting - 3 Performed: 02/11 10:00 DISCHARGE MEDICATIONS: Medications Active Scheduled Meds : 01/20/19 citalopram 10 mg PEG Daily 01/25/19 docusate (Enemeez Mini 283 mg r ectal enema) 283 mg AK Every Other Day-5PM 02/06/19 docusate (Colace 100 mg oral capsule) 100 mg PO TID 01/23/19 gabapentin 300 mg PEG Bedtime 01/20/19 heparin 5,000 unit SUB-Q Q8H-06 01/31/19 labetalol 100 mg DHT Q8H-06 02/10/19 lisinopril 10 mg PO Q12H 02/08/19 memantine 10 mg PO BID 02/10/19 pantoprazole (Protonix) 40 mg PO BID 01/27/19 potassium chloride (potassium c hloride 20 mEq/15 mL oral liquid) 40 mEq PEG Daily 02/03/19 senna 25.8 mg PEG QNoon 02/03/19 sodium chloride (Saline Flush 0.9%) 10 ml IVP Q12H Unscheduled Meds: None PRN Meds (7): 01/19/19 acetaminophen 650 mg PEG Q6H 01/29/19 docusate (Enemeez Mini 283 mg rectal enema) 283 mg AK Bedtime 01/19/19 levETIRAcetam 1,500 mg IV PRN 01/19/19 midazolam 5 mg IM PRN 01/23/19 saliva substitutes 1 appl Swab Mouth QID 01/19/19 sodium chloride (Saline Flush 0.9%) 10 mL IVP PRN 02/03/19 sodium chloride (Saline Flush 0.9%) 10 ml IVP PRN DISCHARGE DIET: Diet Dysphagia -- 01/27/19 14:28:00 CDT, Dysphagia Level Dysphagia-Advanced (chop), Liquid Consistency Thin Liquids, Extra Gravy FREE WATER VIA PEG 300ml q4h x 5 regardless of oral intake Oral Supplements -- 02/09/19 14:18:00 CD T, Order details: Magic Cup with lunch and dinner DISCHARGE ACTIVITY: helmet when out of bed DISCHARGE CONDITION: good DISCHARGE DISPOSITION: SNF DISCHARGE FOLLOW UPS: Helpful Information Gas Turbine Powerplant Mechanic: Gas Turbine Powerplant Mechanic - Sushma Medellin [id number] [id number] [id number] [facility] repeat MRI brain w /wo contrast in mid-March 2019. Clinic #[phone] Christine in 2 -4 wee ks after discharge to discuss cranioplasty , 3. [facility] in 3 months w/ r epeat CTA chest due to pulmonary nodules seen incidentally, 4. [facility] PM&R Outpatient clinic 5. [facility] Urology, call for appointment 6. PCP in 2-3 weeks for post hospitalization care This discharge plan was reviewed and dis cussed at length with the patient's family and they were educated and counseled on the information necessary to ensure the patient's health and safety. They were given the opportunity to ask any questions which were answered to the best of my knowledge. Theresa Vera DO, #[id number] Pager [phone] Attending Physician, Physical Medicine and Rehabilitation Addendum by Theresa Vera DO on 02/11/2019 10:40 I certify that greater than 30 minutes o f floor time was spent on the care of this patient in the coordination and planning of discharge. Extracted from:Title: PM&R Author: Theresa Vera DO Date: 02/10/19 PM&R PROGRESS NOTE CHIEF COMPLAINT f/u for rehabilitation after stroke Consulting Physicians: (none on file) SUBJECTIVE - Patient unable to offer report of symp toms due to cognitive communication impairment. However, denies pain. - Nursing has no issues reportable from overnight. - Patient medications and lab results discussed with teodoro preciado pharmacist - Last BM: 02/08 Sleep Documentation 02/09/19 22:00 Sleep Hours at Night: 8 01/31/19 05:58 Sleep Hours During Day: 0 OBJECTIVE Medications (20) Active Scheduled Meds (13): 02/09/19 bethanechol 20 mg PO TID 01/20/19 citalopram 10 mg PEG Daily 01/25/19 docusate (Enemeez Mini 283 mg r ectal enema) 283 mg AK Every Other Day-5PM 02/06/19 docusate (Colace 100 mg oral capsule) 100 mg PO TID 01/23/19 gabapentin 300 mg PEG Bedtime 01/20/19 heparin 5,000 unit SUB-Q Q8H-06 01/31/19 labetalol 100 mg DHT Q8H-06 02/10/19 lisinopril 10 mg PO Q12H 02/08/19 memantine 10 mg PO BID 02/10/19 pantoprazole (Protonix) 40 mg PO BID 01/27/19 potassium chloride (potassium c hloride 20 mEq/15 mL oral liquid) 40 mEq PEG Daily 02/03/19 senna 25.8 mg PEG QNoon 02/03/19 sodium chloride (Saline Flush 0.9%) 10 ml IVP Q12H Unscheduled Meds: None PRN Meds (7): 01/19/19 acetaminophen 650 mg PEG Q6H 01/29/19 docusate (Enemeez Mini 283 mg rectal enema) 283 mg AK Bedtime 01/19/19 levETIRAcetam 1,500 mg IV PRN 01/19/19 midazolam 5 mg IM PRN 01/23/19 saliva substitutes 1 appl Swab Mouth QID 01/19/19 sodium chloride (Saline Flush 0.9%) 10 mL IVP PRN 02/03/19 sodium chloride (Saline Flush 0.9%) 10 ml IVP PRN One Time Meds: None Continuous Infusions: None Missed Scheduled Medications 02/09/19 09:00 bethanechol 10 mg PO TID 02/10/19 13:04 labetalol (Trandate, Normodyne) 100 mg DHT Q8 H-02/10/19 05:36 labetalol (Trandate, Normodyne) 100 mg DHT Q8 H-06 02/10/19 08:32 sodium chloride (BD Posiflush) IVP Q12H 02/09/19 20:26 sodium chloride (BD Posiflush) IVP Q12H Lines, Tubes, and Drains: 01/20/2019 08:00 Gastric Tubes: Percutaneous endo gastrostom y Abdominal wall Vitals Tmp(F) Pulse BP RR SpO2 FIO2 02/09 19:54 98 60 148/73 18 --- --- 02/09 13:08 97.8 67 142/76 18 --- --- 02/09 07:52 97.4 58 141/80 18 --- --- 02/09 05:10 ---- 60 153/75 -- --- --- 02/08 19:29 98 65 116/65 16 --- --- 24 Hr Tmax: 98F (36.67c) at 02/09 19:54 Vital Signs are the last 5 in the past 48 hours. PHYSICAL EXAMINATION: Const: resting in bed, comfortable appearing Eyes: anicerteric sclerae, no discharge noted ENT: L hemicrani site mildy sunken, MMM CV: regular S1/S2, no peripheral edema, intact distal pulses Pulm: CTA B GI: regular BS, soft, NT/ND. PEG site C/D. MSK: No pain with PROM of the spastic R upper or lower limb s. Neuro: - Awake, alert, fluent aphasia with para phasias, anomic and grammatical errors. Requires cues regularly to stick to yes/no answers. - No spontaneous movement in the R upper limb. Trace movements against gravity in the R foot and R ankle, otherwise absent on right .Full strength on left. - R facial weakness. Psych: Calm, cooperative (no lab data in past 24 hours) Imaging Studies (last 36 hours) (none) ASSESSMENT Nontraumatic intracerebral hemorrhage in hemisphere, subcort ical (I61.0) Nontraumatic intracerebral hemorrhage, intraventricular (I61 .5) Aphasia (R47.01) Dysphagia following nontraumatic intracerebral hemorrhage (I 69.191) Unspecified bacterial pneumonia (J15.9) Other specified bacterial intestinal infections (A04.8) PLAN # Left temporal/parietal ICH - status post left decompressive hemicra niectomy with evacuation on 12/28/[address] 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 Incontinent thus far. Timed voids ongoing. #Neurogenic bladder Admitted with Humphries, timed void trial f cesia, started ICP every 4 hours. Unable to empty thus far. -- 02/02 Started Bethanecol TID, 02/09 incr eased but has not been able to void and has required around the clock ICPs - Given upcoming transition to SNF, Fole y replaced 02/10/19. Will need to repeat voiding trial in future, with Urology follow up as outpatient. #E coli UTI Started On Rocephin 02/03/19 x 7 days, sensitive, completed course. #Pain: Tylenol PRN available # Esophagitis # Peptic ulcer disease # H. pylori - On admit, was started on triple therapy for 14 days Clarithromycin 500 mg p.o. twice daily, stop date , completed. Amoxicillin 1 g p.o. twice daily, stop date 01/26/19, co mpleted. Lansoprazole twice daily with end d ate 03/11/19 (8-week total treatment due to evidence of ulceration) According to records, patient will have a stool antigen checked 4 weeks after antibiotic completion (02/26/19) and 2 weeks off PPI (03/25) to test for eradication. #Respiratory failure #Hospital acquired pneumonia CT chest with multiple pulmonary nodule s concerning for metastasis versus atypical infection. Pulmonary team was consulted and patient will follow up with [facility] in 3 months with repeat CTA chest Completed course of vancomycin/Zosyn without recurrence Repeat chest x-ray negative for acute changes #Hypertension SBP goal<150/90 per Neuro notes Admitted on Amlodipine, Labetolol, Bharti nopril. Had Orthostasis, so Amlodipine held - Titrating Lisinopril # DVT Prophylaxis: Heparin #GI prophylaxis: on PPI for H. pylori as above # Nutrition/Dysphagia: - Admitted on dysphagia diet w/o liquids - 01/24 after MBS, upgraded to puree with thin liquids - FW flushes via PEG regardless of PO intake - REGIONAL MAINTENANCE MANAGER treatments ongoing - Product Controller consulted - Hypokalemia: serial BMPs ongoing, on s cheduled potassium replacement with improvement - Oral thrush: identified on admit, Nystatin 14 day course c ompleted 02/03/19 # Disposition: -Anticipated discharge date 02/11 to SNF #Follow-up 1. [facility] repeat MRI brain w /wo contrast in 3 months. Clinic #[phone] Christine in 2 -4 wee ks - to discuss cranioplasty , 3. PCP in 1-2 weeks for post hospitalization care 4. [facility] in 3 months w/ repeat CTA chest, [phone] 5. PCP 6. [facility] 7. [facility], call for appointment Theresa Vera DO #[id number] Pager [phone] Attending Physician, Physical Medicine and Rehabilitation Extracted from:Title: PM&R History and Physical Author: Dex Valentine DO Date: 01/20/19 PHYSICAL MEDICINE and REHABILITATION HISTORY AND PHYSICAL DATE OF ADMISSION: 01/19/19 TRANSFERRING FACILITY: [facility] [place] ADMITTING REHAB DIAGNOSIS: Left temporal/parietal ICH ATTENDING PHYSICIAN: Dr. Vera Previous documentation in the medical re cord was comprehensively reviewed, patient was interviewed and examined to formulate this history and physical. CHIEF COMPLAINT: Follow-up rehabilitation for CVA HISTORY OF PRESENT ILLNESS: Patient is a 63-year-old female with PMH of hypertension who presented on 12/28/18 with hypertensive urgency and strange behaviors, found to have a left temporal/parietal ICH with IVH extension and non-t raumatic SAH. Subsequently, repeat imag ing revealed massive ICH with diffuse brain compression and hydrocephalus for which she received a decompressive hemicraniectomy and clot evacuation. Her hospita l course was complicated by dysphagia st atus post PEG on 01/03, SIADH, HCAP status/post Vanco/Zosyn 7-day course, and esophagitis with H pylori currently on triple therapy for 14 days clarithromycin, amoxicillin, and lansoprazole. Patient seen at bedside. She was unable to provide full review of systems due to cognitive impairment. During physical therapy evaluation, patient was hypotensive with BP 89/52 when edge of bed and wa s less responsive. Consequently, a ther apy session was aborted as patient was placed back in bed with resolution of symptoms and improvement in her blood pressure. PAST MEDICAL HISTORY: Hypertension PAST SURGICAL HISTORY: Hysterectomy MEDICATIONS: Medications (16) Active Scheduled Meds (10): 01/20/19 (Suspended) amLODIPine 10 mg GT Daily 01/19/19 amoxicillin 1,000 mg PEG [id number] 01/20/19 citalopram 10 mg PEG Daily 01/19/19 clarithromycin 500 mg PEG [id number] 01/20/19 heparin 5,000 unit SUB-Q Q8H-06 01/20/19 labetalol 200 mg DHT Q8H-06 01/19/19 lansoprazole 30 mg PEG Q12H 01/20/19 lisinopril 10 mg PO Daily 01/20/19 nystatin 500,000 unit Swab Mouth TID 01/20/19 potassium chloride 40 mEq PEG BID Unscheduled Meds: None PRN Meds (4): 01/19/19 acetaminophen 650 mg PEG Q6H 01/19/19 levETIRAcetam 1,500 mg IV PRN 01/19/19 midazolam 5 mg IM PRN 01/19/19 sodium chloride (Saline Flush 0.9%) 10 mL IVP PRN One Time Meds (2): 01/21/19 (Ordered) pneumococcal 13-valent vaccine 0.5 mL IM ONCE 01/19/19 (Completed) potassium chloride (potassium chloride 20 mEq/15 mL oral liquid) 40 mEq PO ONCE Continuous Infusions: None ALLERGIES: Allergies (1) Active Reaction NKDA None documented FAMILY HISTORY: No known family history of hypertension, diabetes, cancer SOCIAL HISTORY: Unable to obtain social history due to patient's current cog nitive status According to records, patient does not smoke, drink, or use any drugs FUNCTIONAL HISTORY: Prior functional history unknown due to patient's current cognitive status. No family at bedside to obtain history Preadm Current Functional Status Bathing : Total A Bed Mobility : Total A Bladder : Total A Bowel : Total A Eating : Total A Lower Body Bathing : Total A Lower Extremity Dressing : Total A Upper Body Bathing : Total A Upper Extremity Dressing : Total A Bed Wheelchair Transfer : Does not occur Grooming : MAX A Locomotion Walk : Does not occur Locomotion Wheelchair : Does not occur Rolling-Left to Right : MAX A Rolling-Right to Left : MAX A Toilet Transfer : Does not occur Sit to Stand : Does not occur Supine to Sit : MOD A, MAX A Tub, Shower Transfer : Does not occur REVIEW OF SYSTEMS: Unable to obtain 10 point review of syst ems due to patient's current cognitive status PHYSICAL EXAMINATION: Vitals Tmp(F) Tmp(C) Ttype B P MAP Pulse RR SpO2 FIO2 ETCO2 01/20 12:50 ---- ---- ---- 9 --- --- -- --- --- --- 01/20 12:30 97 36.11 scan 10 --- 54 16 --- --- --- 01/20 07:20 97.6 36.44 scan 126/73 --- 56 16 --- --- --- 01/19 19:40 98 36.67 oral 12 --- 88 18 --- --- --- 24 Hr Tmax: 98F (36.67c) at 01/19 19:40 Vital Signs are the last 5 in the past 48 hours. 24 Hr Tmin: 97F (36.11c) at 01/20 12:30 Weights are the last 5 in 60 days, plus initial. Date Wt(kg) Wt(lb) Ht(cm) Ht(in) Method BM I BSA 01/19 (initial) 46.93 103.25 Measured 18. 3 1.44 01/19 160.02 63.00 Stated 24 Hr Point of Care Glucoses 01/20 1236 Glucose POC 125 H 01/20 0810 Glucose POC 94 01/19 2100 Glucose POC 99 Most Recent Scores: 01/20/19 Pain Intensity NRS (0-10) 0 01/20/19 [facility] Fall Score 15 01/20/19 Quinten Score 17 Lines, Tubes, and Drains: 01/20/2019 08:00 Gastric Tubes: Percutaneous endo gastrostom y Abdominal wall (no surgical procedures documented) Lines, Tubes, and Drains: 01/20/2019 08:00 Gastric Tubes: Percutaneous endo gastrostom y Abdominal wall GENERAL: laying comfortably in bed, no acute distress HEAD: normocephalic, status post left hemicraniectomy site h ealing well EYES: pupils equally round and reactive to light, extraocula r muscles intact ENT: Auditory acuity intact, nares patent, + oral thrush CARDIOVASCULAR: regular rate, no obvious murmur RESPIRATORY: good air entry bilaterally, no wheezes, rales or rhonchi auscultated SKIN AND WOUND: no open areas of breakdown noted in exposed areas GASTROINTESTINAL: soft, non-distended, bowel sounds present , PEG tube intact NEUROLOGIC: A and O x1 to person. Speec h is dysarthric, comprehension is impaired. aphasia both receptive and expressive. Follows simple commands. Unable to perform multistep commands. Signs of inattention and impulsivity noted. Reflexes: R, L Bicep2/4, 2/4 Tricep 2/4, 2/4 Patella2/4, 2/4 Ankle2/4, 2/4 HoffmannNeg. Neg. BabinskiNeg. Neg. PSYCHIATRIC: appropriate affect and interaction. MUSCULOSKELETAL: No peripheral edema. I ncreased tone in right lower extremity. Hypotonic in the right upper extremity Patient able to move left upper and lower extremity at least antigravity No movement seen in the right upper and lower extremity LABORATORY DATA: All laboratory data has been personally reviewed, recent pertinent laboratory data includes: 24hr Labs 01/20 1236 POC Performing Locatio See Note Glucose POC 125 H 01/20 0810 POC Performing Locatio See Note Glucose POC 94 01/20 0509 Magnesium Lvl 2.2 Phosphorus 3.1 T4 Free 1.25 TSH 6.930 H Sodium Lvl 139 Potassium Lvl 2.4 C Chloride Lvl 101 CO2 30 AGAP 10.4 Glucose Lvl 82 Creatinine Lvl 0.64 BUN 17 B/C Ratio 27 H Total Protein 7.1 Albumin Lvl 3.3 L Globulin 3.8 A/G Ratio 0.9 Calcium Lvl 9.5 ALT 51 AST 31 Alk Phos 113 Bili Total 0.7 eGFR 94 WBC 3.1 L RBC 3.75 L Hgb 11.1 L Hct 33.2 L MCV 88.4 MCH 29.6 MCHC 33.5 RDW 14.9 H Platelet 457 H MPV 8.1 Segs 56.3 Monocytes 15.5 H Lymphocytes 21.2 Eosinophils 4.4 H Basophils 2.6 H Neutrophils # 1.7 Lymphocytes # 0.6 L Monocytes # 0.5 Eosinophils # 0.1 Basophils # 0.1 Plt Morph Normal Anisocyte 1+ Prealbumin 26.9 01/19 2100 POC Performing Locatio See Note Glucose POC 99 IMAGING: Patients diagnostic imaging and reports have been personally reviewed and visualized. Pertinent imaging reports include: CT Head 01/11/19: IMPRESSION: Expected evolution of findings evident o n the noncontrast CT exam. There are some mild ischemic changes in the basal ganglia which were not evident. PRECAUTIONS: Fall precautions, DVT precautions ASSESSMENT: Patient is a 63-year-old female with PMH of HTN who presented on 12/28/18 with a left temporal/parietal ICH with IVH extension S/P left sided hemicraniectomy with evacuation, ntSAH, hydrocephalus, aphasi a, and residual right hemiparesis. Curr ently admitted to [facility] for comprehensive of brain injury rehabilitation. IMPAIRMENTS: Left parietal/temporal ICH Cognitive deficits Communication deficits Neurogenic bowel Neurogenic bladder Right hemiparesis Decreased strength Decreased activity tolerance Gait abnormality Impaired mobility Impaired balance and coordination Impaired self-care Impaired basic activities of daily living Impaired instrumental activities of daily living Impaired cognition and memory Impaired fine motor skills Impaired community access Impaired avocation ACTIVITY LIMITATIONS: Decreased mobility Decreased transfers Impairments of ability to perform ADLs Impairments of ability to perform iADLs Impairments of speech Impairments of cognition Communication deficits PARTICIPATION RESTRICTIONS: Taking care of the home Recreational leisure activities Community reintegration PLAN: # Rehabilitation:Patient will benefit fr om 3 hours daily of inpatient rehabilitation to help return to prior level of independence.Patient will require physician specializing in physical medicine and re habilitation to provide oversight of isa abilitation therapies and close medical supervision of rehabilitation specific issues, some of which include: pain management, sleep disturbance, coordination of treatment plan and monitoring for compli cations.Patient will require physical therapy for a minimum of 1 to 1-1/2 hours daily at least 5 out of 7 days per week to improve functional mobility, balance, s trengthening, transfers, range of motion , endurance and gait training.Patient will require occupational therapy for a minimum of 1 to 1-1/2 hours daily at least 5 out of 7 days per week to improve activ ities of daily living including eating, grooming, bathing, dressing, toileting, toilet transfers, splinting and other activities to be determined.Patient requires speech and language pathology at least 1 hour a day for a minimum of 2 to 3 day s per week for cognitive evaluation/deficits.Patient will require 24-hour rehabilitation nursing for pain issues, identifying and preventing risk factors, monitor ing and reporting current medical condit ions, assisting with ambulation, transfers, and all ADLs, bowel and bladder issues and skin integrity.Patient may require protective services social worker and/or case management f or discharge planning and arranging home equipment or services.Patient will require dietary and nutrition services for adequate nutrition and nutritional supplements. #Stroke Left temporal/parietal ICH status post left decompressive hemicraniectomy with evacuation on 12/28/[address] Wolf Christine SBP goal<150/90 Repeat MRI of brain with/without contrast in 3 months Follow-up with neurosurgery, Dr. Dee botello, in 2-4 weeks with potential discussion of flap placement #Cognitive/communication deficits #Aphasia REGIONAL MAINTENANCE MANAGER consulted for speech and cognitive impairments. Neuropsych to provide testing if/when appropriate Monitor sleep/wake cycles #Right sided hemiparesis As a result of recent stroke Monitor for spasticity Continue PT/OT #Depression Started citalopram #Neurogenic bowel At risk due to recent CVA Follow-up with [facility] and escalate BM meds as appropriate Goal 1 to soft, formed bowel movements every 1-2 days #Neurogenic bladder Continue ICP every 6 hours. Will trans ition to timed voids once patient is more cognitively aware and able #Pain Continue Tylenol 600 mg every 6 hours as needed #Esophagitis #Peptic ulcer disease #H. pylori Continue triple therapy for 14 days Clarithromycin 500 mg p.o. twice daily, stop date 01/23/19 Amoxicillin 1 g p.o. twice daily, stop date 01/26/19 Lansoprazole twice daily with end date 03/11/19 (8-week total treatment due to evidence of ulceration) According to records, patient will have a stool antigen checked 4 weeks after antibiotic completion (01/26) and 2 weeks off PPI (03/25) to test for eradication. #Respiratory failure #Hospital acquired pneumonia CT chest with multiple pulmonary nodule s concerning for metastasis versus atypical infection. Pulmonary team was consulted and patient will follow up with [facility] pulmonary clinic in 3 months with repeat CTA chest Completed course of vancomycin/Zosyn Repeat chest x-ray pending #Hypertension Admitted on amlodipine 10 mg daily and labetalol 200 mg 3 t imes daily Due to episodes of orthostatic hypotension, will DC amlodip ine ID hospitalist consulted for comanagement #Hypokalemia K is 2.4 on admission Replaced and will repeat labs tomorrow #Normocytic anemia Present on admission Continue to monitor # Skin: Turn patient every 2-3 hours when in bed to prevent skin br eakdown #Oral thrush Started nystatin for 14 days # DVT Prophylaxis: Heparin #GI prophylaxis on PPI for H. pylori # Nutrition/Dysphagia: - Consult tobacco sprayer. - REGIONAL MAINTENANCE MANAGER for swallowing exercises -Currently on dysphagia diet with pured consistency with no liquids. Continue free water 300 cc every 4 hours x5 through PEG tube # Goals:Potential functional goals for t his patient to achieve by discharge include increased independence with bed mobility, transfers, upper body dressing, lower body dressing, toileting, bathing and grooming. Patient pain will be controll ed.Patients skin will remain intact and free from infection.Patient will receive adequate nutrition. Patients prognosis for significant practi zak improvement within a reasonable period of time appears t o be good. #Disposition: -Anticipated discharge date to be [facility] ined. Will discuss at interdisciplinary team rounds -Estimated length of stay: 3-4 weeks #Follow-up - [facility]. repeat MRI brain w/w o contrast in 3 months. Clinic #[phone] - Neurosurgery in 2 -4 weeks - flap , - PCP in 1-2 weeks for post hospitalization care - GI for possible PEG removal in 8 weeks - [facility] in 3 months w/ repeat CTA chest, Dex Valentine DO PGY-3 Physical Medicine and Rehabilitation Addendum by Theresa Vera DO on 01/20/2019 18:44 PM&R ATTENDING PHYSICIAN ADDENDUM POST-ADMISSION PHYSICIAN EVALUATION I saw, examined and discussed the patien t with the resident, Dr. Valentine and agree with the documentation except for the strikethrough and/or edits noted here: Labs reviewed, hypokalemia corrected. Will need repeat monit oring. Hypertensives held, ID hospitalist consulted. Patient admitted without free water supp lementation at previous hospital; started FW supplement to suspect orthostasis 2/2 hypovolemia which is notable on exam. The patient presents for inpatient rehab ilitation following L subcortical ICH with SAH, IVH incurred on date 12/28. There are no medical or functional changes since the pre-admission assessment. The nadia ent has ongoing medical and functional i mpairments that can safely be met in the IRF setting, and these needs cannot be adequately addressed in a lower level of care, as the patient requires 24 hour kong sing and daily medical management. The p atient also has comorbidities including: pneumonia on IV antibiotics, oropharyngeal dysphagia, Peptic ulcer disease with H pylori infection, which also necessita te close medical supervision, specialize d rehabilitation nursing, and skilled therapy intervention. The patient is able to participate in and benefit from an acute inpatient rehabilitation program, with anticipated measurable gains as a resul t of this program. Prior to this event, the patient was independent. Currently, the patient is max to total A. There are no obvious barriers to disposition to the community following the IRF admission. Initial Plan of Care: Patient will require oversight by a reha bilitation physician and 24 hour rehabilitation nursing for management of bowel, bladder, skin integrity, medication management, safety measures, and preventing r isk factors and complications. Patient w ill require a minimum of 3 hours of therapy a day for 5-7 days a week throughout the hospitalization, including at least the followin-2 hours Physical Therapy , 1-2 hours Occupational Therapy, and 1 hour Speech-Language pathology, Neuropsychology, Exercise and Multidisciplinary Groups. These disciplines will be needed in order to improve the patient's im pairments in mobility, transfers, activi ties of daily living, swallowing and cognition, and evaluation of durable medical equipment if needed at discharge. Social Work and Case Management will be consul yesenia to assist with discharge planning and family coping stra tegies. Date of service: 01/20/19 Prognosis: good Estimated Length of Stay: 3-4 weeks Discharge disposition: expected home w/ family, to be discussed further in team conference Nontraumatic intracerebral hemorrhage in hemisphere, subcort ical (I61.0) Nontraumatic intracerebral hemorrhage, intraventricular (I61 .5) Aphasia (R47.01) Dysphagia following nontraumatic intracerebral hemorrhage (I 69.191) Unspecified bacterial pneumonia (J15.9) Other specified bacterial intestinal infections (A04.8) Theresa Vera DO #[id number] Pager #[phone] Attending Physician, Physical Medicine and Rehabilitation Extracted from:Title: Stroke 01/20/2019 [facility] Author: Patricia Negron NP Date: 01/18/19 STROKE TEAM PROGRESS NOTE Chief Complaint: RFD, dysarthria, RSW HISTORY OF PRESENT ILLNESS: per medical record 63 y/o F PMH HTN who initially presented to OSH after spouse found patient to be acting strangely at about 5:30 pm today said she didnt feel right and doing strange behaviors. Blood pressure at home was taken by was 180> systolic. No headache. No thinners. ASP today 321 mg today because she did not feel like herself but patient does not regularly take aspirin. no head trauma. Hospital Course: 12/30: Patient extubated and breathing well on nasal cannula . 12/31: Stable, ready for transfer out of ICU to stroke unit. 01/01: exam stable 01/02: exam remains stable, nsgy s/o. galina l discuss PEG with family today. BP meds adjusted. transferred to floor 01/03: s/p PEG 01/04: called by nurse for increased resp iratory rate and O2 demands and decreased mental status. Septic work-up sent. Vanc/Cefepime started 01/05: Improved, ICU weaning vapotherm 01/06: desatted again requiring vasotherm . Started treatmetnf for SIADH overnight, appears slightly more alert but still requires stimulation to open eyes 01/09: H pylori came back positive, patien t transferred to [facility], reordered therapies day 02/13 of broad spectrum antibiotics 01/10: No acute changes in neurological ex amination overnight. PEG tube was evaluated by GI with the Bumper tightened from 3.5 cm to 3.0 cm to preevnt further leakage of tube feeds. Will continue tripple therapy x 14 days for H. pylori treatmen t. Of note remains on VAnc and zosyn , thus will re-evaluate antibiotics therapy. 01/11: exam stable, Pulmonary consulted to evaluate CT chest results, MRI brain w/o, BNP pending. BP meds adjusted, transferred to floor 01/12: exam unchanged, passed MBS puree/no liquid, family at bedside, update provided. 01/13: exam stable. Pulmonary recommending repeat CT chest in 3 months, and clinic FU, deemed high risk for invasive diagnostic testing. completed abx course for PNA. still pending bed at [facility]. medically ready 01/14: Medically ready for DC. H Pylori tr eatment to end on 01/26 (clarithromycin 500 mg PEG [id number], lansoprazole (Prevacid) 30 mg PEG BID, amoxicillin (Amoxil) 1,000 mg PEG [id number]) Recommend treatment for H. pylori with t riple therapy for 14 days (quadruple therapy regimen not available as inpatient): Clarithromycin 500 mg PO bid Amoxicillin 1 g PO bid -> resumed 01/13/19, stop date 01/26/19 Lansoprazole BID (need to continue PPI f or 8 weeks total due to ulcers)(end date 03/11/19) Patient will need to have Stool Ag check ed 4 weeks after antibiotics (02/26) and 2 weeks off PPI (03/25), to test for eradication. 01/15: Medically ready for DC. No family at bedside this am. 01/16: Medically ready for DC. [facility] bed p edning. #3 of 9 patients waiting per CM. 01/17: exam unchanged, Medically ready for DC. [facility] bed pendi ng 01/18: exam stable, citalopram added. Medically ready for DC. [facility] bed pending REVIEW OF SYSTEMS: APOORVA pt aphasic Medications (17) Active Scheduled Meds (9): 12/31/18 amLODIPine 10 mg GT Daily 01/13/19 amoxicillin (Amoxil) 1,000 mg PEG [id number] 01/09/19 clarithromycin 500 mg PEG [id number] 01/09/19 guar gum (guar gum oral powder ([employer])) 4 gm PEG Q12H 12/30/18 heparin (heparin 5000 units/mL injectable solution) 5,000 unit SUB-Q Q8H 01/06/19 labetalol 200 mg DHT Q8H 01/09/19 lansoprazole (Prevacid) 30 mg PEG Q12H 01/11/19 lisinopril 10 mg PO Daily 12/29/18 sodium chloride (Saline Flush 0.9%) 10 ml IVP Q12H Unscheduled Meds: None PRN Meds (8): 12/30/18 acetaminophen (Tylenol) 650 mg GT Q4H 01/06/19 albuterol-ipratropium (DuoNeb inhalation solution) 3 ml NEB PRN 01/01/19 hydrALAZINE 10 mg IVP Q2H 12/29/18 labetalol 10 mg IVP Q1H 01/11/19 lanolin/menthol/petrolatum/Zn o xide top (Calmoseptine topical ointment) 1 appl TOP 5X Day 12/29/18 ondansetron (Zofran) 4 mg IVP Q8H 12/28/18 sodium chloride (Saline Flush 0.9%) 10 mL IVP PRN 12/28/18 sodium chloride (Saline Flush 0.9%) 10 ml IVP PRN One Time Meds: None Continuous Infusions: None Vitals Tmp(F) Pulse BP RR SpO2 FIO2 01/18 11:02 97.3 63 112/68 18 97 --- 01/18 07:18 99.1 67 126/70 18 98 --- 01/18 04:00 97.7 60 128/70 16 98 --- 01/17 23:28 97.3 60 131/70 18 97 --- 01/17 19:55 97.4 59 103/58 16 96 --- 24 Hr Tmax: 99.1F (37.28c) at 01/18 07:1 8 Vital Signs are the last 5 in the past 48 hours. NEURO: Mental status: awake, following commands . opens eyes spontaneously. aphasia (able to say a few words) Cranial nerves: Pupils 3mm equal, round, and reactive. PERRL. RFD. tracks bilaterally Motor: Purposeful with L side, . WD to pain on RUE. plegic R LE Sensation: Intact to pain in all extremities Labs (Last four charted values) WBC 9.8 (JAN 11) 9.8 (JAN 10) H 13.1 (JAN 09) H 13.7 (JAN 08) Hgb L 10.5 (Jan 5) L 10.0 (JAN 10) L 9.5 (JAN 09) L 8.7 (JAN 08) Hct L 31.2 (JAN 0 5) L 29.3 (JAN 10) L 28.1 (JAN 09) L 26.3 (JAN 08) Plt H 515 (JAN 11 ) H 547 (JAN 10) H 506 (JAN 09) 448 (JAN 08) Na 142 (JAN 13) 138 (JAN 11) 139 (JAN 10) 138 (JAN 09) K 3.5 (JAN 13) L 3.3 (JAN 11) 3.7 (JAN 10) L 3.4 (JAN 09) CO2 25 (JAN 13) 24 (JAN 11) 26 (JAN 10) 25 (JAN 09) Cl 109 (JAN 13) 104 (JAN 11) 104 (JAN 10) 101 (JAN 09) Cr 0.63 (JAN 13) 0.54 (JAN 11) 0.59 (JAN 10) 0.54 (JAN 09) BUN H 24 (JAN 13) 20 (JAN 11) 21 (JAN 10) 19 (JAN 09) Glucose Random 86 (JAN 13) H 127 (JAN 11) H 112 (JAN 10) H 124 (JAN 09) Mg 2.1 (JAN 11) 2.2 (JAN 10) 2.3 (JAN 09) 2.2 (JAN 08) Phos 3.1 (JAN 11) 3.4 (JAN 10) 3.7 (JAN 09) 3.1 (JAN 08) Ca 8.7 (JAN 13) 8.8 (JAN 11) 8.7 (JAN 10) 8.9 (JAN 09) PT 13.1 (JAN 09) 12.5 (JAN 03) 14.0 (DEC 29) 12.7 (DEC 28) INR 1.01 (JAN 09) 0.95 (JAN 03) 1.10 (DEC 29) 0.97 (DEC 28) PTT 30.3 (JAN 09) 26.1 (DEC 29) L 20.2 (DEC 28) Troponin 0.02 (DEC 29) <0.02 (DEC 28 ) Total CK 67 (DEC 28) CHD Risk: 1.78 Low (12/29/18 03:47:00) Chol: 137 mg/dL (12/29/18 03:47:00) HDL: 77 mg/dL (12/29/18 03:47:00) LDL (Calculated): 54 mg/dL (12/29/18 03:47:00) Tri mg/dL (12/29/18 03:47:00) VLDL: 6 (12/29/18 03:47:00) Stroke work-up: Brain wo contrast CT 01/04/2019 13:47 Impression: 1. Increased vasogenic edema of the sub cortical left cerebral hemisphere is likely related to evolving postoperative changes of parenchymal hemorrhage evacuation. Short-term follow-up is recommended. 2. Interval decrease in mass effect wit h continuing evolution of residual left temporal and left thalamic hematoma, with slight decrease in intraventricular extension. Chest 1view DX 01/04/2019 10:08 Impression: 1. Cardiomediastinal silhouette is enla rged, unchanged. Aortic atherosclerotic disease. 2. Prominent lung reticulations again s een with peribronchial cuffing suggestive of pulmonary edema. Superimposed infection cannot be excluded. 3. Small bilateral pleural effusions. 4. There are left retrocardiac opacitie s obscuring the left hemidiaphragm and silhouette of the descending thoracic aorta which may represent left pleural effusion with or without underlying atelectasis or consolidation of left lower lobe. 5. Interval extubation. 6. Osseous structures are stable. Chest Xray 01/11/19 1. Patchy airspace opacities are seen i n both lungs suggestive of multifocal infection, improved compared to previous study. 2. Cardiomediastinal is upper limit of normal size. Aortic atherosclerotic disease. 3. Small right and moderate left bilateral pleural effusion s. 4. Osseous structures are stable. CTH 12/28: 1. The left frontotemporal intraparench ymal hemorrhage has significantly increased in size compared to the outside head CT at 1843 hours. 2. The hemorrhage now demonstrates intr aventricular an subarachnoid space extension. 3. There is increased mass effect with 11 mm rightward midline shift, effacement of the left lateral ventricle and enlargement of the right lateral ventricle with findings of acute hydrocephalus. CTH 12/29: Expected findings following left hemicra niectomy and evacuation of the left temporal parenchymal hematoma. Decreased mass effect with decreased effacement of the left lateral and third ventricles. CTH 12/30: Expected findings following left hemicra niectomy and evacuation of the left temporal parenchymal hematoma. Decreased mass effect with decreased effacement of the left lateral and third ventricles. CTH 01/04: 1. Increased vasogenic edema of the sub cortical left cerebral hemisphere is likely related to evolving postoperative changes of parenchymal hemorrhage evacuation. Short-term follow-up is recommended. 2. Interval decrease in mass effect wit h continuing evolution of residual left temporal and left thalamic hematoma, with slight decrease in intraventricular extension. CTA: 1. Active extravasation into the left f rontotemporal intraparenchymal hemorrhage which now demonstrates intraventricular extension and increased midline shift compared to the outside CT brain at 1843 h ours. There is approximately 1.2 cm righ tward midline shift and bilateral uncal herniation. 2. Fluid within the pharynx and hypopha rynx is not unusual in a patient who is intubated. 3. Extensive biapical perilymphatic nod ules with large mediastinal lymph nodes. The primary differential for this appearance is sarcoidosis. Atypical infection is also a possibility. CT Chest: 1. No pulmonary embolism. 2. Volume loss with heterogeneously enha ncing consolidation in the left upper lobe and left lower lobe. This is due to a combination of atelectasis and superimposed infection or aspiration in these lobes. 3. There are innumerable small pulmonary nodules throughout the lungs bilaterally ranging in size from 2 to 7 mm with an upper lung predilection. The 2 major differential diagnostic considerations inclu de infection (including atypical etiolog ies such as mycobacterial and fungal) and pulmonary metastases, depending on the clinical picture. Sarcoidosis is also a consideration. 4. Small left pleural effusion. Tiny right pleural effusion. 5. Almost all of the left upper lobe and left lower lobe bronchi are filled with mucous/secretions. Consider airway suctioning for clearance. 6. Enlarged mediastinal and hilar lymph nodes. 7. Evidence of old healed granulomatous disease. 8. Aortic and coronary artery calcifications. MRI: Expected evolution of findings evident o n the noncontrast CT exam. There are some mild ischemic changes in the basal ganglia which were not evident. I do not see any progressive edema or en larging fluid collection to suggest infection. TTE: 1) Normal LV size and systolic function. LVEF is estimated a t 65%. 2) Grade 2 LV diastolic dysfunction. 3) Normal RV size and systolic function. 4) Moderate atrial dilatation. Normal right atrial size. 5) No interatrial shunt demonstrated by saline contrast stud y, at rest or during Valsalva maneuver. 6) Normal aortic root dimension. 7) Trace aortic regurgitation. 8) There is moderate thickening of the mitral leaflets, shari cially the leaflet tips. There is anterior > posterior mitral leaflet prolapse, associated with at least moderate eccentric regurgitation. 9) Moderate tricuspid regurgitation. 10) Estimated systolic pulmonary artery pressure 39 mmHg, as suming right atrial pressure of 12 mmHg. 11) No pericardial effusion seen. 12) No prior study available. Assessment: 63 y/o F PMH HTN who presented with RFD, aphasia and Right hemiaresis, CT revealed L temporal/parietal ICH. repeat imaging revealed massive ICH with diffuse brain compression and hydrocephalus. she was taken to OR emergently for decompression hemicrani and clot evacuation. L temporal/parietal ICH IVH SAH CE/ brain herniation Hydrocephalus Etiology: HTN vs amyloid Plan: - continue neurochecks - exam stable - SBP goal <150 - NSGY s/o - PT/OT/ST HTN - norvasc 10 mg q D /labetalol 100 TID - PRN >150 Esophagitis/ PUD H. Pylori Stool Ag Positive Recommend treatment for H. pylori with t riple therapy for 14 days (quadruple therapy regimen not available as inpatient): Clarithromycin 500 mg PO bid Amoxicillin 1 g PO bid -> resumed 01/13/19, stop date 01/26/19 PPI bid -- on Lansoprazole bid (need to continue PPI for 8 weeks total due to ulcers) Patient will need to have Stool Ag check ed 4 weeks after antibiotics and 2 weeks off PPI, to test for eradication. -01/10/19: PEG tube was evaluated by GI wi th the Bumper tightened from 3.5 cm to 3.0 cm to preevnt further leakage of tube feeds. Will continue tripple therapy x 14 days for H. pylori treatment. Purulent Discharge around PEG -noticed by ICU nursing -GI consulted ; not infected but erythem atous; tightened bumper to 3.0 cm -> do not let bumpter get looser than 3.0 cm Anemia -Present on arrival -stable -no active signs of bleeding, stools normal -on PPI for esophagitis Respiratory Failure HCAP Fever Leukocytosis - Tylenol for fever - Respiratory status improved-off of high flow and toleratin g NC at present - CTA Chest with mulptiple pulp nodules concerning for mets vs atypical infection -> pulmonary consulted 01/11/19 - completed 7 day course of Vanc/Zosyn per ICU - Outpatient follow up for repeat CT [facility] to evaluate cause of pulmonary nodules (malignancy, infection vs. atypical) Hypokalemia -replaced, monitor Thrombocytosis -likely reactive, continue to monitor Post stroke depression - citalopram Diet: s/p PEG - passed dysphagia puree/no liquids 01/12/19 PT - IPR OT - IPR Prophylaxis DVT prophylaxis: YESENIA/SCD, heparin sub Q GI prophylaxis: PPI Dispo: [facility] Social: Full code status Follow-up post hospitalization 1. Stroke - repeat MRI brain w/wo contrast in 3 months. [phone] 2. Neurosurgery in 2 -4 weeks - flap , 3. GI - PEG tube 4. PCP - post hospitalization care 5. [facility] in 3 months w/ repeat CTA chest, [phone] Extracted from:Title: Pulmonology Consultation Author: Pete Benoit MD Date: 01/12/19 Patient is a 63 year old woman who prese nted with SAH s/p L hemicraniectomy/evacuation. Post op course has been complicated by HCAP and H pylori infection. CT PE scan showed innumerable pulmonary nodule s bilaterally measuring 2-7 mm. Pulmonol ogy has been consulted to evaluate pulmonary nodules. Plan/recommendations -Per discussion with , patient has no smoking history -No recent respiratory sxs -Unable to fully assess respiratory status on exam -Recommend repeat CT in 3 months as nadia ent is asymptomatic and would be high risk for invasive diagnostic testing. Pulmonology will sign off. Thank you for the consult. Pete Benoit MD PGY-1 Addendum by Tari Laguna MD on 01/13/2019 08:30 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 Pulmonary Consult Attending I have seen and examined the patient. Fu rthermore, I have reviewed /international marketing specialist's note date01/12/19 and agree with the exam, assessment and plan. I have personally reviewed the relevant labs and imaging. Patient clinically asx from respiratory standpoint. On RA. Lifelong non smoker. CT chest with multiple pulmonary nodules. Recommend f/u ct chest in 3 months. Can f/u in [facility] clinic. Please call with any questions. Extracted from:Title: Stroke History and Physical Author: Janett Chahal DO Date: 12/29/18 Stroke History and Physical Patient:Mayi Nina MRN:Fin#:[id number] Chief Complaint: altered mental status History of Present Illness: Patient is a 63 y/o F PMH HTN who initia lly presented to OSH after spouse found patient to be acting strangely at about 5:30 pm today said she didnt feel right and doing strange behaviors. Blood pressur e at home was taken by was 180> systolic. No headache. No thinners. ASP today 321 mg today because she did not feel like herself but patient does not regularly take aspirin. no head trauma. On EMS arrival patient was noted to have right facial droop, slurred speech, aphasia, RSW. On arrival to outside ER BP 182/98, noted that patient was plegic on right leg and arm. Found to have 4 cm lef t posterior frontal hemorrhage as well a s SAH with mild compression of lateral ventricle. Transferred to [facility] for HLOC. On arrival to our ED patient noted to be aphasic, roving eyes, right sided pleg ia, vomiting, and getting drowsy subsequ ently intubated. Repeat CT done showed large expansion of hematoma with significant midline shift, IVH. NSGY consulted and was taken to hemicrani/evacuation. Review of Systems: could not obtain 2/2 to current clinical status Past Medical History: HTN Past Surgical History:none Family Medical History: unknown Social History: lives with family Medications: Medications (53) Active Scheduled Meds (9): 12/29/18 ceFAZolin (Ancef) 1 gm IVPB [id number] 12/29/18 chlorhexidine topical (chlorhex idine topical 0.12% liquid) 15 mL Swab Mouth Q4H 12/29/18 docusate (docusate sodium) 100 mg PO Q12H 12/29/18 famotidine 20 mg IVP Q12H 12/30/18 heparin (heparin 5000 units/mL injectable solution) 5,000 unit SUB-Q Q8H 12/29/18 levETIRAcetam + Sodium Chloride 0.9% IV 100 mL (Keppra + Sodium Chloride 0.9% IV 100 mL) 500 mg IVPB Q12H 400 ml/hr 12/29/18 ocular lubricant 1 appl BOTH EYES Q6H 12/29/18 senna (senna 8.6 mg oral tablet) 8.6 mg PO Q12H 12/29/18 sodium chloride (Saline Flush 0.9%) 10 ml IVP Q12H Unscheduled Meds: None PRN Meds (31): 12/29/18 Dextrose 50% in Water IV (Dextrose 50% Syringe) 12. 5 gm IVP PRN 12/29/18 Dextrose 50% in Water IV (Dextrose 50% Syringe) 25 gm IVP PRN 12/29/18 Insulin regular 1 unit SUB-Q Sliding Scale 12/29/18 Insulin regular 2 unit SUB-Q Sliding Scale 12/29/18 Insulin regular 3 unit SUB-Q Sliding Scale 12/29/18 Insulin regular 4 unit SUB-Q Sliding Scale 12/29/18 Insulin regular 5 unit SUB-Q Sliding Scale 12/29/18 acetaminophen (Tylenol) 650 mg PO Q4H 12/29/18 calcium carbonate (calcium carb diogenes 500 mg (200 mg elemental calcium) oral tablet) 500 mg PO PRN 12/29/18 calcium carbonate (calcium carb diogenes 500 mg (200 mg elemental calcium) oral tablet) 1,000 mg PO PRN 12/29/18 calcium gluconate + Sodium Chlo ride 0.9% IV 50 mL 1 gm IVPB PRN 120 ml/hr 12/29/18 chlorhexidine topical (chlorhex idine topical 0.12% liquid) 15 mL Swab Mouth PRN 12/29/18 glucagon 1 mg IM PRN 12/29/18 hydrALAZINE 20 mg IVP Q4H 12/29/18 labetalol 10 mg IVP Q1H 12/29/18 magnesium oxide 800 mg PO PRN 12/29/18 magnesium sulfate 2 gm IVPB PRN 25 ml/hr 12/29/18 ondansetron (Zofran) 4 mg IVP Q8H 12/29/18 potassium chloride 20 mEq IVPB PRN 50 ml/hr 12/29/18 potassium chloride 10 mEq IVPB PRN 50 ml/hr 12/29/18 potassium chloride 20 mEq PO PRN 12/29/18 potassium chloride 20 mEq [place] PRN 12/29/18 potassium phosphate + Sodium Ch loride 0.9% IV 250 mL 15 mmol IVPB PRN 63.75 ml/hr 12/29/18 potassium phosphate + Sodium Ch loride 0.9% IV 250 mL 30 mmol IVPB PRN 65 ml/hr 12/29/18 potassium phosphate + Sodium Ch loride 0.9% IV 250 mL 45 mmol IVPB PRN 66.25 ml/hr 12/29/18 potassium phosphate-sodium phos phate (potassium phosphate-sodium phosphate 250 mg-280 mg-160 mg oral powder for reconstitution) 2 pkt PO PRN 12/28/18 sodium chloride (Saline Flush 0.9%) 10 mL IVP PRN 12/28/18 sodium chloride (Saline Flush 0.9%) 10 ml IVP PRN 12/29/18 sodium phosphate + Sodium Chlor rafi 0.9% IV 250 mL 15 mmol IVPB PRN 63.75 ml/hr 12/29/18 sodium phosphate + Sodium Chlor rafi 0.9% IV 250 mL 30 mmol IVPB PRN 65 ml/hr 12/29/18 sodium phosphate + Sodium Chlor rafi 0.9% IV 250 mL 45 mmol IVPB PRN 66.25 ml/hr One Time Meds (10): 12/29/18 (Completed) Sodium Chloride 0. 9% IV (NS (Bolus) IV) 1,000 mL IV ONCE 1,000 ml/hr (Completed) calcium chloride (calcium chloride (AN ES)) IV ONCE (Completed) ceFAZolin (ceFAZolin (ANES)) IV ONCE (Completed) dexamethasone (dexamethasone (ANES)) I V ONCE (Completed) fentaNYL (fentaNYL (ANES)) IV ONCE 12/28/18 (not done) levETIRAcetam + Sod ium Chloride 0.9% IV 100 mL (Keppra + Sodium Chloride 0.9% IV 100 mL) 1,000 mg IV ONCE 400 ml/hr 12/28/18 (Completed) propofol 90 mg IVP ONCE (Completed) propofol (propofol (ANES)) IV ONCE 12/28/18 (Completed) rocuronium 70 mg IVP ONCE (Completed) rocuronium (rocuronium (ANES)) IV ONCE Continuous Infusions (3): 12/29/18 Sodium Chloride 0.9% IV 1,000 m L (normal saline 0.9% IV 1,000 mL) 1,000 mL 50 ml/hr 12/29/18 fentaNYL 1,000 microgram (fenta NYL 1000 microgram in 20 mL NS (Titrate.) IV 1,000 microgram) 1,000 microgram Titrate 12/29/18 niCARdipine 20 mg (niCARdipine 20 mg in NS 200 mL (Titrate.) IV 20 mg) 20 mg Titrate Allergies:NKDA Physical Exam: Vitals Tmp(F) Pulse BP RR SpO2 FIO2 12/29 06:00 ---- 70 106/60 45 100 --- 12/29 05:00 ---- 66 143/79 18 100 --- 12/29 04:17 ---- --- ----- -- 100 50% 12/29 04:00 93.2 49 119/65 12 --- --- 12/29 03:00 ---- 53 90/53 15 100 --- 24 Hr Tmax: 98.3F (36.83c) at 12/28 23:1 8 Vital Signs are the last 5 in the past 48 hours. GENERAL: somnolent HEENT: - Normocephalic and atraumatic, LUNGS - Clear to auscultation bilaterally CV - S1S2 RRR, no m/r/g, ABDOMEN - Soft, nontender, nondistended NEURO: Mental Status: aphasic, somnolent but can be awoke with tact ile stimuli Language: global aphasia Cranial Nerves: PERRL__3__mm/brisk. seen to track throughout, had roving eye movements, right facial droop Motor:plegic on right, antigravity on left Tone: is normal and bulk is normal Sensation- grimaced to pain in all 4 extremitiees Coordination: could not perform Gait- deferred Pre-Morbid MRS 0-Completely asymptomatic and back to baseline post-stroke NIH Stroke Scale (NIHSS) 1 1a. Level of Consciousness; 0-alert 1-drowsy 2-stupor 3-coma 2 1b. LOC Questions month and age; 0-both 1-one 2-neither 2 1c. LOC Commands open/close eyes, e learning specialist/r elease non-paretic hand; 0-both 1-one 2-neither 0 2. Best Gaze; 0-nl 1-partial 2-forced gaze 0 3. Visual Cantu; 0-No visual loss. 1-Partial hemianop ia 2-Complete 3-Bilateral 2 4. Facial Palsy; 0-none 1-minor 2-partial 3-complete 4 5. Motor - R arm; 0-No drift 1-Drift 2-S ome antigravity 3-No antigravity 4-No movement 4 6. Motor - R leg; 0-No drift 1-Drift 2-S ome antigravity 3-No antigravity 4-No movement 0 7. Motor - L arm; 0-No drift 1-Drift 2-S ome antigravity 3-No antigravity 4-No movement 0 8. Motor - L leg; 0-No drift 1-Drift 2-S ome antigravity 3-No antigravity 4-No movement x could not perform 9. Limb Ataxia; 0 absent 1 - 1limb 2 - 2 limbs 0 10. Sensory; 0-nl 1-partial loss 2-dense loss 3 11. Best Language; 0-nl 1-mild/mod 2-severe 3-mute x 12. Dysarthria; 0-nl 1-mild/mod 2-severe x-untestable could not perform 13. Extinction and Inattention (formerly Neglect); 0- none 1-partial 2-complete 18 Total Score Labs: Labs (Last four charted values) WBC 8.8 (DEC 29) H 11.4 (DEC 28 ) Hgb L 10.4 (DEC 29) 13.2 (DEC 10) Hct L 30.8 (DEC 29) 40.2 (DEC 10 9) Plt 176 (DEC 29) 253 (DEC 28) Na 138 (DEC 29) L 134 (DEC 28) K 4.1 (DEC 29) 3.7 (DEC 28) CO2 L 21 (DEC 29) L 22 (DEC 28) Cl 107 (DEC 29) 98 (DEC 28) Cr 0.88 (DEC 29) 0.73 (DEC 28) BUN 16 (DEC 29) 16 (DEC 28) Glucose Random H 116 (DEC 29) H 160 (DEC 10) Mg 1.9 (DEC 29) Phos 3.6 (DEC 29) Ca L 7.9 (DEC 29) 9.4 (DEC 28) PT 14.0 (DEC 29) 12.7 (DEC 28) INR 1.10 (DEC 29) 0.97 (DEC 28) PTT 26.1 (DEC 29) L 20.2 (DEC 10) Troponin 0.02 (DEC 29) <0.02 (DEC 28 ) Total CK 67 (DEC 28) EKG: Imaging: CT Head: CTA H&N: Assessment: Patient is a 63 y/o F [facility] HTN Plan: Subcortical ICH, nontraumatic Acuity: Acute Laterality: left Current suspected etiology:to be determined Treatment: -Admit to [facility] -ICH Score:3 on our repeat scan -ICH Volume:87 cc on our repeat scan -BP control goal SYS<140 -s/p hemicrani and evacuation, nsgy following -PT/OT/ST -neuromonitoring PERSONAL CARE AIDE Cerebral edema Compression of brain -s/p craniectomy and evacuation -NSGY consult -Close neuro monitoring Dysphagia following ICH -NPO until cleared by speech -ST Hemiplegia following nontraumatic intra cerebral hemorrhage affecting right dominant side -Continue PT/OT/ST RESP Acute Respiratory Failure -vent management per ICU -wean when able CV Hypertensive Emergency -Aggressive BP control, goal SBP <140 -Titrate oral agents GI/ - no acute issues HEME - no acute issues Fluid/Electrolyte Disorders -Replete as needed -Trend Prophylaxis DVT:hold in ICH GI:famotidine Bowel: Diet: NPO until cleared by speech Code Status:Full Code THE FOLLOWING WERE PRESENT ON ADMISSION: PERSONAL CARE AIDE - SAH, ICH, Hemiparesis ACUTE STROKE BENCHMARKS: TIME PT LAST SEEN NORMAL 5 PM EMS PRE-NOTIFICATION CODE STROKE ACTIVATION 9:47 PM ARRIVAL TIME 9:41 PM TIME OF STROKE TEAM EVALUATION 9:[address] HEAD READ TIME 10:30 (our read) IV tPA bolus (time and dose) IV tPA infusion (time and dose) If not a candidate for IV tPA, why? had ICH Delays in this process: (None) An Chahal, DO PGY2, [facility] Neurology STROKE NEUROLOGY ATTENDING I have seen and examined the patient. Shelby warner, I have discussed the case with and reviewed the resident's note and agree with the history, exam, assessment and plan. See note below for additi ons and/or exceptions and my findings. I have personally viewed the patient's radiographic studies and laboratory tests. Notable Exam findings: sedated, figh ts when I try to open her eyes. No gaze pref. +Dolls eyes. Pupils are 3mm and sluggish. Right hemiplegia and triple flexion in the right leg. Localizes on the left. Notable Labs: Platelets Coags: normal Imaging: Initial CTH/A : large right BG/temporal lobe ICH. +2 spot signs within the hematoma and no AVM/vascular lesion to explain the ICH. Follow up CTH: significantly enlarged I CH with mass effect and herniation. Mild IVH. Post-op CTH: good decompression and evacuation with no re-b leeding. THE FOLLOWING WERE PRESENT ON ADMISSION: PERSONAL CARE AIDE - coma. Brain herniation. Respiratory - Ventilator dependent, Respiratory failure Assessment/Plan: [id number] admission Principal Diagnosis: I61.0 Nontraumatic intracerebral hemorrhage in hemisphere , subcortical I61.1 Nontraumatic intracerebral hemorrhage in hemisphere , cortical I61.5 Nontraumatic intracerebral hemorrhage, intraventric ular G93.5 Compression [Herniation] of the brain Acuity: Acute Current suspected etiology: Hypertensi on most likely due to chronic ischemic WM changes vs. Amyloid. Need to discuss with family her PMH (for example, long-standing history of HTN +/- medical non-c ompliance; or memory loss indicative of amyloid/dementia). Continue evaluation: Repeat CT-Head to ensure hemorrhage stability in am, monitor clinical exam. Order amyloid stains on any brain tissue received in pathology. Treatment/Plan: Aggressive blood press ure control (Goal SBP 110-140), Patient underwent hemicraniectomy and clot evacuation. NSU following. May need repeat MRI brain w/ and w/o contrast in 8-12 weeks if no etiology is elicited during admission. I10 Essential (primary) hypertension Treatment: Aggressive BP control, goal SBP 110-140 mmHg. Brain Herniation/Cerebral edema - monitor and repeat CT scan in am. Veronica juarez resolved/treated maximally with large hemicraniectomy decompression. J96.00 Acute respiratory failure Treatment: Mechanically ventilated. Pl an to wean as tolerated per Neurocritical care team. Patient currently on CPAP. Physical Therapy/Occupational Therapy Evaluation Disposition recommendation: pending, n ot appropriate clinically at this time. Likely SNF candidate. Speech and Language Recommendations: DHT tube feeds. DVT Prophylaxis Treatment: YESENIA hoses and SCDs. Start SQ Heparin 24-48 hours post-operatively and if surgical site/ICH stable on follow-up scans. No family at bedside. Apparently, husba nd/family to arrive tomorrow per nursing. Davion Serrano MD MS Vascular Neurology Professor Of Chemistry - [facility] Pager: [phone] Plan of Care No Data Provided for This Section Social History Social History Date Source Social History TypeResponse 07/15/2019 [facility] Alcohol Current, Frequency: 1-2 times per month. Smoking Status Never smoker; Ready to change: No; Natasha rns about tobacco use in household: No; Exposure to Tobacco Smoke None; Cigarette Smoking Last 365 Days No; Reg Smoking Cessation Counseling No entered on: 07/20/19 Social History TypeResponse 07/15/2019 [facility] Alcohol Current, Frequency: 1-2 times per month. Smoking Status Never smoker; Ready to change: No; Natasha rns about tobacco use in household: No; Exposure to Tobacco Smoke None; Cigarette Smoking Last 365 Days No; Reg Smoking Cessation Counseling No entered on: 09/02/19 Social History TypeResponse 12/29/2018 [facility] Alcohol Never Smoking Status Never smoker; Ready to change: No; Natasha rns about tobacco use in household: No; Exposure to Tobacco Smoke None; Cigarette Smoking Last 365 Days No; Reg Smoking Cessation Counseling No entered on: 01/19/19 Social History TypeResponse 12/29/2018 [facility] Alcohol Never Smoking Status Never smoker; Ready to change: No; Natasha rns about tobacco use in household: No; Exposure to Tobacco Smoke None; Cigarette Smoking Last 365 Days No; Reg Smoking Cessation Counseling No entered on: 01/19/19 Family History No Data Provided for This Section Advance Directives No Data Provided for This Section Functional Status No Data Provided for This Section
--- OUTSIDE RECORDS SUMMARY | 2020-05-02 22:20 | XMS REPORT | Continuity of Care Document ---
:1955 Author Organization [facility] t Address [address] [place] [address] Care Team Providers Name Role Phone Chapin Attending Clinician Geri Christine Attending Clinician Jody Attending Clinician Chana Pop Attending Clinician Chapin Admitting Clinician Geri Christine Admitting Clinician Jody Admitting Clinician Jacob Mancera Admitting Clinician Problems Condition Condition Condition Status Onset Resolution Last Treating Co mments Source Name Details Category Date Date Treatment Clinician Date NEW ONSET Diagnosis Active 2018-112019-09-03 Memoria SEIZURE 0-25 18:35:00 l NEW 10:53: Filer ONSET 00 SEIZURE Active 09/02/[address] [facility] [place] [place] NEW ONSET Diagnosis Active 2018-112019-09-15 Memoria SEIZURE,PA 0-25 21:47:00 l NCOLONIC NEW 10:53: Filer DIVERTICUL ONSET 00 O SEIZURE,[place] NCOLONIC DIVERTICUL O Active 09/02/[address] 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 Julianna Neuro,[facility], [facility] IPH Diagnosis Active 2018-12-28 Mem oria 2 21:50:00 l IPH 00:00: Filer 00 Active 12/28/2018 [facility] ICH Diagnosis Active 2019-01-25 Mem oria 12-28 22:13:00 l ICH 00:00: Diony 00 Active 12/28/2018 [facility] NONTRAUMAT Diagnosis Active 2019-01-19 Memoria IC 12-28 12:51:00 l INTRACEREB 00:00: Rene n RAL NONTRAUMAT 00 HEMORRHAGE IC IN INTRACEREB RAL HEMORRHAGE IN Active 9 [facility] BI/SAH Diagnosis Active 2019-02-01 Mem oria 12-28 18:48:00 l BI/SAH 00:00: Filer 00 Active 12/28/2018 [facility] Traumatic Problem 2019-02-13 Me moria subdural 21:18:28 l hemorrhage Rene n without Traumatic loss of subdural consciousn hemorrhage ess, without initial loss of encounter consciousn ess, initial encounter 02/13/2019 [facility] Epilepsy, Problem 2019-09-07 Me moria unspecifie 21:31:10 l d, not Filer intractabl Epilepsy, e, without unspecifie status d, not epilepticu intractabl s e, without status epilepticu s 09/07/2019 [facility] Cerebrovas Problem Active 2019-09-07 M emoria cular 21:31:10 l accident Diony (disorder) Cerebrovas cular accident (disorder) Active Problem 09/07/201912/28-righ t sided weakness [facility] Compressio Problem Active 2019-09-07 M emoria n of brain 21:31:10 l (disorder) Rene n Compressio n of brain (disorder) Active Problem 09/07/2019 [facility] Cortical Problem Active 2019-09-07 Mem oria hemorrhage 21:31:10 l (disorder) 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 Global Problem Active 2019-09-07 Memor ia aphasia 21:31:10 l (finding) Global Deb nn aphasia (finding) Active Problem 09/07/2019 [facility] Hypertensi Problem Active 2019-09-07 M emoria ve 21:31:10 l disorder, Diony systemic Hypertensi arterial ve (disorder) disorder, systemic arterial (disorder) Active Problem 09/07/2019 [facility] Intracereb Problem Active 2019-09-07 M emoria ral 21:31:10 l hemorrhage Rene n , Intracereb intraventr ral icular hemorrhage (disorder) , intraventr icular (disorder) Active Problem 09/07/2019 [facility] Subcortica Problem Active 2019-09-07 M emoria l 21:31:10 l hemorrhage Rene n (disorder) Subcortica l hemorrhage (disorder) Active Problem 09/07/2019 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 NONTRAUMAT Diagnosis Active 2019-01-25 Memoria IC 22:13:00 l INTRACEREB Rene n RAL NONTRAUMAT HEMORRHAGE IC , U INTRACEREB RAL HEMORRHAGE , U Active [facility] TRAUM Diagnosis Active 2019-02-01 Mem oria SUBDR HEM 18:48:00 l W/O LOSS TRAUM Filer OF SUBDR HEM CONSCIOUSN W/O LOSS ES OF CONSCIOUSN ES Active [facility] OTHER Diagnosis Active 2019-07-29 Mem oria MUSCLE 17:14:00 l SPASM OTHER Filer MUSCLE SPASM Active [facility] EPILEPSY, Diagnosis Active 2019-09-02 Memoria UNSP, NOT 13:35:00 l INTRACTABL Rene n E, WITHOUT EPILEPSY, UNSP, NOT INTRACTABL E, [facility]PEC[facility] Diagnosis Active 2019-09-15 Memoria D 21:47:00 l CONVULSION Rene n S UNSPECIFIE D CONVULSION S Active [facility] [place] ENCNTR FOR Diagnosis Active 2019-09-03 Memoria GENERAL 10:18:00 l ADULT ENCNTR Filer MEDICAL FOR EXAM W/ GENERAL ADULT MEDICAL EXAM W/ Active [facility] [place] DVRTCLOS Diagnosis Active 2019-09-15 M emoria OF LG INT 21:47:00 l W/O DVRTCLOS Rene n PERFORATIO OF LG INT N OR AB W/O PERFORATIO N OR AB Active [facility] [place] [place] Allergies, Adverse Reactions, Alerts Allergy Allergy Status Severity Reaction(s) Onset Inactive Treating Comm ents Source Name Type Date Date Clinician No Known No Known Active Memori a Medicati Medicati l on on Filer Allergie Allergie s s Social History Social Habit Start Date Stop Date Quantity Comments Source Social History 2018-12-29 2018-12-29 [facility] beau 11:21:31 11:21:31 Medications Ordered Filled Start Stop Current Ordering Indication Dosage Frequency Signature Comments Components Source Medication Medication Date Date Medication? Clinician (SIG) Name Name Levetiracet 2018-11 Yes 1,000 mg = Memoria am 500 MG 0-28 2 tab, PO, l Oral Tablet 16:08: Q12H, # Her whaley [Keppra] 00 360 tab, 2 Refill(s), Pharmacy: [id number] Levetiracet 2018-11 No Notes: Farhat cornell am 500 MG 0-28 (Same l Oral Tablet 01:07: as:Keppra) Diony [Keppra] 00 Keppra 2018-11 No Notes: Memoria 0-27 Same as: l 14:48: Kierra Vora Levetiracet 2018-11 No Notes: Farhat cornell am 500 MG 0-26 (Same l Oral Tablet 14:46: as:Keppra) Filer [Keppra] 00 Buspirone 2018-11 No Notes: Memori a 0-26 (Same As: l 14:00: BuSpar) Filer 00 Citalopram 2018-11 No 10 mg, 1 Mem oria 0-26 tab, l 14:00: Route: PO, Diony 00 Drug form: TAB, Daily, Dosing Weight 52.273, kg, Start date: 09/03/19 9:00:00 CDT, Duration: 30 day, Stop date: 10/02/19 9:00:00 [employer], 0 Cyclosporin 2018-11 No Notes: Farhat cornell e 0.5 MG/ML 0-26 (Same as: l Ophthalmic 14:00: Restasis) He rmann Suspension [Restasis] Cymbalta 2018-11 No Notes: Memoria 0-26 (Same as: l 14:00: Cymbalta) Diony (Do Not Crush) Labetalol 2018-11 No Notes: Memori a 0-26 With food. l 14:00: (Same Filer 00 as:Trandat e, Normodyne) Memantine 2018-11 No Notes: Memori a 0-26 (Same As: l 14:00: Namenda) Filer 00 Potassium 2018-11 No Notes: Memori a Chloride 0-26 (Same as: l 1.33 MEQ/ML 14:00: Potassium H ermann Oral 00 Chloride) Solution sennosides, 2018-11 No Notes: Farhat cornell LONG-TERM 8.6 MG 0-26 (Same as: l Oral Tablet 14:00: Senokot) rm Miralax 2018-11 No Notes: Memoria 0-26 Dissolve l 14:00: in 8 oz of Diony 00 water or juice. (Same as: Miralax) pantoprazol 2018-11 No Notes: Farhat cornell e 0-26 Tablet l 12:30: should not Filer 00 be chewed or crushed. (Same as: Protonix) gabapentin 2018-11 No Notes: Memor ia 300 MG Oral 0-26 (Same as: l Capsule 02:00: Neurontin) Herm Lisinopril 2018-11 No Notes: Memor ia 0-26 (Same as: l 02:00: Prinivil, Diony 00 Zestril) Simethicone 2018-11 No Notes: Farhat cornell 0-25 (Same as: l 22:30: Mylicon) Diony 00 Docusate 2018-11 No Notes: Memoria Sodium 100 0-25 (Same as: l MG Oral 22:21: Colace) Diony Capsule 00 (Do Not Crush) Cyclosporin 2018-11 No 1 drp, Farhat cornell e 0.5 MG/ML 0-25 BOTH EYES, l Ophthalmic 22:03: BID, # 30 He rmann Suspension 00 mL, 0 [Restasis] Refill(s) POLYETHYLEN 2018-11 Yes 17 gm, PO, Memoria E GLYCOL 0-25 Daily, # l 3350 142 22:03: 255 gm, 0 Herm selene MG/ML Oral 00 Refill(s) Solution [Glycolax] duloxetine 2018-11 Yes 30 mg = 1 Me moria 30 MG 0-25 cap, PO, l Enteric 22:03: Daily, # Rene n Coated 00 30 cap, 0 Capsule Refill(s) [Cymbalta] Lorazepam 2018-11 No Notes: Memori a 0-25 (Same as: l 19:00: Ativan) Filer 00 Sodium 2018-11 No 1,000 mL, Memori a Chloride 0-25 Rate: 125 l 0.9% IV 19:00: ml/hr, Diony 1,000 mL 00 Infuse over: 8 hr, Route: IV, Dosing Weight 48.636 kg, Total Volume: 1,000, Start date: 09/02/19 14:00:00 CDT, Duration: 30 day, Stop date: 10/02/19 13:59:00 [employer], 1.48, m2, 0 Saline 2018-11 No Notes: Memoria Flush 0.9% 0-25 Same as: l 19:00: BD Filer 00 Posiflush Sterile Levetiracet 2018-11 No 1,000 mg, M emoria am 0-25 100 mL, l 18:47: Route: IV, Filer Drug form: INJ, ONCE, Dosing Weight 48.636, kg, Priority: STAT, Start date: 09/02/19 13:47:00 CDT, Stop date: 09/02/19 13:47:00 CDT, 0 Levetiracet Yes 500 mg = 1 Memoria am 500 MG 9-13 tab, PO, l Oral Tablet 10:42: BID, # 60 H ermann [Keppra] 00 tab, 0 Refill(s) Docusate Yes 100 mg = 1 Mem oria Sodium 100 9-13 cap, PO, l MG Oral 10:42: Daily, PRN Herm selene Capsule 00 Constipati on, # 20 cap, 0 Refill(s) tramadol Yes 50 mg = 1 Farhat cornell hydrochlori 9-13 tab, PO, l de 50 MG 10:42: Q4H, PRN Deb nn Oral Tablet 00 Pain, X 10 day, # 60 tab, 0 Refill(s) heparin No Notes: Memoria sodium, 07-21 porcine l porcine 21:00: heparin Diony 2500 UNT/ML 00 Injectable Solution Rocephin No 1 gm, Memoria 07-21 Route: l 14:00: IVPB, Drug form: PDR/INJ, [id number], Dosing Weight 48.636, kg, Start date: 07/21/19 9:00:00 CDT, Duration: 1 day, Stop date: 07/21/19 9:00:00 CDT, ABX Indication : Surgical Prophylaxi s Vancomycin No 2001 mg: Me moria 07-21 infuse l 03:30: over 2.5 Diony 00 hours gabapentin No Notes: Memor ia 50 MG/ML 07-21 (Same as: l Oral 02:00: Neurontin) Filer Solution 00 remove No Notes: Memoria patch 07-21 Remove l 02:00: patch 12 Filer 00 hours after applicatio n each day. Rocephin No Notes: Memoria 07-21 (Same As: l 02:00: Rocephin). Filer 00 MEDICATION WASTE Product Size: 2000 mg Product Wasted: ___ mg Hydralazine Yes Notes: Farhat cornell 07-20 (Same as: l 18:11: Apresoline Diony 00 ) Push over 5 minutes ondansetron No Route: IV, Memoria (ANES) 07-20 Drug form: l 17:54: INJ, ONCE, Stop date: 07/20/19 12:54:00 CDT Isolyte S 2018- No Route: IV, Me moria PH 7.4 07-20 Total l (ANES) 1000 15:49: Volume: Her whaley mL 00 1,000, Start date: 07/20/19 10:49:00 CDT, Stop date: 07/20/19 11:49:00 CDT glycopyrrol 2018-0 No Route: IV, Memoria ate (ANES) 07-20 Drug form: l 15:06: INJ, ONCE, Stop date: 07/20/19 10:06:00 CDT lidocaine 2018-0 No Route: IV, Me moria (ANES) 07-20 Drug form: l 15:01: INJ, ONCE, Stop date: 07/20/19 10:01:00 CDT propofol 2018-0 No Route: IV, Mem oria (ANES) 07-20 Drug form: l 15:01: INJ, ONCE, Stop date: 07/20/19 10:01:00 CDT rocuronium 2018-0 No Route: IV, M emoria (ANES) 07-20 Drug form: l 15:01: INJ, ONCE, Stop date: 07/20/19 10:01:00 CDT fentaNYL 2018-0 No Route: IV, Mem oria (ANES) 07-20 Drug form: l 15:01: INJ, ONCE, Stop date: 07/20/19 10:01:00 CDT dexamethaso 2018-0 No Route: IV, Memoria ne (ANES) 07-20 Drug form: l 15:01: INJ, ONCE, Stop date: 07/20/19 10:01:00 CDT phenylephri 2018-0 No Route: IV, Memoria ne (ANES) 07-20 Drug form: l 15:01: INJ, ONCE, Stop date: 07/20/19 10:01:00 CDT ePHEDrine 2018-0 No Route: IV, Me moria (ANES) 07-20 Drug form: l 15:01: INJ, ONCE, Stop date: 07/20/19 10:01:00 CDT cefTRIAXone No Route: IV, Memoria (ANES) 07-20 Drug form: l 15:01: INJ, ONCE, Diony 00 Stop date: 07/20/19 10:01:00 CDT busPIRone 5 2019- Yes 5 mg = 1 Me moria mg oral -11 tab, PO, l tablet 15:00: BID, 0 Diony 00 Refill(s) Sodium No Route: IV, Memor ia Chloride 07-20 Drug form: l 0.9% IV 14:44: INJ, Start Herm selene (ANES) 90 00 date: mL + 07/20/19 levETIRAcet 9:44:00 am (ANES) CDT, Stop 1000 mg date: 07/20/19 10:44:00 CDT memantine Yes 10 mg = 1 Mem oria 10 mg oral 11 tab, PO, l tablet 14:43: BID, # 60 Rene n 00 tab, 0 Refill(s) Cyclosporin Yes 1 drp, Farhat cornell e 0.5 MG/ML 07-20 BOTH EYES, l Ophthalmic 14:43: BID, # 30 He rmann Suspension 00 mL, 0 [Restasis] Refill(s) Potassium Yes 40 mEq = Farhat cornell Chloride 07-20 30 mL, PO, l 1.33 MEQ/ML 14:43: Daily, 0 He rmann Oral 00 Refill(s) Solution citalopram Yes 10 mg = 1 Me moria 10 mg oral 11 tab, PO, l tablet 14:43: Daily, 0 Diony 00 Refill(s) gabapentin Yes 300 mg = 1 M emoria 300 MG Oral 11 cap, PO, l Capsule 14:43: Bedtime, 0 Herm selene 00 Refill(s) famotidine No Route: IV, M emoria (ANES) 07-20 Drug form: l 14:31: INJ, ONCE, Diony 00 Stop date: 07/20/19 9:31:00 CDT Sodium No Route: IV, Memor ia Chloride 07-20 Drug form: l 0.9% IV 14:24: INJ, Start Herm selene (ANES) 235 00 date: mL + 07/20/19 vancomycin 9:24:00 (ANES) 1500 CDT, Stop mg date: 07/20/19 10:24:00 CDT propofol No Route: IV, Mem oria (ANES) 10 07-20 Drug form: l mg 14:15: INJ, Start Diony 00 date: 07/20/19 9:15:00 CDT, Stop date: 07/20/19 10:15:00 CDT remifentani No Route: IV, Memoria l (ANES) 1 07-20 Drug form: l mg 14:15: INJ, Start date: 07/20/19 9:15:00 CDT, Stop date: 07/20/19 10:15:00 CDT Sodium No Route: IV, Memor ia Chloride 07-20 Total l 0.9% IV 14:15: Volume: Diony (ANES) 500 00 500, Start mL date: 07/20/19 9:15:00 CDT, Stop date: 07/20/19 10:15:00 CDT Levetiracet No Notes: Farhat cornell am 07-20 Same as l 14:00: Keppra Mix with 100 mL NS, LR or D5W MEDICATION WASTE Product Size: 500 mg Product Wasted: ___ mg Vancomycin No 1,000 mg, Me moria 07-20 Route: l 14:00: IVPB, Drug form: INJ, Q12H, Dosing Weight 48.636, kg, TIME CRITICAL MEDICATION , Start date: 07/20/19 9:00:00 CDT, Duration: 1 doses or times, Stop date: 07/20/19 9:00:00 CDT, ABX Indication : Surgical Prophylaxi s Docusate No Notes: Memoria 11 (Same as: l 14:00: Colace) Filer 00 (Do Not Crush) sennosides, No Notes: Farhat cornell LONG-TERM 07-20 (Same as: l 14:00: Senokot) Filer 00 Lidocaine No Notes: Memori a 0.05 MG/MG 07-20 Apply only l Transdermal 14:00: once for He rmann Patch 00 up to 12 hours in a 24-hour period (12 hours on and 12 hours off). (Same as: Lidoderm) "Remove old patch before applicatio n of new patch" Saline No Notes: Memoria Flush 0.9% 07-20 (Same as: l 14:00: BD Diony 00 Posiflush) Citalopram No Notes: Memor ia 9-11 (Same As: l 14:00: CeleXA) Filer Labetalol No Notes: Memori a 9-11 With food. l 14:00: (Same Filer 00 as:Trandat e, Normodyne) Lisinopril No Notes: Memor ia 9-11 (Same as: l 14:00: Prinivil, Diony Zestril) Memantine No Notes: Memori a 9-11 (Same As: l 14:00: Namenda) Diony 00 pantoprazol No Notes: Farhat cornell e -11 Tablet l 14:00: should not Diony 00 be chewed or crushed. (Same as: Protonix) Miralax No Notes: Memoria -11 Dissolve l 14:00: in 8 oz of Filer 00 water or juice. (Same as: Miralax) Buspirone No Notes: Memori a -11 (Same As: l 14:00: BuSpar) Diony 00 Lactated No Route: IV, Mem oria Ringers 07-20 Total l Injection 13:49: Volume: Deb nn IV (ANES) 00 1,000, 1000 mL Start date: 07/20/19 8:49:00 CDT, Stop date: 07/20/19 9:49:00 CDT Simethicone No Notes: Farhat cornell -11 (Same as: l 13:30: Mylicon) Diony Acetaminoph No Notes: Do M emoria en 07-20 not exceed l 13:21: 4 gm/day. Filer 00 (Same as: Tylenol) Bisacodyl No Notes: Memori a -11 (Same As: l 13:21: Dulcolax, Bisco-Lax) Ondansetron No Notes: Farhat cornell 9-11 (Same as: l 13:21: Zofran) MEDICATION WASTE Product Size: 4 mg Product Wasted: ___ mg Hydralazine No Notes: Farhat cornell 9-11 (Same as: l 13:21: Apresoline ) Push over 5 minutes Labetalol No 10 mg, 2 Farhat cornell 9-11 mL, Route: l 13:21: IVP, Drug form: INJ, Q15Min, Dosing Weight 48.636, kg, PRN Hypertensi on, Start date: 07/20/19 8:21:00 CDT, Duration: 3 doses or times, Stop date: Limited # of times, 0 phenol No Notes: Memoria 9-11 Chlorasept l 13:21: ic Force (Same as: Chlorasept ic, Sore Throat Force) WASTE: F/P - Black; E - Municipal Trash Bin Dilaudid No Notes: Memoria 9-11 Same as l 13:21: Dilaudid Tramadol No Notes: Not Mem oria 9-11 to exceed l 13:21: 400mg/day. (Same As: Ultram) Reglan No Notes: Memoria 9-11 (Same as: l 13:21: Reglan) Filer 00 Saline No Notes: Memoria Flush 0.9% -11 (Same as: l 13:21: BD Posiflush) Dextrose No 25 gm, 50 Farhat cornell 50% Syringe 9-11 mL, Route: l 13:21: IVP, Drug Form: INJ, Dosing Weight 48.636, kg, PRN, PRN Abnormal Lab Result, Start date: 07/20/19 8:21:00 CDT, Duration: 30 day, Stop date: 08/19/19 8:20:00 CDT, 0 Regular 0 No Notes: Memoria Insulin, 9-11 (Same as: l Human 100 13:21: Humulin R) He rmann UNT/ML 00 Roll in Injectable palms of Solution hands gently; Do not shake vigorously . WASTE: F/P - Black; E - Municipal Trash Bin Stable for 31 days at room temperatur e Expires in days from ____Date ceFAZolin No Notes: Memori a 07-20 (Same as l 10:00: Ancef) Diony NS + KCL No Notes: Memoria 20mEq/L 07-20 PREMIX IV l 1000ml 09:45: - Do Not Filer (Premix) 00 Alter 1,000 mL WASTE: F/P - Sink; E - Municipal Trash Bin simethicone Yes 80 mg = 1 M emoria 80 mg oral 07-15 tab, PO, l tablet 18:46: TID-After Rene n 00 Meals, 0 Refill(s) potassium No 20 mEq = Farhat cornell chloride 30 07-15 10 mL, PO, l mEq/15 mL 18:43: Daily, # Herm selene oral liquid 00 900 ml, 0 Refill(s) Miralax Yes 17 gm, PO, Farhat cornell 07-15 Daily, 0 l 18:42: Refill(s) Diony tramadol Yes 50 mg = 1 Farhat cornell hydrochlori 4-05 tab, PO, l de 50 MG 13:09: Q6H, PRN Deb nn Oral Tablet 00 Pain Score 6-10, X 7 day, # 50 tab, 0 Refill(s) Tramadol No 50 mg, 1 Memor ia 4-05 tab, l 05:38: Route: PO, Filer 00 Drug form: TAB, ONCE, Dosing Weight 46.932, kg, Start date: 02/11/19 0:38:00 CDT, Stop date: 02/11/19 0:38:00 CDT Bethanechol No Notes: Farhat cornell 4-05 Take on l 02:00: empty Diony 00 stomach. (Same As: Urecholine ) Lisinopril No Notes: Memor ia 4-05 (Same as: l 02:00: Prinivil, Diony Zestril) lisinopril Yes 10 mg = 1 Me moria 10 mg oral 4-04 tab, PO, l tablet 18:33: Q12H, 0 Filer 00 Refill(s) labetalol Yes 100 mg = 1 Me moria 100 mg oral 4-04 tab, PEG, l tablet 18:33: Q8H-06, 0 Rene n 00 Refill(s) heparin Yes 5,000 unit Farhat cornell 4-04 = 1 mL, l 18:33: SUB-Q, Filer 00 Q8H-06, 0 Refill(s) citalopram Yes 10 mg = Farhat cornell 20 mg oral 4-04 0.5 tab, l tablet 18:33: PEG, Diony 00 Daily, 0 Refill(s) Acetaminoph Yes 650 mg = Me moria en 4-04 20.3 mL, l 18:33: PEG, Q6H, Diony 00 PRN Pain Score 4-6, 0 Refill(s) pantoprazol Yes 40 mg = 1 M emoria e 40 mg 4-04 tab, PO, l oral 18:33: BID, STOP Filer enteric 00 DATE coated 03/11/19, tablet was for H. pylori treatment, 0 Refill(s) memantine 5 Yes 10 mg = 2 M emoria mg oral 4-04 tab, PO, l tablet 18:33: BID, 0 Filer 00 Refill(s) gabapentin Yes 300 mg, Farhat cornell 50 MG/ML 4-04 PEG, l Oral 18:33: Bedtime, 0 Diony Solution 00 Refill(s) sennosides, Yes 25.8 mg = M emoria LONG-TERM 8.6 MG 4-04 3 tab, l Oral Tablet 18:33: PEG, Rene n 00 QNoon, 0 Refill(s) Potassium Yes 40 mEq, Memor ia Chloride 4-04 PEG, l 1.33 MEQ/ML 18:33: Daily, 0 He rmann Oral 00 Refill(s) Solution Docusate Yes 283 mg = 1 Mem oria Sodium 56.6 4-04 ea, VA, l MG/ML Enema 18:33: Every Deb nn [Enemeez] 00 Other Day-5PM, 0 Refill(s) Docusate Yes 100 mg = 1 Mem oria Sodium 100 4-04 cap, PO, l MG Oral 18:33: TID, 0 Diony Capsule 00 Refill(s) [Colace] Protonix No Notes: Memoria 4-04 Tablet l 13:00: should not Filer 00 be chewed or crushed. (Same as: Protonix) Bethanechol No Notes: Farhat cornell 4-03 Take on l 18:00: empty Filer 00 stomach. (Same As: Urecholine ) Memantine No Notes: Memori a 4-03 (Same As: l 02:00: Namenda) Diony 00 Lisinopril No Notes: Memor ia 4-03 (Same as: l 02:00: Prinivil, Diony 00 Zestril) Docusate No Notes: Memoria Sodium 100 3-31 (Same as: l MG Oral 18:00: Colace) Filer Capsule 00 (Do Not [Colace] Crush) Docusate No Notes: Memoria Sodium 56.6 3-30 Same as l MG/ML Enema 16:15: Enemeez Her whaley [Enemeez] 00 Non formulary item Bisacodyl No Notes: Memori a 3-30 (Same As: l 14:49: Dulcolax, Filer 00 Bisco-Lax) Miralax No Notes: Memoria 3-30 Dissolve l 13:30: in 8 oz of Diony 00 water or juice. (Same as: Miralax) Mupirocin No 1 appl, Memor ia 0.02 MG/MG 3-30 Route: l Nasal 02:00: NASAL, Filer Ointment 00 BID, Drug form: OINT, Start date: 02/04/19 21:00:00 CDT, Duration: 5 day, Stop date: 02/09/19 8:30:00 CDT Docusate No Notes: Memoria Sodium 100 3-30 (Same as: l MG Oral 02:00: Colace) Diony Capsule 00 (Do Not [Colace] Crush) potassium No Notes: Memori a nitrate 250 02-04 WASTE: F/P l MG/ML / 17:32: - Black; E Herm selene Silver - Nitrate 750 Municipal MG/ML Trash Bin Medicated Pad Marinol No Notes: Memoria 3- (Same as: l 17:08: Marinol) Diony sennosides, No Notes: Farhat cornell LONG-TERM - (Same as: l 17:00: Senokot) Filer Saline No Notes: Memoria Flush 0.9% 3-28 (Same as: l 14:00: BD Diony 00 Posiflush) normal No 1,000 mL, Memori a saline 0.9% - Rate: 100 l IV 1,000 mL 13:26: ml/hr, Herm Infuse over: 10 hr, Route: IV, Dosing Weight 46.932 kg, Total Volume: 1,000, Start date: 02/03/19 8:26:00 CDT, Duration: 2 day, Stop date: 02/05/19 8:25:00 CDT, 1.45, m2 Rocephin No Notes: Memoria - (Same As: l 13:00: Rocephin). Diony 00 Use with 100 mL NS and infuse over 30 min MEDICATION WASTE Product Size: 2000 mg Product Wasted: ___ mg Saline No Notes: Memoria Flush 0.9% - (Same as: l 12:53: BD Filer 00 Posiflush) Bethanechol No Notes: Farhat cornell 3-28 Take on l 02:00: empty Diony 00 stomach. (Same As: Urecholine ) Labetalol No Notes: Memori a 02-01 With food. l 03:00: (Same Filer as:Trandat e, Normodyne) Docusate No Notes: Memoria Sodium 56.6 01-29 Same as l MG/ML Enema 15:25: Enemeez Her whaley [Enemeez] 00 Non formulary item Memantine No Notes: Memori a - (Same As: l 02:00: Namenda) 00 Potassium No Notes: Memori a Chloride 3-21 (Same as: l 1.33 MEQ/ML 13:30: K-Dur 20) H ermann Oral "Do Not Solution Crush" Give with food and full glass of water For patients unable to swallow tablet, dissolve in one half glass of water. Allow about 2 minutes for the tablets to disintegra te. Stir before giving to prepare slurry and administer . Please exclude Patient s with feeding tube less than 14 [place] (Dobhoff, J-tube etc) and pediatric and patients. Mupirocin No 1 appl, Memor ia 0.02 MG/MG -21 Route: l Nasal 02:00: NASAL, Filer Ointment 00 BID, Drug form: OINT, Start date: 01/26/19 21:00:00 CDT, Duration: 5 day, Stop date: 01/31/19 8:30:00 CDT Docusate No Notes: Memoria Sodium 56.6 -19 Same as l MG/ML Enema 22:00: Enemeez Her whaley [Enemeez] 00 Non formulary item Potassium No Notes: Memori a Chloride 3-19 (Same as: l 1.33 MEQ/ML 02:00: Potassium H erm Oral 00 Chloride) Solution sennosides, No Notes: Farhat cornell LONG-TERM 3-18 (Same as: l 17:00: Senokot) gabapentin 2018- No Notes: Memor ia 300 MG Oral 3-18 (Same as: l Capsule 02:00: Neurontin) Herm monofluorop No Notes: Farhat cornell hosphate 3-17 Same as: l 17:40: Biotene with Calcium Fleet Enema No 133 mL, Mem oria 3-17 Route: VA, l 17:40: Drug Form: Filer 00 ZAC, Dosing Weight 46.932, kg, ONCE, Start date: 01/23/19 12:40:00 CDT, Stop date: 01/23/19 12:40:00 CDT Potassium No Notes: Memori a Chloride 3-17 (Same as: l 1.33 MEQ/ML 13:30: K-Dur 20) H ermann Oral 00 "Do Not Solution Crush" Give with food and full glass of water For patients unable to swallow tablet, dissolve in one half glass of water. Allow about 2 minutes for the tablets to disintegra te. Stir before giving to prepare slurry and administer . Please exclude Patient s with feeding tube less than 14 [place] (Dobhoff, J-tube etc) and pediatric and patients. Potassium No Notes: Memori a Chloride 3-15 (Same as: l 1.33 MEQ/ML 19:56: Potassium H ermann Oral 00 Chloride) Solution pneumococca No Notes: Farhat cornell l 13-valent 3-15 Shake well l vaccine 13:30: prior to Rene n 00 use (Same as: Prevnar 13) Nystatin No Notes: Memoria 3-15 (Same l 02:00: as:Mycosta tin) Shake well. Tylenol No 650 mg, Memoria 3-14 Route: l 17:07: PEG, Drug form: LIQ, Q6H, Dosing Weight 46.932, kg, PRN Pain Score 6-10, Start date: 01/20/19 12:07:00 CDT, Duration: 30 day, Stop date: 02/19/19 12:06:00 CDT Potassium No Notes: Memori a Chloride 3-14 (Same as: l 1.33 MEQ/ML 14:29: K-Dur 20) H ermann Oral 00 "Do Not Solution Crush" Give with food and full glass of water For patients unable to swallow tablet, dissolve in one half glass of water. Allow about 2 minutes for the tablets to disintegra te. Stir before giving to prepare slurry and administer . Please exclude Patient s with feeding tube less than 14 [place] (Dobhoff, J-tube etc) and pediatric and patients. Lisinopril No Notes: Memor ia 3-14 (Same as: l 13:30: Prinivil, Zestril) Citalopram No Notes: Memor ia 3-14 (Same As: l 13:30: CeleXA) Amlodipine No Notes: Memor ia 3-14 (Same as: l 13:30: Norvasc) Labetalol No Notes: Memori a 3-14 With food. l 05:00: (Same as:Trandat e, Normodyne) heparin No Notes: Memoria 3-14 porcine l 05:00: heparin Streptococc No 0.5 mL, Mem oria us 3-14 Route: IM, l pneumoniae 02:39: ONCALL, Herm selene serotype 1 24 Start capsular date: antigen 01/19/19 diphtheria 21:39:24 [id number] CDT, Stop protein date: conjugate 02/18/19 vaccine / 21:34:24 Streptococc CDT us pneumoniae serotype 14 capsular antigen diphtheria [id number] protein conjugate vaccine / Streptococc us pneumoniae serotype 18C capsular antigen d lansoprazol No Notes: Farhat cornell e 3-14 Take 1 l 02:00: hour before or 2 hours after meal; Expires in 14 days. Shake well before use. (Same as:Prevaci d) Compound ed Product - formulatio n not commercial ly available* * guar gum No Notes: Memoria oral powder 3-14 (Same as: l (NutriSourc 02:00: Nutrisourc ) 00 e Fiber) Dissolve packet in at least 4 oz (120 mL) of water and stir until completely dissolved before administer ing down the feeding tube. Clarithromy No Notes: Farhat cornell seun 3-14 (Same As: l 02:00: Biaxin) Amoxicillin No Notes: Farhat cornell 3-14 (Same as: l 02:00: Amoxil) Levetiracet No Notes: Farhat cornell am 3-14 Same as l 01:35: Keppra Mix with 100 mL NS, LR or D5W MEDICATION WASTE Product Size: 500 mg Product Wasted: ___ mg Midazolam No Notes: Memori a 3-14 (Same l 01:35: as:Versed) Saline No Notes: Memoria Flush 0.9% 3-14 (Same as: l 01:35: BD Posiflush) Tramadol No Notes: Not Mem oria 3-14 to exceed l 01:17: 400mg/day. Filer 00 (Same As: Ultram) Acetaminoph No Notes: Max Memoria en 3-14 acetaminop l 01:17: hen = Diony 00 4000mg/day (4 gm/day). (Same as: Tylenol) Acetaminoph No 650 mg, Mem oria en 3-14 PEG, Q6H, l 01:13: 0 Diony 00 Refill(s) Tramadol No 50 mg, Memoria 3-14 PEG, Q6H, l 01:13: PRN Pain, Diony 00 # 20 tab, 0 Refill(s) Citalopram No 10 mg, Memor ia 3-14 PEG, l 01:13: Daily, 0 Diony Refill(s) tramadol No Notes: Not Mem oria hydrochlori 3-13 to exceed l de 50 MG 15:14: 400mg/day. Her whaley Oral Tablet 00 (Same As: Ultram) Centrum No Notes: Memoria Silver 3-13 (Same l Women's 14:00: as:Thera-M Herm selene 00 , Theragran- M) WASTE: F/P - Black; E - Municipal Trash Bin Give with food. Potassium No Notes: Memori a Chloride 3-13 (Same as: l 13:00: KCL) Filer 00 Infuse over 2 hours. Potassium No Notes: Memori a Chloride 3-13 (Same as: l 1.33 MEQ/ML 12:47: Potassium H ermann Oral 00 Chloride) Solution Potassium No Notes: Memori a Chloride 3-13 (Same as: l 11:00: KCL) Diony 00 Infuse over 2 hours. Citalopram No 10 mg, 1 Mem oria 3-12 tab, l 14:30: Route: PO, Filer 00 Drug form: TAB, Daily, Dosing Weight 63.636, kg, Start date: 01/18/19 9:30:00 CDT, Duration: 30 day, Stop date: 02/17/19 9:00:00 CDT Lanolin No 1 appl, Memoria 0.157 MG/MG 3-11 Route: l / Menthol 12:07: TOP, Filer 0.0044 00 Dosing MG/MG / Weight Petrolatum 63.636, 0.24 MG/MG kg, PRN, / Zinc PRN Oxide 0.206 Perineal MG/MG Care, Topical Start Ointment date: [Calmosepti 01/17/19 ne] 7:07:00 CDT lansoprazol Yes 30 mg, Farhat cornell e 3-08 PEG, Q12H, l 20:18: 0 Filer 00 Refill(s) Lanolin 2019 No 1 appl, Memoria 0.157 MG/MG 3-08 TOP, 5X l / Menthol 20:18: Day, PRN Herm selene 0.0044 00 as needed MG/MG / for Petrolatum itching, 0 0.24 MG/MG Refill(s) / Zinc Oxide 0.206 MG/MG Topical Ointment [Calmosepti ne] labetalol Yes 200 mg = 1 Me moria 200 mg oral 3-08 tab, DHT, l tablet 20:18: Q8H, 0 Filer 00 Refill(s) heparin 0 Yes SUB-Q, Memoria 5000 3-08 Q8H, 0 l units/0.5 20:18: Refill(s) Her whaley mL 00 injectable solution guar gum 0 Yes PEG, Q12H, Mem oria oral powder 3-08 0 l (NutriSourc 20:18: Refill(s) H ermann e) 00 clarithromy Yes 500 mg = Me moria seun 250 3-08 10 mL, l mg/5 mL 20:18: PEG, Diony oral liquid 00 [id number], 0 Refill(s) amoxicillin 0 Yes 1,000 mg = Memoria 250 mg/5 mL 3-08 20 mL, l oral liquid 20:18: PEG, Rene n 00 [id number], 0 Refill(s) lisinopril Yes 10 mg = 1 Me moria 10 mg oral 3-08 tab, PO, l tablet 20:18: Daily, 0 Filer 00 Refill(s) amLODIPine Yes 10 mg = 1 Me moria 10 mg oral 3-08 tab, GT, l tablet 20:18: Daily, 0 Refill(s) Amoxil No Notes: Memoria 3-07 (Same As: l 16:00: Amoxil) Zosyn No Notes: Memoria 3-07 (Same as: l 13:30: Zosyn) Dosing based on Piperacill in component MEDICATION WASTE Product Size: 4500 mg Product Wasted: _0__ mg Lanolin No Notes: Memoria 0.157 MG/MG - (Same as: l / Menthol 23:39: Calmosepti He rmann 0.0044 00 ne) MG/MG / Petrolatum 0.24 MG/MG / Zinc Oxide 0.206 MG/MG Topical Ointment [Calmosepti ne] Versed No Notes: Memoria 3-05 (Same as: l 20:01: Versed) MEDICATION WASTE Product Size: 2 mg Product Wasted: _0__ mg Lisinopril No Notes: Memor ia 3-05 (Same as: l 17:46: Prinivil, Zestril) Potassium No Notes: Memori a Chloride -05 (Same as: l 1.33 MEQ/ML 14:03: Potassium H erm Oral Chloride) Solution Potassium No 40 mEq, 30 Me moria Chloride 3-05 mL, Route: l 1.33 MEQ/ML 14:02: PO, Drug He rm Oral form: LIQ, Solution ONCE, Dosing Weight 63.636, kg, Start date: 01/11/19 8:02:00 [employer], Stop date: 01/11/19 8:02:00 [employer] Dextrose No 50 mL, Memoria 50% Syringe 01-10 Route: l 21:23: IVP, Dosing Weight 63.636, kg, PRN, PRN Blood Glucose Results, Start date: 01/10/19 15:23:00 [employer], Duration: 30 day, Stop date: 02/09/19 16:22:00 CDT Glucagon No 1 mg, Memoria 01-10 Route: IM, l 21:23: PRN, Dosing Weight 63.636, kg, PRN Blood Glucose Results, Start date: 01/10/19 15:23:00 [employer], Duration: 30 day, Stop date: 02/09/19 16:22:00 CDT Amoxicillin No 1,000 mg, Carlos Alberto lopez 01-09 Route: l 23:00: PEG, BID, Filer Dosing Weight 63.636, kg, Start date: 01/09/19 17:00:00 [employer], Duration: 30 day, Stop date: 02/08/19 9:00:00 CDT Prevacid No Notes: Memoria - Take 1 l 23:00: hour Filer 00 before or 2 hours after meal; Expires in 14 days. Shake well before use. (Same as:Prevaci d) Compound ed Product - formulatio n not commercial ly available* * Protonix No 40 mg, Memoria 01-09 Route: l 22:30: PEG, Drug Filer form: GRAN/REC, BID-Before Meals, Dosing Weight 63.636, kg, Start date: 01/09/19 16:30:00 [employer], Duration: 30 day, Stop date: 02/08/19 7:30:00 CDT Clarithromy No Notes: DO Carlos Alberto lopez seun 01-09 NOT l 22:00: Refrigerat Diony 00 e - Shake Well (Same As: Biaxin) Amoxicillin No Notes: Farhat cornell 01-09 (Same As: l 22:00: Amoxil) Filer guar gum No 4 gm, 1 Memori a oral powder 01-09 pkt, l (NutriSourc 16:53: Route: Herm selene e) 00 PEG, Drug Form: PCKT, Dosing Weight 63.636, kg, Q12H, Start date: 01/09/19 10:53:00 [employer], Duration: 30 day, Stop date: 02/08/19 9:00:00 CDT Sodium No Notes: SEE Memor ia Chloride 3% 03 RT l inhalation 14:00: DOCUMENTAT H ermann solution 00 ION (Same as: Hypertonic Saline 3%, Inhalation ) Albuterol No Notes: Memori a 0.833 MG/ML 3-03 (Same as: l / 14:00: Duoneb) Ipratropium 00 Centrahoma 0.167 MG/ML Inhalant Solution [DuoNeb] NS (Bolus) No 1,000 mL, Me moria IV 01-08 1,000 l 22:51: ml/hr, Diony 00 Infuse Over: 1 hr, Route: IV, ONCE, Priority: STAT, Dosing Weight 63.636 kg, Start date: 01/08/19 16:51:00 [employer], Stop date: 01/08/19 16:51:00 [employer] Lasix No Notes: Memoria 01-08 (Same as: l 15:23: Lasix) Filer Sodium No Notes: SEE Memor ia Chloride 3% 01-08 RT l inhalation 13:00: DOCUMENTAT H ermann solution 00 ION (Same as: Hypertonic Saline 3%, Inhalation ) Lasix No Notes: Memoria 01-07 (Same as: l 15:36: Lasix) Filer 00 Vancomycin No 2000 mg: Me moria 01-07 infuse l 03:00: over 2.5 Diony 00 hours For adult patients only: Round to nearest 250 mg per Medical Staff approval MEDICATION WASTE Product Size: 1000 mg Product Wasted: ___ mg magnesium No Notes: Memori a citrate 01-07 (Same as: l 58.2 MG/ML 00:30: Citrate of H ermann Oral 00 Magnesia) Solution Concentrat ion: 1.745 gm / 30 mL Labetalol No Notes: Memori a 01-06 With food. l 22:00: (Same as:Trandat e, Normodyne) Vancomycin No 2000 mg: Me moria 01-06 infuse l 19:46: over 2.5 Filer 00 hours For adult patients only: Round to nearest 250 mg per Medical Staff approval MEDICATION WASTE Product Size: 1000 mg Product Wasted: ___ mg Vancomycin No 20 mg/kg, Me moria 01-06 Route: IV, l 19:45: Drug form: Diony 00 INJ, ONCE, Dosing Weight 63.636, kg, Start date: 01/06/19 13:45:00 [employer], Stop date: 01/06/19 13:45:00 [employer], Pediatric Dosing, ABX Indication : Pneumonia Zosyn No Notes: Memoria 2- (Same as: l 19:01: Zosyn) Diony Dosing based on Piperacill in component MEDICATION WASTE Product Size: 4500 mg Product Wasted: ___ mg Sodium No Notes: SEE Memor ia Chloride 3% - RT l inhalation 19:00: DOCUMENTAT H ermann solution 00 ION (Same as: Hypertonic Saline 3%, Inhalation ) Iohexol No Notes: Memoria 2- (Same l 15:28: as:Omnipaq Diony 00 ue 350). WASTE: F/P - Black; E - Municipal Trash Bin normal No 1,000 mL, Memori a saline 0.9% 01-06 Rate: 75 l IV 1,000 mL 14:53: ml/hr, Herm selene 00 Infuse over: 13.3 hr, Route: IV, Dosing Weight 63.636 kg, Total Volume: 1,000, Start date: 01/06/19 8:53:00 [employer], Duration: 30 day, Stop date: 02/05/19 8:52:00 CDT, 1.69, m2 Dulcolax No Notes: Memoria Laxative - (Same As: l 13:04: Dulcolax, Diony 00 Bisco-Lax) Albuterol No Notes: Memori a 0.833 MG/ML 01-06 (Same as: l / 10:34: Duoneb) Diony Ipratropium 00 Centrahoma 0.167 MG/ML Inhalant Solution [DuoNeb] Lasix No Notes: Memoria 2-28 (Same as: l 10:26: Lasix) Diony MEDICATION WASTE Product Size: 40 mg Product Wasted: ___ mg Water 1000 No 914.5 mL, Me moria MG/ML 01-05 Rate: 75 l Injectable 15:08: ml/hr, Deb nn Solution 00 Infuse over: 13.3 hr, Route: IV, Dosing Weight 63.636 kg, Total Volume: 1,000, Start date: 01/05/19 9:08:00 [employer], Duration: 30 day, Stop date: 02/04/19 9:07:00 CDT, For IMU and ICU use only. See Order Comments!! , 1.69, m2 Tylenol No 650 mg, Memoria 01-05 Route: PO, l 14:04: ONCE, Filer 00 Dosing Weight 63.636, kg, Priority: NOW, Start date: 01/05/19 8:04:00 [employer], Stop date: 01/05/19 8:04:00 [employer] vancomycin No Notes: Memor ia 2-27 TIME l 04:00: CRITICAL Filer 00 MEDICATION (Same As: Vancocin) For adult patients only: Round to nearest 250 mg per Medical Staff approval Albuterol No Notes: Memori a 0.833 MG/ML 01-05 (Same as: l / 00:00: Duoneb) Diony Ipratropium 00 Centrahoma 0.167 MG/ML Inhalant Solution [DuoNeb] Calcium No Notes: Memoria Carbonate 2- (Same As: l 500 MG 18:35: Tums) Diony Chewable 00 Calcium Tablet Carbonate 500 mg = 200 mg elemental calcium Dose = mg calcium carbonate ( mg elemental calcium) Potassium No Notes: Memori a Chloride 2-26 (Same as: l 18:35: KCL) Filer Infuse no faster than 10 mEq/hr if given peripheral ly. sodium No Notes: Memoria phosphate 2-26 Infuse l 18:35: over 4 Filer 00 hour. Do not infuse phosphorou s concurrent ly in the same line as TPN or IVF that contains calcium. For double lumen central lines, phosphorou s may be infused in a separate lumen from TPN. potassium No Notes: Memori a phosphate 2-26 (Same as: l 18:35: K Filer 00 Phosphate. ) Do not infuse phosphorou s concurrent ly in the same line as TPN or IVF that contains calcium. For double lumen central lines, phosphorou s may be infused in a separate lumen from TPN. 1 mMol phoshate has 1.47 mEq potassium Infuse over 4 hours Calcium No Notes: Memoria Gluconate 01-04 WASTE: F/P l 18:35: - Sink; E Diony 00 - Municipal Trash Bin Magnesium No Notes: Memori a Sulfate 01-04 WASTE: F/P l 18:35: - Sink; E - Municipal Trash Bin potassium No Notes: Memori a phosphate-s 01-04 (Same as: l odium 18:35: Phos-NaK) Filer phosphate 00 Each 1.5 250 mg-280 gm pkt has mg-160 mg 250mg oral powder phosphorou for s. Mix reconstitut w/2.5oz ion water and stir. Magnesium No Notes: Memori a Oxide 01-04 (Same as: l 18:35: Mag-Ox Filer 00 400) Magnesium oxide 000al=[id number] g elemental magnesium Dose=____m g magnesium oxide (___mg elemental magnesium) vancomycin No 2000 mg: Me moria + Sodium 01-04 infuse l Chloride 15:10: over 2.5 Deb nn 0.9% IV 250 00 hours For mL adult patients only: Round to nearest 250 mg per Medical Staff approval MEDICATION WASTE Product Size: 1000 mg Product Wasted: ___ mg cefepime No Notes: Memoria - (Same As: l 15:00: Maxipime) MEDICATION WASTE Product Size: 1000 mg Product Wasted: _0__ mg Albuterol No Notes: Memori a 0.833 MG/ML 01-04 (Same as: l / 15:00: Duoneb) Ipratropium 00 Centrahoma 0.167 MG/ML Inhalant Solution [DuoNeb] Prevacid No Notes: Memoria 2-25 Take 1 l 22:30: hour 00 before or 2 hours after meal; Expires in 14 days. Shake well before use. (Same as:Prevaci d) Compound ed Product - formulatio n not commercial ly available* * Ondansetron No 4 mg, Memor ia 225 Route: l 15:48: IVP, ONCE, Dosing Weight 63.636, kg, PRN Nausea & Vomiting, Start date: 01/03/19 9:48:00 [employer] Flumazenil 2019-0 No 0.2 mg, Farhat cornell 2-25 Route: l 15:48: IVP, PRN, Filer 00 Dosing Weight 63.636, kg, PRN Benzodiaze pine Reversal, Initial dose, Start date: 01/03/19 9:48:00 [employer], Duration: 30 day, Stop date: 02/02/19 10:47:00 CDT Naloxone 2019-0 No 0.4 mg, Memori a 2- Route: l 15:48: IVP, Filer 00 Q2MIN, Dosing Weight 63.636, kg, PRN Narcotic Reversal, Start date: 01/03/19 9:48:00 [employer], Duration: 8 doses or times, Stop date: Limited # of times Oxycodone 2019-0 No 5 mg, Memoria 2- Route: NG, l 15:48: Drug form: Filer 00 LIQ, Q4H, Dosing Weight 63.636, kg, PRN Pain Score 4-6, Start date: 01/03/19 9:48:00 [employer], Duration: 30 day, Stop date: 02/02/19 9:47:00 CDT Morphine 2019-0 No 2 mg, Memoria 2- Route: l 15:48: IVP, Filer 00 Q5Min, Dosing Weight 63.636, kg, PRN Pain Score 4-6, Start date: 01/03/19 9:48:00 [employer], Duration: 5 doses or times, Stop date: Limited # of times Labetalol 2019-0 No 10 mg, Memori a 2-25 Route: l 15:48: IVP, Filer 00 Q5Min, Dosing Weight 63.636, kg, PRN Elevated BP, Start date: 01/03/19 9:48:00 [employer], Duration: 5 doses or times, Stop date: Limited # of times Acetaminoph 2019-0 No 1,000 mg, M emoria en 2- Route: PO, l 15:48: Drug form: Filer 00 TAB, ONCE, Dosing Weight 63.636, kg, PRN Pain Score 1-3, Start date: 01/03/19 9:48:00 [employer]GER Labetalol 2019-0 No Notes: Memori a 2-24 With food. l 14:20: (Same as:Trandat e, Normodyne) potassium No 1 pkt, Memori a phosphate-s 2-23 Route: PO, l odium 23:00: Dosing Filer phosphate 00 Weight 250 mg-280 63.636, mg-160 mg kg, BID, oral powder Start for date: reconstitut 01/01/19 ion 17:00:00 [employer], Duration: 30 day, Stop date: 01/31/19 9:00:00 CDT Hydralazine No Notes: Farhat cornell 2-23 (Same as: l 22:03: Apresoline ) Push over 5 minutes potassium No Notes: Memori a phosphate-s 2-23 (Same as: l odium 18:33: Phos-NaK) Filer phosphate 00 Each 1.5 250 mg-280 gm pkt has mg-160 mg 250mg oral powder phosphorou for s. Mix reconstitut w/2.5oz ion water and stir. Miralax No Notes: Memoria 2-22 Dissolve l 15:00: in 8 oz of water or juice. (Same as: Miralax) Amlodipine No Notes: Memor ia 2-22 (Same as: l 15:00: Norvasc) Tylenol No Notes: Do Memor ia 2-21 not exceed l 15:41: 4 gm/day. Diony 00 (Same as: Tylenol) heparin No Notes: Memoria sodium, 2-21 porcine l porcine 14:00: heparin Filer 2500 UNT/ML Injectable Solution sennosides, No Notes: Farhat cornell LONG-TERM 8.6 MG 2-21 (Same as: l Oral Tablet 03:00: Senokot) He rm docusate No Notes: Memoria sodium 2-21 (Same as: l 03:00: Colace) Amlodipine No Notes: Memor ia 2-20 (Same as: l 21:38: Norvasc) lisinopril No 40 mg = 1 Me moria 40 mg oral 2-20 tab, PO, l tablet 16:24: Daily, 0 Filer 00 Refill(s) omega-3 No PO, 0 Memoria polyunsatur 2-20 Refill(s) l ated fatty 16:24: Diony acids 00 amLODIPine No 5 mg = 1 Mem oria 5 mg oral 2-20 tab, PO, l tablet 16:24: Daily, 0 Diony 00 Refill(s) Aspirin 81 No 81 mg = 1 Me moria MG Enteric 2-20 tab, PO, l Coated 16:24: Daily, # Diony Tablet 00 90 tab, 3 Refill(s) Alpha No PO, 0 Memoria Lipoic Acid 2-20 Refill(s) l 16:24: Diony 00 Vitamin E No PO, Daily, Me moria 2-20 0 l 16:24: Refill(s) Filer 00 Estrogens, No 0.3 mg = 1 M emoria Conjugated 2-20 tab, PO, 0 l (LONG-TERM) 0.3 16:24: Refill(s) Her whaley MG Oral 00 Tablet [Premarin] Co-Q10 100 No 100 mg = 1 M emoria mg oral 2-20 cap, PO, l capsule 16:24: Daily, 0 Rene n 00 Refill(s) Labetalol No Notes: Memori a 2-20 With food. l 15:09: (Same as:Trandat e, Normodyne) Keppra No Notes: Memoria 2-20 Same as l 15:00: Keppra Mix with 100 mL NS, LR or D5W MEDICATION WASTE Product Size: 500 mg Product Wasted: ___ mg Famotidine No Notes: Memor ia 2-20 (Same as: l 15:00: Pepcid) Can be dilute in 5-10cc NS IVP: Slow IV push over at least 2 minutes. Saline No Notes: Memoria Flush 0.9% 2-20 (Same as: l 15:00: BD Filer Posiflush) sennosides, No Notes: Farhat cornell LONG-TERM 8.6 MG 2-20 (Same as: l Oral Tablet 15:00: Senokot) He docusate No Notes: Memoria sodium 2-20 (Same as: l 15:00: Colace) Ancef No Notes: Memoria 2-20 (Same As: l 14:00: Ancef, Kefzol) MEDICATION WASTE Product Size: 1000 mg Product Wasted: ___ mg ocular No Notes: Memoria lubricant 2-20 (Same as: l 12:00: Lacri-Lube , Puralube, Duratears Naturale, Artificial Tears, and Tears Again ) Fentanyl No 1,000 Memoria 2-20 microgram, l 11:36: 20 mL, Rate: Titrate, Start Dose: 50 microgram/ hr, Titration: 25 microgram/ hour every 15 minutes, Goal(s): RASS 0, Max Dose: 300 microgram/ hr, Route: IV, Dosing Weight 63.636 kg, Total Volume: 20, Start date: 12/29/18 5:36:00 [employer], Dur... NS (Bolus) No 1,000 mL, Me moria IV 2-20 1,000 l 11:36: ml/hr, Infuse Over: 1 hr, Route: IV, 1,000, Drug form: INJ, ONCE, Priority: STAT, Dosing Weight 63.636 kg, Start date: 12/29/18 5:36:00 [employer], Stop date: 12/29/18 5:36:00 [employer]GER chlorhexidi No Notes: Farhat cornell ne 2-20 (Same As: l gluconate 10:00: Peridex) Herm selene 1.2 MG/ML 00 Mouthwash Dextrose No 25 gm, 50 Farhat cornell 50% Syringe 2-20 mL, Route: l 09:27: IVP, Drug Form: INJ, Dosing Weight 63.636, kg, PRN, PRN Blood Glucose Results, Start date: 12/29/18 3:27:00 [employer]GER, Duration: 30 day, Stop date: 01/28/19 4:26:00 CDT Glucagon No 1 mg, Memoria 2-20 Route: IM, l 09:27: Drug form: Filer 00 PDR/INJ, PRN, Dosing Weight 63.636, kg, PRN Blood Glucose Results, Start date: 12/29/18 3:27:00 [employer]GER, Duration: 30 day, Stop date: 01/28/19 4:26:00 CDT Insulin 2019-0 No 60 Memoria regular 2-20 units) l 09:27: WASTE: F/P Filer - Black; E - Municipal Trash Bin Stable for 28 days at room temperatur e Expires in days from ____Date chlorhexidi 2019-0 No Notes: Farhat cornell ne 2-20 (Same As: l gluconate :27: Peridex) Herm selene 1.2 MG/ML 00 Mouthwash Zofran No Notes: Memoria 2-20 (Same as: l 09:27: Zofran) MEDICATION WASTE Product Size: 4 mg Product Wasted: ___ mg Tylenol 2018- No Notes: Do Memor ia 2-20 not exceed l 09:27: 4 gm/day. Diony 00 (Same as: Tylenol) Labetalol 2019-0 No 10 mg, 2 Farhat cornell 2-20 mL, Route: l 09:27: IVP, Drug form: INJ, Q1H, Dosing Weight 63.636, kg, PRN Hypertensi on, Start date: 12/29/18 3:27:00 [employer]GER, Duration: 30 day, Stop date: 01/28/19 4:26:00 CDT Hydralazine 2018-0 No Notes: Farhat cornell 2-20 (Same as: l 09:: Apresoline ) Push over 5 minutes normal 2019-0 No 1,000 mL, Memori a saline 0.9% 2-20 Rate: 50 l IV 1,000 mL 09:26: ml/hr, Herm Infuse over: 20 hr, Route: IV, Dosing Weight 63.636 kg, Total Volume: 1,000, Start date: 12/29/18 3:26:00 [employer]GER, Duration: 30 day, Stop date: 01/28/19 3:25:00 CDT, 1.69, m2 Nicardipine No Notes: Farhat cornell 2-20 Same as: l 09:26: Cardene 00 Concentrat ion: (0.1 mg/ 1 ml) Potassium No Notes: Memori a Chloride 2-20 (Same as: l 09:24: Potassium Filer 00 Chloride) Magnesium No Notes: Memori a Oxide 2-20 (Same as: l 09:24: Mag-Ox 400) Magnesium oxide 363bp=643p g elemental magnesium Dose=____m g magnesium oxide (___mg elemental magnesium) Magnesium No Notes: Memori a Sulfate 2-20 WASTE: F/P l 09:24: - Sink; E Filer - Municipal Trash Bin potassium No Notes: Memori a phosphate-s 2-20 (Same as: l odium 09:24: Phos-NaK) phosphate 00 Each 1.5 250 mg-280 gm pkt has mg-160 mg 250mg oral powder phosphorou for s. Mix reconstitut w/2.5oz ion water and stir. sodium No Notes: Memoria phosphate 2-20 Infuse l 09:24: over 4 Diony 00 hour. Do not infuse phosphorou s concurrent ly in the same line as TPN or IVF that contains calcium. For double lumen central lines, phosphorou s may be infused in a separate lumen from TPN. potassium No Notes: Memori a phosphate 2-20 (Same as: l 09:24: K Phosphate. ) Do not infuse phosphorou s concurrent ly in the same line as TPN or IVF that contains calcium. For double lumen central lines, phosphorou s may be infused in a separate lumen from TPN. 1 mMol phoshate has 1.47 mEq potassium Infuse over 4 hours Calcium No Notes: Memoria Gluconate 2-20 WASTE: F/P l 09:24: - Sink; E Filer 00 - Municipal Trash Bin Calcium No Notes: Memoria Carbonate 2-20 (Same As: l 500 MG 09:24: Tums) Diony Chewable 00 Calcium Tablet Carbonate 500 mg = 200 mg elemental calcium Dose = mg calcium carbonate ( mg elemental calcium) fentaNYL No Route: IV, Mem oria (ANES) 2-20 Drug form: l 07:34: INJ, ONCE, Stop date: 12/29/18 1:34:00 [employer] calcium No Route: IV, Farhat cornell chloride 2-20 Drug form: l (ANES) 06:54: INJ, ONCE, Deb Stop date: 12/29/18 0:54:00 [employer] propofol 2018- No Route: IV, Mem oria (ANES) 2-20 Drug form: l 06:24: INJ, ONCE, Stop date: 12/29/18 0:24:00 [employer] rocuronium No Route: IV, M emoria (ANES) 2-20 Drug form: l 06:24: INJ, ONCE, Stop date: 12/29/18 0:24:00 [employer] ceFAZolin No Route: IV, Me moria (ANES) 2-20 Drug form: l 06:14: INJ, ONCE, Stop date: 12/29/18 0:14:00 [employer] dexamethaso No Route: IV, Memoria ne (ANES) 2-20 Drug form: l 06:14: INJ, ONCE, Stop date: 12/29/18 0:14:00 [employer] Isolyte S No Route: IV, Me moria PH 7.4 2-20 Total l (ANES) 1000 06:12: Volume: Her whaley mL 00 1,000, Start date: 12/29/18 0:12:00 [employer], Stop date: 12/29/18 1:12:00 [employer] mannitol 2019- No Route: IV, Mem oria (ANES) 200 2-20 Drug form: l mg 05:50: INJ, Start date: 12/28/18 23:50:00 [employer], Stop date: 12/29/18 0:50:00 [employer] potassium 2018- No Route: IV, Me moria chloride 2-20 Drug form: l (ANES) 0.2 05:47: INJ, Start H ermann mEq date: 12/28/18 23:47:00 [employer], Stop date: 12/29/18 0:47:00 [employer] levETIRAcet 2019-0 No Route: IV, Memoria am (ANES) 2-20 Drug form: l 100 mg 05:45: INJ, Start Deb nn 00 date: 12/28/18 23:45:00 [employer], Stop date: 12/29/18 0:45:00 [employer] SUFentanil 2019-0 No Route: IV, M emoria (ANES) 50 2-20 Drug form: l microgram 05:36: INJ, Start He rmann date: 12/28/18 23:36:00 [employer], Stop date: 12/29/18 0:36:00 [employer] Sodium 2019-0 No Route: IV, [facility] ia Chloride 2-20 Total l 0.9% IV 05:36: Volume: Diony (ANES) 500 00 500, Start mL date: 12/28/18 23:36:00 [employer], Stop date: 12/29/18 0:36:00 [employer] propofol 2019-0 No Route: IV, Mem oria (ANES) 10 2-20 Drug form: l mg 05:36: INJ, Start Filer date: 12/28/18 23:36:00 [employer], Stop date: 12/29/18 0:36:00 [employer] Sodium 2018-0 No Route: IV, Memor ia Chloride 2-20 Total l 0.9% IV 05:30: Volume: Filer (ANES) 1000 00 1,000, mL Start date: 12/28/18 23:30:00 [employer], Stop date: 12/29/18 0:30:00 [employer] Saline 2018-0 No Notes: Memoria Flush 0.9% 2-20 (Same as: l 05:15: BD Diony 00 Posiflush) Labetalol 2019-0 No 140mmHg, Mem oria 2-20 Start l 05:15: date: Filer 00 12/28/18 23:15:00 [employer], Duration: 3 doses or times, Stop date: Limited # of times Sodium 2019-0 No 250 mL, Memoria Chloride 2-20 Rate: To l 0.9% 05:00: prime line Diony (titrate) 00 and flush 250 mL remaining blood products., Dosing Weight 63.636, kg, Route: IV, Total Volume: 250, Start Date: 12/28/18 23:00:00 [employer], Duration: 30 day, Stop date: 01/27/19 22:59:00 CDT, Replace Every: 24 hr iodixanol No 60 mL, Memori a 2-20 Route: l 04:57: IVP, Drug Form: SOLN, Dosing Weight 63.636, kg, ONCALL, STAT, Start date: 12/28/18 22:57:00 [employer], Duration: 1 doses or times, Dose = 2.2ml/kg, Max dose = 100ml -- "To be infused by Radiology Staff ONLY" Nicardipine No Notes: Farhat cornell 2-20 Same as: l 04:54: Cardene Filer 00 Concentrat ion: (0.2 mg /1 ml ) propofol No Notes: If M emoria mg/mL 2-20 Diprivan - l (Titrate.) 04:54: change Deb nn IV 1,000 mg 00 bottle & tubing every 12 hr Per state nursing law propofol can only be given by a nurse if patient is intubated or being intubated (unless the nurse is a FINISHING SUPERVISOR). Same as: Diprivan Propofol No Notes: If Farhat cornell 2-20 Diprivan - l 04:53: change Diony 00 bottle & tubing every 12 hr Per state nursing law propofol can only be given by a nurse if patient is intubated or being intubated (unless the nurse is a FINISHING SUPERVISOR). Same as: Diprivan Rocuronium No Notes: Memor ia 2-20 (Same as: l 04:53: Edilbertomeron) Diony 00 Keppra No Notes: Memoria 2-20 Same as l 04:34: Keppra Filer 00 Mix with 100 mL NS, LR or D5W MEDICATION WASTE Product Size: 500 mg Product Wasted: ___ mg Saline No Notes: Memoria Flush 0.9% 2-20 (Same as: l 03:53: BD Filer 00 Posiflush) Vital Signs Vital Name Observation Time Observation Value Comments Source Temperature Oral (F) 2019-09-05 13:00:[address] [facility] [place] [place] Heart Rate 2019-09-05 13:00:00 [facility] Filer Respitory Rate 2019-09-05 13:00:00 [facility] al Filer Systolic (mm Hg) 2019-09-05 13:00:00 Farhat rial Diony Diastolic (mm Hg) 2019-09-05 13:00:00 Mem orial Filer Temperature Oral (F) 2019-09-05 08:35:00 98.1 F [facility] Diony Heart Rate 2019-09-05 08:35:00 [facility] Diony Respitory Rate 2019-09-05 08:35:00 [facility]ori al Diony Systolic (mm Hg) 2019-09-05 08:35:00 Farhat rial Filer Diastolic (mm Hg) 2019-09-05 08:35:00 Mem orial Diony Temperature Oral (F) 2019-09-05 01:20:00 98.4 F [facility] Diony Heart Rate 2019-09-05 01:20:00 [facility] Filer Respitory Rate 2019-09-05 01:20:00 Memori al Diony Systolic (mm Hg) 2019-09-05 01:20:00 Farhat rial Diony Diastolic (mm Hg) 2019-09-05 01:20:00 Mem orial Diony Height 2019-09-02 21:19:00 157.48 cm [facility] Diony Weight 2019-09-02 21:19:00 [facility] Diony BMI Calculated 2019-09-02 21:19:00 [facility] al Filer Temperature Oral (F) 2019-07-22 12:29:00 97.9 F [facility] Diony Heart Rate 2019-07-22 12:29:00 [facility] Diony Respitory Rate 2019-07-22 12:29:00 [facility] Filer Systolic (mm Hg) 2019-07-22 12:29:00 Farhat rial Filer Diastolic (mm Hg) 2019-07-22 12:29:00 [facility] orial Filer Temperature Oral (F) 2019-07-22 09:46:00 98.0 F [facility] Filer Heart Rate 2019-07-22 09:46:00 [facility] Filer Respitory Rate 2019-07-22 09:46:00 [facility] al Filer Systolic (mm Hg) 2019-07-22 09:46:00 Farhat rial Filer Diastolic (mm Hg) 2019-07-22 09:46:00 Mem orial Filer Systolic (mm Hg) 2019-07-22 05:23:00 Farhat rial Diony Diastolic (mm Hg) 2019-07-22 05:23:00 Mem orial Filer Heart Rate 2019-07-22 05:23:00 [facility] Diony Temperature Oral (F) 2019-07-22 04:28:00 97.8 F [facility] Filer Respitory Rate 2019-07-22 04:28:00 [facility] Filer Height 2019-07-20 12:49:00 160.02 cm [facility]iler Weight 2019-07-20 12:49:00 [facility]iler BMI Calculated 2019-07-20 12:49:00 [facility] al Diony Height 2019-07-15 18:48:00 160.02 cm [facility] Diony Weight 2019-07-15 18:48:00 [facility] Filer BMI Calculated 2019-07-15 18:48:00 [facility] Filer Diastolic (mm Hg) 2019-02-11 13:00:00 Mem orial Diony Systolic (mm Hg) 2019-02-11 13:00:00 Farhat rial Diony Respitory Rate 2019-02-11 13:00:00 [facility]ori al Diony Heart Rate 2019-02-11 13:00:00 [facility] Diony Systolic (mm Hg) 2019-02-11 00:30:00 Farhat rial Diony Diastolic (mm Hg) 2019-02-11 00:30:00 Mem orial Diony Respitory Rate 2019-02-11 00:30:00 [facility] al Filer Heart Rate 2019-02-11 00:30:00 [facility] Filer Systolic (mm Hg) 2019-02-10 18:00:00 Farhat rial Diony Diastolic (mm Hg) 2019-02-10 18:00:00 Mem orial Filer Heart Rate 2019-02-10 18:00:00 [facility] Diony Respitory Rate 2019-02-10 17:30:00 [facility] Filer Temperature Oral (F) 2019-02-02 18:00:00 98.2 F [facility] Weight 2019-01-20 00:54:00 [facility] Diony BMI Calculated 2019-01-20 00:54:00 [facility] al Diony Height 2019-01-20 00:54:00 160.02 cm [facility] Filer Temperature Oral (F) 2019-01-20 00:40:00 98 F [facility] Filer Systolic (mm Hg) 2019-01-19 22:20:00 Farhat rial Filer Diastolic (mm Hg) 2019-01-19 22:20:00 Mem orial Diony Heart Rate 2019-01-19 22:20:00 [facility] Filer Heart Rate 2019-01-19 20:50:00 [facility] Diony Temperature Oral (F) 2019-01-19 20:50:00 98 F [facility] Filer Systolic (mm Hg) 2019-01-19 20:50:00 Farhat rial Diony Diastolic (mm Hg) 2019-01-19 20:50:00 Mem orial Filer Respitory Rate 2019-01-19 20:50:00 [facility] Filer Respitory Rate 2019-01-19 17:26:00 [facility] Filer Systolic (mm Hg) 2019-01-19 17:26:00 Farhat rial Filer Diastolic (mm Hg) 2019-01-19 17:26:00 Mem orial Filer Heart Rate 2019-01-19 17:26:00 [facility] Filer Temperature Oral (F) 2019-01-19 17:26:00 97.9 F [facility] Filer Respitory Rate 2019-01-19 12:20:00 [facility] al Filer Temperature Oral (F) 2019-01-19 12:20:00 97.6 F [facility] Diony Height 2019-01-06 18:59:00 157.48 cm [facility] Filer Weight 2019-01-06 18:59:00 [facility] Filer Weight 2019-01-04 19:40:00 [facility] Filer Height 2019-01-04 19:40:00 157.48 cm [facility] Filer Weight 2019-01-04 14:57:00 [facility] Diony Height 2019-01-04 14:57:00 157.48 cm [facility] Diony BMI Calculated 2018-12-29 03:41:00 [facility]ori al Filer Procedures Procedure Date / Time Performed Performing Clinician Sour e Craniotomy [facility] Hysterectomy [facility] Encounters Start End Encounter Admission Attending Care Care Encounter Source Date/Time Date/Time Type Type Clinicians Facility Department ID 2019-07-20 Inpatient [facility] [id number] [facility] 05:56:00 2019-09-04 2019-09-05 Outpatient EDIN Samson RUTHIE [id number] 12:55:00 12:45:00 Jenelle 98 2019-07-20 2019-07-22 Outpatient Nanci [facility] [id number] 05:56:00 10:47:00 Wolf Nevarez 2019-06-13 2019-06-14 Outpatient MHMISCHER MHMISCHER [id number] 13:48:16 23:59:59 00 2019-01-19 2019-02-11 Outpatient Jody MHTIRR MHTIRR [id number] 19:20:00 14:45:00 , Jovanniola 00 2018-12-28 2019-01-19 Outpatient Kiesha [facility] [id number] 21:40:00 19:01:00 Noureldin 50 Chana Results Test Description Test Time Test Comments Results Result Comments Source CHEM PANEL 2019-09-05 1.6 [facility] Deb nn 08:14:00 CHEM PANEL 2019-09-05 3.3 [facility] Deb nn 08:14:00 ELECTROLYTES 2019-09-05 10.2 [facility] Her whaley 08:14:00 ELECTROLYTES 2019-09-05 84 [facility] Her whaley 08:14:00 ELECTROLYTES 2019-09-05 11 [facility] Her whaley 08:14:00 ELECTROLYTES 2019-09-05 0.69 [facility] Her whaley 08:14:00 ELECTROLYTES 2019-09-05 140 [facility] Her whaley 08:14:00 ELECTROLYTES 2019-09-05 3.2 [facility] Her whaley 08:14:00 ELECTROLYTES 2019-09-05 109 [facility] Her whaley 08:14:00 ELECTROLYTES 2019-09-05 24 [facility] Her whaley 08:14:00 ELECTROLYTES 2019-09-05 8.4 [facility] Her whaley 08:14:00 ELECTROLYTES 2019-09-05 91 [facility] Her whaley 08:14:00 HEMATOLOGY 2019-09-05 3.5 [facility] Deb nn 08:14:00 HEMATOLOGY 2019-09-05 3.77 [facility] Deb nn 08:14:00 HEMATOLOGY 2019-09-05 11.2 [facility] Deb nn 08:14:00 HEMATOLOGY 2019-09-05 34.1 [facility] Deb nn 08:14:00 HEMATOLOGY 2019-09-05 90.5 [facility] Deb nn 08:14:00 HEMATOLOGY 2019-09-05 08:14:00 Test Item Value Reference Range Interpretation Comme nts MCH (test code = MCH) 29.7 pg 27.0-31.0 [facility] AmspaldGTJKHAPHHP7657-75-99 08:14:0032.8[facility] HermannHEMATOLOGY 2019-09-05 08:14:0015.2[facility] WahtvmaJIOJHUSNJA1194-06-11 08:14:75259Hqyyrcfi NokdniqWVLQDJVHUU3641-80-24 08:14:008.6[facility] EmcfyglRWGVINBKPI1401-50-27 08:14:0063.3[facility] HvgpejuPGIDFHWDHS6180-70-27 08:14:0016.4[facility] Diony XWLBWRQSZK5311-17-55 08:14:0013.3[facility] KjxuzefTIRLDZDXQL9346-88-05 08:14:00 5.6[facility] ZafprghVYFJLMNPHH7552-55-91 08:14:001.4[facility] HermannHEMATOLOGY 2019-09-05 08:14:002.2[facility] OqydyqcVAVOLOJQOZ8669-23-18 08:14:000.6[facility] GyqcjuiNKBBJQBBVC7756-89-27 08:14:000.5[facility] LhevcyyGDSWAPXPNU5039-70-77 08:14:000.2[facility] HermannCHEM SAIJG4520-91-06 20:09:0099[facility] HermannCHEM QDNYN7458-96-48 20:09:009[facility] HermannCHEM ATCBA8241-00-98 20:09:000.77 [facility] HermannCHEM IBDUY1309-75-74 20:09:79070Mtpukrtf HermannCHEM PANEL 2019-09-04 20:09:003.9[facility] HermannCHEM GFBZQ4094-57-55 20:09:64270Lgodmcox HermannCHEM WSXRP9541-98-93 20:09:0026[facility] HermannCHEM OHZOO6874-80-75 20:09:008.2[facility] HermannCHEM RYEOP8610-90-10 20:09:0081[facility] HermannCHEM FOVRS2786-07-27 20:09:008.9[facility] KkulnbhWUUNFJJGXP8895-70-03 20:09:0071.4 [facility] LaarvggUCTEWRNSJH0494-26-58 20:09:0011.2[facility] HermannHEMATOLOGY 2019-09-04 20:09:0012.7[facility] YajswvbIISEKHKYCE2086-25-19 20:09:003.8[facility] PhzxkyoZBRIFNCCBO3106-69-09 20:09:000.9[facility] VyzesfdDFAPUGXWDY9652-99-76 20:09:002.7[facility] ZyhfqkhVMORIXRQSZ4793-53-81 20:09:000.4[facility] Diony DAAVMHHZQU9504-60-57 20:09:000.5[facility] LoflatyAPVTRLCVLZ7295-22-62 20:09:000.1 [facility] CiogxplGAWHWYOTKY2630-32-95 20:09:003.8[facility] HermannHEMATOLOGY 2019-09-04 20:09:003.77[facility] GmqzwgcIBDOCYQHAU6193-12-25 20:09:0011.5[facility] YmlcjsoYSEMSZQESW4157-88-11 20:09:0033.6[facility] LioqcquUKFDDMJOIL6934-52-60 20:09:0089.1[facility] HpwncdjHYCILSURLV4899-89-18 20:09:00 Test Item Value Reference Range Interpretation Comments MCH (test code = MCH) 30.6 pg 27.0-31.0 [facility] LumhxvoVQAYNQODMD1540-64-07 20:09:0034.4[facility] HermannHEMATOLOGY 2019-09-04 20:09:0015.3[facility] YdsbmvkSUJDWJJOBV1378-02-73 20:09:09539Ebtlwpzl GsiuhqlVRCKGQPDNS3390-66-50 20:09:008.0[facility] HermannDRUG QBQCCN9267-45-62 19:51:00Negative *NA*(09/02/19 2:51 PM)[facility]annDR[facility] BEYZTU7129-18-69 19:51:00Negative *NA*(09/02/19 2:51 PM)[facility]annDR[facility] XIKFJQ8797-53-55 19:51:00Negative *NA*(09/02/19 2:51 PM)[facility]annDR[facility] MEFEVS7358-40-54 19:51:00Negative *NA*(09/02/19 2:51 PM)[facility]annDR[facility] HYCOPC2112-81-89 19:51:00Negative *NA*(09/02/19 2:51 PM)[facility]annDR[facility] RETSHG2226-97-78 19:51:00Negative *NA*(09/02/19 2:51 PM)[facility]annDR[facility] TMERZO3817-06-74 19:51:00Negative *NA*(09/02/19 2:51 PM)[facility]annDR[facility] QFAMPP7780-50-27 19:51:00Negative *NA*(09/02/19 2:51 PM)[facility]annDR[facility] NMNQZE2004-83-84 19:51:00Negative *NA*(09/02/19 2:51 PM)[facility]annDR[facility] OXELYM8251-33-89 19:51:00See Note (09/02/19 2:51 PM)[facility]annUR[facility] AND ESOUD3948-93-42 19:51:00Yellow *NA*(09/02/19 2:51 PM)[facility] MKXJC0762-82-97 19:51:00Marked *ABN*(09/02/19 2:51 PM)[facility] NXJSS7634-62-04 19:51:00 Test Item Value Reference Range Interpretation Comments UA Spec Grav (test code = UA Spec 1.009 1 Grav) [facility] ESHJO1315-16-20 19:51:00 Test Item Value Reference Range Interpretation Comments UA pH (test code = UA pH) 7.0 1 5.0-8.0 [facility] QMOOX6924-27-97 19:51:00Negative *NA*(09/02/19 2:51 PM)[facility] MFCNY7491-62-57 19:51:00Negative (09/02/19 2:51 PM) [facility] BMBUO8721-30-08 19:51:00Negative (09/02/19 2:51 PM) [facility] MNGHK1332-07-45 19:51:00Negative (09/02/19 2:51 PM) [facility] PSIUH1495-53-86 19:51:002[facility] AND HRLZK8104-81-71 19:51:0050[facility] HermannCHEM LKUPV1200-67-29 19:23:29880 [facility]annCHEM OYABN0100-67-91 19:23:0010[facility] HermannCHEM PANEL 2019-09-02 19:23:000.89[facility] HermannCHEM EBKES1072-64-53 19:23:88649Nxbigfws HermannCHEM JRQIY4794-59-36 19:23:003.6[facility] HermannCHEM ZVTPY0646-58-36 19:23:73317Cbrhjuwe HermannCHEM XDSVH0123-37-92 19:23:0025[facility] HermannCHEM OQBPC2363-39-60 19:23:009.1[facility] HermannCHEM MEVYS8947-77-01 19:23:007.3 [facility] HermannCHEM LPSOO6384-17-42 19:23:003.8[facility] HermannCHEM PANEL 2019-09-02 19:23:0014[facility] HermannCHEM QFDYY5066-39-24 19:23:0018[facility] HermannCHEM XLWBA7389-08-54 19:23:0085[facility] HermannCHEM IHXJG6530-41-32 19:23:000.6[facility] HermannCHEM DNTGI1183-22-49 19:23:0067[facility] HermannCHEM JVBSP1689-79-10 19:23:008.6[facility] HermannCHEM MGIVZ7592-03-87 19:23:00 Test Item Value Reference Range Interpretation Comments B/C Ratio (test code = B/C Ratio) 11 1 05-03 [facility] HermannCHEM BNJOY0461-64-33 19:23:003.5[facility] HermannCHEM PANEL 2019-09-02 19:23:00 Test Item Value Reference Range Interpretation Comments A/G Ratio (test code = A/G Ratio) 1.1 1 0.7-1.6 [facility] HermannCHEM USCOE1753-56-14 19:23:001.5[facility] HermannHEMATOLOGY 2019-09-02 19:23:006.1[facility] OrwfywaMCUZXBNQHW6187-02-15 19:23:004.39[facility] LiuquyxMXFIWWYJHC2139-03-28 19:23:0013.3[facility] WhkkiexYBDIJNASHF3467-44-75 19:23:0038.7[facility] LategwbQPDYNEVODI4218-54-39 19:23:0088.2[facility] Filer GZVUQTKELG5034-28-17 19:23:00 Test Item Value Reference Range Interpretation Comments MCH (test code = MCH) 30.2 pg 27.0-31.0 [facility] XbdpiddVSCRECRNDE6912-99-49 19:23:0034.2[facility] HermannHEMATOLOGY 2019-09-02 19:23:0015.4[facility] DvdgqhsATOJYSCTQG5082-04-83 19:23:54333Pgpdnouk LtjmzmuVYGHSIFPAD7029-71-18 19:23:007.8[facility] SaqrvjoDWGROQFEON4221-02-36 19:23:0084.9[facility] FnwjqanMFXAMYGVLV6223-51-68 19:23:006.4[facility] Filer IODBWBIMGN6900-40-66 19:23:008.2[facility] PzzycvtGYOOBVCKEA5050-80-78 19:23:000.1 [facility] AgaggdmVBFMWBQFZP2598-57-24 19:23:000.4[facility] HermannHEMATOLOGY 2019-09-02 19:23:005.2[facility] SdudaayXYTFCKNDTJ1269-03-39 19:23:000.4[facility] DaibxtgAKSDHQCRMI4793-39-70 19:23:000.5[facility] HermannCHEM UMUUC9689-87-31 06:31:0088[facility] HermannCHEM QDDEB8656-04-87 06:31:0010[facility] HermannCHEM ZLAIH5906-35-03 06:31:000.82[facility] HermannCHEM TIAVC1152-85-68 06:31:06176 [facility]annCHEM YLOKQ5149-70-15 06:31:005.0[facility] HermannCHEM PANEL 2019-07-21 06:31:52033Klztjvtj HermannCHEM HWBAF7758-87-43 06:31:0027[facility] HermannCHEM GCRAH9504-77-09 06:31:009.0[facility] HermannCHEM NQIFL4008-90-23 06:31:0010.0[facility] HermannCHEM VPQVA2801-56-01 06:31:0075[facility] HermannCHEM UPSZH2471-64-18 06:31:001.9[facility] HermannCHEM VVDBN0606-49-78 06:31:003.6 [facility] HzdiztuRUCTDGRBNX9084-29-28 06:31:006.5[facility] HermannHEMATOLOGY 2019-07-21 06:31:003.99[facility] UbywptzOBSYMMZXYT7428-20-27 06:31:0012.1[facility] YwwjjnqFGYMJTJKCR9592-08-28 06:31:0036.2[facility] XqoykmxJVASZTMWUI0056-01-88 06:31:0090.6[facility] AsrgiiqOTTZMRPQUR6650-17-89 06:31:00 Test Item Value Reference Range Interpretation Comments MCH (test code = MCH) 30.4 pg 27.0-31.0 [facility] FhdpcypJNNBFNFJQF7742-01-41 06:31:0033.5[facility] HermannHEMATOLOGY 2019-07-21 06:31:0014.4[facility] OcdiizgBNOKDPZVJI5081-83-34 06:31:26261Nwthpqdp DrfqihkLNTCSNRMOV9510-55-32 06:31:009.3[facility] LnqbhojHNMDOBTTSS6834-09-55 06:31:0080.3[facility] AvmokgpJBTRZNXVLU8440-90-54 06:31:009.0[facility] Diony WOJATGYXRU1678-41-94 06:31:009.6[facility] TmhnzwaYFLUAJUNNN2716-28-79 06:31:000.6 [facility] NzizjrzUTMTYYQMMN1281-59-41 06:31:000.5[facility] HermannHEMATOLOGY 2019-07-21 06:31:005.2[facility] DummymzPTHZODIQLF5444-17-08 06:31:000.6[facility] CkqsldbXVMECEKYWH3676-22-82 06:31:000.6[facility] HermannBLOOD BANK RESULTS 2019-07-20 12:43:00Negative (07/20/19 7:43 AM)[facility] HermannELECTROLYTES 2019-07-20 12:43:0013.0[facility] CsyhxsvIHSQTMTCBDHK3068-85-54 12:43:0099[facility] HnokdgpHMSFWZXBYJMK8238-63-79 12:43:0012[facility] KyfdyrdPYOKJESTQWFL7600-34-17 12:43:001.04[facility] RutljirYFSJSCMXNOTH8497-97-14 12:43:22708Jbhnxxjo Diony ACYTHSZVBEMZ9056-40-08 12:43:004.0[facility] WpbfrrhWYBYACVMMPDI3338-31-46 12:43:43084Uzpavhxx RqzvpdaUQAYOAZPBZWL2023-60-89 12:43:0027[facility] GUMLEWSEGEVR0057-64-51 12:43:009.2[facility] DeixtxzTNTZZDLMIOPH4292-25-78 12:43:0057[facility] PpmlihzDTZLCLRAYN2818-39-39 12:43:0061.4[facility] Dion[facility] WEKKMGZBJA5232-55-84 12:43:0019.7[facility] BrtssdmBEGFTQXXRU0526-71-60 12:43:00 14.1[facility] RtstjlgWRCOHUFZJE4019-19-50 12:43:001.8[facility] HermannHEMATOLOGY 2019-07-20 12:43:003.0[facility] UerqymcILMBAGSGPP3315-59-46 12:43:001.9[facility] LimupdtIUKDHTPFFS3609-87-94 12:43:000.6[facility] LtgcjebVZJPNXJCAL7119-67-43 12:43:000.4[facility] HavooavBCORBCNVJL8748-82-95 12:43:000.1[facility] RXJGZPCASB5416-92-40 12:43:000.1[facility] AigezmrFLRVDLXWZH2368-83-83 12:43:003.0 [facility] RqmmbvqCCSVQXNBUH9797-86-32 12:43:004.32[facility] HermannHEMATOLOGY 2019-07-20 12:43:0013.3[facility] NwajqqsZRWGNKBLDW3766-93-33 12:43:0039.0[facility] XioizdhAUQAPJIKGT0479-81-87 12:43:0090.2[facility] RyrfhnbGKSFMIWKUZ5587-44-40 12:43:00 Test Item Value Reference Range Interpretation Comments MCH (test code = MCH) 30.7 pg 27.0-31.0 [facility] NnrscdpXPYEDDHEWM6740-78-97 12:43:0034.1[facility] HermannHEMATOLOGY 2019-07-20 12:43:0014.1[facility] DgadknuXPGABFIIRG9495-90-98 12:43:28248Uiwswnuz VurbnojANPTFQDUJX4589-03-47 12:43:008.2[facility] DydymynALPROBWZSE3217-06-76 12:43:00 Test Item Value Reference Range Interpretation Comments INR (test code = INR) 1.01 1 0.85-1.17 [facility]KS[facility]336[facility]97 12:43:00 Test Item Value Reference Range Interpretation Comments PT (test code = PT) 13.1 s 12.0-14.7 [facility] ZpzpqfrCETUVFKBQJ4557-68-08 12:43:00 Test Item Value Reference Range Interpretation Comments PTT (test code = PTT) 27.5 s 22.9-35.8 [facility] HermannCHEM DAMVD7957-82-75 10:07:003.5[facility] HermannCHEM PANEL 2019-02-09 10:07:00 Test Item Value Reference Range Interpretation Comments B/C Ratio (test code = B/C Ratio) 16 1 6-25 [facility]annCHEM PZMKP9916-76-04 10:07:0012.9[facility] HermannCHEM PANEL 2019-02-09 10:07:00 Test Item Value Reference Range Interpretation Comments A/G Ratio (test code = A/G Ratio) 0.9 1 0.7-1.6 [facility]annCHEM IHEEB0801-93-20 10:07:0095[facility] HermannCHEM PANEL 2019-02-09 10:07:003.9[facility] HermannCHEM TSLDO8500-41-36 10:07:57760Gkugukkh HermannCHEM OWVAM2947-10-37 10:07:0025[facility] HermannCHEM JIQFV2362-10-28 10:07:009.7[facility] HermannCHEM ZYUVJ6833-94-52 10:07:000.2[facility] HermannCHEM RVUNZ4816-94-26 10:07:006.8[facility] HermannCHEM VCEHN2989-30-40 10:07:0014 [facility]annCHEM HNGDX7922-80-56 10:07:000.63[facility] HermannCHEM PANEL 2019-02-09 10:07:73137Oyafclnp HermannCHEM AZLUR5428-88-69 10:07:0024[facility] HermannCHEM RFFMG7493-37-38 10:07:003.3[facility] HermannCHEM RUAIG9985-51-77 10:07:0087[facility] HermannCHEM RAZOS4630-09-11 10:07:0077[facility] HermannCHEM BQEHL0402-76-87 10:07:0010[facility] HermannCHEM ONILS3049-30-37 10:07:002.3 [facility] MphaxefKRHHSVCFSW7502-43-49 10:07:000.1[facility] HermannHEMATOLOGY 2019-02-09 10:07:000.2[facility] CtcntofWEBTNHBSLJ9530-19-15 10:07:000.5[facility] JjealhfZGUMXRSWSZ4605-24-88 10:07:000.8[facility] RobkleyYTJYWNFNYS6481-89-57 10:07:001.8[facility] CgqejevRHCYOJZEAP6180-71-05 10:07:0054.1[facility] Filer FYQSQCFSJB2033-46-17 10:07:002.0[facility] BedktmrDLEWGBJXBZ3408-74-76 10:07:005.0 [facility] JgozxqkTZZAEZQPQR3577-91-18 10:07:0015.2[facility] HermannHEMATOLOGY 2019-02-09 10:07:0023.7[facility] BhclrogTFURUUCHDJ1285-17-03 10:07:008.1[facility] ItirmjcWQYMFJGITX7220-81-97 10:07:33408Axeegnxh SvxpqyiHVUQVHMQRK5503-29-24 10:07:00 Test Item Value Reference Range Interpretation Comments MCH (test code = MCH) 30.3 pg 27.0-31.0 [facility] QnzddlaLOFXLZAYST3034-52-61 10:07:0089.5[facility] HermannHEMATOLOGY 2019-02-09 10:07:0015.7[facility] CujuepbOFGQYYRKTD9428-98-45 10:07:0033.8[facility] GwnllcdQQJJPSQXFW0826-72-47 10:07:0011.8[facility] MlxfqfrYELHGRBVKN1158-22-70 10:07:003.89[facility] ChdfbkuWOWEMNVRIM2579-42-23 10:07:003.3[facility] Filer NCNKWJCUCM5730-50-41 10:07:0034.8[facility] YgzqluqYCHKAHAESDHN5019-60-53 10:26:00 104[facility] CmjdxdgDXODSWIDNAVS8175-42-54 10:26:003.9[facility]iler SYWSRXEGYBNE0601-64-46 10:26:0026[facility] MkedtokRAIPUOLUWJGT2158-40-20 10:26:00 90[facility] QwuwrapQRHMTFQXPZBI2639-86-72 10:26:0013[facility] HermannELECTROLYTES 2019-02-04 10:26:000.61[facility] EskydqoSAMNNLXOQRNG0360-11-94 10:26:34743 [facility] BkqycnjYVZCTOVWOWCI7732-30-14 10:26:0096[facility] HermannELECTROLYTES 2019-02-04 10:26:009.6[facility] DqxdnmeIUZQCULTLIUR1051-93-72 10:26:0011.9 [facility] HermannGENTAMICIN:SUSC:PT:ISOLATE:ORDQN:UEQ2992-58-09 05:35:00 Escherichia coliMemorial HermannURINE AND YIDKP7354-97-92 23:06:0013[facility]annURINE AND NJIPW5757-85-79 23:06:00>182[facility]annUR[facility] AND STOOL 2019-02-02 23:06:00 Test Item Value Reference Range Interpretation Comments UA pH (test code = UA pH) 6.0 1 5.0-8.0 [facility] AND VLWXR9397-84-46 23:06:00 Test Item Value Reference Range Interpretation Comments UA Spec Grav (test code = UA Spec 1.010 1 Grav) [facility] VFDWG3170-84-46 23:06:00Large *ABN*(02/02/19 6:06 PM) [facility] KDCPE2855-22-24 23:06:00Negative *NA*(02/02/19 6:06 PM) [facility] BUGIO4280-71-75 23:06:00Negative *NA*(02/02/19 6:06 PM) [facility] DBLMW4723-05-98 23:06:00<1.0[facility] AND ILXWZ7268-81-67 23:06:00Positive *ABN*(02/02/19 6:06 PM)[facility] AND OJWOK4599-77-62 23:06:00Negative *NA*(02/02/19 6:06 PM)[facility] AND VFIWA5384-85-47 23:06:00Negative (02/02/19 6:06 PM)[facility] AND MAYFE6622-77-86 23:06:00Dark Yellow *NA*(02/02/19 6:06 PM)[facility] AND XJRGM7989-64-87 23:06:00Marked *ABN*(02/02/19 6:06 PM)[facility] HermannCHEM RKORF2891-16-18 09:47:002.1[facility] HermannCHEM YAOXF6442-22-72 09:47:0096 [facility]annCHEM HTIEZ3551-58-01 09:47:000.3[facility] HermannCHEM PANEL 2019-02-02 09:47:007.0[facility] HermannCHEM ETPPT6220-20-28 09:47:0015[facility] HermannCHEM MXXPI7191-00-02 09:47:0024[facility] HermannCHEM EAHNI4636-32-85 09:47:0010.1[facility] HermannCHEM THBAR9115-73-91 09:47:43534Rwtdfohx HermannCHEM HPXIC6332-69-52 09:47:0015[facility] HermannCHEM RMOJV6854-75-72 09:47:000.60 [facility]annCHEM MCUUW9115-25-64 09:47:74351Ftawgftq HermannCHEM PANEL 2019-02-02 09:47:004.0[facility] HermannCHEM PLQGT3252-76-68 09:47:0082[facility] HermannCHEM FSLNA9862-09-65 09:47:0023[facility] HermannCHEM JTSXG3063-94-71 09:47:003.3[facility] HermannCHEM DFTNI8985-42-97 09:47:0093[facility] HermannCHEM HZROB7929-89-84 09:47:00 Test Item Value Reference Range Interpretation Comments A/G Ratio (test code = A/G Ratio) 0.9 1 0.7-1.6 [facility]annCHEM UWPMW2775-29-83 09:47:00 Test Item Value Reference Range Interpretation Comments B/C Ratio (test code = B/C Ratio) 25 1 6-25 [facility]annCHEM LFLTT5037-44-67 09:47:003.7[facility] HermannCHEM PANEL 2019-02-02 09:47:0015.0[facility] BoynoutUGLHHTZBZG2471-19-69 09:47:0011.4[facility] KpjfoarVAJOXRVUCH7993-89-65 09:47:0033.7[facility] DldvdteAIMJFZAUEP1215-37-85 09:47:003.73[facility] FepenufHTYBAERARF1402-87-17 09:47:0016.3[facility] Diony WBRSYOOTBI3129-03-70 09:47:0090.3[facility] ChfkenqQEUCODQHQT2603-61-24 09:47:00 Test Item Value Reference Range Interpretation Comments MCH (test code = MCH) 30.5 pg 27.0-31.0 [facility] PjfpqwlRVAUOSUEHE5410-62-31 09:47:0033.7[facility]annHEMATOLOGY 2019-02-02 09:47:009.5[facility] BnhftobWOVOZBCHAL4468-08-81 09:47:84347Sffotkic CheqxgzKHJDXJTFSG9946-92-42 09:47:006.2[facility] LaqjpvjDRNATJWNVH3029-63-12 09:47:000.2[facility] DtlwrygQKGQZLJGCD5673-41-43 09:47:000.8[facility] AEOCYOIMPU3865-07-96 09:47:000.1[facility] EmxdoaqRBVHECZQLE0078-00-08 09:47:00 12.7[facility] UyijkftMWIMACOHPG1517-68-80 09:47:003.3[facility]annHEMATOLOGY 2019-02-02 09:47:0072.8[facility] AjqfdezSFIHBLFBTV9537-26-41 09:47:0010.3[facility] PqdxqudXAEHFXBOJY8750-76-99 09:47:000.6[facility] GmbbzyyLJEFELQTQS7605-55-04 09:47:000.9[facility] FjbaytaHUGMABMVJB2902-79-94 09:47:004.5[facility] HermannCHEM IRZPZ1303-00-81 10:07:003.4[facility] HermannCHEM VIPUQ3880-10-68 10:07:32907 [facility]annCHEM NWLSK3244-57-07 10:07:000.5[facility]annCHEM PANEL 2019-01-26 10:07:006.9[facility]annCHEM NGYLH9121-65-06 10:07:0024[facility]annCHEM MAUSC7807-25-21 10:07:0039[facility]annCHEM NXLWG6843-30-02 10:07:00 Test Item Value Reference Range Interpretation Comments A/G Ratio (test code = A/G Ratio) 1.0 1 0.7-1.6 [facility]annCHEM WMJBV1831-17-39 10:07:00 Test Item Value Reference Range Interpretation Comments B/C Ratio (test code = B/C Ratio) 17 1 6-25 [facility]annCHEM KUHGM6166-43-43 10:07:003.5[facility]annCHEM PANEL 2019-01-26 10:07:002.2[facility] YhorygrRNGHAJBFXX4732-63-57 10:07:000.1[facility] PyfoqitCHEIGKSVUW8275-11-76 10:07:0022.1[facility] YoquzruMIJASWMPMK8129-64-02 10:07:007.5[facility] CbckitzJDTUAYJBQG6245-84-31 10:07:000.2[facility] PHMDJAFTID9981-77-53 10:07:000.5[facility] TrbdvdxHBJOMLXCFZ1395-91-61 10:07:00 54.3[facility] WeepsgpZPETZTFYXP3257-70-57 10:07:0014.2[facility]annHEMATOLOGY 2019-01-26 10:07:000.7[facility] MxvrltpJCCLABJWXI0148-01-38 10:07:001.7[facility] HvayjqdCVBBZNPPTP3488-83-49 10:07:001.9[facility] YgklzfgHFZQQWYDGL2637-41-03 10:07:15743Bodnyvzu JfxshigBPEKVQVHUM2525-12-83 10:07:0016.2[facility] BIYEHXNAKC5260-83-47 10:07:0033.7[facility] KagacbdEYLIOVXHZB3077-88-30 10:07:00 9.1[facility] SagwnluXPNXDFLVYM9889-41-06 10:07:003.2[facility]annHEMATOLOGY 2019-01-26 10:07:00 Test Item Value Reference Range Interpretation Comments MCH (test code = MCH) 30.2 pg 27.0-31.0 [facility] AbmwmfvOHVBJXHGZT7483-91-78 10:07:0033.4[facility]annHEMATOLOGY 2019-01-26 10:07:0011.2[facility] UvyvjteVOUSTJAJVY9399-96-91 10:07:003.73[facility] KizpilaXKXEUMYNUN9223-99-32 10:07:0089.7[facility] HermannCHEM IQLXQ5729-40-57 10:09:003.1[facility] RttovotTTMFDEQHCX3929-03-54 10:09:001+ *ABN*(01/20/19 5:09 AM)[facility] CqjpkqxCYTKGFEGBB6893-41-73 10:09:00Normal (01/20/19 5:09 AM)[facility] ChxrrtrVFBSLPZORP8644-94-77 10:09:0026.9[facility] GtpjbzcENOQUBNLMVCO4243-16-10 16:13:003.2[facility] YglogbzEPTTKTVVQZYR0234-63-69 16:13:98080Dqxmyypq Diony CAFOSXINSIZK6575-50-19 16:13:0029[facility] DbhvtiwPVVBZGMFRYJH4652-99-13 16:13:00 12.2[facility] QsiuhpcLJBAKYZHFTOI7952-60-15 16:13:009.3[facility] RDVEIBYWGORD8107-51-54 16:13:0083[facility] LzsujdxUWVXFYZTXXBJ8664-94-22 16:13:00 142[facility] SetvwpvSKQXSQTPCYUJ4359-23-26 16:13:003.2[facility] TZCBDQZVLGCU8511-30-24 16:13:000.76[facility] HlppsapRJKYKWIBBLWT8437-98-28 16:13:85731Anwkwyux EndtckoUKUWTBVUMZVV5744-12-74 16:13:0011[facility]annCHEM QJRMN5254-13-52 08:47:003.0[facility]annCHEM KRLZW3545-70-74 08:47:002.0 [facility]annCHEM EPPCF9031-22-21 08:47:0093[facility]annCHEM PANEL 2019-01-19 08:47:0013.1[facility]annCHEM SICMS2840-53-31 08:47:009.2[facility] HermannCHEM ZVSMN0396-35-31 08:47:71207Hvbuzxqo HermannCHEM KHGUC0823-65-01 08:47:0029[facility]annCHEM BIGXZ0913-23-66 08:47:0011[facility]annCHEM MGMJR9593-16-03 08:47:000.66[facility]annCHEM VBSUW5665-89-70 08:47:002.1 [facility]annCHEM YNAFW7315-58-79 08:47:71703Uwoojyoi HermannCHEM PANEL 2019-01-19 08:47:0097[facility] MduoommQOUXBAWSUG7235-26-58 08:47:0015.1[facility] FomxtrqIXVUFEESOZ5976-57-36 08:47:0034.1[facility] IzrcotzRDLAFDBUZY2806-13-41 08:47:16837Hxtzdofl LnpmbyhSZQCPFWYBD0309-98-51 08:47:00 Test Item Value Reference Range Interpretation Comments MCH (test code = MCH) 30.1 pg 27.0-31.0 [facility] BrymtolXGFSLNCLMK7169-18-40 08:47:0088.3[facility] HermannHEMATOLOGY 2019-01-19 08:47:007.5[facility] IahexaqPBGRCYUFMJ1342-41-53 08:47:003.77[facility] ZsrbyhzHPXZCXORTQ8136-98-31 08:47:003.7[facility] UaxowgiAMTGHPOBGO0269-01-63 08:47:0033.3[facility] BvolwgpCHUIQLFVNX3788-03-55 08:47:0011.4[facility]iler IOZYWNMNMT6229-44-31 08:47:0013.6[facility] KlctibwDJQQEKJVFR9200-53-42 08:47:00 15.6[facility] YhcvolfKSOPBNGOBP9127-32-93 08:47:000.2[facility] HermannHEMATOLOGY 2019-01-19 08:47:000.1[facility] IpqdzmnXYSSAYCJHY0724-06-76 08:47:002.8[facility] QqqwgzlUQKZQQFYDT7861-13-73 08:47:004.5[facility] YruznufJTOZGCQTWT8732-25-79 08:47:002.4[facility] VbdbfnvYBDQFFHQHN3243-63-39 08:47:000.5[facility] BBFLXSRHUL5744-75-56 08:47:000.6[facility] JwupwneDANJBALBQA9617-45-31 08:47:00 63.5[facility] OfzwifbDMVNIGZLAXXZ8252-29-69 09:46:0025[facility] XSGPQSCUKGHL4697-36-13 09:46:76361Bidtpsyx AgysarxDUPDLIYTKOWY8903-88-68 09:46:0094[facility] VivvasjWWRMJAEABCIH5245-91-45 09:46:0011.5[facility] VMSZICMHUSVO9708-42-82 09:46:008.7[facility] EngpvceCRJLTXILHSIO9428-46-51 09:46:36801Qfscywis EibdwgpDREBUUKEZTIN0573-38-85 09:46:000.63[facility] VOMCTDWGEUGL4644-98-95 09:46:0086[facility] QmfouuuXRVJHXJOEURE9505-02-00 09:46:00 24[facility] HermannCARDIAC GZZQYOF1962-12-13 22:38:65406Aejciosz HermannCHEM CKXNM0894-57-28 08:20:003.1[facility] HermannCHEM BPDLI8692-80-62 08:20:002.1 [facility] AnzoluiPDTIXQORSY5896-14-18 08:20:009.8[facility] HermannHEMATOLOGY 2019-01-11 08:20:003.48[facility] MjeilhiBCSKKQHJML7312-85-90 08:20:0010.5[facility] EjyniffDXVFMKCWPC0168-79-45 08:20:007.0[facility] CmiufmfMRBCNWYRRZ0255-01-53 08:20:0089.6[facility] SblhqojSYKFRRDFTH2226-78-57 08:20:00 Test Item Value Reference Range Interpretation Comments MCH (test code = MCH) 30.0 pg 27.0-31.0 [facility] GuharmwVOGTQCWRKY8283-37-29 08:20:0033.5[facility] HermannHEMATOLOGY 2019-01-11 08:20:0014.4[facility] HopmgjdMPPCHRAAYZ2523-96-95 08:20:0031.2[facility] BiahqawJXYGHXDBLN2175-53-78 08:20:51110Dibcoxzo IwkxisxEGQVLRRINW6029-59-41 08:20:000.3[facility] FzjkyneIDLJLUAJRB1326-56-30 08:20:000.1[facility] FQJGMDYYLO4921-47-82 08:20:002.7[facility] XtzyoqkMXRXYSCTDY2543-85-90 08:20:000.5 [facility] LcrbexpOBRCEDGPSK7931-69-87 08:20:008.3[facility] HermannHEMATOLOGY 2019-01-11 08:20:000.6[facility] TpgrbrpFDWZXKTXZY0809-39-24 08:20:000.6[facility] UzrrrysXZSIGCXRVF5119-26-27 08:20:0084.7[facility] FfuukcuATMOQGZTHK3784-03-62 08:20:005.7[facility] YycobgmKUFBSNASKG1483-84-92 08:20:006.4[facility] HermannCHEM YMYTP1772-33-19 10:37:002.2[facility] HermannCHEM FZLZJ9737-11-46 10:37:003.4 [facility] WxutviiJFKXXAVHIG2838-40-41 10:37:32575Plfehtnl HermannHEMATOLOGY 2019-01-10 10:37:007.4[facility] UissmtcSKVMOONBVU0497-91-75 10:37:0014.7[facility] QgjrvyeCSVUBUMAHX8792-35-83 10:37:00 Test Item Value Reference Range Interpretation Comments MCH (test code = MCH) 30.3 pg 27.0-31.0 [facility] JqcdstgZQBEAVNOCW7718-02-61 10:37:0034.1[facility] HermannHEMATOLOGY 2019-01-10 10:37:009.8[facility] RmhvjatXECQWZEYVB8158-74-96 10:37:0010.0[facility] MozyxzvAIWPPZBBDZ3535-69-87 10:37:003.29[facility] DmgqhdsQZBLRHKIYT8064-54-51 10:37:0089.0[facility] VqmzdqwWLGKMQTLJS7027-34-84 10:37:0029.3[facility] WZIXSGZLHQ5454-69-25 10:37:0083.9[facility] KhosjdqLVVVLEGPYE5390-28-54 10:37:00 5.4[facility] IdmzxbsJNHXNZRKUS0818-41-36 10:37:007.2[facility] HermannHEMATOLOGY 2019-01-10 10:37:000.3[facility] ZplawlwEKCMBPLQTO6070-08-10 10:37:000.1[facility] FcodxaaSEYQFYKUCO1496-47-93 10:37:000.8[facility] WyuchlqRAFZVJSWGP4476-75-26 10:37:000.5[facility] QahkmrfVYGHLWQHYP9937-24-30 10:37:002.7[facility] TXKLKMFEKO6146-12-15 10:37:008.2[facility] CbkxpwwMNYSBDFWTP3961-68-23 10:37:000.7 [facility] HermannPARATHYROID DZPCZXZ5155-28-58 10:37:001.19[facility] PARATHYROID ELANNYR7447-53-21 10:37:001.18[facility] TigizumODPFFCWNFM5556-42-53 10:37:0015.9[facility] VbbaxeeNAQEDWXIEN1731-68-64 07:41:00 Test Item Value Reference Range Interpretation Comments INR (test code = INR) 1.01 1 0.85-1.17 [facility] EjpsrnzTHCPSPFSJN0325-08-35 07:41:00 Test Item Value Reference Range Interpretation Comments PT (test code = PT) 13.1 s 12.0-14.7 [facility] GkbkyxcWXKRUCYSHE7005-85-24 07:41:00 Test Item Value Reference Range Interpretation Comments PTT (test code = PTT) 30.3 s 22.9-35.8 [facility] HermannPARATHYROID QABFGWP0524-46-66 07:41:001.13[facility] PARATHYROID TSFPEYF2398-86-20 07:41:001.18[facility] HermannPARATHYROID PROFILE 2019-01-08 06:39:001.10[facility] HermannPARATHYROID WKAYJLG7452-88-31 06:39:00 1.04[facility] OpodpxiCQYNCTORLB0097-08-29 02:28:00 Test Item Value Reference Range Interpretation Comments Vanco Tr TND (test code = Vanco Tr 2000 1 TND) [facility] XybororEKCZIBAUVY3470-84-15 02:28:0012.5[facility] HermannCHEM PANEL 2019-01-06 10:31:000.95[facility] HermannCHEM XAEKG4948-84-17 15:46:40112Nfckqdow HermannURINE CPPY4995-99-19 15:46:0063[facility]annURINE BTMM6517-68-78 15:46:18239Qbvcvpxx HermannBACTERIAL - EUUPEYTP7670-68-34 00:15:00Positive 1*ABN*(01/04/19 6:15 PM)[facility]UR[facility] AND GSVJT6439-14-35 15:48:00<1 [facility] AND ESZBS9366-08-23 15:48:00Negative (01/04/19 9:48 AM) [facility] VJWPP4643-72-47 15:48:00<1[facility] AND QFRIW4000-48-75 15:48:00Negative *NA*(01/04/19 9:48 AM)[facility] AND ICRCV1067-08-32 15:48:004.0[facility]annUR[facility] AND PHAGJ1751-10-23 15:48:00 Negative (01/04/19 9:48 AM)[facility] AND SICAQ0159-47-87 15:48:00 Negative (01/04/19 9:48 AM)[facility] AND NEPMI4058-66-33 15:48:00 Test Item Value Reference Range Interpretation Comments UA pH (test code = UA pH) 6.5 1 5.0-8.0 [facility] AND ZKPBG3093-30-77 15:48:00Clear (01/04/19 9:48 AM) [facility] NZVOI4946-52-13 15:48:00 Test Item Value Reference Range Interpretation Comments UA Spec Grav (test code = UA Spec 1.027 1 Grav) [facility] EKXOY5278-52-00 15:48:00Yellow *NA*(01/04/19 9:48 AM) [facility] ZvxxgcdKTBMUNPSXH4356-14-09 06:05:00 Test Item Value Reference Range Interpretation Comments PT (test code = PT) 12.5 s 12.0-14.7 [facility] KueqfdqYXIHAAKTVG3944-51-88 06:05:00 Test Item Value Reference Range Interpretation Comments INR (test code = INR) 0.95 1 0.85-1.17 [facility] HermannMOLECULAR GATUDUXZGF5187-27-45 09:20:00Negative (01/02/19 3:20 AM)[facility] QiazdokFUMBKKMLOH6452-53-66 12:25:59349Jksrzugw HermannBACTERIAL - FSFQHPMV0993-31-13 09:47:00Negative (12/29/18 3:47 AM)[facility] HermannCARDIAC GWGZOCS9421-36-45 09:47:000.02[facility] HermannCHEM GQUME6431-89-52 09:47:001.8 [facility]annCHEM TQCIF1144-75-05 09:47:005.8[facility] HermannCHEM PANEL 2018-12-29 09:47:003.1[facility] HermannCHEM WHPWT2738-50-18 09:47:00 Test Item Value Reference Range Interpretation Comments B/C Ratio (test code = B/C Ratio) 18 1 6-25 [facility]annCHEM VLNWX4697-82-99 09:47:0069[facility] HermannCHEM PANEL 2018-12-29 09:47:0023[facility] HermannCHEM VWEEM7025-06-92 09:47:0020[facility] HermannCHEM YVOWC9392-80-02 09:47:002.7[facility] HermannCHEM QIVGI5738-61-21 09:47:00 Test Item Value Reference Range Interpretation Comments A/G Ratio (test code = A/G Ratio) 1.1 1 0.7-1.6 [facility]annCHEM HCDRL9714-64-45 09:47:000.4[facility] HermannDRUG SCREEN 2018-12-29 09:47:00Negative *NA*(12/29/18 3:47 AM)[facility] HermannDRUG SCREEN 2018-12-29 09:47:00Negative *NA*(12/29/18 3:47 AM)[facility] HermannDRUG SCREEN 2018-12-29 09:47:00See Note (12/29/18 3:47 AM)[facility] HermannDRUG SCREEN 2018-12-29 09:47:00Negative *NA*(12/29/18 3:47 AM)[facility] HermannDRUG SCREEN 2018-12-29 09:47:00Negative *NA*(12/29/18 3:47 AM)[facility] HermannDRUG SCREEN 2018-12-29 09:47:00Negative *NA*(12/29/18 3:47 AM)[facility] HermannDRUG SCREEN 2018-12-29 09:47:00Negative *NA*(12/29/18 3:47 AM)[facility] HermannDRUG SCREEN 2018-12-29 09:47:00Negative *NA*(12/29/18 3:47 AM)[facility]annHEMATOLOGY 2018-12-29 09:47:00 Test Item Value Reference Range Interpretation Comments INR (test code = INR) 1.10 1 0.85-1.17 [facility] PcihfbiLRAGZELQEO2789-60-32 09:47:00 Test Item Value Reference Range Interpretation Comments PT (test code = PT) 14.0 s 12.0-14.7 [facility] HrrvaraPEUXKFKCHS6517-17-27 09:47:00 Test Item Value Reference Range Interpretation Comments PTT (test code = PTT) 26.1 s 22.9-35.8 [facility] FzioxpyBNUPGFEJIJ2480-91-73 09:47:00 Test Item Value Reference Range Interpretation Comments R-time Rapid (test code = R-time 0.6 min 0.4-0.7 Rapid) [facility]OufawwbDTVUSHGBTQ7288-18-20 09:47:00 Test Item Value Reference Range Interpretation Comments Split Point Rapid (test code = Split 0.5 min Point Rapid) [facility] HospitalAfronkaQSSKXLMMYZ8652-42-62 09:47:00 Test Item Value Reference Range Interpretation Comments ACT (TEG) Rapid (test code = ACT (TEG) 105 s 86-118 Rapid) [facility] HospitalMkcuuqcXRNLJFJLVK1529-52-60 09:47:00 Test Item Value Reference Range Interpretation Comments Angle Rapid (test code = Angle 76 degrees 64-80 Rapid) [facility]YewkjcuVJDYSTMVZE1029-60-36 09:47:00 Test Item Value Reference Range Interpretation Comments K-time Rapid (test code = K-time 1.2 min 0.6-2.3 Rapid) [facility] HospitalNbkyuegQDVUFRPEIK4271-48-50 09:47:008.9[facility]annHEMATOLOGY 2018-12-29 09:47:00 Test Item Value Reference Range Interpretation Comments Max Amplitude Rapid (test code = Max 64 mm 52-71 Amplitude Rapid) [facility], TxHhdjtvnBCARQJNVXA9434-46-34 09:47:002.7[facility] UgixpvwJPWFNR4654-02-45 09:47:00 Test Item Value Reference Range Interpretation Comments CHD Risk (test code = CHD Risk) 1.78 1 3.90-5.80 [facility] QqccpsoTPBLKQ9556-14-68 09:47:0077[facility] MhlmmwoINZOWR0241-54-86 09:47:55082Ikwoapuf LzuieakWSZVSR0259-73-53 09:47:0032[facility] HermannLIPIDS 2018-12-29 09:47:0054[facility] EmjasiiDCPPCZ9700-27-97 09:47:00 Test Item Value Reference Range Interpretation Comments VLDL (test code = VLDL) 6 1 [facility]UR[facility] AND WUVBY9853-08-37 09:47:002[facility]annURINE AND XFJJO1848-38-89 09:47:00Negative (12/29/18 3:47 AM)[facility]UR[facility] AND AMBNU6285-65-50 09:47:00Negative (12/29/18 3:47 AM)[facility] AND MRFNX0983-20-66 09:47:00Negative (12/29/18 3:47 AM)[facility] AND TUQMU9493-94-44 09:47:00Negative *NA*(12/29/18 3:47 AM)[facility] AND RSZHQ2670-40-78 09:47:00 Test Item Value Reference Range Interpretation Comments UA pH (test code = UA pH) 7.5 1 5.0-8.0 [facility]UR[facility] AND EMGTL7909-84-39 09:47:00 Test Item Value Reference Range Interpretation Comments UA Spec Grav (test code = UA Spec 1.027 1 Grav) [facility] LHKWV8522-78-35 09:47:00Slight *ABN*(12/29/18 3:47 AM) [facility] AND YGCPO1160-70-62 09:47:00Light Yellow *NA*(12/29/18 3:47 AM)[facility] XKPFBOM9804-38-44 05:11:00Negative (12/28/18 11:11 PM)[facility] CenterRkibuiyBVBULAAMBP1575-79-88 05:11:000.8[facility] 2018-12-29 05:11:00 Test Item Value Reference Range Interpretation Comments Split Point Rapid (test code = Split 0.5 min Point Rapid) [facility] CenterOpwgkuaGZHSTXHUXT4463-35-52 05:11:00 Test Item Value Reference Range Interpretation Comments ACT (TEG) Rapid (test code = ACT (TEG) 105 s 86-118 Rapid) [facility] CenterUkjsbzoKLPUFFVCNZ1105-19-74 05:11:00 Test Item Value Reference Range Interpretation Comments R-time Rapid (test code = R-time 0.6 min 0.4-0.7 Rapid) [facility] CenterCztpuceDVUVKQKIID4890-75-43 05:11:00 Test Item Value Reference Range Interpretation Comments K-time Rapid (test code = K-time 0.8 min 0.6-2.3 Rapid) [facility] CenterFsqgrioGBJJQIODTX2155-17-33 05:11:0012.0[facility] ChildrenHEMATOLOGY 2018-12-29 05:11:00 Test Item Value Reference Range Interpretation Comments Max Amplitude Rapid (test code = Max 71 mm 52-71 Amplitude Rapid) [facility] HospitalBbppbmpBYBRUKHAWQ0601-60-22 05:11:00 Test Item Value Reference Range Interpretation Comments Angle Rapid (test code = Angle 80 degrees 64-80 Rapid) [facility] JTMZWQE7232-68-77 05:00:00Product available (12/28/18 11:00 PM)[facility], TxCHEM MEFFD3623-52-55 04:08:000.6[facility] HermannCARDIAC HVBPZXG7395-51-71 03:55:0067[facility] HermannCARDIAC ONUSWPK6455-70-80 03:55:00 <0.02[facility] ChildrenZlnhzfnPPDJZXJADA3832-58-48 03:55:00 Test Item Value Reference Range Interpretation Comments PTT (test code = PTT) 20.2 s 22.9-35.8 [facility] HospitalAuwxiqxZDOAETNROS9571-66-31 03:55:00Normal (12/28/18 9:55 PM)[facility] [place], TxPtouivzTOGENTXSYH3576-79-19 03:55:00Normal (12/28/18 9:55 PM)[facility] [place]
[2020-05-02] MEDS ORDERED: NA CHLORIDE 0.9% 1,000 ML ONE (22:41)
[2020-05-02 22:52] LABS: Absolute Lymphocytes (CBC) 0.5 K/uL (0.7-4.9); Basophils % 0.5 % (0-1.3); Hematocrit 40.3 % (36.0-45.0); MPV 8.7 fL (7.6-11.3); RBC Red Blood Cell Count 4.41 M/uL (3.86-4.86)
[2020-05-02 23:11] LABS: ALT/SGPT 26 U/L (12-78); AST/SGOT 25 U/L (15-37); Albumin 3.8 g/dL (3.4-5.0); Alkaline Phosphatase 87 U/L (45-117); BUN Blood Urea Nitrogen 11 mg/dL (7-18); Bicarbonate 29 mmol/L (21-32); Bilirubin Direct 0.1 mg/dL (0-0.2); Bilirubin Total 0.4 mg/dL (0.2-1.0); Glucose Level 115 mg/dL (74-106); Lipase 106 U/L (73-393); Magnesium 2.1 mg/dL (1.8-2.4); NT PRO-BNP 360 pg/mL (<125); Potassium 4.3 mmol/L (3.5-5.1); Protein, Total 7.4 g/dL (6.4-8.2); Sodium Level 139 mmol/L (136-145); Troponin (Emerg Dept Use Only) < 0.02 ng/mL (0.0-0.045)
[2020-05-02] MEDS ORDERED: ONDANSETRON 4 MG/2 ML VIAL ONE (23:47)
[2020-05-03 00:45] LABS: Blood Morphology Comment NOT SEEN (NOT SEEN); Platelet Estimate ADEQ
--- NOTE | 2020-05-03 02:50 | ER ---
Nurse's Notes [facility] Name: Mayi Coe Age: 64 yrs Sex: Female : 1955 Arrival Date: 05/02/2020 Time: 22:04 Bed 15 Private MD: Diagnosis: Essential (primary) hypertension;Traumatic subdural hemorrhage without loss of consciousness-7mm thick, right Presentation: 05/02 22:06 Chief complaint: Patient states: Not feeling well since 1830 today. Reports abdominal ll1 apin. Denies N/V/D. Bp was elevated upon EMS arrival 190/96. IV not successful x 2. Onset of symptoms was May 02, 2020. 22:06 Method Of Arrival: EMS ll1 22:06 Acuity: CRISTINE 3 ll1 22:13 Coronavirus screen: Proceed with normal triage. Patient denies a cough. Patient denies ll1 shortness of breath or difficulty breathing. Patient denies measured and/or subjective temperature greater than 100.4F prior to today's visit. Patient denies travel on a cruise ship or to a country the [facility] currently lists as an affected area. Patient denies contact with known and/or suspected case of COVID-19. Ebola Screen: Patient denies travel to an Ebola-affected area in the 21 days before illness onset. Initial Sepsis Screen: Does the patient meet any 2 criteria? No. Patient's initial sepsis screen is negative. Does the patient have a suspected source of infection? Yes: Acute abdominal pain. Risk Assessment: Do you want to hurt yourself or someone else? Patient reports no desire to harm self or others. Historical: - Allergies: 22:10 No Known Allergies; ll1 - PMHx: 22:10 Diverticulitis; Heart Murmur; Hypertension; CVA; Crohn's; Aphasia; Seizures; ll1 - Immunization history:: Adult Immunizations up to date. - Social history:: Patient/guardian denies using alcohol, street drugs, tobacco products, Smoking status: Patient denies any tobacco usage or history of. - Family history:: not pertinent. Screenin:55 Abuse screen: Denies threats or abuse. Nutritional screening: No deficits noted. ll1 Tuberculosis screening: No symptoms or risk factors identified. Fall Risk None identified. IV access (20 points). Ambulatory Aid- Crutches/Cane/Walker (15 pts). Gait- Weak (10 pts.). Mental Status- Overestimates/Forgets Limitations (15 pts.). Total Crockett Fall Scale indicates High Risk Score (45 or more points). Fall prevention measures have been instituted. Side Rails Up X 2 Placed Close to Nursing Station Frequent Obs/Assessments Occuring As available patient and family educated on Fall Prevention Program and Strategies. Assessment: 22:15 General: Appears in no apparent distress. Behavior is calm, cooperative, appropriate ll1 for age. Pain: Complains of pain in abdomen. Neuro: No deficits noted. Cardiovascular: No deficits noted. Respiratory: No deficits noted. GI: Abdomen is flat, Bowel sounds present X 4 quads. Abd is soft and non tender X 4 quads. Reports lower abdominal pain. : No deficits noted. 23:15 Reassessment: Patient appears in no apparent distress at this time. No changes from ll1 previously documented assessment. Patient and/or family updated on plan of care and expected duration. Pain level reassessed. Patient is alert, oriented x 3, equal unlabored respirations, skin warm/dry/pink. 05/03 01:00 Reassessment: Patient appears in no apparent distress at this time. No changes from fu previously documented assessment. Patient and/or family updated on plan of care and expected duration. Pain level reassessed. Patient is alert, oriented x 3, equal unlabored respirations, skin warm/dry/pink. Patient resting in bed, IVF ongoing, awaiting urine sample. 03:55 Reassessment: Dr. Sal spoke with patient's by phone, aware of plan of care lp1 and pending transfer to [facility]. 04:24 Reassessment: Patient for transfer to [facility], Report called to Manju Huerta RN. Vital Signs: 05/02 22:13 BP 177 / 95; Pulse 58; Resp 17; Temp 97.8; Pulse Ox 98% ; Pain 6/10; ll1 22:59 BP 173 / 82; Pulse 66; Resp 18; Pulse Ox 99% ; ll1 05/03 01:00 BP 139 / 72; Pulse 64; Resp 16; Pulse Ox 95% ; Pain 0/10; fu 02:00 BP 150 / 73; Pulse 64; Resp 16; Pulse Ox 95% ; Pain 0/10; fu 03:00 BP 161 / 70; Pulse 63; Resp 19; Pulse Ox 98% ; Pain 0/10; fu 04:00 BP 137 / 64; Pulse 66; Resp 19; Pulse Ox 94% ; Pain 0/10; fu ED Course: 05/02 22:04 Patient arrived in ED. cf2 22:05 Richard Sal MD is Attending Physician. [facility] 22:06 Sina Calvo, RN is Primary Nurse. ll1 22:08 Triage completed. ll1 22:10 Arm band placed on Patient placed in an exam room, on a stretcher. ll1 22:10 color television console monitor on. Pulse ox on. NIBP on. ll1 22:30 Inserted saline lock: 22 gauge in right forearm, using aseptic technique. Blood ll1 collected. 22:53 XRAY Chest (1 view) In Process Unspecified. EDMS 22:58 Patient has correct armband on for positive identification. Bed in low position. Call ll1 light in reach. Side rails up X2. 23:40 IV discontinued, intact, bleeding controlled, No redness/swelling at site. Pressure ll1 dressing applied, IV R FA infiltrated after vomiting. Dr. Sal informed. 23:46 Inserted saline lock: 22 gauge in right antecubital area, using aseptic technique. 1 05/03 00:09 CT Abd/Pelvis - IV Contrast Only In Process Unspecified. EDMS 01:00 Primary Nurse role handed off by Sina Calvo, BELKIS fu 01:00 Neel Redding, BELKIS is Primary Nurse. fu 02:10 Straight cath inserted, using sterile technique, 16 Fr. Specimen obtained. Returned ea clear yellow urine. Patient tolerated well. 02:13 CT Head Brain wo Cont: hx of brain hemorrhage In Process Unspecified. EDMS 04:00 No provider procedures requiring assistance completed. fu Administered Medications: 05/02 22:36 Drug: NS 0.9% 1000 ml Route: IV; Rate: 125 ml/hr; Site: right forearm; [facility] 05/03 04:10 Follow up: Response: No adverse reaction; IV Status: Infusion continued upon transfer; fu IV Intake: 750ml 05/02 23:40 Drug: Zofran (Ondansetron) 4 mg Route: IVP; Site: right antecubital; [facility] 05/03 00:00 Follow up: Response: No adverse reaction; Nausea is decreased; RASS: Drowsy (-1) ll1 Intake: 04:10 IV: 750ml; Total: 750ml. fu Outcome: 02:49 ER care complete, transfer ordered by MD. beckham 04:20 Transferred by ground EMS fu 04:20 Condition: unchanged 04:20 Instructed on the need for transfer, Demonstrated understanding of 04:26 Patient left the ED. fu Signatures: Dispatcher [employer] EDMS Richard Sal MD MD cha Pena, Laura, RN RN 1 Jessica Oshea RN Neel Murphy ea RN RN Mohini Marrero 2 Sina Calvo RN RN ll1 Corrections: (The following items were deleted from the chart) 05/02 22:14 22:06 Chief complaint: Patient states: Not feeling well since 1829 today. Bp was ll1 elevated upon EMS arrival 190/96. IV not successful x 2. ll1 23:59 23:59 Zofran (Ondansetron) 4 mg IVP in right antecubital ll1 ll1
--- NOTE | 2020-05-03 02:50 | EDPHYS ---
Physician Documentation [facility] Name: Mayi Coe Age: 64 yrs Sex: Female : 1955 Arrival Date: 05/02/2020 Time: 22:04 Bed 15 Private MD: ED Physician Richard Sal HPI: 05/02 22:21 This 64 yrs old Female presents to ER via EMS with complaints of High Blood bhavani Pressure. 22:21 The patient has elevated blood pressure and discovered this at home. Onset: The bhavani symptoms/episode began/occurred today. Modifying factors: The symptoms are aggravated by activity, The symptoms are alleviated by remaining still. 22:22 The patient presents with abdominal pain. Onset: The symptoms/episode began/occurred bhavani today. Associated signs and symptoms: The patient has no apparent associated signs or symptoms. The symptoms do not radiate. Associated signs and symptoms: none. Severity of pain: At its worst the pain was mild in the emergency department the pain is unchanged. Historical: - Allergies: 22:10 No Known Allergies; ll1 - PMHx: 22:10 Diverticulitis; Heart Murmur; Hypertension; CVA; Crohn's; Aphasia; Seizures; ll1 - Immunization history:: Adult Immunizations up to date. - Social history:: Patient/guardian denies using alcohol, street drugs, tobacco products, Smoking status: Patient denies any tobacco usage or history of. - Family history:: not pertinent. ROS: 22:22 Constitutional: Negative for fever, chills, and weight loss, Eyes: Negative for injury, bhavani pain, redness, and discharge, ENT: Negative for injury, pain, and discharge, Neck: Negative for injury, pain, and swelling, Cardiovascular: Negative for chest pain, palpitations, and edema, Respiratory: Negative for shortness of breath, cough, wheezing, and pleuritic chest pain, Back: Negative for injury and pain, : Negative for injury, bleeding, discharge, and swelling, MS/Extremity: Negative for injury and deformity, Skin: Negative for injury, rash, and discoloration, Neuro: Negative for headache, weakness, numbness, tingling, and seizure, Psych: Negative for depression, anxiety, suicide ideation, homicidal ideation, and hallucinations, Allergy/Immunology: Negative for hives, rash, and allergies, Endocrine: Negative for neck swelling, polydipsia, polyuria, polyphagia, and marked weight changes, Hematologic/Lymphatic: Negative for swollen nodes, abnormal bleeding, and unusual bruising. 22:22 Abdomen/GI: Positive for abdominal pain, of the right upper quadrant, left upper quadrant, right lower quadrant and left lower quadrant. Exam: 22:22 Constitutional: This is a well developed, well nourished patient who is awake, alert, bhavani and in no acute distress. Head/Face: Normocephalic, atraumatic. Eyes: Pupils equal round and reactive to light, extra-ocular motions intact. Lids and lashes normal. Conjunctiva and sclera are non-icteric and not injected. Cornea within normal limits. Periorbital areas with no swelling, redness, or edema. ENT: Nares patent. No nasal discharge, no septal abnormalities noted. Tympanic membranes are normal and external auditory canals are clear. Oropharynx with no redness, swelling, or masses, exudates, or evidence of obstruction, uvula midline. Mucous membranes moist. Neck: Trachea midline, no thyromegaly or masses palpated, and no cervical lymphadenopathy. Supple, full range of motion without nuchal rigidity, or vertebral point tenderness. No Meningismus. Chest/axilla: Normal chest wall appearance and motion. Nontender with no deformity. No lesions are appreciated. Cardiovascular: Regular rate and rhythm with a normal S1 and S2. No gallops, murmurs, or rubs. Normal PMI, no JVD. No pulse deficits. Respiratory: Lungs have equal breath sounds bilaterally, clear to auscultation and percussion. No rales, rhonchi or wheezes noted. No increased work of breathing, no retractions or nasal flaring. Back: No spinal tenderness. No costovertebral tenderness. Full range of motion. Female : Normal external genitalia. Skin: Warm, dry with normal turgor. Normal color with no rashes, no lesions, and no evidence of cellulitis. MS/ Extremity: right arm and lge weak, right arm contracted Neuro: Awake and alert, GCS 15, oriented to person, place, time, and situation. Cranial nerves II-XII grossly intact. Motor strength 5/5 in all extremities. Sensory grossly intact. Cerebellar exam normal. Normal gait. Psych: Awake, alert, with orientation to person, place and time. Behavior, mood, and affect are within normal limits. 05/03 01:15 ECG was reviewed by the Attending Physician. [facility] Vital Signs: 05/02 22:13 BP 177 / 95; Pulse 58; Resp 17; Temp 97.8; Pulse Ox 98% ; Pain 6/10; ll1 22:59 BP 173 / 82; Pulse 66; Resp 18; Pulse Ox 99% ; ll1 05/03 01:00 BP 139 / 72; Pulse 64; Resp 16; Pulse Ox 95% ; Pain 0/10; fu 02:00 BP 150 / 73; Pulse 64; Resp 16; Pulse Ox 95% ; Pain 0/10; fu 03:00 BP 161 / 70; Pulse 63; Resp 19; Pulse Ox 98% ; Pain 0/10; fu 04:00 BP 137 / 64; Pulse 66; Resp 19; Pulse Ox 94% ; Pain 0/10; fu MDM: 05/02 22:05 Patient medically screened. [facility] 22:24 Data reviewed: vital signs, nurses notes, lab test result(s), EKG, radiologic studies, bhavani CT scan, plain films. 22:24 Differential diagnosis: appendicitis, cholecystitis, Cholelithiasis, gastritis. Test [facility] interpretation: by ED physician or midlevel provider: ECG, plain radiologic studies. Counseling: I had a detailed discussion with the patient and/or guardian regarding: the historical points, exam findings, and any diagnostic results supporting the discharge/admit diagnosis, lab results, radiology results. 05/03 03:55 ED course: explained diagnosis and plan to the , he remembered that the patient bhavani fell yesterday in rehab, before this no trauma hx was noted. 05/02 22:20 Order name: Basic Metabolic Panel [facility] 05/02 22:20 Order name: CBC with Diff; Complete Time: 01:13 [facility] 05/02 22:20 Order name: LFT's; Complete Time: 00:02 [facility] 05/02 22:20 Order name: Magnesium; Complete Time: 00:02 [facility] 05/02 22:20 Order name: Troponin (emerg Dept Use Only); Complete Time: 00:02 [facility] 05/02 22:20 Order name: BNP; Complete Time: 00:02 [facility] 05/02 22:20 Order name: XRAY Chest (1 view) [facility] 05/02 22:20 Order name: Lipase; Complete Time: 00:02 [facility] 05/02 22:20 Order name: CT Abd/Pelvis - IV Contrast Only [facility] 05/02 22:20 Order name: Urine Culture [facility] 05/02 22:21 Order name: Basic Metabolic Panel; Complete Time: 00:02 [facility] 05/02 22:54 Order name: Manual Differential; Complete Time: 01:13 [facility] 05/03 01:40 Order name: CT Head Brain wo Cont: hx of brain hemorrhage [facility] 05/03 02:16 Order name: Urine Dipstick--Ancillary (enter results) nd 05/02 22:20 Order name: EKG; Complete Time: 22:21 [facility] 05/02 22:20 Order name: Cardiac monitoring; Complete Time: 22:59 [facility] 05/02 22:20 Order name: EKG - Nurse/Tech; Complete Time: 23:19 [facility] 05/02 22:20 Order name: IV Saline Lock; Complete Time: 22:29 [facility] 05/02 22:20 Order name: Labs collected and sent; Complete Time: 22:29 [facility] 05/02 22:20 Order name: O2 Per Protocol; Complete Time: 22:29 [facility] 05/02 22:20 Order name: O2 Sat Monitoring; Complete Time: 22:29 [facility] 05/02 22:20 Order name: Urine Dipstick-Ancillary (obtain specimen); Complete Time: 03:12 [facility] 05/03 02:10 Order name: Straight Cath; Complete Time: 02:11 ea EC:15 Rate is 61 beats/min. Rhythm is regular. QRS [place] is Normal. NM interval is normal. QRS bhavani interval is normal. QT interval is normal. No Q waves. T waves are Normal. No ST changes noted. Clinical impression: NSR w/ Non-specific ST/T Changes and No evidence of ischemia. Interpreted by me. Reviewed by me. Administered Medications: 05/02 22:36 Drug: NS 0.9% 1000 ml Route: IV; Rate: 125 ml/hr; Site: right forearm; [facility] 05/03 04:10 Follow up: Response: No adverse reaction; IV Status: Infusion continued upon transfer; fu IV Intake: 750ml 05/02 23:40 Drug: Zofran (Ondansetron) 4 mg Route: IVP; Site: right antecubital; 1 05/03 00:00 Follow up: Response: No adverse reaction; Nausea is decreased; RASS: Drowsy (-1) ll1 Disposition: 05/03/20 02:49 Transfer ordered to [facility]. Diagnosis are Essential (primary) hypertension, Traumatic subdural hemorrhage without loss of consciousness - 7mm thick, right. - Reason for transfer: Higher level of care. - Accepting physician is to [facility]. - Condition is Fair. - Problem is new. - Symptoms have improved. Signatures: Dispatcher [employer] EDRichard Dick MD MD cha Antunez, Elena, RN Neel Murphy ea, RN RN fu Lewis, Lynsay, RN RN ll1 Corrections: (The following items were deleted from the chart) 03:57 02:49 05/03/2020 02:49 Transfer ordered to [facility]. bhavani Diagnosis is Nontraumatic acute subdural hemorrhage - right , 7mm; Essential (primary) hypertension. Reason for transfer: Higher level of care. Accepting physician is to [facility]. Condition is Fair. Problem is new. Symptoms have improved. bhavani 04:26 03:57 05/03/2020 02:49 Transfer ordered to [facility]. fu Diagnosis is Essential (primary) hypertension; Traumatic subdural hemorrhage without loss of consciousness - 7mm thick, right. Reason for transfer: Higher level of care. Accepting physician is to [facility]. Condition is Fair. Problem is new. Symptoms have improved. bhavani
[2020-05-03 02:58] LABS: Urine Blood NEGATIVE (NEG); Urine Glucose NEGATIVE (NEG); Urine Protein NEGATIVE (NEG); Urine pH 8.5 (5.0-7.0)
[2020-05-03 04:34] VITALS: TEMP 97.8
[2020-05-03 04:40] VITALS: BP 137/64; O2SAT 94
--- NOTE | 2020-05-03 06:31 | EKG ---
Test Date: 2020-05-02 Test Time: 23:17:20 Cashier Payments Received: GERALD MEASUREMENT RESULTS: Intervals: Rate: 61 PA: 178 QRSD: 80 QT: 446 QTc: 448 [place]: P: 58 PA: 178 QRS: 31 T: 50 INTERPRETIVE STATEMENTS: Normal sinus rhythm ST abnormality, possible digitalis effect Abnormal ECG Compared to ECG 05/11/2019 11:52:08 ST (T wave) deviation now present Sinus arrhythmia no longer present Left ventricular hypertrophy no longer present Early repolarization no longer present Electronically Signed On 05-03-20 06:30:13 CDT by Sathya Gonzalez
--- NOTE | 2020-05-03 08:52 | RAD REPORT ---
EXAM DESCRIPTION: RAD - Chest Single View - 05/02/2020 10:53 pm CLINICAL HISTORY: COUGH Chest pain. COMPARISON: Abdomen Acute Series dated 12/22/2019; Chest Single View dated 05/11/2019; Chest Single Vie w dated 12/28/2018; Chest Single View dated 02/25/2017 FINDINGS: Portable technique limits examination quality. Diffuse small noncalcified pulmonary nodules are present throughout both lungs. This appears progress ana since 2019 and more remote 2017 imaging. This may be related to infection or metastatic disease. The heart is moderately enlarged in size. Mild dextroscoliosis of the thoracic spine is seen.Followup CT chest assessment would be suggested for further workup.
--- NOTE | 2020-05-04 02:43 | RAD REPORT ---
EXAM DESCRIPTION: Head Brain Wo Cont ADDENDUM #1 Clinical findings were discussed with and acknowledged by Dr. Richard Sal on 05/03/2020 2:30 AM CDT . Electronically signed by: Amilcar Spring MD 05/03/2020 2:30 AM CDT End of Addendum CLINICAL HISTORY: MENTAL STATUS CHANGE COMPARISON: 07/05/2019. TECHNIQUE: CT HEAD WITHOUT IV CONTRAST on 05/03/2020 1:40 AM CDT This exam was performed according to our departmental dose-optimization program, which includes autom ated exposure control, adjustment of the mA and/or kV according to patient size and/or use of iterati ve reconstruction technique. FINDINGS: There is a right hemispheric subdural hematoma measuring 7 mm., There is extension along the tentoriu m. There is encephalomalacia in the left parietal and temporal lobes. There is ex vacuo dilatation of the posterior horn of the left lateral ventricle. There is no significant volume loss for age. There are mild patchy hypodensities within the periventricular and subcortical white matter, consistent wi th microangiopathic ischemic changes. Left frontoparietal cranioplasty was performed. Orbits and globes are unremarkable. The paranasal sin uses are clear. Mastoid air cells are clear. IMPRESSION: Acute right hemispheric subdural hematoma. Electronically signed by: Amilcar Spring MD 05/03/2020 2:23 AM CDT Due to temporary technical issues with the PACS/Fluency reporting system, reports are being signed by the in house radiologist without review as a courtesy to ensure prompt reporting. The interpreting r adiologist is fully responsible for the content of the report.
--- NOTE | 2020-05-04 03:00 | RAD REPORT ---
EXAM DESCRIPTION: Abdomen Pelvis W Contrast CLINICAL HISTORY: ABD PAIN COMPARISON: None. TECHNIQUE: CT ABDOMEN PELVIS WITH IV CONTRAST on 05/02/2020 10:20 PM CDT This exam was performed according to our departmental dose-optimization program, which includes autom ated exposure control, adjustment of the mA and/or kV according to patient size and/or use of iterati ve reconstruction technique. FINDINGS: The heart is mildly enlarged. There is a trace right pleural effusion. There are multiple lower lung pulmonary nodules bilaterally measuring up to 7 mm. Abdomen: The liver is normal in appearance. There is no biliary dilatation. Cholecystectomy was perfo rmed. The pancreas and spleen are normal in appearance. The adrenal glands and kidneys are unremarkab le. Abdominal aorta is densely calcified without aneurysm. There is no free air. There is no retroperiton eal adenopathy. Pelvis: There is large amount stool in the distal colon. There is mild distal colonic diverticulosis. Urinary bladder is moderately distended. There is no free fluid. Appendix is normal. Hysterectomy wa s performed. Skeleton: There are no acute osseous findings. No suspicious bony lesions. IMPRESSION: No definite acute process. Electronically signed by: Amilcar Spring MD 05/03/2020 12:20 AM CDT Due to temporary technical issues with the PACS/Fluency reporting system, reports are being signed by the in house radiologist without review as a courtesy to ensure prompt reporting. The interpreting r adiologist is fully responsible for the content of the report.
== END 2020-05-03 04:26 | disposition short-term general hospital (02) ==
LOC: ER 22:02
DX: S06.5X9A Traumatic subdural hemorrhage with loss of consciousness of unspecified duration, initial encounter (principal); I10 Essential (primary) hypertension; W19.XXXA Unspecified fall, initial encounter; Y93.9 Activity, unspecified; Y92.9 Unspecified place or not applicable; Z86.73 Personal history of transient ischemic attack (TIA), and cerebral infarction without residual deficits
CPT/HCPCS: 96361; 93005; 87088; 85025; 80048; 36415; 83735; 80076; 81003; 84484; 83690; 83880; 70450; 74177; 71045; 51702; 96374; 99285; Q9967; J7030; J2405; 87086

== ENCOUNTER 2020-06-05 12:40 | Emergency (ER) | payer OTHER ==
[2020-06-05 13:25] LABS: Absolute Lymphocytes (CBC) 0.5 K/uL (0.7-4.9); Basophils % 1.1 % (0-1.3); Hematocrit 35.4 % (36.0-45.0)
[2020-06-05] MEDS ORDERED: NA CHLORIDE 0.9% 500 ML ONE (13:25)
[2020-06-05 13:48] LABS: ALT/SGPT 22 U/L (12-78); AST/SGOT 13 U/L (15-37); Alkaline Phosphatase 104 U/L (45-117); BUN Blood Urea Nitrogen 10 mg/dL (7-18); Bicarbonate 30 mmol/L (21-32); Bilirubin Direct 0.1 mg/dL (0-0.2); Bilirubin Total 0.4 mg/dL (0.2-1.0); Glucose Level 108 mg/dL (74-106); Magnesium 2.1 mg/dL (1.8-2.4); NT PRO-BNP 205 pg/mL (<125); Potassium 3.8 mmol/L (3.5-5.1); Protein, Total 6.7 g/dL (6.4-8.2); Sodium Level 142 mmol/L (136-145); Troponin (Emerg Dept Use Only) < 0.02 ng/mL (0.0-0.045)
--- NOTE | 2020-06-05 14:02 | RAD REPORT ---
EXAM DESCRIPTION: CT - Head C Spine Mpr Wo Con - 06/05/2020 1:38 pm CLINICAL HISTORY: Head and neck injury status post fall. Head and neck pain COMPARISON: April 2020 TECHNIQUE: Computed axial tomography of the head and cervical spine was obtained. Sagittal and coronal reconstruction was performed. All CT scans are performed using dose optimization technique as appropriate and may include automated exposure control or mA/KV adjustment according to patient size. FINDINGS: Minimal subdural effusion along the right cerebral convexity has considerably decreased in size. Left cerebral gliosis unchanged No acute intracranial bleed. No hydrocephalus Left craniectomy. Fluid within the sinuses/mastoids is not seen A cervical fracture is not visualized. Minimal anterior subluxation C3 on C4-C4 on C5 Spondylosis C5-6 C6-7 IMPRESSION: Minimal subdural effusion along the right cerebral convexity has considerably decreased size A cervical fracture is not visualized. If the patient continues to have symptoms to suggest spinal cord/ligamentous pathology then MRI would be recommended
--- OUTSIDE RECORDS SUMMARY | 2020-06-05 14:22 | XMS REPORT | Continuity of Care Document ---
:1955 Author Organization [employer] Information [employer] Care Team Providers Name Role Phone [facility] [place] Information [employer] Unavailable Un available Problems Problem Status Onset Classification Date Comments Sourc e Date Reported NEW ONSET SEIZURE Active 09/02/20 Nc morial 19 [place] NEW ONSET Active 09/02/20 [facility] SEIZURE,PANCOLONIC 19 [place] DIVERTICULO CRANIOTOMY Active 07/07/[address] DISCHARGE FOLLOW UP Active 02/12/20 [facility] 19 Methicillin Active 01/04/20 Problem 09/07/2019 Nares - 01/04/2019 Mischer resistant 19 Problem added by Dis cern Expert. 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) [place] Alberto Johnson [facility] 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) Neuro[facility] Alberto Johnson [facility] Dysphagia Active Problem 09/07/2019 [place] (disorder) Neuro,[facility] Alberto Johnson [facility] Global aphasia Active Problem 09/07/2019 Misc her (finding) Neuro,[facility] Alberto Johnson [facility] 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/07/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, systemic N euro, arterial (disorder) [facility] [place],Carlos Alberto Medel [facility] Intracerebral Active Problem 09/07/2019 Misch er hemorrhage, Neuro,MH intraventricular [place] as (disorder) [facility],Carlos Alberto Medel [facility] Subcortical Active Problem 09/07/2019 [place] hemorrhage Neuro,MH (disorder) [facility] [place],Carlos Alberto Medel [facility] 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, MH vasopressin [place] secretion Medical (disorder) Center,Carlos Alberto [place] [facility] NONTRAUMATIC [place] INTRACEREBRAL Medica [place] HEMORRHAGE, U Center TRAUM SUBDR HEM W/O Active MH [facility] LOSS OF CONSCIOUSNES OTHER MUSCLE SPASM Active H [facility] EPILEPSY, UNSP, NOT Active [facility] INTRACTABLE, Diony WITHOUT UNSPECIFIED Active [facility] CONVULSIONS Diony ENCNTR FOR GENERAL Active [facility] ADULT MEDICAL EXAM H ermann W/ DVRTCLOS OF LG INT Active [facility] W/O PERFORATION OR H ermann AB Medications Medication Details Route Status Patient Ordering Order Source Instructions Provider Date Levetiracetam 500 1,000 mg = 2 Active H MG Oral Tablet tab, PO, Q12H, 2018 Hai tovar [Keppra] # 360 tab, 2 Refill(s), Pharmacy: [facility]/pharmacy #[id number] Levetiracetam 500 Notes: (Same No Longer MG Oral Tablet as:Keppra) Active 2018 Livan nd [Keppra] Keppra Notes: Same as: Inactive Kepp[place] 2019 [place] Levetiracetam 500 Notes: (Same No Longer MG Oral Tablet as:Keppra) Active 2018 [place] [Keppra] Buspirone Notes: (Same No Longer As: BuSpar) Active 2019 [place] [facility] Citalopram 10 mg, 1 tab, No Longer Route: PO, Drug Active 2019 [place] form: TAB, Daily, Dosing Weight 52.273, kg, Start date: 09/03/19 9:00:00 CDT, Duration: 30 day, Stop date: 10/02/19 9:00:00 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 (Same Active 2018 [place] as:Trandate, Normodyne) Memantine Notes: (Same No Longer As: Namenda) Active 2019 [place] Potassium Chloride Notes: (Same No Longer 1.33 MEQ/ML Oral as: Potassium Active 2018 [place] Solution Chloride) sennosides, MCC Notes: (Same No Longer H 8.6 MG Oral Tablet as: Senokot) Active 2018 [place] Miralax Notes: Dissolve No Longer in 8 oz of Active 2018 [place] water or juice. (Same as: Miralax) pantoprazole Notes: Tablet No Longer should not be Active 2018 [place] chewed or crushed. (Same as: Protonix) gabapentin 300 MG Notes: (Same No Longer Oral Capsule as: Neurontin) Active 2018 [facility] Lisinopril Notes: (Same No Longer as: Prinivil, Active 2018 [place] Zestril) Simethicone Notes: (Same No Longer as: Mylicon) Active 2019 [place] Docusate Sodium Notes: (Same No Longer H 100 MG Oral as: Colace) (Do Active 2018 [facility] Capsule Not Crush) Cyclosporine 0.5 1 drp, BOTH No Longer H MG/ML Ophthalmic EYES, BID, # 30 Active 2019 [place] Suspension mL, 0 Refill(s) [Restasis] POLYETHYLENE 17 gm, PO, Active GLYCOL 3350 142 Daily, # 255 2019 [place] MG/ML Oral gm, 0 Refill(s) Solution [Glycolax] duloxetine 30 MG 30 mg = 1 cap, Active Enteric Coated PO, Daily, # 30 2019 [place] Capsule [Cymbalta] cap, 0 Refill(s) Lorazepam Notes: (Same No Longer as: Ativan) Active 2019 [place] Sodium Chloride 1,000 mL, Rate: No Longer 0.9% IV 1,000 mL 125 ml/hr, Active 2019 [facility] Infuse over: 8 hr, Route: IV, Dosing Weight 48.636 kg, Total Volume: 1,000, Start date: 09/02/19 14:00:00 CDT, Duration: 30 day, Stop date: 10/02/19 13:59:00 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, 1.48, m2, 0 Saline Flush 0.9% Notes: Same as: No Longer 08/10 BD Posiflush Active 2019 [place] Sterile Levetiracetam 1,000 mg, 100 Inactive mL, Route: IV, 2019 [place] Drug form: INJ, ONCE, Dosing Weight 48.636, [...] Refill(s) heparin sodium, Notes: porcine No Longer [place] porcine 2500 heparin Active 2019 Medical UNT/ML Injectable Center Solution Rocephin 1 gm, Route: No Longer [place] IVPB, Drug Active 2019 Medical form: PDR/INJ, Center [id number], Dosing Weight 48.636, kg, Start date: 07/21/19 9:00:00 CDT, Duration: 1 day, Stop date: 07/21/19 9:00:00 CDT, ABX Indication: Surgical Prophylaxis Vancomycin 2001 mg: Inactive [place] infuse over 2.5 2019 Medical hours Center gabapentin 50 Notes: (Same No Longer [place] MG/ML Oral as: Neurontin) Active 2019 Medica l Solution Center remove patch Notes: Remove No Longer [facility] patch 12 hours Active 2018 Medical after Center application each day. Rocephin Notes: (Same No Longer [place] As: Rocephin). Active 2018 Medical MEDICATION Center WASTE Product Size: 2000 mg Product Wasted: ___ mg Hydralazine Notes: (Same Inactive [place] as as: Apresoline) 2019 Medical Push over 5 Center minutes ondansetron (ANES) Route: IV, Drug Inactive 07/10 [place] form: INJ, 2018 Medical ONCE, Stop Center date: 07/20/19 12:54:00 CDT Isolyte S PH 7.4 Route: IV, Inactive [place] (ANES) 1000 mL Total Volume: 2018 Med ical 1,000, Start Center date: 07/20/19 10:49:00 CDT, Stop date: 07/20/19 11:49:00 CDT glycopyrrolate Route: IV, Drug Inactive [place] (ANES) form: INJ, 2018 Medical ONCE, Stop Center date: 07/20/19 10:06:00 CDT lidocaine (ANES) Route: IV, Drug Inactive [place] form: INJ, 2018 Medical ONCE, Stop Center date: 07/20/19 10:01:00 CDT propofol (ANES) Route: IV, Drug Inactive [place] form: INJ, 2018 Medical ONCE, Stop Center date: 07/20/19 10:01:00 CDT rocuronium (ANES) Route: IV, Drug Inactive 07/20 [place] form: INJ, 2018 Medical ONCE, Stop Center date: 07/20/19 10:01:00 CDT fentaNYL (ANES) Route: IV, Drug Inactive [facility] form: INJ, 2018 Medical ONCE, Stop Center date: 07/20/19 10:01:00 CDT dexamethasone Route: IV, Drug Inactive H [place] (ANES) form: INJ, 2018 Medical ONCE, Stop Center date: 07/20/19 10:01:00 CDT phenylephrine Route: IV, Drug Inactive H [place] (ANES) form: INJ, 2018 Medical ONCE, Stop Center date: 07/20/19 10:01:00 CDT ePHEDrine (ANES) Route: IV, Drug Inactive [place] form: INJ, 2019 Medical ONCE, Stop Center date: 07/20/19 10:01:00 CDT cefTRIAXone (ANES) Route: IV, Drug Inactive 07/10 [place] form: INJ, 2019 Medical ONCE, Stop Center date: 07/20/19 10:01:00 CDT busPIRone 5 mg 5 mg = 1 tab, Active [place] oral tablet PO, BID, 0 2018 Medical Refill(s) Center Sodium Chloride Route: IV, Drug Inactive [place] 0.9% IV (ANES) 90 form: INJ, 2019 Med ical mL + levETIRAcetam Start date: C enter (ANES) 1000 mg 07/20/19 9:44:00 CDT, Stop date: 07/20/19 10:44:00 CDT memantine 10 mg 10 mg = 1 tab, Active [facility] oral tablet PO, BID, # 60 2019 Medica l tab, 0 Center Refill(s) Cyclosporine 0.5 1 drp, BOTH Active [place] MG/ML Ophthalmic EYES, BID, # 30 2019 Medical Suspension mL, 0 Refill(s) Cente r [Restasis] Potassium Chloride 40 mEq = 30 mL, Active 07/20 [place] 1.33 MEQ/ML Oral PO, Daily, 0 2019 Me dical Solution Refill(s) Center citalopram 10 mg 10 mg = 1 tab, Active [place] oral tablet PO, Daily, 0 2019 Medical Refill(s) Center gabapentin 300 MG 300 mg = 1 cap, Active [place] Oral Capsule PO, Bedtime, 0 2019 Medi zak Refill(s) Center famotidine (ANES) Route: IV, Drug Inactive 07/20 [place] form: INJ, 2019 Medical ONCE, Stop Center date: 07/20/19 9:31:00 CDT Sodium Chloride Route: IV, Drug Inactive [place] 0.9% IV (ANES) 235 form: INJ, 2019 Me dical mL + vancomycin Start date: Cent er (ANES) 1500 mg 07/20/19 9:24:00 CDT, Stop date: 07/20/19 10:24:00 CDT propofol (ANES) 10 Route: IV, Drug Inactive 07/10 [place] mg form: INJ, 2018 Medical Start date: [...] CDT Levetiracetam Notes: Same as No Longer [place] Keppra Mix Active 2019 Medical with 100 mL NS, Center LR or D5W MEDICATION WASTE Product Size: 500 mg Product Wasted: ___ mg Vancomycin 1,000 mg, Inactive [place] Route: IVPB, 2018 Medical Drug form: INJ, Center Q12H, Dosing Weight 48.636, kg, TIME CRITICAL MEDICATION, Start date: 07/20/19 9:00:00 CDT, Duration: 1 doses or times, Stop date: 07/20/19 9:00:00 CDT, ABX Indication: Surgical Prophylaxis Docusate Notes: (Same No Longer [place] as: Colace) (Do Active 2019 Medical Not Crush) Center sennosides, MCC Notes: (Same No Longer [facility] as: Senokot) Active 2019 Medical Center Lidocaine 0.05 Notes: Apply No Longer [place] MG/MG Transdermal only once for Active 2019 Medical Patch up to 12 hours Center in a 24-hour period (12 hours on and 12 hours off). (Same as: Lidoderm) "Remove old patch before application of new patch" Saline Flush 0.9% Notes: (Same No Longer [place] as: BD Active 2019 Medical Posiflush) Center Citalopram Notes: (Same No Longer [place] as As: CeleXA) Active 2019 Medical Center Labetalol Notes: With No Longer [place] food. (Same Active 2019 Medical as:Trandate, Center Normodyne) Lisinopril Notes: (Same No Longer [place] as as: Prinivil, Active 2019 Medical Zestril) Center Memantine Notes: (Same No Longer [...] Medical Center Lactated Ringers Route: IV, Inactive [place] Injection IV Total Volume: 2019 Medic al [...] Longer [place] As: Dulcolax, Active 2019 [facility] Bisco-Lax) Center Ondansetron Notes: (Same No Longer [...] of times, 0 phenol Notes: No Longer [place] Chloraseptic Active 2019 Medical [place] (Same as: [place] Chloraseptic, Sore Throat [place]) WASTE: F/P - Black; E - Municipal Trash Bin Dilaudid Notes: Same as No Longer [place] as Dilaudid Active 2019 [facility] Tramadol Notes: Not to [place] Longer [place] exceed Active 2019 Medical 400mg/day. Center (Same As: Ultra) Reglan Notes: (Same No Longer [place] as: Reglan) Active 2019 [facility] Center Saline Flush 0.9% Notes: (Same No Longer [place] as: BD Active 2018 [facility] Posiflush) [place] Dextrose 50% 25 gm, 50 mL, No Longer [place] Syringe Route: IVP, Active 2018 Medical Drug Form: INJ, [place] Dosing Weight 48.636, kg, PRN, PRN Abnormal Lab Result, Start date: 07/20/19 8:21:00 CDT, Duration: 30 day, Stop date: 08/19/19 8:20:00 CDT, 0 Regular Insulin, Notes: (Same No Longer [place] Human 100 UNT/ML as: Humulin R) Active 2018 [facility] Injectable Roll in palms Center Solution of hands gently; Do not shake vigorously. WASTE: F/P - Black; E - Municipal Trash Bin Stable for 31 days at room temperature Expires in days from D ate ceFAZolin Notes: (Same as No Longer [place] Ancef) Active 2019 [facility] NS + KCL 20mEq/L Notes: PREMIX No Longer [place] 1000ml (Premix) IV - Do Not Active 2018 Medi zak 1,000 mL Alter WASTE: Center F/P - Sink; E - Municipal Trash Bin simethicone 80 mg 80 mg = 1 tab, Active [place] oral tablet PO, TID-After 2019 Medica l Meals, 0 [place] Refill(s) potassium chloride 20 mEq = 10 mL, No Longer [place] 30 mEq/15 mL oral PO, Daily, # Active 2019 M edical liquid 900 ml, 0 Center Refill(s) Miralax 17 gm, PO, Active [place] Daily, 0 2019 Medical Refill(s) Center tramadol 50 mg = [...] Active [facility] oral tablet PO, Q12H, 0 2018 Refill(s) labetalol 100 mg 100 mg = [...] Active [facility] oral tablet PO, BID, 0 2018 Refill(s) gabapentin 50 300 mg, PEG, Active MH TI RR MG/ML Oral Bedtime, 0 2018 Solution Refill(s) sennosides, MCC 25.8 mg = 3 Active [facility] 8.6 MG Oral Tablet tab, PEG, 2019 QNoon, 0 Refill(s) Potassium Chloride 40 mEq, PEG, Active [facility] 1.33 MEQ/ML Oral Daily, 0 2018 Solution Refill(s) Docusate Sodium 283 mg = 1 ea, Active H [facility] 56.6 MG/ML Enema MS, Every Other 2019 [Enemeez] Day-5PM, 0 Refill(s) Docusate Sodium 100 mg = 1 cap, Active [facility] 100 MG Oral PO, TID, 0 2018 Capsule [Colace] Refill(s) Protonix Notes: Tablet No Longer [facility] should not be Active 2018 chewed or crushed. (Same as: Protonix) Bethanechol [...] Longer [facility] as: Marinol) Active 2019 sennosides, MCC Notes: (Same No Longer H [facility] as: Senokot) Active 2018 Saline Flush 0.9% Notes: (Same No Longer [facility] as: BD Active 2018 Posiflush) normal saline 0.9% 1,000 mL, Rate: No Longer [facility] IV 1,000 mL 100 ml/hr, Active 2018 Infuse over: 10 hr, Route: IV, Dosing [...] Longer [facility] as: BD Active 2018 Posiflush) Bethanechol Notes: Take on No Longer [facility] empty stomach. Active 2018 (Same As: Urecholine) Labetalol Notes: With No Longer [facility] food. (Same Active 2018 as:Trandate, Normodyne) Docusate Sodium Notes: Same as No Longer [facility] 56.6 MG/ML Enema Enemeez Non Active 2018 [Enemeez] formulary item Memantine Notes: (Same No [...] Patient’s with feeding tube less than 14 [place] (Dobhoff, J-tube etc) and pediatric and patients. [...] as: Potassium Active 2019 Solution Chloride) sennosides, MCC Notes: (Same No Longer H [facility] as: Senokot) Active 2019 gabapentin 300 MG Notes: (Same No Longer [facility] Oral Capsule as: Neurontin) Active 2019 monofluorophosphat Notes: Same as: No Longer [facility] e Biotene with Active 2019 Calcium Fleet Enema 133 mL, Route: Inactive [facility] MS, Drug Form: 2019 ZAC, Dosing Weight 46.932, [...] Patient’s with feeding tube less than 14 [place] (Dobhoff, J-tube etc) and pediatric and patients. [...] Patient’s with feeding tube less than 14 [place] (Dobhoff, J-tube etc) and pediatric and patients. Lisinopril Notes: (Same No Longer [facility] as: Prinivil, Active 2018 Zestril) Citalopram Notes: (Same No Longer [facility] As: CeleXA) Active 2018 Amlodipine Notes: (Same No Longer [facility] as: Norvasc) Active 2018 Labetalol Notes: With No Longer [facility] food. (Same Active 2018 as:Trandate, Normodyne) heparin Notes: porcine No Longer [facility] heparin Active 2018 Streptococcus 0.5 mL, Route: No Longer 01/20/ H [facility] pneumoniae IM, ONCALL, Active 2018 serotype 1 Start date: capsular antigen 01/19/19 diphtheria [id number] 21:39:24 CDT, protein conjugate Stop date: vaccine / 02/18/19 Streptococcus 21:34:24 CDT pneumoniae serotype 14 capsular antigen diphtheria [id number] protein conjugate vaccine / Streptococcus pneumoniae serotype [...] Longer [facility] as: BD Active 2019 Posiflush) Tramadol Notes: Not to No Longer [facility] exceed Active 2019 400mg/day. (Same As: Ultram) Acetaminophen Notes: Max No Longer TI RR acetaminophen = Active 2019 4000mg/day (4 gm/day). (Same as: Tylenol) Acetaminophen 650 mg, PEG, No Longer [facility] Q6H, 0 Active 2019 Refill(s) Tramadol 50 mg, PEG, No Longer [facility] Q6H, PRN Pain, Active 2019 # 20 tab, 0 Refill(s) Citalopram 10 mg, PEG, No Longer [facility] Daily, 0 Active 2019 Refill(s) tramadol Notes: Not to Inactive [place] hydrochloride 50 exceed 2019 Medical MG Oral Tablet 400mg/day. Center (Same As: Ultram) Centrum Silver Notes: (Same Inactive [place] [facility] as:Thera-M, 2019 Medical Theragran-M) Center WASTE: F/P - Black; E - Municipal Trash Bin Give with food. Potassium Chloride Notes: (Same Inactive [facility] as: KCL) 2019 Medical Infuse over 2 Center hours. Potassium Chloride Notes: (Same Inactive [facility] 1.33 MEQ/ML Oral as: Potassium 2019 [facility] Solution Chloride) [place] Potassium Chloride Notes: (Same Inactive [facility] as: KCL) 2019 Medical Infuse over 2 Center hours. Citalopram 10 mg, 1 tab, [place] Longer [place] Route: PO, Drug Active 2019 Medical form: TAB, Center Daily, Dosing Weight 63.636, kg, Start date: 01/18/19 9:30:00 CDT, Duration: 30 day, Stop date: 02/17/19 9:00:00 CDT Lanolin 0.157 1 appl, Route: Inactive [place] MG/MG / Menthol TOP, Dosing 2018 Medi zak 0.0044 MG/MG / Weight 63.636, Ce nter Petrolatum 0.24 kg, PRN, PRN MG/MG / Zinc Oxide Perineal Care, 0.206 MG/MG Start date: Topical Ointment 01/17/19 [Calmoseptine] 7:07:00 CDT lansoprazole 30 mg, PEG, On Hold [place] Q12H, 0 2018 Medical Refill(s) [place] Lanolin 0.157 1 appl, TOP, 5X No Longer [facility] MG/MG / Menthol Day, PRN as Active 2019 Medi zak 0.0044 MG/MG / needed for Center Petrolatum 0.24 itching, 0 MG/MG / Zinc Oxide Refill(s) 0.206 MG/MG Topical Ointment [Calmoseptine] labetalol 200 mg 200 mg = 1 tab, On Hold [facility] oral tablet DHT, Q8H, 0 2019 Medical Refill(s) [place] heparin 5000 SUB-Q, Q8H, 0 [place] units/0.5 mL Refill(s) 2019 Medical injectable [place] solution guar gum oral PEG, Q12H, 0 [place] powder Refill(s) 2019 [facility] ([employer]) [place] clarithromycin 250 500 mg = 10 mL, On Hold 01/14 [facility] [place] mg/5 mL oral PEG, [id number], 0 2019 Med ical liquid Refill(s) Center amoxicillin 250 1,000 mg = 20 On Hold [facility] mg/5 mL oral mL, PEG, 2019 Medical liquid [id number], 0 Center Refill(s) lisinopril 10 mg 10 mg = 1 tab, On Hold [facility] oral tablet PO, Daily, 0 2018 Medical Refill(s) Center amLODIPine 10 mg 10 mg = 1 tab, On Hold [facility] oral tablet GT, Daily, 0 2018 Medical Refill(s) Center Amoxil Notes: (Same No Longer [facility] As: Amoxil) Active 2019 Medical Center Zosyn Notes: (Same Inactive [facility] as: Zosyn) 2019 Medical Dosing based on Center Piperacillin component MEDICATION WASTE Product Size: 4500 mg Product Wasted: _0__ mg Lanolin 0.157 Notes: (Same No Longer [facility] MG/MG / Menthol as: Active 2019 Medical 0.0044 MG/MG / Calmoseptine) Cassidy ter Petrolatum 0.24 MG/MG / Zinc Oxide 0.206 MG/MG Topical Ointment [Calmoseptine] Versed Notes: (Same Inactive [facility] as: Versed) 2019 Medical MEDICATION Center WASTE Product Size: 2 mg Product Wasted: _0__ mg Lisinopril Notes: (Same No Longer [place] as as: Prinivil, Active 2019 Medical Zestril) [place] Potassium Chloride Notes: (Same Inactive [facility] 1.33 MEQ/ML Oral as: Potassium 2019 [facility] Solution Chloride) [place] Potassium Chloride 40 mEq, 30 mL, Inactive 01/11 [facility] 1.33 MEQ/ML Oral Route: PO, Drug 2019 Medical Solution form: LIQ, Center ONCE, Dosing Weight 63.636, kg, Start date: 01/11/19 8:02:00 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, Stop date: 01/11/19 8:02:00 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 Dextrose 50% 50 mL, Route: Inactive [place] Syringe IVP, Dosing 2019 Medical Weight 63.636, Center kg, PRN, PRN Blood Glucose Results, Start date: 01/10/19 15:23:00 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, Duration: 30 day, Stop date: 02/09/19 16:22:00 CDT Glucagon 1 mg, Route: Inactive [facility] IM, PRN, Dosing 2019 Medical Weight 63.636, Center kg, PRN Blood Glucose Results, Start date: 01/10/19 15:23:00 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, Duration: 30 day, Stop date: 02/09/19 16:22:00 CDT Amoxicillin 1,000 mg, Inactive [facility] Route: PEG, 2019 Medical BID, Dosing Center Weight 63.636, kg, Start date: 01/09/19 17:00:00 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, Duration: 30 day, Stop date: 02/08/19 9:00:00 CDT Prevacid Notes: Take 1 No Longer [place] hour before or Active 2019 Medical 2 hours after Center meal; Expires in 14 days. Shake well before use. (Same as:Prevacid) Compounded Product - formulation not commercially available Protonix 40 mg, Route: Inactive [facility] PEG, Drug form: 2019 Medical GRAN/REC, Center BID-Before Meals, Dosing Weight 63.636, kg, Start date: 01/09/19 16:30:00 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, Duration: 30 day, Stop date: 02/08/19 7:30:00 CDT Clarithromycin Notes: DO NOT No Longer 01/09/ [facility] - [facility] [place] (Same As: Biaxin) Amoxicillin Notes: (Same [place] Long[place] As: Amoxil) Active 2019 [facility] guar gum oral 4 gm, 1 pkt, No Longer [facility] powder Route: PEG, Active 2019 Medical ([employer]) Drug Form: [place] PCKT, Dosing Weight 63.636, kg, Q12H, Start date: 01/09/19 10:53:00 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, Duration: 30 day, Stop date: 02/08/19 9:00:00 CDT Sodium Chloride 3% Notes: SEE RT No Longer 01/09 [facility] inhalation DOCUMENTATION Active 2019 Medical solution (Same as: [place] Hypertonic Saline 3%, Inhalation) Albuterol 0.833 Notes: (Same No Longer [facility] MG/ML / as: Duoneb) Active 2019 Medical Ipratropium Center [place] 0.167 MG/ML Inhalant Solution [DuoNeb] NS (Bolus) IV 1,000 mL, 1,000 Inactive [facility] ml/hr, Infuse 2019 Medical Over: 1 hr, [place] Route: IV, ONCE, Priority: STAT, Dosing Weight 63.636 kg, Start date: 01/08/19 16:51:00 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, Stop date: 01/08/19 16:51:00 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 Lasix Notes: (Same Inactive [facility] as: Lasix) 2019 [facility] Sodium Chloride 3% Notes: SEE RT No Longer 01/08 [facility] inhalation DOCUMENTATION Active 2019 Medical solution (Same as: [place] Hypertonic Saline 3%, Inhalation) Lasix Notes: (Same Inactive [facility] as: Lasix) 2019 [facility] Vancomycin 2001 mg: No Longer [facility] infuse over 2.5 Active 2019 Medical hours For [place] adult patients only: Round to nearest 250 mg per Medical Staff approval MEDICATION WASTE Product Size: 1000 mg Product Wasted: ___ mg magnesium citrate Notes: (Same Inactive [facility] 58.2 MG/ML Oral as: Citrate of [facility] Magnesia) [place] Concentration: 1.745 gm / 30 mL Labetalol Notes: With No Longer [facility] food. (Same Active 2019 Medical as:Trandate, [place] Normodyne) Vancomycin 2001 mg: Inactive [facility] infuse over 2.5 2019 Medical hours For [place] adult patients only: Round to nearest 250 mg per Medical Staff approval MEDICATION WASTE Product Size: 1000 mg Product Wasted: ___ mg Vancomycin 20 mg/kg, Inactive [facility] Route: IV, Drug 2019 Medical form: INJ, Center ONCE, Dosing Weight 63.636, kg, Start date: 01/06/19 13:45:00 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, Stop date: 01/06/19 13:45:00 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, Pediatric Dosing, ABX Indication: Pneumonia Zosyn Notes: (Same No Longer [facility] as: Zosyn) Active 2019 Medical Dosing based on Center Piperacillin component MEDICATION WASTE Product Size: 4500 mg Product Wasted: ___ mg Sodium Chloride 3% Notes: SEE RT No Longer 01/06 [facility] inhalation DOCUMENTATION Active 2019 Medical solution (Same as: Center Hypertonic Saline 3%, Inhalation) Iohexol Notes: (Same Inactive [facility] as:Omnipaque 2019 Medical 350). WASTE: Center F/P - Black; E - Municipal Trash Bin normal saline 0.9% 1,000 mL, Rate: No Longer [facility] IV 1,000 mL 75 ml/hr, Active 2019 Medical Infuse over: Center 13.3 hr, Route: IV, Dosing Weight 63.636 kg, Total Volume: 1,000, Start date: 01/06/19 8:53:00 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, Duration: 30 day, Stop date: 02/05/19 8:52:00 CDT, 1.69, m2 Dulcolax Laxative Notes: (Same Inactive [facility] As: Dulcolax, 2019 Medical Bisco-Lax) Center Albuterol 0.833 Notes: (Same No Longer [facility] MG/ML / as: Duoneb) Active 2019 Medical Ipratropium Center [place] 0.167 MG/ML Inhalant Solution [DuoNeb] Lasix Notes: (Same Inactive [facility] as: Lasix) 2019 Medical MEDICATION Center WASTE Product Size: 40 mg Product Wasted: ___ mg Water 1000 MG/ML 914.5 mL, Rate: No Longer 01/05 [facility] Injectable 75 ml/hr, Active 2019 Medical Solution Infuse over: Center 13.3 hr, Route: IV, Dosing Weight 63.636 kg, Total Volume: 1,000, Start date: 01/05/19 9:08:00 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, Duration: 30 day, Stop date: 02/04/19 9:07:00 CDT, For IMU and ICU use only. See Order Comments!!, 1.69, m2 Tylenol 650 mg, Route: Inactive [place] PO, ONCE, 2019 Medical Dosing Weight Center 63.636, kg, Priority: NOW, Start date: 01/05/19 8:04:00 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, Stop date: 01/05/19 8:04:00 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 vancomycin Notes: TIME No Longer [facility] s CRITICAL Active 2019 Medical MEDICATION Center (Same As: Vancocin) For adult patients only: Round to nearest 250 mg per Medical Staff approval Albuterol 0.833 Notes: (Same Inactive [place] MG/ML / as: Duoneb) 2019 [facility] Ipratropium Center [place] 0.167 MG/ML Inhalant Solution [DuoNeb] Calcium Carbonate Notes: (Same No Longer [facility] 500 MG Chewable As: Tums) Active 2018 Medica l Tablet Calcium Center Carbonate 500 mg = 200 mg elemental calcium Dose = mg calcium carbonate ( mg elemental calcium) Potassium Chloride Notes: (Same No Longer [facility] as: KCL) Active 2018 Medical Infuse no Center faster than 10 mEq/hr if given peripherally. sodium phosphate Notes: Infuse No Longer [facility] over 4 hour. Do Active 2018 Medical not infuse Center phosphorous concurrently in the same line as TPN or IVF that contains calcium. For double lumen central lines, phosphorous may be infused in a separate lumen from TPN. potassium Notes: (Same No Longer [facility] phosphate as: K Active 2018 Medical Phosphate.) Do Center not infuse phosphorous concurrently in the same line as TPN or IVF that contains calcium. For double lumen central lines, phosphorous may be infused in a separate lumen from TPN. 1 mMol phoshate has 1.47 mEq potassium Infuse over 4 hours Calcium Gluconate Notes: WASTE: No Longer [facility] F/P - Sink; E - Active 2018 [facility] Trash [place] Bin Magnesium Sulfate Notes: WASTE: No Longer [facility] F/P - Sink; E - Active 2018 [facility] Trash Center Bin potassium Notes: (Same No Longer [facility] phosphate-sodium as: Phos-NaK) Active 2018 edical phosphate 250 Each 1.5 gm pkt Ce nter mg-280 mg-160 mg has 250mg oral powder for phosphorous. reconstitution Mix w/2.5oz water and stir. Magnesium Oxide Notes: (Same No Longer [facility] as: Mag-Ox 400) Active 2018 [facility] Magnesium oxide Center [id number] elemental magnesium Dose=____mg magnesium oxide (___mg elemental magnesium) vancomycin + 2001 mg: Inactive [facility] Sodium Chloride infuse over 2.5 2019 Medical 0.9% IV 250 mL hours For Center adult patients only: Round to nearest 250 mg per Medical Staff approval MEDICATION WASTE Product Size: 1000 mg Product Wasted: ___ mg cefepime Notes: (Same No Longer [facility] As: Maxipime) Active 2019 Medical MEDICATION Center WASTE Product Size: 1000 mg Product Wasted: _0__ mg Albuterol 0.833 Notes: (Same No Longer 01/04/ H [place] MG/ML / as: Duoneb) Active 2019 [facility] Ipratropium Center [place] 0.167 MG/ML Inhalant Solution [DuoNeb] Prevacid Notes: Take 1 No Longer [place] [facility] hour before or Active 2019 Medical 2 hours after Center meal; Expires in 14 days. Shake well before use. (Same as:Prevacid) Compounded Product - formulation not commercially available Ondansetron 4 mg, Route: Inactive [place] as IVP, ONCE, 2019 Medical Dosing Weight Center 63.636, kg, PRN Nausea & Vomiting, Start date: 01/03/19 9:48:00 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 Flumazenil 0.2 mg, Route: Inactive [place] IVP, PRN, 2019 Medical Dosing Weight Center 63.636, kg, PRN Benzodiazepine Reversal, Initial dose, Start date: 01/03/19 9:48:00 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, Duration: 30 day, Stop date: 02/02/19 10:47:00 CDT Naloxone 0.4 mg, Route: Inactive [place] IVP, Q2MIN, 2018 Medical Dosing Weight Center 63.636, kg, PRN Narcotic Reversal, Start date: 01/03/19 9:48:00 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, Duration: 8 doses or times, Stop date: Limited # of times Oxycodone 5 mg, Route: Inactive [place] NG, Drug form: 2019 Medical LIQ, Q4H, [place] Dosing Weight 63.636, kg, PRN Pain Score 4-6, Start date: 01/03/19 9:48:00 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, Duration: 30 day, Stop date: 02/02/19 9:47:00 CDT Morphine 2 mg, Route: Inactive [place] IVP, Q5Min, 2019 Medical Dosing Weight Center 63.636, kg, PRN Pain Score 4-6, Start date: 01/03/19 9:48:00 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, Duration: 5 doses or times, Stop date: Limited # of times Labetalol 10 mg, Route: In[place] IVP, Q5Min, 2019 Medical Dosing Weight Center 63.636, kg, PRN Elevated BP, Start date: 01/03/19 9:48:00 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, Duration: 5 doses or times, Stop date: Limited # of times Acetaminophen 1,000 mg, Inactive [place] Route: PO, Drug 2019 Medical form: TAB, Center ONCE, Dosing Weight 63.636, kg, PRN Pain Score 1-3, Start date: 01/03/19 9:48:00 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 Labetalol Notes: With No Longer [employer] food. (Same Active 2019 Medical as:Trandate, Center Normodyne) potassium 1 pkt, Route: Inactive [place] phosphate-sodium PO, Dosing 2019 Medi zak phosphate 250 Weight 63.636, [address] ter mg-280 mg-160 mg kg, BID, Start oral powder for date: 01/01/19 reconstitution 17:00:00 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, Duration: 30 day, Stop date: 01/31/19 9:00:00 CDT Hydralazine Notes: (Same No Longer [place] as: Apresoline) Active 2019 Medical Push over 5 Center minutes potassium Notes: (Same Inactive [place] phosphate-sodium as: Phos-NaK) 2019 M edical phosphate [...] 2018 Medical UNT/ML Injectable Center Solution sennosides, MCC Notes: (Same No Longer H [place] 8.6 MG Oral Tablet as: Senokot) Active 2019 Medical [place] docusate sodium Notes: (Same No Longer H [place] as: Colace) Active 2019 Medical Center Amlodipine Notes: (Same No Longer [place] as as: Norvasc) Active 2019 [facility] lisinopril 40 mg 40 mg = 1 tab, No Longer [place] oral tablet PO, Daily, 0 Active 2018 Medical Refill(s) [place] omega-3 PO, 0 Refill(s) No Longer [place] as polyunsaturated Active 2018 [facility] fatty acids [place] amLODIPine 5 mg 5 mg = 1 tab, No Longer [place] oral tablet PO, Daily, 0 Active 2018 Medical Refill(s) [place] Aspirin 81 MG 81 mg = 1 tab, No Longer H [place] Enteric Coated PO, Daily, # 90 Active 2018 edical Tablet tab, 3 Center Refill(s) Alpha Lipoic Acid PO, 0 Refill(s) No Longer 12/11 [place] Active 2019 [facility] Vitamin E PO, Daily, 0 [facility] Active 2019 [facility] Estrogens, 0.3 mg = 1 tab, No Longer [place] Conjugated (MCC) PO, 0 Refill(s) Active 2019 Medical 0.3 MG Oral Tablet Cente r [Premarin] Co-Q10 100 mg oral 100 mg = 1 cap, No Longer [place] capsule PO, Daily, 0 Active 2018 Medical Refill(s) Center Labetalol Notes: With No Longer [place] food. (Same Active 2019 Medical as:Trandate, Center Normodyne) Keppra Notes: Same as Inactive [place] Keppra Mix 2019 Medical with 100 mL [...] BD Active 2018 Medical Posiflush) Center sennosides, MCC Notes: (Same Inactive [place] 8.6 MG Oral Tablet as: Senokot) 2019 [facility] docusate sodium Notes: (Same Inactive [place] as: Colace) 2019 Medical [place] Ancef Notes: (Same No Longer [place] As: Ancef, Active 2018 Medical Kefzol) Center MEDICATION WASTE Product Size: 1000 mg Product Wasted: ___ mg ocular lubricant Notes: (Same No Longer [place] as: Lacri-Lube, Active 2018 Medical Puralube, [place] Duratears Naturale, Artificial Tears, and Tears Again ) Fentanyl 1,000 Inactive [place] microgram, 2018 Medical mL, Rate: [place] Titrate, Start Dose: 50 microgram/hr, Titration: 25 microgram/hour every 15 minutes, Goal(s): RASS 0, Max Dose: 300 microgram/hr, Route: IV, Dosing Weight 63.636 kg, Total Volume: 20, Start date: 12/29/18 5:36:00 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, Dur... NS (Bolus) IV 1,000 mL, 1,000 Inactive H [place] ml/hr, Infuse 2018 Medical Over: 1 hr, [place] Route: IV, 1,000, Drug form: INJ, ONCE, Priority: STAT, Dosing Weight 63.636 kg, Start date: 12/29/18 5:36:00 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, Stop date: 12/29/18 5:36:00 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 chlorhexidine Notes: (Same No Longer [place] gluconate 1.2 As: Peridex) Active 2018 Medic al MG/ML Mouthwash Center Dextrose 50% 25 gm, 50 mL, No Longer [place] Syringe Route: IVP, 2018 Medical Drug Form: INJ, Center Dosing Weight 63.636, kg, PRN, PRN Blood Glucose Results, Start date: 12/29/18 3:27:00 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, Duration: 30 day, Stop date: 01/28/19 4:26:00 CDT Glucagon 1 mg, Route: No Longer Facundo IM, Drug form: Active 2019 Medical PDR/INJ, PRN, Center Dosing Weight 63.636, kg, PRN Blood Glucose Results, Start date: 12/29/18 3:27:00 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, Duration: 30 day, Stop date: 01/28/19 4:26:00 CDT Insulin regular 60 units) No Longer [place] WASTE: F/P - Active 2019 Medical Black; E - Center Municipal Trash Bin Stable for 28 days at room temperature Expires in days from D ate chlorhexidine Notes: (Same No Longer [place] gluconate 1.2 As: Peridex) Active 2018 Medic al MG/ML Mouthwash Center [facility] Notes: (Same No Longer [place] as: Zofran) Active 2019 Medical MEDICATION Center WASTE Product Size: 4 mg Product Wasted: ___ mg Tylenol Notes: Do not No Longer [place] exceed 4 Active 2019 Medical gm/day. (Same Center as: Tylenol) Labetalol 10 mg, 2 mL, No Longer [place] Route: IVP, Active 2018 Medical Drug form: INJ, Center Q1H, Dosing Weight 63.636, kg, PRN Hypertension, Start date: 12/29/18 3:27:00 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, Duration: 30 day, Stop date: 01/28/19 4:26:00 CDT Hydralazine Notes: (Same No Longer [place] as: Apresoline) Active 2019 Medical Push over 5 Center minutes normal saline 0.9% 1,000 mL, Rate: No Longer [place] IV 1,000 mL 50 ml/hr, Active 2019 Medical Infuse over: 20 Center hr, Route: IV, Dosing Weight 63.636 kg, Total Volume: 1,000, Start date: 12/29/18 3:26:00 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, Duration: 30 day, Stop date: 01/28/19 3:25:00 CDT, 1.69, m2 Nicardipine Notes: Same as: Inactive [place] Cardene 2019 Medical Concentration: Center (0.1 mg/ 1 ml) Potassium Chloride Notes: (Same No Longer [place] as: Potassium Active 2019 Medical Chloride) Center Magnesium Oxide Notes: (Same No Longer H [place] as: Mag-Ox 400) Active 2019 [facility] Magnesium oxide Center [id number] elemental magnesium Dose=____mg magnesium oxide (___mg elemental magnesium) Magnesium Sulfate Notes: WASTE: No Longer [place] F/P - Sink; E - [facility] [place] [facility]: ([facility]odium as: Phos-NaK) Active 2018 edical phosphate 250 Each 1.5 gm pkt Ce nter mg-280 mg-160 mg has 250mg oral powder for phosphorous. reconstitution Mix w/2.5oz water and stir. sodium phosphate Notes: Infuse No Longer [place] over 4 hour. Do Active 2019 Medical not infuse Center phosphorous concurrently in the same line as TPN or IVF that contains calcium. For double lumen central lines, phosphorous may be infused in a separate lumen from TPN. potassium Notes: (Same [place] Long[place] phosphate as: K Active 2018 Medical Phosphate.) Do Center not infuse phosphorous concurrently in the same line as TPN or IVF that contains calcium. For double lumen central lines, phosphorous may be infused in a separate lumen from TPN. 1 mMol phoshate has 1.47 mEq potassium Infuse over 4 hours Calcium Gluconate Notes: WASTE: No Longer [place] F/P - Sink; E - Active 2019 [facility] Bin Calcium Carbonate Notes: (Same No Longer [place] 500 MG Chewable As: Tums) Active 2019 Medica l Tablet Calcium Center Carbonate 500 mg = 200 mg elemental calcium Dose = mg calcium carbonate ( mg elemental calcium) fentaNYL (ANES) Route: IV, Drug Inactive [place] form: INJ, 2019 Medical ONCE, Stop Center date: 12/29/18 1:34:00 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 calcium chloride Route: IV, Drug Inactive [place] (ANES) form: INJ, 2019 Medical ONCE, Stop Center date: 12/29/18 0:54:00 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 propofol (ANES) Route: IV, Drug Inactive [place] form: INJ, 2018 Medical ONCE, Stop Center date: 12/29/18 0:24:00 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 rocuronium (ANES) Route: IV, Drug Inactive 12/29 [place] form: INJ, 2018 Medical ONCE, Stop Center date: 12/29/18 0:24:00 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 ceFAZolin (ANES) Route: IV, Drug Inactive [place] form: INJ, 2018 Medical ONCE, Stop Center date: 12/29/18 0:14:00 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 dexamethasone Route: IV, Drug Inactive H [place] (ANES) form: INJ, 2018 Medical ONCE, Stop Center date: 12/29/18 0:14:00 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 Isolyte S PH 7.4 Route: IV, Inactive [place] (ANES) 1000 mL Total Volume: 2018 Med ical 1,000, Start Center date: 12/29/18 0:12:00 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, Stop date: 12/29/18 1:12:00 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 mannitol (ANES) Route: IV, Drug No Longer [place] 200 mg form: INJ, Active 2018 Medical Start date: [place] 12/28/18 23:50:00 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, Stop date: 12/29/18 0:50:00 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 potassium chloride Route: IV, Drug No Longer [place] (ANES) 0.2 mEq form: INJ, Active 2018 Medica l Start date: [place] 12/28/18 23:47:00 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, Stop date: 12/29/18 0:47:00 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 levETIRAcetam Route: IV, Drug No Longer [place] (ANES) 100 mg form: INJ, Active 2018 Medical Start date: [place] 12/28/18 23:45:00 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, Stop date: 12/29/18 0:45:00 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 SUFentanil (ANES) Route: IV, Drug No Longer 12/11 [place] 50 microgram form: INJ, Active 2018 Medical Start date: [place] 12/28/18 23:36:00 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, Stop date: 12/29/18 0:36:00 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 Sodium Chloride Route: IV, No Longer [place] 0.9% IV (ANES) 500 Total Volume: Active 2018 Medical mL 500, Start Center date: 12/28/18 23:36:00 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, Stop date: 12/29/18 0:36:00 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 propofol (ANES) 10 Route: IV, Drug No Longer [place] mg form: INJ, Active 2018 Medical Start date: Center 12/28/18 23:36:00 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, Stop date: 12/29/18 0:36:00 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 Sodium Chloride Route: IV, No Longer [place] 0.9% IV (ANES) Total Volume: Active 2018 Med ical 1000 mL 1,000, Start Center date: 12/28/18 23:30:00 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, Stop date: 12/29/18 0:30:00 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 Saline Flush 0.9% Notes: (Same No Longer [place] as: BD Active 2018 Medical Posiflush) Center Labetalol 140mmHg, Start No Longer [place] date: 12/28/18 Active 2019 Medical 23:15:00 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, Center Duration: 3 doses or times, Stop date: Limited # of times Sodium Chloride 250 mL, Rate: No Longer [place] 0.9% (titrate) 250 To prime line Active 2018 [facility] mL and flush Center remaining blood products., Dosing Weight 63.636, kg, Route: IV, Total Volume: 250, Start Date: 12/28/18 23:00:00 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, Duration: 30 day, Stop date: 01/27/19 22:59:00 CDT, Replace Every: 24 hr iodixanol 60 mL, Route: Inactive [place] IVP, Drug Form: 2019 Medical SOLN, Dosing Center Weight 63.636, kg, ONCALL, STAT, Start date: 12/28/18 22:57:00 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, Duration: 1 doses or times, Dose = [...] being intubated (unless the nurse is a ENROBER). Same as: Diprivan Propofol Notes: If No Longer [place] Diprivan - Active 2018 Medical change bottle & Center tubing every 12 hr Per state nursing law propofol can only be given by a nurse if patient is intubated or being intubated (unless the nurse is a ENROBER). Same as: Diprivan Rocuronium Notes: (Same No Longer [place] as as: Zemeron) Active 2019 Medical Center Keppra Notes: Same as [place] Longer [place] Keppra Mix Active 2018 Medical with 100 mL NS, Center LR or D5W MEDICATION WASTE Product Size: 500 mg Product Wasted: ___ mg Saline Flush 0.9% Notes: (Same No Longer [place] as: BD Active 2018 Medical Posiflush) Center Allergies, Adverse Reactions, Alerts Substance Category Reaction Severity Reaction Status Date Comments S ource type Reported No Known Assertion Drug Medication allergy Yissel and Allergies Immunizations Immunization Date Given Site Status Last Comments Source Updated pneumococcal 01/24/2019 Left completed Brody weaver 13-valent vaccine deltoid [facility] Results Order Name Results Value Reference Date Interpretation Comments Yuli rce Range CHEM PANEL Magnesium 1.6 1.8 - 2.4 09/05 Lv [facility] CHEM PANEL Phosphorus 3.3 2.5 - 4.5 09/05 [facility] ELECTROLYTE AGAP 10.2 10.0 - 09/05 MH S 20.0 [facility] ELECTROLYTE Glucose Lvl 84 70 - 99 09/05 S [facility] ELECTROLYTE BUN 11 7 - 22 09/05 S [facility] ELECTROLYTE Creatinine 0.69 0.50 - 09/05 MH S Lvl 1.40 [facility] ELECTROLYTE Sodium Lvl 140 135 - 145 09/05 S [facility] ELECTROLYTE Potassium 3.2 3.5 - 5.1 09/05 S Lvl [facility] ELECTROLYTE Chloride Lvl 109 95 - 109 09/05 [facility] ELECTROLYTE CO2 24 24 - 32 09/05 [facility] ELECTROLYTE Calcium Lvl 8.4 8.5 - 10.5 09/05 [facility] ELECTROLYTE eGFR 91 09/05 [facility] Comment: [facility] eGFR is calculated using the CKD-EPI formula. [...] HEMATOLOGY WBC 3.5 3.7 - 10.4 09/05 [facility] HEMATOLOGY RBC 3.77 4.20 - 09/05 MH 5.40 [facility] HEMATOLOGY Hgb 11.2 12.0 - 09/05 MH 16.0 [facility] HEMATOLOGY Hct 34.1 36.0 - 09/05 MH 48.0 [facility] HEMATOLOGY MCV 90.5 80.0 - 09/05 MH 98.0 [facility] HEMATOLOGY MCH 29.7 27.0 - 09/05 MH 31.0 [facility] HEMATOLOGY MCHC 32.8 32.0 - 09/05 MH 36.0 [facility] HEMATOLOGY RDW 15.2 11.5 - 09/05 MH 14.5 [facility] HEMATOLOGY Platelet 217 133 - 450 09/05 [facility] HEMATOLOGY MPV 8.6 7.4 - 10.4 09/05 [facility] HEMATOLOGY Segs 63.3 45.0 - 09/05 MH 75.0 [facility] HEMATOLOGY Lymphocytes 16.4 20.0 - 09/05 MH 40.0 [facility] HEMATOLOGY Monocytes 13.3 2.0 - 12.0 09/05 [facility] HEMATOLOGY Eosinophils 5.6 0.0 - 4.0 09/05 [facility] HEMATOLOGY Basophils 1.4 0.0 - 1.0 09/05 [facility] HEMATOLOGY Neutrophils 2.2 1.5 - 8.1 09/05 [facility] HEMATOLOGY Lymphocytes 0.6 1.0 - 5.5 09/05 [facility] HEMATOLOGY Monocytes # 0.5 0.0 - 0.8 09/05 [facility] HEMATOLOGY Eosinophils 0.2 0.0 - 0.5 09/05 [facility] CHEM PANEL Glucose Lvl 99 70 - 99 09/04 [facility] CHEM PANEL BUN 9 7 - 22 09/04 [facility] CHEM PANEL Creatinine 0.77 0.50 - 09/04 Lvl 1.40 [facility] CHEM PANEL Sodium Lvl 140 135 - 145 09/04 [facility] CHEM PANEL Potassium 3.9 3.5 - 5.1 09/04 Lvl [facility] CHEM PANEL Chloride Lvl 109 95 - 109 09/04 [facility] CHEM PANEL CO2 26 24 - 32 09/04 [facility] CHEM PANEL Calcium Lvl 8.2 8.5 - 10.5 09/04 [facility] CHEM PANEL eGFR 81 09/04 [facility] Comment: [facility] eGFR is calculated using the CKD-EPI formula. [...] AGAP 8.9 10.0 - 09/04 MH 20.0 [facility] HEMATOLOGY Segs 71.4 45.0 - 09/04 MH 75.0 /2019 [facility] HEMATOLOGY Lymphocytes 11.2 20.0 - 09/04 MH 40.0 [facility] HEMATOLOGY Monocytes 12.7 2.0 - 12.0 09/04 [facility] HEMATOLOGY Eosinophils 3.8 0.0 - 4.0 09/04 [facility] HEMATOLOGY Basophils 0.9 0.0 - 1.0 09/04 [facility] HEMATOLOGY Neutrophils 2.7 1.5 - 8.1 09/04 MH # /2018 [facility] HEMATOLOGY Lymphocytes 0.4 1.0 - 5.5 09/04 MH # /2018 [facility] HEMATOLOGY Monocytes # 0.5 0.0 - 0.8 09/04 [facility] HEMATOLOGY Eosinophils 0.1 0.0 - 0.5 09/04 MH # /2018 [facility] HEMATOLOGY WBC 3.8 3.7 - 10.4 09/04 [facility] HEMATOLOGY RBC 3.77 4.20 - 09/04 MH 5.40 [facility] HEMATOLOGY Hgb 11.5 12.0 - 09/04 MH 16.0 [facility] HEMATOLOGY Hct 33.6 36.0 - 09/04 MH 48.0 [facility] HEMATOLOGY MCV 89.1 80.0 - 09/04 MH 98.0 [facility] HEMATOLOGY MCH 30.6 27.0 - 09/04 MH 31.0 [facility] HEMATOLOGY MCHC 34.4 32.0 - 09/04 MH 36.0 [facility] HEMATOLOGY RDW 15.3 11.5 - 09/04 MH 14.5 [facility] HEMATOLOGY Platelet 192 133 - 450 09/04 [facility] HEMATOLOGY MPV 8.0 7.4 - 10.4 09/04 [facility] DRUG SCREEN U Amph Scr Negative Negative 09/02 *NA* [facility] (09/02/19 2:51 PM) DRUG SCREEN U Norma Scr Negative Negative 09/02 *NA* [facility] (09/02/19 2:51 PM) DRUG SCREEN U Benzodiaz Negative Negative 09/02 Scr *NA* [facility] (09/02/19 2:51 PM) DRUG SCREEN U Cocaine Negative Negative 09/02 MH Scr *NA* [facility] (09/02/19 2:51 PM) DRUG SCREEN U Cannab Scr Negative Negative 09/02 *NA* [facility] (09/02/19 2:51 PM) DRUG SCREEN U Opiate Scr Negative Negative 09/02 *NA* [facility] (09/02/19 2:51 PM) DRUG SCREEN U Negative Negative 09/02 Phencyclidin *NA [facility] e Scr (09/02/19 2:51 PM) DRUG SCREEN U Methadone Negative Negative 09/02 Scr *NA [facility] (09/02/19 2:51 PM) DRUG SCREEN U Propoxyph Negative Negative 09/02 Scr *NA* [facility] (09/02/19 2:51 PM) DRUG SCREEN UDS Note See Note 09/02 (09/02/19 2:51 PM) Yissel and URINE AND UA Color Yellow Yellow 09/02 STOOL *NA* [facility] (09/02/19 2:51 PM) URINE AND UA Turbidity Marked Clear 09/02 STOOL *ABN* [facility] (09/02/19 2:51 PM) URINE AND UA Spec Grav 1.009 <=1.030 09/02 STOOL [facility] URINE AND UA pH 7.0 5.0 - 8.0 09/02 STOOL [facility] URINE AND UA Protein Negative Negative 09/02 STOOL mg/dL mg/dL [facility] URINE AND UA Ketones Negative Negative 09/02 STOOL mg/dL mg/dL [facility] URINE AND UA Bili Negative Negative 09/02 STOOL *NA* [facility] (09/02/19 2:51 PM) URINE AND UA Blood Negative Negative 09/02 STOOL (09/02/19 2:51 PM) Yissel and URINE AND UA Nitrite Negative Negative 09/02 [facility]OOL (09/02/19 2:51 PM) Yissel and URINE AND UA Leuk Est Negative Negative 09/02 STOOL (09/02/19 2:51 PM) Yissel and URINE AND UA Sq Epi Occasional Few /LPF 09/02 STOOL /LPF /2018 [facility] URINE AND UA WBC 2 0 - 5 09/02 STOOL [facility] URINE AND UA Bacteria Occasional None Seen 09/02 STOOL /HPF /HPF /2018 [facility] URINE AND UA Mucus Few /LPF None Seen 09/02 STOOL /LPF [facility] URINE AND UA Glucose 50 09/02 STOOL [facility] URINE AND UA <=1.0 0.1 - 1.0 09/02 STOOL Urobilinogen mg/dL [facility] CHEM PANEL Glucose Lvl 110 70 - 99 09/02 [facility] CHEM PANEL BUN 10 7 - 22 09/02 [facility] CHEM PANEL Creatinine 0.89 0.50 - 10 MH Lvl 1.40 [facility] CHEM PANEL Sodium Lvl 136 135 - 145 09/02 [facility] CHEM PANEL Potassium 3.6 3.5 - 5.1 09/02 Lvl [facility] CHEM PANEL Chloride Lvl 106 95 - 109 09/02 [facility] CHEM PANEL CO2 25 24 - 32 09/02 [facility] CHEM PANEL Calcium Lvl 9.1 8.5 - 10.5 09/02 [facility] CHEM PANEL Total 7.3 6.4 - 8.4 09/02 Protein [facility] CHEM PANEL Albumin Lvl 3.8 3.5 - 5.0 09/02 [facility] CHEM PANEL ALT 14 0 - 65 09/02 [facility] CHEM PANEL AST 18 0 - 37 09/02 [facility] CHEM PANEL Alk Phos 85 39 - 136 09/02 [facility] CHEM PANEL Bili Total 0.6 0.2 - 1.3 09/02 [facility] CHEM PANEL eGFR 67 09/02 Comment: [facility] eGFR is calculated using the CKD-EPI formula. [...] AGAP 8.6 10.0 - 09/02 MH 20.0 [facility] CHEM PANEL B/C Ratio 11 6 - 25 09/02 [facility] CHEM PANEL Globulin 3.5 2.7 - 4.2 09/02 [facility] CHEM PANEL A/G Ratio 1.1 0.7 - 1.6 09/02 [facility] CHEM PANEL Lactic Acid 1.5 0.5 - 2.2 09/02 MH Lvl [facility] HEMATOLOGY WBC 6.1 3.7 - 10.4 09/02 [facility] HEMATOLOGY RBC 4.39 4.20 - 09/02 MH 5.40 [facility] HEMATOLOGY Hgb 13.3 12.0 - 09/02 MH 16.0 [facility] HEMATOLOGY Hct 38.7 36.0 - 09/02 MH 48.0 [facility] HEMATOLOGY MCV 88.2 80.0 - 09/02 MH 98.0 [facility] HEMATOLOGY MCH 30.2 27.0 - 09/02 MH 31.0 [facility] HEMATOLOGY MCHC 34.2 32.0 - 09/02 MH 36.0 [facility] HEMATOLOGY RDW 15.4 11.5 - 09/02 [facility] 14. [facility] HEMAT[facility] Platelet 249 133 - 450 09/02 [facility] HEMATOLOGY MPV 7.8 7.4 - 10.4 09/02 [facility] HEMATOLOGY Segs 84.9 45.0 - 09/02 MH 75.0 [facility] HEMATOLOGY Lymphocytes 6.4 20.0 - 09/02 MH 40.0 [facility] HEMATOLOGY Monocytes 8.2 2.0 - 12.0 09/02 [facility] HEMATOLOGY Eosinophils 0.1 0.0 - 4.0 09/02 [facility] HEMATOLOGY Basophils 0.4 0.0 - 1.0 09/02 [facility] HEMATOLOGY Neutrophils 5.2 1.5 - 8.1 09/02 [facility] # 2019 [facility] HEMATOLOGY Lymphocytes 0.4 1.0 - 5.5 09/02 MH # [facility] HEMATOLOGY Monocytes # 0.5 0.0 - 0.8 10/25 MH /2019 [facility] CHEM PANEL Glucose Lvl 88 70 - 99 07/21 [facility] CHEM PANEL BUN 10 7 - 22 07/21 [facility] CHEM PANEL Creatinine 0.82 0.50 - 07/21 [place] Lvl 1.40 [facility] CHEM PANEL Sodium Lvl 134 135 - 145 07/21 [facility] CHEM PANEL Potassium 5.0 3.5 - 5.1 07/21 Result [facility] Comment: [facility] hemolyzed.. CHEM PANEL Chloride Lvl 102 95 - 109 07/21 [facility] CHEM PANEL CO2 27 24 - 32 07/21 [facility] CHEM PANEL Calcium Lvl 9.0 8.5 - 10.5 07/21 [facility] CHEM PANEL AGAP 10.0 10.0 - 07/21 20.0 [facility] CHEM PANEL eGFR 75 07/21 Result [...] PANEL Magnesium 1.9 1.8 - 2.4 07/21 [facility] CHEM PANEL Phosphorus 3.6 2.5 - 4.5 07/21 [facility] HEMATOLOGY WBC 6.5 3.7 - 10.4 07/21 [facility] HEMATOLOGY RBC 3.99 4.20 - 07/21 5.40 [facility] HEMATOLOGY Hgb 12.1 12.0 - 07/21 [place] 16.0 /[facility] HEM[facility] Hct 36.2 36.0 - 07/21 [place] 48.0 /2019 [facility] HEMATOLOGY MCV 90.6 80.0 - 07/21 [place] 98.0 /2019 [facility] [place] HEMATOLOGY MCH 30.4 27.0 - 07/21 [place] 31.0 /2019 [facility] [place] HEMATOLOGY MCHC 33.5 32.0 - 07/21 [place] 36.0 /2019 [facility] HEMATOLOGY RDW 14.4 11.5 - 07/21 [place] 14.5 /2019 [facility] HEMATOLOGY Platelet 296 133 - 450 07/21 [place] /2018 [facility] HEMATOLOGY MPV 9.3 7.4 - 10.4 07/21 /2018 [facility] HEMATOLOGY Segs 80.3 45.0 - 07/21 [place] 75.0 2019 [facility] HEMATOLOGY Lymphocytes 9.0 20.0 - 07/21 [place] 40.0 [facility] HEMATOLOGY Monocytes 9.6 2.0 - 12.0 07/21 /2019 [facility] HEMATOLOGY Eosinophils 0.6 0.0 - 4.0 07/21 [place] [facility] HEMATOLOGY Basophils 0.5 0.0 - 1.0 07/21 [facility] HEMATOLOGY Neutrophils 5.2 1.5 - 8.1 07/21 [place] # /2018 [facility] HEMATOLOGY Lymphocytes 0.6 1.0 - 5.5 07/21 [place] # /2019 [facility] HEMATOLOGY Monocytes # 0.6 0.0 - 0.8 07/21 [facility] s [facility] BLOOD BANK ABO/Rh A POS 07/20 [facility] RESULTS [facility] BLOOD BANK Antibody Negative 07/20 [facility] RESULTS Scrn (07/20/19 7:43 AM) [facility] ELECTROLYTE AGAP 13.0 10.0 - 07/20 [facility] S 20.0 2019 [facility] ELECTROLYTE Glucose Lvl 99 70 - 99 07/20 [facility] S /2019 [facility] ELECTROLYTE BUN 12 7 - 22 07/20 [facility] S /2019 [facility] ELECTROLYTE Creatinine 1.04 0.50 - 07/20 [facility] S Lvl 1.40 /2018 [facility] ELECTROLYTE Sodium Lvl 137 135 - 145 07[place] [facility] ELECTROLYTE Potassium 4.0 3.5 - 5.1 07/20 [facility] S Lvl /2018 [facility] ELECTROLYTE Chloride Lvl 101 95 - 109 07/20 [facility] as S [facility] ELECTROLYTE CO2 27 24 - 32 07/20 [facility] S /2018 [facility] ELECTROLYTE Calcium Lvl 9.2 8.5 - 10.5 07/20 [place]2018 [facility] ELECTROLYTE eGFR 57 07/20 [facility] Comment: The Medical eGFR is Center calculated [...] BMI. HEMATOLOGY Segs 61.4 45.0 - 07/20 [facility] 75.0 [facility] HEMATOLOGY Lymphocytes 19.7 20.0 - 07/20 [facility] 40.0 [facility] HEMATOLOGY Monocytes 14.1 2.0 - 12.0 07/20 [facility]2018 [facility] HEMATOLOGY Eosinophils 1.8 0.0 - 4.0 07/20 [facility] s [facility] HEMATOLOGY Basophils 3.0 0.0 - 1.0 07/20 [facility]2018 [facility] HEMATOLOGY Neutrophils 1.9 1.5 - 8.1 07/20 [place] # /2018 [facility] HEMATOLOGY Lymphocytes 0.6 1.0 - 5.5 07/20 [place] # /2018 [facility] HEMATOLOGY Monocytes # 0.4 0.0 - 0.8 07/20 [facility] s /2018 [facility] HEMATOLOGY Eosinophils 0.1 0.0 - 0.5 07/20 [place] # /2018 [facility] HEMATOLOGY Basophils # 0.1 0.0 - 0.2 07/20 [facility] [place] [facility] HEMATOLOGY WBC 3.0 3.7 - 10.4 07/20 [facility] HEMATOLOGY RBC 4.32 4.20 - 07/20 [place] 5.40 /2018 [facility] HEMATOLOGY Hgb 13.3 12.0 - 07/20 [place] 16.0 /2018 [facility] HEMATOLOGY Hct 39.0 36.0 - 07/20 [place] 48.0 /2018 [facility] HEMATOLOGY MCV 90.2 80.0 - 07/20 [facility] 98.0 /2018 [facility] HEMATOLOGY MCH 30.7 27.0 - 07/20 [place] 31.0 /2018 [facility] HEMATOLOGY MCHC 34.1 32.0 - 07/20 [facility] 36.0 /2018 [facility] HEMATOLOGY RDW 14.1 11.5 - 07/20 [facility] 14.5 [facility] HEMATOLOGY Platelet 267 133 - 450 07/20 [facility] HEMATOLOGY MPV 8.2 7.4 - 10.4 07/20 [facility] HEMATOLOGY INR 1.01 0.85 - 07/20 [facility] 1.17 [facility] HEMATOLOGY PT 13.1 12.0 - 07/20 [facility] 14.7 [facility] HEMATOLOGY PTT 27.5 22.9 - 07/20 [place] 35.8 [facility] CHEM PANEL Globulin 3.5 2.7 - 4.2 02/09 [facility] CHEM PANEL B/C Ratio 16 6 - 25 02/09 [facility] CHEM PANEL AGAP 12.9 10.0 - 02/09 [facility] 20.0 CHEM PANEL A/G Ratio 0.9 0.7 - 1.6 02/09 [facility] CHEM PANEL eGFR 95 02/09 [facility] Comment: The eGFR is calculated using [...] PANEL Bili Total 0.2 0.2 - 1.3 / [facility] /2018 CHEM PANEL Total 6.8 6.4 - 8.4 / [facility] Protein CHEM PANEL AST 14 0 - 37 04/ [facility] /2018 CHEM PANEL Creatinine 0.63 0.50 - 04/ [facility] Lvl 1.40 /2019 CHEM PANEL Sodium Lvl 138 135 - 145 / [facility] /2018 CHEM PANEL ALT 24 0 - 65 04/ [facility] /2018 CHEM PANEL Albumin Lvl 3.3 [...] /2018 HEMATOLOGY Eosinophils 0.2 0.0 - 0.5 04/ [facility] # /2018 HEMATOLOGY Monocytes # 0.5 0.0 - 0.8 04/ [facility] /2018 HEMATOLOGY Lymphocytes 0.8 1.0 - 5.5 04/ [facility] # /2018 HEMATOLOGY Neutrophils 1.8 1.5 - 8.1 04/ [facility] # /2018 HEMATOLOGY Segs 54.1 45.0 - 04/03 [facility] 75.0 /2018 HEMATOLOGY Basophils 2.0 0.0 - 1.0 04/ MH [facility] /2018 HEMATOLOGY Eosinophils 5.0 0.0 - 4.0 04/ MH [facility] /2018 HEMATOLOGY Monocytes 15.2 2.0 - 12.0 04/ MH [facility] /2018 HEMATOLOGY Lymphocytes 23.7 20.0 - 04/ MH [facility] 40.0 HEMATOLOGY MPV 8.1 7.4 - 10.4 04 MH [facility] /2018 HEMATOLOGY Platelet 285 133 - 450 02/09 [facility] /2018 HEMATOLOGY MCH 30.3 27.0 - 02/09 [facility] 31.0 HEMATOLOGY MCV 89.5 80.0 - 02/09 [facility] 98.0 /2018 HEMATOLOGY RDW 15.7 11.5 - 02/09 [facility] 14.5 /2018 HEMATOLOGY MCHC 33.8 32.0 - 02/09 [facility] 36.0 HEMATOLOGY Hgb 11.8 12.0 - 02/09 [facility] 16.0 /2018 HEMATOLOGY RBC 3.89 4.20 - 02/09 [facility] 5.40 HEMATOLOGY WBC 3.3 3.7 - 10.4 02/09 [facility] /2018 HEMATOLOGY Hct 34.8 36.0 - 02/09 [facility] 48.0 ELECTROLYTE Chloride Lvl 104 95 - 109 02/04 [facility] S ELECTROLYTE Potassium 3.9 3.5 - 5.1 02/04 [facility] S Lvl /2018 ELECTROLYTE CO2 26 24 - 32 02/04 [facility] S /2018 ELECTROLYTE Glucose Lvl 90 70 - 99 [...] a coli LATE:ORDQN: KELY URINE AND UA [place] Yeast Few /HPF None Seen 02/02 [facility] [...] Glucose Negative Negative 02/02 [facility] STOOL *NA* (02/02/19 6:06 PM) URINE AND UA Ketones Negative Negative 02/02 [facility] STOOL *NA* (02/02/19 6:06 PM) URINE AND UA <1.0 0.1 - 1.0 02/02 [facility] STOOL Urobilinogen /2018 URINE AND UA Nitrite Positive Negative 02/02 [facility] STOOL *ABN* /2018 (02/02/19 [...] [facility] Lvl CHEM PANEL eGFR 96 02/02 [facility] Comment: The eGFR is calculated using [...] AGAP 15.0 10.0 - 02/02 [facility] 20.0 /2018 HEMATOLOGY Hgb 11.4 12.0 - 02/02 [facility] 16.0 HEMATOLOGY Hct 33.7 36.0 - 02/02 [facility] 48.0 HEMATOLOGY RBC 3.73 4.20 - 02/02 [facility] 5.40 HEMATOLOGY RDW 16.3 11.5 - 02/02 [facility] 14.5 HEMATOLOGY MCV 90.3 80.0 - 02/02 [facility] 98.0 /2018 HEMATOLOGY MCH 30.5 27.0 - 02/02 [facility] 31.0 /2018 HEMATOLOGY MCHC 33.7 32.0 - 02/02 [facility] 36.0 HEMATOLOGY MPV 9.5 7.4 - 10.4 02/02 [facility] /2018 HEMATOLOGY Platelet 244 133 - 450 02/02 [facility] HEMATOLOGY WBC 6.2 3.7 - 10.4 02/02 [facility] /2018 HEMATOLOGY Eosinophils 0.2 0.0 - 0.5 02/02 [facility] HEMATOLOGY Monocytes # 0.8 0.0 - 0.8 02/02 [facility] HEMATOLOGY Basophils # 0.1 0.0 - 0.2 02/02 [facility] HEMATOLOGY Monocytes 12.7 2.0 - 12.0 02/02 [facility] HEMATOLOGY Eosinophils 3.3 0.0 - 4.0 02/02 [facility] HEMATOLOGY Segs 72.8 45.0 - 02/02 [facility] 75.0 HEMATOLOGY Lymphocytes 10.3 20.0 - 02/02 [facility] 40.0 HEMATOLOGY Lymphocytes 0.6 1.0 - 5.5 02/02 [facility] # HEMATOLOGY Basophils 0.9 0.0 - 1.0 02/02 [...] Magnesium 2.2 1.8 - 2.4 01/26 [facility] HEMATOLOGY Basophils # 0.1 0.0 - [...] 1.7 1.5 - 8.1 01/26 [facility] # HEMATOLOGY Basophils 1.9 0.0 - 1.0 01/26 [facility] /2018 HEMATOLOGY Platelet 270 133 - 450 01/26 [facility] HEMATOLOGY RDW 16.2 11.5 - 01/26 [facility] 14.5 HEMATOLOGY MCHC 33.7 32.0 - 01/26 [facility] 36.0 HEMATOLOGY MPV 9.1 7.4 - 10.4 01/26 [...] ELECTROLYTE Potassium 3.2 3.5 - 5.1 01/19 [facility]2018 [facility] ELECTROLYTE Chloride Lvl 104 95 - 109 01/19 [facility] S [facility] ELECTROLYTE CO2 29 24 - 32 01/19 [facility] S /2018 [facility] ELECTROLYTE AGAP 12.2 10.0 - 01/[address] [facility] 20.0 [facility] ELECTROLYTE Calcium Lvl 9.3 8.5 - 10.5 01/19 [place] /2018 [facility] ELECTROLYTE eGFR 83 01/19 [facility] Comment: The Medical eGFR is Center calculated [...] Sodium Lvl 142 135 - 145 01/19 [facility] ELECTROLYTE Potassium 3.2 3.5 - 5.1 01/19 [facility] [address] [place] [address] ELECTROLYTE Creatinine 0.76 0.50 - 01/19 [facility] ELECTROLYTE Glucose Lvl 134 70 - 99 01/[address] ELECTROLYTE BUN 11 7 - 22 01/[address] CHEM PANEL Phosphorus 3.0 2.5 - 4.5 01/[address] CHEM PANEL Magnesium 2.0 1.8 - 2.4 01/19 [facility] [address] [place] [address] CHEM PANEL eGFR 93 01/19 [facility] Comment: The Medical eGFR is Center [...] CHEM PANEL AGAP 13.1 10.0 - 01/19 [facility] 20.0 [facility] CHEM PANEL Calcium Lvl 9.2 8.5 - 10.5 01/19 [facility] CHEM PANEL Sodium Lvl 141 135 - 145 01/19 [facility] CHEM PANEL CO2 29 24 - 32 01/19 [facility] CHEM PANEL BUN 11 7 - 22 01/19 [facility] CHEM PANEL Creatinine 0.66 0.50 - 01/19 [place] Lvl 1.40 [facility] CHEM PANEL Potassium 2.1 3.5 - 5.1 01/[address] [facility] Comment: [facility] Critical [facility] Result(s) called to Jeana Montes 01/19/2019 05:39 byJP. Read back OK. CHEM PANEL Chloride Lvl 101 95 - 109 01/19 [facility] CHEM PANEL Glucose Lvl 97 70 - 99 01/19 [facility] HEMATOLOGY RDW 15.1 11.5 - 01/19 [facility] 14.5 /2019 [facility] HEMATOLOGY MCHC 34.1 32.0 - 01/19 [facility] 36.0 [facility] HEMATOLOGY Platelet 526 133 - 450 01/19 [facility] HEMATOLOGY MCH 30.1 27.0 - 01/19 [facility] 31.0 2019 [facility] HEMATOLOGY MCV 88.3 80.0 - 01/19 [facility] 98.0 2019 [facility] HEMATOLOGY MPV 7.5 7.4 - 10.4 01/19 [facility] HEMATOLOGY RBC 3.77 4.20 - 01/19 [facility] 5.40 2019 [facility] HEMATOLOGY WBC 3.7 3.7 - 10.4 01/19 [facility] HEMATOLOGY Hct 33.3 36.0 - 01/19 [place] 48.0 2019 [facility] HEMATOLOGY Hgb 11.4 12.0 - 01/19 [facility] 16.0 2019 [facility] HEMATOLOGY Monocytes 13.6 2.0 - 12.0 01/19 [facility] HEMATOLOGY Lymphocytes 15.6 20.0 - 01/19 [facility] 40.0 2019 [facility] HEMATOLOGY Eosinophils 0.2 0.0 - 0.5 01/19 [facility] s # /2018 [facility] HEMATOLOGY Basophils # 0.1 0.0 - 0.2 01/19 [facility] s [facility] HEMATOLOGY Basophils 2.8 0.0 - 1.0 01/19 [facility] HEMATOLOGY Eosinophils 4.5 0.0 - 4.0 01/19 [facility] s [facility] HEMATOLOGY Neutrophils 2.4 1.5 - 8.1 01/19 [facility] s # [facility] HEMATOLOGY Monocytes # 0.5 0.0 - 0.8 01/19 [facility] s [facility] HEMATOLOGY Lymphocytes 0.6 1.0 - 5.5 01/19 [facility] # [facility] HEMATOLOGY Segs 63.5 45.0 - 01/19 [facility] 75.0 [facility] ELECTROLYTE CO2 25 24 - 32 01/13 [facility] ELECTROLYTE Chloride Lvl 109 95 - 109 01/13 [facility] S [facility] ELECTROLYTE eGFR 94 01/13 [facility] Comment: The Medical eGFR is Center calculated [...] BMI. ELECTROLYTE AGAP 11.5 10.0 - 01/13 [facility] S 20.0 [facility] ELECTROLYTE Calcium Lvl 8.7 8.5 - 10.5 01/13 [place] [facility] ELECTROLYTE Sodium Lvl 142 135 - 145 01/13 [facility] ELECTROLYTE Creatinine 0.63 0.50 - 01/[address] [facility] Lvl 1.40 [facility] ELECTROLYTE Glucose Lvl 86 70 - [address] [facility] /2018 [facility] ELECTROLYTE BUN 24 7 - 22 01/[address] [facility] /2018 [facility] CARDIAC BNP 119 <=100 01/11 [facility] ENZYMES pg/mL /2018 [facility] CHEM PANEL Phosphorus 3.1 2.5 - 4.5 03/ [facility]2018 [facility] CHEM PANEL Magnesium 2.1 1.8 - 2.4 03/ [facility] Lvl /2018 [facility] HEMATOLOGY WBC 9.8 3.7 - 10.4 03/ [facility]2018 [facility] HEMATOLOGY RBC 3.48 4.20 - 03/05 [place] 5.40 /2019 [facility] HEMATOLOGY Hgb 10.5 12.0 - 03/05 [place] 16.0 2019 [facility] HEMATOLOGY MPV 7.0 7.4 - 10.4 03 [facility]2018 [facility] HEMATOLOGY MCV 89.6 80.0 - 0305 [facility] 98.0 2019 [facility] HEMATOLOGY MCH 30.0 27.0 - 0305 [facility] 31.0 2019 [facility] HEMATOLOGY MCHC 33.5 32.0 - 03/05 [facility] 36.0 2019 [facility] HEMATOLOGY RDW 14.4 11.5 - 0305 [facility] 14.5 [facility] HEMATOLOGY Hct 31.2 36.0 - 03/05 [facility] 48.0 2019 [facility] HEMATOLOGY Platelet 515 133 - 450 03/ [facility] [address] [place] [address] HEMATOLOGY Eosinophils 0.3 0.0 - 0.5 03/ [facility] HEMATOLOGY Basophils # 0.1 0.0 - 0.2 03 [facility] [address] [place] [address] HEMATOLOGY Eosinophils 2.7 0.0 - 4.0 03/ [facility] [address] [place] [address] HEMATOLOGY Basophils 0.5 0.0 - 1.0 03/ [address] HEMATOLOGY Neutrophils 8.3 1.5 - 8.1 03/ [facility] HEMATOLOGY Lymphocytes 0.6 1.0 - 5.5 03/ [facility] HEMATOLOGY Monocytes # 0.6 0.0 - 0.[address] HEMATOLOGY Segs 84.7 45.0 - 03/05 [facility] 75.0 /2019 [facility] HEMATOLOGY Lymphocytes 5.7 20.0 - 03/05 [facility] 40.0 2019 [facility] HEMATOLOGY Monocytes 6.4 2.0 - 12.0 03/[address] CHEM PANEL Magnesium 2.2 1.8 - 2.4 03/ [facility] Lvl /2019 [facility] CHEM PANEL Phosphorus 3.4 2.5 - 4.5 03/ [facility] HEMATOLOGY Platelet 547 133 - 450 03/ [facility] HEMATOLOGY MPV 7.4 7.4 - 10.4 03/ [facility] /2018 [facility] HEMATOLOGY RDW 14.7 11.5 - 03/ [facility] 14.5 2019 [facility] HEMATOLOGY MCH 30.3 27.0 - 03/04 [place] 31.0 /2019 [facility] HEMATOLOGY MCHC 34.1 32.0 - 03/ [place] 36.0 /2019 [facility] HEMATOLOGY WBC 9.8 3.7 - 10.4 03/ [facility] HEMATOLOGY Hgb 10.0 12.0 - 03/ [facility] 16.0 /2019 [facility] HEMATOLOGY RBC 3.29 4.20 - 03 [place] 5.40 /2019 [facility] HEMATOLOGY MCV 89.0 80.0 - 03 [facility] 98.0 /2019 [facility] HEMATOLOGY Hct 29.3 36.0 - 03/04 [place] 48.0 /2019 [facility] HEMATOLOGY Segs 83.9 45.0 - 03/04 [place] 75.0 /2019 [facility] HEMATOLOGY Lymphocytes 5.4 20.0 - 03/04 [facility] 40.0 /2019 [facility] HEMATOLOGY Monocytes 7.2 2.0 - 12.0 03/ [address] HEMATOLOGY Eosinophils 0.3 0.0 - 0.5 03/ [facility] [place] [facility] /2018 [facility] HEMATOLOGY Basophils # 0.1 0.0 - 0.2 03/ [facility] /2019 [facility] HEMATOLOGY Basophils 0.8 0.0 - 1.0 03/ [address] HEMATOLOGY Lymphocytes 0.5 1.0 - 5.5 03/ [facility] # /2019 [facility] HEMATOLOGY Eosinophils 2.7 0.0 - 4.0 03/ [facility] /2019 [facility] HEMATOLOGY Neutrophils 8.2 1.5 - 8.1 03 [facility] # /2019 [facility] HEMATOLOGY Monocytes # 0.7 0.0 - 0.8 03/ [facility] /2019 [facility] PARATHYROID Ca Norm WB 1.19 1.05 - 03/04 [place] PROFILE 1.25 [facility] PARATHYROID Ca Ion WB 1.18 1.05 - 01/10 [facility] PROFILE . [facility] TOXICOLOGY Vanco Tr TND * 03 [facility] TOXICOLOGY Vanco Tr 15.9 01/10 [facility]2018 [facility] HEMATOLOGY INR 1.01 0.85 - 01/09 [facility] 1.17 [facility] HEMATOLOGY PT 13.1 12.0 - 01/09 [facility] 14.7 [facility] HEMATOLOGY PTT 30.3 22.9 - 0303 [place] 35.8 [facility] PARATHYROID Ca Ion WB 1.13 1.05 - 01/09 [facility] PROFILE . [facility] PARATHYROID Ca Norm WB 1.18 1.05 - 01/09 [facility] PROFILE 12.03 [facility] PARATHYROID Ca Norm WB 1.10 1.05 - 01/08 [facility] PROFILE 12.03 [facility] PARATHYROID Ca Ion WB 1.04 1.05 - 01/08 [facility] PROFILE 12.03 [facility] TOXICOLOGY Vanco Tr TND 2000 01/08 [facility] TOXICOLOGY Vanco Tr 12.5 01/08 [facility] IMMUNOLOGY H pylori Ag Positive Negative 01/07 Result [facility] Comment: Medical Performed At: [facility] [place]
[address] [place] [address] [phone]<br/ >Radu Baker MD Ph:[phone] CHEM PANEL Procalcitoni 0.95 0.00 - 01/06 [facility] n Lvl 0.10 [facility] CHEM PANEL Osmolality 282 280 - 300 01/05 [facility] URINE CHEM U Sodium 63 01/05 [facility]2018 [facility] URINE CHEM U Osmolality 879 300 - 800 01/05 [facility] as [facility] BACTERIAL - MRSA by PCR Positive 1 01/05 [place] [facility] *ABN* /2018 Comment: Medical (01/04/19 6:15 PM) "Significant C enter Findings called to Shirin Kwong at 01/05/2019 12:38 by bf. Read Back OK." URINE AND UA Sq Epi None Seen 01/04 [facility] STOOL /[address] [place] [address] URINE AND UA Mucus Few /LPF None Seen 01/04 [facility] STOOL /LPF /2018 [facility] URINE AND UA WBC <1 0 - 5 01/04 [facility] STOOL /2018 [facility] URINE AND UA Leuk Est Negative Negative 01/04 [facility] STOOL (01/04/19 9:48 AM) /[facility] URINE AND UA RBC <1 0 - 2 01/04 [facility] STOOL /2018 [facility] URINE AND UA Bili Negative Negative 01/04 [facility] STOOL *NA* /2018 [facility] (01/04/19 9:48 AM) [place] URINE AND UA 4.0 0.1 - 1.0 01/04 [facility] Urobilinogen /2018 [facility] URINE AND UA Blood Negative Negative 01/04 [facility] STOOL (01/04/19 9:48 AM) /[address] [facility] URINE AND UA Nitrite Negative Negative 01/04 [facility] (01/04/19 9:48 AM) /2018 [facility] URINE AND UA Ketones Negative Negative 01/04 [facility] STOOL mg/dL mg/dL /2018 [facility] URINE AND UA Protein 20 mg/dL Negative 01/04 [facility] STOOL mg/dL /2018 [facility] URINE AND UA pH 6.5 5.0 - 8.0 01/04 [facility] STOOL /2018 [facility] URINE AND UA Glucose Negative Negative 01/04 [facility] mg/dL mg/dL [facility] URINE AND UA Turbidity Clear Clear 01/04 [facility] (01/04/19 9:48 AM) /2018 [facility] URINE AND UA Spec Grav 1.027 <=1.030 01/04 [facility] STOOL /2018 [facility] URINE AND UA Color Yellow Yellow 01/04 [facility] STOOL *NA* /2018 [facility] (01/04/19 9:48 AM) [facility] HEMATOLOGY PT 12.5 12.0 - 01/03 [place] 14.7 [facility] HEMATOLOGY INR 0.95 0.85 - 01/03 [place] 1.17 [facility] MOLECULAR C difficile Negative Negative 01/02 [facility] DIAGNOSTIC DNA (01/02/19 3:20 AM) /2018 [facility] HEMATOLOGY Plav Effect 347 12/29 [facility] Plt /2018 [facility] BACTERIAL - MRSA by PCR Negative 12/[place] (12/29/18 3:47 AM) /2018 [facility] CARDIAC Troponin-I 0.02 0.00 - 12/29 [facility] ENZYMES 0.40 [facility] CHEM PANEL Lactic Acid 1.8 0.5 - 2.2 12/29 [place] /2018 [facility] CHEM PANEL Total 5.8 6.4 - 8.4 12/29 [facility] Protein [facility] CHEM PANEL Albumin Lvl 3.1 3.5 - 5.0 12/[place] [facility] CHEM PANEL B/C Ratio 18 6 - 25 12/[address] CHEM PANEL Alk Phos 69 39 - 136 12/29 [facility]2018 [facility] CHEM PANEL ALT 23 0 - 65 12/29 [facility]2018 [facility] CHEM PANEL AST 20 0 - 37 12/29 [facility]2018 [facility] CHEM PANEL Globulin 2.7 2.7 - 4.2 12/29 [facility]2018 [facility] [facility] CHEM PANEL A/G Ratio 1.1 0.7 - 1.6 12/29 [facility]2018 [facility] CHEM PANEL Bili Total 0.4 0.2 - 1.3 12/[address] DRUG SCREEN U Opiate Scr Negative Negative 12/29 [place] *NA* Medical (12/29/18 3:47 AM) Center DRUG SCREEN U Cocaine Negative Negative 12/29 [facility] Scr *NA* Medical (12/29/18 3:47 AM) Center DRUG SCREEN UDS Note See Note 12/29 [facility] (12/29/18 3:47 AM) /2018 Medica l Center DRUG SCREEN U Negative Negative 12/29 [facility] Phencyclidin *NA* Medical e Scr (12/29/18 3:47 AM) Center [...] INR 1.10 0.85 - 12/29 [place] 1.17 [facility] HEMATOLOGY PT 14.0 12.0 - 12/29 [place] 14.7 [facility] HEMATOLOGY PTT 26.1 22.9 - 12/29 [place] 35.8 /2018 [facility] HEMATOLOGY R-time Rapid 0.6 0.4 - 0.7 12/29 [place] [facility] HEMATOLOGY [place] 0.5 12/29 [facility] HEMATOLOGY ACT (TEG) 105 86 - 118 12/29 [facility] HEMATOLOGY Angle Rapid 76 64 - 80 12/29 [facility] HEMATOLOGY K-time Rapid 1.2 0.6 - 2.3 12/29 [facility] HEMATOLOGY G-value 8.9 5.0 - 11.6 12/29 [facility] HEMATOLOGY Max 64 52 - 71 12/29 [facility] HEMATOLOGY Estimated % 2.7 0.0 - 7.5 12/29 [place] [facility] LIPIDS CHD Risk 1.78 3.90 - 12/29 [place] 5.80 [facility] LIPIDS HDL 77 >=61 mg/dL 12/29 [facility] LIPIDS Chol 137 <=199 12/29 [facility] mg/dL [facility] LIPIDS Trig 32 <=149 12/29 [facility] mg/dL [facility] LIPIDS LDL 54 <=99 mg/dL 12/29 [facility] (Calculated) [facility] LIPIDS VLDL 6 12/29 [facility] URINE AND UA Amorph Few /HPF None Seen 12/29 [facility] STOOL Nicolasa /HPF /2018 [facility] URINE AND UA WBC 2 0 - 5 12/29 [facility] STOOL [facility] URINE AND UA Leuk Est Negative Negative 12/29 [facility] STOOL (12/29/18 3:47 AM) [facility] [place] [facility] UA Nitrite Negative Negative 12/29 [facility] STOOL (12/29/18 3:47 AM) [facility] [place] URINE AND UA Blood Negative Negative 12/29 [facility] STOOL (12/29/18 3:47 AM) Medica l [place] URINE AND UA Bili Negative Negative 12/29 [facility] STOOL *NA* /2018 [facility] (12/29/18 3:47 AM) [place] URINE AND UA Ketones Negative Negative 12/29 [facility] STOOL mg/dL mg/dL [facility] URINE AND UA Glucose Negative Negative 12/29 [facility] STOOL mg/dL mg/dL [facility] URINE AND UA <=1.0 0.1 - 1.0 12/29 [facility] STOOL Urobilinogen mg/dL [facility] URINE AND UA Sq Epi None Seen 12/29 STOOL [facility] URINE AND UA Protein Negative Negative 12/29 [facility] STOOL mg/dL mg/dL [facility] URINE AND UA pH 7.5 5.0 - 8.0 12/29 [facility] STOOL [facility] URINE AND UA Spec Grav 1.027 <=1.030 12/29 [facility] STOOL [facility] URINE AND UA Turbidity Slight Clear 12/29 [facility] STOOL *ABN* /2018 [facility] (12/29/18 3:47 AM) [place] URINE AND UA Color Light Yellow Yellow 12/29 [facility] STOOL *NA* [facility] (12/29/18 3:47 AM) [place] BLOOD BANK ABO/Rh A POS 12/29 [facility] RESULTS [facility] BLOOD BANK Antibody Negative 12/29 [facility] RESULTS Scrn (12/28/18 11:11 PM) [facility] HEMATOLOGY Estimated % 0.8 0.0 - 7.5 12/[place] [facility] HEMATOLOGY [place] 0.5 12/29 [facility] Rapid [facility] HEMATOLOGY ACT (TEG) 105 86 - 118 12/29 [facility] Rapid [facility] HEMATOLOGY R-time Rapid 0.6 0.4 - 0.7 12/29 [place] [facility] HEMATOLOGY K-time Rapid 0.8 0.6 - 2.3 12/29 [facility] HEMATOLOGY G-value 12.0 5.0 - 11.6 12/29 [place] Rapid [facility] HEMATOLOGY Max 71 52 - 71 12/29 [facility] Amplitude [facility] HEMATOLOGY Angle Rapid 80 64 - 80 12/29 [facility] BLOOD BANK Platelet Product available 12/29 [facility] RESULTS product (12/28/18 11:00 PM) [facility] CHEM PANEL POC 0.6 0.5 - 1.4 12/29 [facility] Creatinine [facility] CARDIAC Total CK 67 12 - 191 12/29 [facility] ENZYMES [facility] CARDIAC Troponin-I <0.02 0.00 - 12/29 [facility] ENZYMES 0.40 [facility] HEMATOLOGY PTT 20.2 22.9 - 12/29 [facility] [place] 35.8 /2018 [facility] HEMATOLOGY Plt Morph Normal 12/29 [facility] (12/28/18 9:55 PM) [facility] HEMATOLOGY RBC Morph Normal 12/29 [facility] (12/28/18 9:55 PM) [facility] Pathology Reports No Data Provided for This Section Diagnostic Reports Report Value Date Source Brain wo contrast MRI PROCEDURE INFORMATION: 09/03/2019 [facility] Exam: MR Head Without Contrast Exam date [...] 0 (mGy): DLP = 904.8 (mGy-cm) 09/03/2019 [facility] PROCEDURE INFORMATION: Exam: CT Head Without Contrast [...] infarction. Apollo Diamond MD On 09/03/2019 10:50:28; VR-KME [id number] Abdomen AP DX ABDOMEN SINGLE VIEW 02/04/2019 [...] normal. Lung bases not included in the [id number]. IMPRESSION: Moderate amount of colonic stool. PEG [...] retained fecal matter with colonic di verticulosis. [id number] Chest 1view DX PROCEDURE: Chest Radiograph. 01/20/2019 [...] with a very small left pleural effusion. [id number] Abdomen AP DX EXAM: XR ABDOMEN 1 VIEW 01/19/2019 [facility] DATE: 01/19/2019 10:[address] [...] EXAM: FLUOROSCOPY MODIFIED BARIUM SWALLOW 0 01/12/2019 [facility] function video DX DATE: 01/12/2019 at 1044 [...] differe nt consistencies. Thin barium: Symptomatic aspiration. 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 Patchy airspace opacitie s are seen in both lungs suggestive of multifocal infection, improved compared to previous study. 2. Cardiomediastinal is upp er limit of normal size. Aortic atherosclerotic disease. 3. Small right and moderate left bilateral pleu ral effusions. 4. Osseous structures are stable. Brain wo contrast MRI 01/11/2019 [facility] edical EXAMINATION: MRI brain [...] DX EXAM: XR CHEST 1 VIEW 01/10/2019 [facility] edical DATE: 01/10/2019 10:56 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 Center INDICATION: - evaluate for possible PNA [...] DX EXAM: XR CHEST 1 VIEW 01/08/2019 [facility] edical DATE: 01/08/2019 3:00 AM 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 Cente r INDICATION: - pneumonia COMPARISON: 01/07/2019 [...] DX EXAM: XR CHEST 1 VIEW 01/07/2019 [facility] edical DATE: 01/07/2019 7:37 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 Center INDICATION: - mucous plug COMPARISON: December [...] CHEST WITH CONTRAST 01/06/2019 [facility] DATE: 01/06/2019 8:48 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 Center INDICATION: - respiratory distress, desatting, ADDITIONAL [...] DX EXAM: XR CHEST 1 VIEW 01/06/2019 [facility] edical DATE: 01/06/2019 3:00 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 Center INDICATION: - concern for pna COMPARISON: [...] CT EXAM: CT BRAIN WITHOUT CONTRAST 01/04/2019 [facility] DATE: 01/04/2019 1:32 PM Center INDICATION: 63-year-old [...] DX EXAM: XR CHEST 1 VIEW 01/04/2019 [facility] edical DATE: 01/04/2019 8:40 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 Center INDICATION: - pulse ox 91 on [...] DX EXAM: XR ABDOMEN 1 VIEW 12/31/2018 [facility] DATE: 12/31/2018 10:39 PM 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 [address] INDICATION: - [place] placement COMPARISON: [...] CT EXAM: CT BRAIN WITHOUT CONTRAST 12/30/2018 [facility] DATE: 12/30/2018 4:00 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 Center INDICATION: - Post-op scan COMPARISON: CT [...] DX EXAM: XR ABDOMEN 1 VIEW 12/29/2018 [facility] DATE: 12/29/2018 4:46 PM 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 Cent er INDICATION: - DHT placement COMPARISON: [...] DX EXAM: XR ABDOMEN 1 VIEW 12/29/2018 [facility] DATE: 12/29/2018 8:36 AM Center INDICATION: - [...] CT EXAM: CT BRAIN WITHOUT CONTRAST 12/29/2018 [facility] DATE: 12/29/2018 3:07 AM 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 Cent er INDICATION: - S/P L Hemicraniectomy, [...] EXAM: CT ANGIOGRAM OF THE BRAIN 12/28/2018 [facility] EXAM: CT ANGIOGRAM OF THE NECK C enter DATE: 12/28/2018 10:32 PM 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 INDICATION: - left frontal bleed COMPARISON: Contemporaneous CT examination of [facility] head TECHNIQUE: -Rapid acquisition spiral im ages [...] result of the hemo rrhage there is rcej-xa-nhquj subfalcine herniation leading to displacement of the [...] wo EXAM: CT BRAIN WITHOUT CONTRAST 12/28/2018 [facility] contrast CT DATE: 12/28/2018 10:32 PM 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 [address] INDICATION: Intracranial hemorrhage - stroke [...] ventricle and development of 11 mm of bdor-go-okqin subfalcine herniation. Trapping of CSF has occurred [...] DX EXAM: XR CHEST 1 VIEW 12/28/2018 [facility] edical DATE: 12/28/2018 at 2222 hours Ce nter INDICATION: - stroke ADDITIONAL INFORMATION: '[facility]- onset 1800 [...] Source Temperature Oral (F) 97.7 F 09/05/2019 [facility] Heart Rate 58 09/05/2019 [facility] Respitory Rate 16 09/05/2019 [facility] Systolic (mm Hg) 168 09/05/2019 [facility] Diastolic (mm Hg) 82 09/05/2019 [place] Temperature Oral (F) 98.1 F 09/05/2019 [facility] Heart Rate 57 09/05/2019 [facility] Respitory Rate 18 09/05/2019 [facility] Systolic (mm Hg) 159 09/05/2019 [facility] Diastolic (mm Hg) 85 09/05/2019 [place] Temperature Oral (F) 98.4 F 09/05/2019 [facility] [place] Heart Rate 61 09/05/2019 [place] Respitory Rate 20 09/05/2019 [place] Systolic (mm Hg) 150 09/05/2019 [place] Diastolic (mm Hg) 71 09/05/2019 [place] Height 157.48 cm 09/02/2019 [place] Weight 52.273 09/02/2019 [place] BMI Calculated 21.08 [facility] Oral (F) 97.9 F 07/22/2019 [facility] Heart Rate 76 07/22/2019 [facility] Respitory Rate 18 07/22/2019 [facility] Center Systolic (mm Hg) 133 07/22/2019 [facility] dical Center Diastolic (mm Hg) 68 07/22/2019 [facility] Temperature Oral (F) 98.0 F 07/22/2019 [facility] Heart Rate 74 07/22/2019 [facility] Respitory Rate 18 07/22/2019 [facility] Center Systolic (mm Hg) 127 07/22/2019 [facility] dical Center Diastolic (mm Hg) 63 07/22/2019 [facility] Center Systolic (mm Hg) 108 07/22/2019 [facility] dical Center Diastolic (mm Hg) 54 07/22/2019 [facility] Heart Rate 80 07/22/[address] [facility] Temperature Oral (F) 97.8 F 07/22/2019 [facility] Respitory Rate 17 07/22/2019 [facility] Center Height 160.02 cm 07/20/2019 [facility] Weight 48.636 07/20/2019 [facility] BMI Calculated 18.99 07/20/2019 [facility] Center Height 160.02 cm 07/15/2019 [facility] Weight 48.636 07/15/2019 [facility] BMI Calculated 18.99 07/15/2019 [facility] zak Center Diastolic (mm Hg) 86 02/11/2019 [...] 01/20/2019 [facility] Systolic (mm Hg) 135 01/19/2019 [facility] dical Center Diastolic (mm Hg) 69 01/19/2019 [facility] Heart Rate 63 01/19/[address] [facility] Heart Rate 64 01/19/2019 [facility] Temperature Oral (F) 98 F 01/19/2019 [facility] Systolic (mm Hg) 125 01/19/2019 [facility] dical Center Diastolic (mm Hg) 75 01/19/2019 [facility] Center Respitory Rate 16 01/19/2019 [facility] Center Respitory Rate 16 01/19/2019 [facility] Systolic (mm Hg) 117 01/19/2019 [facility] dical Center Diastolic (mm Hg) 64 01/19/2019 [facility] Heart Rate 64 01/19/2019 [facility] Temperature Oral (F) 97.9 F 01/19/2019 [facility] Respitory Rate 16 01/19/2019 [facility] Temperature Oral (F) 97.6 F 01/19/2019 [facility] Height 157.48 cm 01/06/2019 [facility] Med[facility] l Center Weight 63.636 01/06/2019 [facility] l Center Weight 63.636 01/04/2019 [facility] Center Height 157.48 cm 01/04/2019 [facility] l Center Weight 63.636 01/04/2019 [facility] Height 157.48 cm 01/04/2019 [facility] BMI Calculated 25.66 12/29/2018 [facility] Encounters Location Location Encounter Encounter Reason Attending ADM DC Stat us Source Details Type Number For Provider Date Date Visit [facility] [id number] Dwayne 12/29 01/20 [facility] Diony 0 [facility] In[facility] [id number] Theresa 01/20 02/11 [facility] 0 Dragojlovic Diony MNA Phone [id number] 06/13 06/15 [facility] Neurosurger Message Neur o y [facility] [id number] Wolf 07/20 07/22 [facility] 3 [place] [facility] [id number] [employer] [place] 09/04 09/05 [facility] Outpatient [id number] Jesus Krekenneth 12/[address] [facility] Outpatient [id number] Jesus Krell 01/[address] [facility] Outpatient [id number] Jesus Krell 05/[address] [facility] Procedures Procedure Code Date Perfomer Comments Source Craniotomy [id number] [facility] Hysterectomy [id number] [facility] Assessment and Plan Assessment and Plan Date Source Extracted from:Title: Discharge Summary * 09/05/2019 [facility] Author: Jenelle Samson MD Date: 09/05/19 Discharge Plan Discharge Summary Plan Discharge Status: improved. Discharge instructions given: to patient. Discharge disposition: discharge to home into the care of [facility]. Prescriptions: continue same medications, written and given to patient. Diagnosis History of hemorrhagic stroke with resid ual hemiparesis (JZN18-ZY I69.359, Working, Medical). New onset seizure (WLY81-[place] R56.9, Working, Medical). Pancolonic diverticulosis (FNP77-[place] K57.30, Working, Medical ). Course Improving. Extracted [...] and kinesiogenic artif act. The single channel monitor and storage bin tender was not monitored. IMPRESSION: This continues to [...] hours -Follow up with Dr. Nate Urrutia [facility] [address] [facility] [address] [address] (or Neurologist of choice) Discussed with the patient and . All questions answer ed. Will sign off. Please call with questions. ---- Jessie Nina MD (TC) Vascular Neurology Shoelace Tipping Machine Operator of Neurology Call Center: [phone] Extracted from:Title: Teleneurology Routine New Consult Author: [...] -- 02/11/19 ADMITTING PHYSICIAN: Theresa fuller DO, #[id number], Physical Medicine and Rehabilitation, pager [phone] ADMITTING DIAGNOSES: Nontraumatic intracerebral hemorrhage in hemisphere, [...] cath program, but given discharge to SNF, Humhpries replaced. Voiding trial will need to be [...] sit and squat pi vot transfer to [facility]. Pt mod-max A for si t to stand and able to tolerate static standing for ~1 min w/ max A for balance. Pt hypotensive w/ positional changes (84/52 seated in [facility]), however this improved during second day of [...] Vision Vision Status: WFL Performed: 02/11/19 07:35 VAPOR COATER Current Status Severity Level Comprehension: Tot A [...] 283 mg r ectal enema) 283 mg MS Every Other Day-5PM 02/06/19 docusate (Colace 100 [...] Mini 283 mg rectal enema) 283 mg MS Bedtime 01/19/19 levETIRAcetam 1,500 mg IV PRN [...] DISPOSITION: SNF DISCHARGE FOLLOW UPS: Helpful Information Skid Road Man: Skid Road Man - Sushma Medellin LMSW 1. [facility] repeat MRI brain w /wo contrast in mid-March 2019. Clinic #[phone] Christine in 2 -4 wee ks after discharge to discuss cranioplasty , 3. [place] [facility] in 3 months w/ r [...] best of my knowledge. 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 Incontinent thus [...] consulted and patient will follow up with [place] [facility] clinic in 3 months with repeat [...] via PEG regardless of PO intake - VAPOR COATER treatments ongoing - Mash Processing Operator consulted - Hypokalemia: serial BMPs ongoing, on s cheduled potassium replacement with improvement - Oral thrush: identified on admit, Nystatin 14 day course c ompleted 02/03/19 # Disposition: -Anticipated discharge date 02/11 to SNF #Follow-up 1. [facility] repeat MRI brain w /wo contrast in 3 months. Clinic #[phone] Christine in 2 -4 wee ks - to discuss cranioplasty , 3. PCP in 1-2 weeks for post hospitalization care 4. [facility] in 3 months w/ repeat CTA chest, 5. PCP 6. [facility] PM[facility]R Outpatient clinic 7. [facility] Urology, call for appointment Theresa Vera DO #[id number] Pager #[phone] Attending Physician, Physical Medicine and Rehabilitation Extracted from:Title: PM&R History and Physical Author: Dex Valentine DO Date: 01/20/19 PHYSICAL MEDICINE and REHABILITATION HISTORY AND PHYSICAL DATE OF ADMISSION: 01/19/19 TRANSFERRING FACILITY: [facility] ADMITTING REHAB DIAGNOSIS: Left temporal/parietal ICH ATTENDING [...] GT Daily 01/19/19 amoxicillin 1,000 mg PEG [id number] 01/20/19 citalopram 10 mg PEG Daily 01/19/19 clarithromycin 500 mg PEG [id number] 01/20/19 heparin 5,000 unit SUB-Q Q8H-06 01/20/19 [...] 01/20/19 Pain Intensity NRS (0-10) 0 01/20/19 [facility] Fall Score 15 01/20/19 Quinten Score 17 [...] residual right hemiparesis. Curr ently admitted to [facility] for comprehensive of brain injury rehabilitation. IMPAIRMENTS: [...] bladder issues and skin integrity.Patient may require social work therapist and/or case management f or discharge planning [...] discussion of flap placement #Cognitive/communication deficits #Aphasia VAPOR COATER consulted for speech and cognitive impairments. Neuropsych [...] consulted and patient will follow up with [place] [facility] [place] in 3 months with repeat CTA chest Completed course of vancomycin/Zosyn Repeat chest x-ray pending #Hypertension Admitted on amlodipine 10 mg daily and labetalol 200 mg 3 t imes daily Due to episodes of orthostatic hypotension, will DC amlodip ine [place] hospitalist consulted for comanagement #Hypokalemia K is 2.4 on admission Replaced and will repeat labs tomorrow #Normocytic anemia Present on admission Continue to monitor # Skin: Turn patient every 2-3 hours when in bed to prevent skin br eakdown #Oral thrush Started nystatin for 14 days # DVT Prophylaxis: Heparin #GI prophylaxis on PPI for H. pylori # Nutrition/Dysphagia: - Consult plan rep. - VAPOR COATER for swallowing exercises -Currently on dysphagia diet [...] good. #Disposition: -Anticipated discharge date to [facility]. Will discuss at interdisciplinary team rounds -Estimated length of stay: 3-4 weeks #Follow-up - [place] [facility] repeat MRI brain w/w o contrast in 3 months. Clinic #[phone] - Neurosurgery in 2 -4 weeks - flap , - PCP in 1-2 weeks for post hospitalization care - GI for possible PEG removal in 8 weeks - [place] [facility] in 3 months w/ repeat CTA chest, Saqibalden Meme ROBERTO PGY-3 Physical Medicine and Rehabilitation Addendum by Theresa Vera DO on 01/20/2019 18:44 PM&R ATTENDING PHYSICIAN ADDENDUM POST-ADMISSION PHYSICIAN EVALUATION I saw, examined and discussed the patien t with the resident, Dr. Valentine and agree with the documentation except for the strikethrough and/or edits noted here: Labs reviewed, hypokalemia corrected. Will need repeat monit oring. Hypertensives held, [place] hospitalist consulted. Patient admitted without free water [...] bacterial intestinal infections (A04.8) Theresa Vera DO #[id number] Pager #[phone] Attending Physician, Physical Medicine and Rehabilitation Extracted from:Title: Stroke 01/20/2019 [facility] Author: Patricia Negron NP Date: 01/18/19 STROKE [...] end on 01/26 (clarithromycin 500 mg PEG [id number], lansoprazole (Prevacid) 30 mg PEG BID, amoxicillin (Amoxil) 1,000 mg PEG [id number]) Recommend treatment for H. pylori with t [...] Daily 01/13/19 amoxicillin (Amoxil) 1,000 mg PEG [id number] 01/09/19 clarithromycin 500 mg PEG [id number] 01/09/19 guar gum (guar gum oral powder [...] MRI brain w/wo contrast in 3 months. 2. Neurosurgery in 2 -4 weeks - flap , 3. GI - PEG tube 4. PCP - post hospitalization care 5. [place] [facility] in 3 months w/ repeat CTA chest, Extracted from:Title: Pulmonology Consultation Author: Pete Benoit [...] by Tari Laguna MD on 01/13/2019 08:30 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 Pulmonary Consult Attending I have seen and examined the patient. Fu rthermore, I have reviewed /multicultural internship's note date01/12/19 and agree with the exam, [...] 12/29/18 Stroke History and Physical Patient:Mayi Nina MRN:Fin#:[id number] Chief Complaint: altered mental status History of [...] mild compression of lateral ventricle. Transferred to [facility] for HLOC. On arrival to our [...] 2-neither 2 1c. LOC Commands open/close eyes, cogeneration operator/r elease non-paretic hand; 0-both 1-one 2-neither 0 [...] Hgb L 10.4 (DEC 29) 13.2 (DEC 10 9) Hct L 30.8 (DEC 29) 40.2 (DEC [...] Assessment: Patient is a 63 y/o F [facility] HTN Plan: Subcortical ICH, nontraumatic Acuity: Acute Laterality: left Current suspected etiology:to be determined Treatment: -Admit to [facility] -ICH Score:3 on our repeat scan -ICH Volume:87 cc on our repeat scan -BP control goal SYS<140 -s/p hemicrani and evacuation, nsgy following -PT/OT/ST -neuromonitoring STOREROOM ATTENDANT Cerebral edema Compression of brain -s/p craniectomy [...] Code THE FOLLOWING WERE PRESENT ON ADMISSION: STOREROOM ATTENDANT - SAH, ICH, Hemiparesis ACUTE STROKE BENCHMARKS: [...] this process: (None) An Chahal, DO PGY2, [facility] Neurology STROKE NEUROLOGY ATTENDING I have seen [...] leeding. THE FOLLOWING WERE PRESENT ON ADMISSION: STOREROOM ATTENDANT - coma. Brain herniation. Respiratory - Ventilator dependent, Respiratory failure Assessment/Plan: [id number] admission Principal Diagnosis: I61.0 Nontraumatic intracerebral hemorrhage [...] nursing. Davion Serrano MD MS Vascular Neurology [employer] Supervisor - [facility] Pager: [phone] Plan of Care No Data Provided for This Section Social History Social History Date Source Social History TypeResponse 07/15/2019 [facility] Alcohol Current, Frequency: 1-2 times per month. Smoking Status Never smoker; Ready to change: No; Natasha rns about tobacco use in household: No; Exposure to Tobacco Smoke None; Cigarette Smoking Last 365 Days No; Reg Smoking Cessation Counseling No entered on: 07/20/19 Social History TypeResponse 07/15/2019 [facility] Alcohol Current, Frequency: 1-2 times per [...]
--- OUTSIDE RECORDS SUMMARY | 2020-06-05 14:29 | XMS REPORT | Continuity of Care Document ---
:1955 Author Organization [facility] t Address [address] [place] [address] Care Team Providers Name Role Phone Chapin [...] Memoria SEIZURE 0-25 18:35:00 l NEW 10:53: Diony ONSET 00 SEIZURE Active 09/02/2019 [facility] NEW ONSET Diagnosis Active 2018-112019-09-15 Memoria SEIZURE,PA 0- 21:47:00 l NCOLONIC NEW 10:53: Diony DIVERTICUL ONSET 00 O SEIZURE,PA NCOLONIC DIVERTICUL O Active 09/02/2019 [facility] [place] CRANIOTOMY Diagnosis Active 2019-08-22 Memoria 07-07 22:05:00 l 00:00: [place] CRANIOTOMY 00 Active 07/07/2019 [facility] DISCHARGE Diagnosis Active 2019-07-29 Memoria FOLLOW UP 02-11 17:14:00 l 00:00: [place] DISCHARGE 00 FOLLOW UP Active 02/11/2019 [facility] 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 Julianna Neuro,[facility], Carlos Alberto Johnson [facility] IPH Diagnosis Active 2018-12-28 Mem oria 12-28 21:50:00 l IPH 00:00: [place] 00 Active 12/28/2018 [facility] ICH Diagnosis Active 2019-01-25 Mem oria 12-28 22:13:00 l ICH 00:00: [place] 00 Active 12/28/2018 [facility] NONTRAUMAT Diagnosis Active 2019-01-19 Memoria IC 12-28 12:51:00 l INTRACEREB 00:00: Rene n RAL NONTRAUMAT 00 HEMORRHAGE IC IN INTRACEREB RAL HEMORRHAGE IN Active 9 [facility] BI/SAH Diagnosis Active 2019-02-01 Mem oria 12-28 18:48:00 l BI/SAH 00:00: [place] 00 Active 12/28/2018 [facility] Traumatic Problem 2019-02-13 Nv moria subdural 21:18:28 l hemorrhage Rene n without Traumatic loss of subdural consciousn hemorrhage ess, without initial loss of encounter consciousn ess, initial encounter 02/13/2019 [facility] Epilepsy, Problem 2019-09-07 Me moria unspecifie 21:31:10 l d, not Diony intractabl Epilepsy, e, without unspecifie status d, not epilepticu intractabl s e, without status epilepticu s 09/07/2019 [facility] Cerebrovas Problem Active 2019-09-07 M emoria cular 21:31:10 l accident [place] (disorder) Cerebrovas cular accident (disorder) Active Problem 09/07/201912/28-righ t sided weakness 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 Global Problem Active 2019-09-07 Memor ia aphasia 21:31:10 l (finding) Global Deb nn aphasia (finding) Active Problem 09/07/2019 [facility] Hypertensi Problem Active 2019-09-07 M emoria ve 21:31:10 l disorder, Diony systemic Hypertensi arterial ve (disorder) disorder, systemic arterial (disorder) Active Problem 09/07/2019 [facility] Intracereb Problem Active 2019-09-07 M emoria ral 21:31:10 l hemorrhage Rene n , Intracereb intraventr ral icular hemorrhage (disorder) , intraventr icular (disorder) Active Problem 09/07/2019 [facility] Subcortica Problem Active 2019-09-07 M emoria l 21:31:10 l hemorrhage Rene n (disorder) Subcortica l hemorrhage (disorder) Active Problem 09/07/2019 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 n ate secretion vasopressi (disorder) n secretion (disorder) Active Problem 09/07/2019 [facility] NONTRAUMAT Diagnosis Active 2019-01-25 Memoria IC 22:13:00 l INTRACEREB Rene n RAL NONTRAUMAT HEMORRHAGE IC , U INTRACEREB RAL HEMORRHAGE , U Active [facility] TRAUM Diagnosis Active 2019-02-01 Mem oria SUBDR HEM 18:48:00 l W/O LOSS TRAUM [place] OF SUBDR HEM CONSCIOUSN W/O LOSS ES OF CONSCIOUSN ES Active [facility] OTHER Diagnosis Active 2019-07-29 Mem oria MUSCLE 17:14:00 l SPASM OTHER [place] MUSCLE SPASM Active [facility] EPILEPSY, Diagnosis Active 2019-09-02 Memoria UNSP, NOT 13:35:00 l INTRACTABL Rene n E, WITHOUT EPILEPSY, UNSP, NOT INTRACTABL E, WITHOUT Active [facility] UNSPECIFIE Diagnosis Active 2019-09-15 Memoria D 21:47:00 l CONVULSION Rene n S UNSPECIFIE D CONVULSION S Active [facility] ENCNTR FOR Diagnosis Active 2019-09-03 Memoria GENERAL 10:18:00 l ADULT ENCNTR [place] MEDICAL FOR EXAM W/ GENERAL ADULT MEDICAL EXAM W/ Active [facility] DVRTCLOS Diagnosis Active 2019-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 M emoria OF LG INT 21:47:00 l W/O DVRTCLOS Rene n PERFORATIO OF LG INT N OR AB W/O PERFORATIO N OR AB Active [facility] Allergies, Adverse Reactions, Alerts Allergy Allergy Status Severity Reaction(s) Onset Inactive Treating Comm ents Source Name Type Date Date Clinician No Known No Known Active Memori a Medicati Medicati l on on Diony Allergie Allergie s s Social History Social Habit Start Date Stop Date Quantity Comments Source Social History 2018-12-29 2018-12-29 [facility] beau 11:21:31 11:21:31 Medications Ordered Filled Start Stop Current Ordering Indication Dosage Frequency Signature Comments Components Source Medication Medication Date Date Medication? Clinician (SIG) Name Name Levetiracet 2018-11 Yes 1,000 mg = Memoria am 500 MG 0-28 2 tab, PO, l Oral Tablet 16:08: Q12H, # Her whaley [Keppra] 00 360 tab, 2 Refill(s), Pharmacy: [id number] Levetiracet 2018-11 No Notes: Farhat cornell am 500 MG 0-28 (Same l Oral Tablet 01:07: as:Keppra) Diony [Keppra] Keppra 2018-11 No Notes: Memoria 0-27 Same as: l 14:48: Keppra Diony Levetiracet 2018-11 No Notes: Farhat cornell am 500 MG 0-26 (Same l Oral Tablet 14:46: as:Keppra) Diony [Keppra] 00 Buspirone 2018-11 No Notes: Memori a 0-26 (Same As: l 14:00: BuSpar) Diony 00 Citalopram 2018-11 No 10 mg, 1 Mem oria 0-26 tab, l 14:00: Route: PO, Diony 00 Drug form: TAB, Daily, Dosing Weight 52.273, kg, Start date: 09/03/19 9:00:00 CDT, Duration: 30 day, Stop date: 10/02/19 9:00:00 LOG BRANDER, 0 Cyclosporin 2018-11 No Notes: Farhat cornell e 0.5 MG/ML 0-26 (Same as: l Ophthalmic 14:00: Restasis) He rmann Suspension 00 [Restasis] Cymbalta 2018-11 No Notes: Memoria 0-26 (Same as: l 14:00: Cymbalta) Diony 00 (Do Not Crush) Labetalol 2018-11 No Notes: Memori a 0-26 With food. l 14:00: (Same Diony 00 as:Trandat e, Normodyne) Memantine 2018-11 No Notes: Memori a 0-26 (Same As: l 14:00: Namenda) [place] 00 Potassium 2018-11 No Notes: Memori a Chloride 0-26 (Same as: l 1.33 MEQ/ML 14:00: Potassium H ermann Oral 00 Chloride) Solution sennosides, 2018-11 No Notes: Farhat cornell DETENTION 8.6 MG 0-26 (Same as: l Oral Tablet 14:00: Senokot) rm Miralax 2018-11 No Notes: Memoria 0-26 Dissolve l 14:00: in 8 oz of Diony 00 water or juice. (Same as: Miralax) pantoprazol 2018-11 No Notes: Farhat cornell e 0-26 Tablet l 12:30: should not [place] 00 be chewed or crushed. (Same as: Protonix) gabapentin 2018-11 No Notes: Memor ia 300 MG Oral 0-26 (Same as: l Capsule 02:00: Neurontin) Herm Lisinopril 2018-11 No Notes: Memor ia 0-26 (Same as: l 02:00: Prinivil, [place] 00 Zestril) Simethicone 2018-11 No Notes: Farhat cornell 0-25 (Same as: l 22:30: Mylicon) Diony 00 Docusate 2018-11 No Notes: Memoria Sodium 100 0-25 (Same as: l MG Oral 22:21: Colace) [place] Capsule 00 (Do Not Crush) Cyclosporin 2018-11 [...] a 0-25 (Same as: l 19:00: Ativan) [place] 00 Sodium 2018-11 No 1,000 mL, Memori a Chloride 0-25 Rate: 125 l 0.9% IV 19:00: ml/hr, [place] 1,000 mL 00 Infuse over: 8 hr, Route: IV, Dosing Weight 48.636 kg, Total Volume: 1,000, Start date: 09/02/19 14:00:00 CDT, Duration: 30 day, Stop date: 10/02/19 13:59:00 LOG BRANDER, 1.48, m2, 0 Saline 2018-11 No Notes: Memoria Flush 0.9% 0-25 Same as: l 19:00: BD [place] 00 Posiflush Sterile Levetiracet 2018-11 No 1,000 mg, M emoria am 0-25 100 mL, l 18:47: Route: IV, [place] 00 Drug form: INJ, ONCE, Dosing Weight 48.636, [...] Route: l 14:00: IVPB, Drug form: PDR/INJ, [id number], Dosing Weight 48.636, kg, Start date: 07/21/19 9:00:00 CDT, Duration: 1 day, Stop date: 07/21/19 9:00:00 CDT, ABX Indication : Surgical Prophylaxi s Vancomycin No 2001 mg: Me moria 07-21 infuse l 03:30: over 2.5 Diony 00 hours gabapentin No Notes: Memor ia 50 MG/ML 07-21 (Same as: l Oral 02:00: Neurontin) Diony Solution 00 remove No Notes: Memoria patch 07-21 Remove l 02:00: patch 12 [place] 00 hours after applicatio n each day. Rocephin No Notes: Memoria 07-21 (Same As: l 02:00: Rocephin). Diony 00 MEDICATION WASTE Product Size: 2000 mg Product Wasted: ___ mg Hydralazine Yes Notes: Farhat cornell 07-20 (Same as: l 18:11: Apresoline ) Push over 5 minutes ondansetron No Route: IV, Memoria (ANES) 07-20 Drug form: l 17:54: INJ, ONCE, Stop date: 07/20/19 12:54:00 CDT Isolyte S No Route: IV, Me moria PH 7.4 07-20 Total l (ANES) 1000 15:49: Volume: Her whaley mL 00 1,000, Start date: 07/20/19 10:49:00 CDT, Stop date: 07/20/19 11:49:00 CDT glycopyrrol 2018- No Route: IV, Memoria ate (ANES) 07-20 Drug form: l 15:06: INJ, ONCE, Stop date: 07/20/19 10:06:00 CDT lidocaine No Route: IV, Me moria (ANES) 07-20 Drug form: l 15:01: INJ, ONCE, Stop date: 07/20/19 10:01:00 CDT propofol 2018-0 No Route: IV, Mem oria (ANES) 07-20 Drug form: l 15:01: INJ, ONCE, Stop date: 07/20/19 10:01:00 CDT rocuronium 2018-0 No Route: IV, M emoria (ANES) 07-20 Drug form: l 15:01: INJ, ONCE, Stop date: 07/20/19 10:01:00 CDT fentaNYL 0 No Route: IV, Mem oria (ANES) 07-20 Drug form: l 15:01: INJ, ONCE, Stop date: 07/20/19 10:01:00 CDT dexamethaso 2018- No Route: IV, Memoria ne (ANES) 07-20 [...] 07-20 Drug form: l 15:01: INJ, ONCE, [place] 00 Stop date: 07/20/19 10:01:00 CDT busPIRone 5 Yes 5 mg = 1 Me moria mg oral 11 tab, PO, l tablet 15:00: BID, 0 [place] 00 Refill(s) Sodium No Route: IV, Memor ia Chloride 07-20 Drug form: l 0.9% IV 14:44: INJ, Start Herm selene (ANES) 90 00 date: mL + 07/20/19 levETIRAcet 9:44:00 am (ANES) CDT, Stop 1000 mg date: 07/20/19 10:44:00 CDT memantine Yes 10 mg = 1 Mem oria 10 mg oral 07-20 tab, PO, l tablet 14:43: BID, # [...] tab, PO, l tablet 14:43: Daily, 0 [place] 00 Refill(s) gabapentin Yes 300 mg = 1 M emoria 300 MG Oral 07-20 cap, PO, l Capsule 14:43: Bedtime, 0 [...] Drug form: l mg 14:15: INJ, Start [place] 00 date: 07/20/19 9:15:00 CDT, Stop date: 07/20/19 10:15:00 CDT remifentani No Route: IV, Memoria l (ANES) 1 07-20 Drug form: l mg 14:15: INJ, Start [place] 00 date: 07/20/19 9:15:00 CDT, Stop date: 07/20/19 10:15:00 CDT Sodium No Route: IV, Memor ia Chloride 07-20 Total l 0.9% IV 14:15: Volume: [place] (ANES) 500 00 500, Start mL date: 07/20/19 9:15:00 CDT, Stop date: 07/20/19 10:15:00 CDT Levetiracet No Notes: Farhat cornell am 07-20 Same as l 14:00: Keppra [place] 00 Mix with 100 mL NS, LR [...] Surgical Prophylaxi s Docusate No Notes: Memoria 07-20 (Same as: l 14:00: Colace) Diony (Do Not Crush) sennosides, No Notes: Farhat cornell DETENTION 07-20 (Same as: l 14:00: Senokot) [place] 00 Lidocaine No Notes: Memori a 0.05 MG/MG 07-20 Apply only l Transdermal 14:00: once for He rmann Patch 00 up to 12 hours in a 24-hour period (12 hours on and 12 hours off). (Same as: Lidoderm) "Remove old patch before applicatio n of new patch" Saline No Notes: Memoria Flush 0.9% 11 (Same as: l 14:00: BD [place] 00 Posiflush) Citalopram No Notes: Memor ia -11 (Same As: l 14:00: CeleXA) Labetalol No Notes: Memori a -11 With food. l 14:00: (Same [place] 00 as:Trandat e, Normodyne) Lisinopril No Notes: Memor ia -11 (Same as: l 14:00: Prinivil, Zestril) Memantine No Notes: Memori a 11 (Same As: l 14:00: Namenda) pantoprazol No Notes: Farhat cornell e 07-20 Tablet l 14:00: should not 00 be chewed or crushed. (Same as: Protonix) Miralax No Notes: Memoria - Dissolve l 14:00: in 8 oz of water or juice. (Same as: Miralax) Buspirone No Notes: Memori a - (Same As: l 14:00: BuSpar) [place] 00 Lactated No Route: IV, Mem oria Ringers 07-20 Total l Injection 13:49: Volume: Deb nn IV (ANES) 00 1,000, 1000 mL Start date: 07/20/19 8:49:00 CDT, Stop date: 07/20/19 9:49:00 CDT Simethicone No Notes: Farhat cornell 07-20 (Same as: l 13:30: Mylicon) Acetaminoph No Notes: Do M emoria en 07-20 not exceed l 13:21: 4 gm/day. [place] 00 (Same as: Tylenol) Bisacodyl No Notes: Memori a 07-20 (Same As: l 13:21: Dulcolax, Bisco-Lax) Ondansetron [...] Notes: Memoria 9-11 Chlorasept l 13:21: ic [place] (Same as: Chlorasept ic, Sore Throat [place]) WASTE: F/P - Black; E - Municipal Trash Bin Dilaudid No Notes: Memoria 9-11 Same as l 13:21: Dilaudid Tramadol No Notes: Not Mem oria 9-11 to exceed l 13:21: 400mg/day. [place] 00 (Same As: Ultram) Reglan No Notes: Memoria 9-11 (Same as: l 13:21: Reglan) Saline No Notes: Memoria Flush 0.9% -11 (Same as: l 13:21: BD Posiflush) Dextrose No 25 gm, 50 Farhat cornell 50% Syringe 9-11 mL, Route: l 13:21: IVP, Drug Form: INJ, Dosing Weight 48.636, kg, PRN, PRN Abnormal Lab Result, Start date: 07/20/19 8:21:00 CDT, Duration: 30 day, Stop date: 08/19/19 8:20:00 CDT, 0 Regular No Notes: Memoria Insulin, -11 (Same as: l Human 100 13:21: Humulin R) He rmann UNT/ML 00 Roll in Injectable palms of Solution hands gently; Do not shake vigorously . WASTE: F/P - Black; E - Municipal Trash Bin Stable for 31 days at room temperatur e Expires in days from ____Date ceFAZolin No Notes: Memori a 07-20 (Same as l 10:00: Ancef) [place] NS + KCL No Notes: Memoria 20mEq/L 07-20 PREMIX IV l 1000ml 09:45: - Do Not [place] (Premix) 00 Alter 1,000 mL WASTE: F/P [...] cornell 07-15 Daily, 0 l 18:42: Refill(s) [place] 00 tramadol Yes 50 mg = 1 Farhat cornell hydrochlori 4-05 tab, PO, l de 50 MG 13:09: Q6H, PRN Deb nn Oral Tablet 00 Pain Score 6-10, X 7 day, # 50 tab, 0 Refill(s) Tramadol No 50 mg, 1 Memor ia 4-05 tab, l 05:38: Route: PO, [place] 00 Drug form: TAB, ONCE, Dosing Weight 46.932, kg, Start date: 02/11/19 0:38:00 CDT, Stop date: 02/11/19 0:38:00 CDT Bethanechol No Notes: Farhat cornell 4-05 Take on l 02:00: empty Diony stomach. (Same As: Urecholine ) Lisinopril No Notes: Memor ia 4-05 (Same as: l 02:00: Prinivil, [place] Zestril) lisinopril Yes 10 mg = 1 Me moria 10 mg oral 4-04 tab, PO, l tablet 18:33: Q12H, 0 [place] 00 Refill(s) labetalol Yes 100 mg = 1 Me moria 100 mg oral 4-04 tab, PEG, l tablet 18:33: Q8H-06, 0 Rene n 00 Refill(s) heparin Yes 5,000 unit Farhat cornell 4-04 = 1 mL, l 18:33: SUB-Q, Diony 00 Q8H-06, 0 Refill(s) citalopram Yes 10 mg = Farhat cornell 20 mg oral 4-04 0.5 tab, l tablet 18:33: PEG, [place] 00 Daily, 0 Refill(s) Acetaminoph Yes 650 mg = Me moria en 4-04 20.3 mL, l 18:33: PEG, Q6H, [place] 00 PRN Pain Score 4-6, 0 Refill(s) pantoprazol Yes 40 mg = 1 M emoria e 40 mg 4-04 tab, PO, l oral 18:33: BID, STOP [place] enteric 00 DATE coated 03/11/19, tablet was for H. pylori treatment, 0 Refill(s) memantine 5 Yes 10 mg = 2 M emoria mg oral 4-04 tab, PO, l tablet 18:33: BID, 0 [place] 00 Refill(s) gabapentin Yes 300 mg, Farhat cornell 50 MG/ML 4-04 PEG, l Oral 18:33: Bedtime, 0 [place] Solution 00 Refill(s) sennosides, Yes 25.8 mg = M emoria DETENTION 8.6 MG 4-04 3 tab, l Oral Tablet 18:33: PEG, Rene n 00 QNoon, 0 Refill(s) Potassium Yes 40 mEq, Memor ia Chloride 4-04 PEG, l 1.33 MEQ/ML 18:33: Daily, 0 He rmann Oral 00 Refill(s) Solution Docusate Yes 283 mg = 1 Mem oria Sodium 56.6 4-04 ea, [place], l MG/ML Enema 18:33: Every Deb nn [Enemeez] 00 Other Day-5PM, 0 Refill(s) Docusate Yes 100 mg = 1 Mem oria Sodium 100 4-04 cap, PO, l MG Oral 18:33: TID, 0 [place] Capsule 00 Refill(s) [Colace] Protonix No Notes: Memoria 4-04 Tablet l 13:00: should not [place] 00 be chewed or crushed. (Same as: Protonix) Bethanechol No Notes: Farhat cornell 4-03 Take on l 18:00: empty [place] 00 stomach. (Same As: Urecholine ) Memantine No Notes: Memori a 4-03 (Same As: l 02:00: Namenda) Diony 00 Lisinopril No Notes: Memor ia 4-03 (Same as: l 02:00: Prinivil, [place] 00 Zestril) Docusate No Notes: Memoria Sodium 100 3-31 (Same as: l MG Oral 18:00: Colace) Diony Capsule 00 (Do Not [Colace] Crush) Docusate No Notes: Memoria Sodium 56.6 3-30 Same as l MG/ML Enema 16:15: Enemeez Her whaley [Enemeez] 00 Non formulary item Bisacodyl No Notes: Memori a 3-30 (Same As: l 14:49: Dulcolax, Diony 00 Bisco-Lax) Miralax No Notes: Memoria 3-30 Dissolve l 13:30: in 8 oz of [place] 00 water or juice. (Same as: Miralax) Mupirocin No 1 appl, Memor ia 0.02 MG/MG 3-30 Route: l Nasal 02:00: NASAL, [place] Ointment 00 BID, Drug form: OINT, Start date: 02/04/19 21:00:00 CDT, Duration: 5 day, Stop date: 02/09/19 8:30:00 CDT Docusate No Notes: Memoria Sodium 100 3-30 (Same as: l MG Oral 02:00: Colace) [place] Capsule 00 (Do Not [Colace] Crush) potassium No Notes: Memori a nitrate 250 3-29 WASTE: F/P l MG/ML / 17:32: - Black; E Herm selene Silver - Nitrate 750 Municipal MG/ML Trash Bin Medicated Pad Marinol No Notes: Memoria 3- (Same as: l 17:08: Marinol) [place] sennosides, No Notes: Farhat cornell DETENTION - (Same as: l 17:00: Senokot) [place] Saline No Notes: Memoria Flush 0.9% 3-28 (Same as: l 14:00: BD Dion[place] Posiflush) normal No 1,000 mL, Memori a saline 0.9% - Rate: 100 l IV 1,000 mL 13:26: ml/hr, Herm selene Infuse over: 10 hr, Route: IV, Dosing Weight 46.932 kg, Total Volume: 1,000, Start date: 02/03/19 8:26:00 CDT, Duration: 2 day, Stop date: 02/05/19 8:25:00 CDT, 1.45, m2 Rocephin No Notes: Memoria 3- (Same As: l 13:00: Rocephin). [place] 00 Use with 100 mL NS and infuse over 30 min MEDICATION WASTE Product Size: 2000 mg Product Wasted: ___ mg Saline No Notes: Memoria Flush 0.9% - (Same as: l 12:53: BD [place] 00 Posiflush) Bethanechol No Notes: Farhat cornell - Take on l 02:00: empty [place] 00 stomach. (Same As: Urecholine ) Labetalol No Notes: Memori a - With food. l 03:00: (Same [place] as:Trandat e, Normodyne) Docusate No Notes: Memoria Sodium 56.6 01-29 Same as l MG/ML Enema 15:25: Enemeez Her whaley [Enemeez] 00 Non formulary item Memantine No Notes: Memori a 3-23 (Same As: l 02:00: Namenda) Diony Potassium No Notes: Memori a Chloride 3-21 [...] s with feeding tube less than 14 Afghan (Dobhoff, J-tube etc) and pediatric and patients. Mupirocin No 1 appl, Memor ia 0.02 MG/MG 01-27 Route: l Nasal 02:00: NASAL, Diony Ointment 00 BID, Drug form: OINT, Start date: 01/26/19 21:00:00 CDT, Duration: 5 day, Stop date: 01/31/19 8:30:00 CDT Docusate No Notes: Memoria Sodium 56.6 -19 Same as l MG/ML Enema 22:00: Enemeez Her whaley [Enemeez] 00 Non formulary item Potassium No Notes: Memori a Chloride 3-19 (Same as: l 1.33 MEQ/ML 02:00: Potassium H ermann Oral 00 Chloride) Solution sennosides, No Notes: Farhat cornell DETENTION 3-18 (Same as: l 17:00: Senokot) gabapentin No Notes: Memor ia 300 MG Oral 3-18 (Same as: l Capsule 02:00: Neurontin) monofluorop No Notes: Farhat cornell hosphate 3-17 Same as: l 17:40: Biotene with Calcium Fleet Enema No 133 mL, Mem oria 3-17 Route: [place], l 17:40: Drug Form: [place] 00 ZAC, Dosing Weight 46.932, kg, ONCE, [...] s with feeding tube less than 14 Afghan (Dobhoff, J-tube etc) and pediatric and patients. [...] l 1.33 MEQ/ML 14:29: K-Dur 20) H erm Oral 00 "Do Not Solution Crush" Give with food and full glass of water For patients unable to swallow tablet, dissolve in one half glass of water. Allow about 2 minutes for the tablets to disintegra te. Stir before giving to prepare slurry and administer . Please exclude Patient s with feeding tube less than 14 Afghan (Dobhoff, J-tube etc) and pediatric and patients. [...] Start capsular date: antigen 01/19/19 diphtheria 21:39:24 [id number] CDT, Stop protein date: conjugate 02/18/19 vaccine / 21:34:24 Streptococc CDT us pneumoniae serotype 14 capsular antigen diphtheria [id number] protein conjugate vaccine / Streptococc us pneumoniae [...] 3-14 (Same as: l (NutriSourc 02:00: Nutrisourc [place] e) 00 e Fiber) Dissolve packet in at [...] oria 3-14 to exceed l 01:17: 400mg/day. Diony 00 (Same As: Ultram) Acetaminoph No Notes: [...] 3-14 PEG, l 01:13: Daily, 0 Dion[place] 00 Refill(s) tramadol No Notes: Not Mem oria [...] Chloride 3-13 (Same as: l 13:00: KCL) [place] 00 Infuse over 2 hours. Potassium No Notes: Memori a Chloride 3-13 (Same as: l 1.33 MEQ/ML 12:47: Potassium H ermann Oral 00 Chloride) Solution Potassium No Notes: Memori a Chloride 3-13 (Same as: l 11:00: KCL) [place] 00 Infuse over 2 hours. Citalopram No 10 mg, 1 Mem oria 3-12 tab, l 14:30: Route: PO, [place] 00 Drug form: TAB, Daily, Dosing Weight 63.636, kg, Start date: 01/18/19 9:30:00 CDT, Duration: 30 day, Stop date: 02/17/19 9:00:00 CDT Lanolin No 1 appl, Memoria 0.157 MG/MG 3-11 Route: l / Menthol 12:07: TOP, Diony 0.0044 00 Dosing MG/MG / Weight Petrolatum 63.636, 0.24 MG/MG kg, PRN, / Zinc PRN Oxide 0.206 Perineal MG/MG Care, Topical Start Ointment date: [Calmosepti 01/17/19 ne] 7:07:00 CDT lansoprazol 2018- Yes 30 mg, Farhat cornell e 3-08 PEG, Q12H, l 20:18: 0 [place] 00 Refill(s) Lanolin 2019-0 No 1 appl, Memoria 0.157 MG/MG 3-08 TOP, 5X l / Menthol 20:18: Day, PRN Herm selene 0.0044 00 as needed MG/MG / for Petrolatum itching, 0 0.24 MG/MG Refill(s) / Zinc Oxide 0.206 MG/MG Topical Ointment [Calmosepti ne] labetalol Yes 200 mg = 1 Me moria 200 mg oral 3-08 tab, DHT, l tablet 20:18: Q8H, 0 [place] 00 Refill(s) heparin 0 Yes SUB-Q, Memoria 5000 3-08 Q8H, 0 l units/0.5 20:18: Refill(s) Her whaley mL 00 injectable solution guar gum 0 Yes PEG, Q12H, Mem oria oral powder 3-08 0 l (NutriSourc 20:18: Refill(s) H ermann e) 00 clarithromy Yes 500 mg = Me moria seun 250 3-08 10 mL, l mg/5 mL 20:18: PEG, [place] oral liquid 00 [id number], 0 Refill(s) amoxicillin 0 Yes 1,000 mg = Memoria 250 mg/5 mL 3-08 20 mL, l oral liquid 20:18: PEG, Rene n 00 [id number], 0 Refill(s) lisinopril 0 Yes 10 mg = 1 Me moria 10 mg oral 3-08 tab, PO, l tablet 20:18: Daily, 0 [place] 00 Refill(s) amLODIPine Yes 10 mg = 1 Me moria 10 mg oral 3-08 tab, GT, l tablet 20:18: Daily, 0 [place] 00 Refill(s) Amoxil No Notes: Memoria 3-07 (Same As: l 16:00: Amoxil) Dion[place] 00 Zosyn No Notes: Memoria 3-07 (Same as: l 13:30: Zosyn) Dosing based on Piperacill in component MEDICATION WASTE Product Size: 4500 mg Product Wasted: _0__ mg Lanolin No Notes: Memoria 0.157 MG/MG -05 (Same as: l / Menthol 23:39: [place] [...] Zestril) Potassium No Notes: Memori a Chloride 3-05 (Same as: l 1.33 MEQ/ML 14:03: Potassium H erm Oral Chloride) Solution Potassium No 40 mEq, 30 Me moria Chloride 3-05 mL, Route: l 1.33 MEQ/ML 14:02: PO, Drug Oral 00 form: LIQ, Solution ONCE, Dosing Weight 63.636, kg, Start date: 01/11/19 8:02:00 LOG BRANDER, Stop date: 01/11/19 8:02:00 LOG BRANDER Dextrose No 50 mL, Memoria 50% Syringe 01-10 Route: l 21:23: IVP, Dosing Weight 63.636, kg, PRN, PRN Blood Glucose Results, Start date: 01/10/19 15:23:00 LOG BRANDER, Duration: 30 day, Stop date: 02/09/19 16:22:00 CDT Glucagon No 1 mg, Memoria 01-10 Route: IM, l 21:23: PRN, Dosing Weight 63.636, kg, PRN Blood Glucose Results, Start date: 01/10/19 15:23:00 LOG BRANDER, Duration: 30 day, Stop date: 02/09/19 16:22:00 CDT Amoxicillin No 1,000 mg, Carlos Alberto lopez 01-09 Route: l 23:00: PEG, BID, Diony 00 Dosing Weight 63.636, kg, Start date: 01/09/19 17:00:00 LOG BRANDER, Duration: 30 day, Stop date: 02/08/19 9:00:00 CDT Prevacid 2018-0 No Notes: Memoria - Take 1 l 23:00: hour [place] 00 before or 2 hours after meal; Expires in 14 days. Shake well before use. (Same as:Prevaci d) Compound ed Product - formulatio n not commercial ly available* * Protonix No 40 mg, Memoria 01-09 Route: l 22:30: PEG, Drug Diony 00 form: GRAN/REC, BID-Before Meals, Dosing Weight 63.636, kg, Start date: 01/09/19 16:30:00 LOG BRANDER, Duration: 30 day, Stop date: 02/08/19 7:30:00 CDT Clarithromy No Notes: DO Carlos Alberto lopez seun 01-09 NOT l 22:00: Refrigerat [place] 00 e - Shake Well (Same As: Biaxin) Amoxicillin No Notes: Farhat cornell 01-09 (Same As: l 22:00: Amoxil) [place] 00 guar gum No 4 gm, 1 Memori a oral powder 01-09 pkt, l (NutriSourc 16:53: Route: Herm selene e) 00 PEG, Drug Form: PCKT, Dosing Weight 63.636, kg, Q12H, Start date: 01/09/19 10:53:00 LOG BRANDER, Duration: 30 day, Stop date: 02/08/19 9:00:00 CDT Sodium 0 No Notes: SEE Memor ia Chloride 3% 03 RT l inhalation 14:00: DOCUMENTAT H ermann solution 00 ION (Same as: Hypertonic Saline 3%, Inhalation ) Albuterol No Notes: Memori a 0.833 MG/ML 3-03 (Same as: l / 14:00: Duoneb) Ipratropium 00 Jansen 0.167 MG/ML Inhalant Solution [DuoNeb] NS (Bolus) No 1,000 mL, Me moria IV 01-08 1,000 l 22:51: ml/hr, Diony 00 Infuse Over: 1 hr, Route: IV, ONCE, Priority: STAT, Dosing Weight 63.636 kg, Start date: 01/08/19 16:51:00 LOG BRANDER, Stop date: 01/08/19 16:51:00 LOG BRANDER Lasix No Notes: Memoria 01-08 (Same as: l 15:23: Lasix) [place] Sodium No Notes: SEE Memor ia Chloride 3% 01-08 RT l inhalation 13:00: DOCUMENTAT H ermann solution 00 ION (Same as: Hypertonic Saline 3%, Inhalation ) Lasix No Notes: Memoria 01-07 (Same as: l 15:36: Lasix) Vancomycin No 2000 mg: Me moria 01-07 infuse l 03:00: over 2.5 [place] 00 hours For adult patients only: Round to nearest 250 mg per Medical Staff approval MEDICATION WASTE Product Size: 1000 mg Product Wasted: ___ mg magnesium No Notes: Memori a citrate 01-07 (Same as: l 58.2 MG/ML 00:30: Citrate of H ermann Oral Magnesia) Solution Concentrat ion: 1.745 gm / 30 mL Labetalol No Notes: Memori a 2 With food. l 22:00: (Same as:Trandaveronica e, Normodyne) Vancomycin No 2000 mg: Me moria 2 infuse l 19:46: over 2.5 [place] 00 hours For adult patients only: Round to nearest 250 mg per Medical Staff approval MEDICATION WASTE Product Size: 1000 mg Product Wasted: ___ mg Vancomycin No 20 mg/kg, Me moria 01-06 Route: IV, l 19:45: Drug form: INJ, ONCE, Dosing Weight 63.636, kg, Start date: 01/06/19 13:45:00 LOG BRANDER, Stop date: 01/06/19 13:45:00 LOG BRANDER, Pediatric Dosing, ABX Indication : Pneumonia Zosyn No Notes: Memoria 2- (Same as: l 19:01: Zosyn) [place] Dosing based on Piperacill in component MEDICATION WASTE Product Size: 4500 mg Product Wasted: ___ mg Sodium No Notes: SEE Memor ia Chloride 3% 01-06 RT l inhalation 19:00: DOCUMENTAT H ermann solution 00 ION (Same as: Hypertonic Saline 3%, Inhalation ) Iohexol No Notes: Memoria - (Same l 15:28: as:Omnipaq [place] ue 350). WASTE: F/P - Black; E - Municipal Trash Bin normal No 1,000 mL, Memori a saline 0.9% 01-06 Rate: 75 l IV 1,000 mL 14:53: ml/hr, Herm selene 00 Infuse over: 13.3 hr, Route: IV, Dosing Weight 63.636 kg, Total Volume: 1,000, Start date: 01/06/19 8:53:00 LOG BRANDER, Duration: 30 day, Stop date: 02/05/19 8:52:00 CDT, 1.69, m2 Dulcolax No Notes: Memoria Laxative - (Same As: l 13:04: Dulcolax, Diony Bisco-Lax) Albuterol No Notes: Memori a 0.833 MG/ML 01-06 (Same as: l / 10:34: Duoneb) [place] Ipratropium 00 Jansen 0.167 MG/ML Inhalant Solution [DuoNeb] Lasix No Notes: Memoria - (Same as: l 10:26: Lasix) [place] 00 MEDICATION WASTE Product Size: 40 mg Product Wasted: ___ mg Water 1000 No 914.5 mL, Me moria MG/ML 01-05 Rate: 75 l Injectable 15:08: ml/hr, Deb nn Solution 00 Infuse over: 13.3 hr, Route: IV, Dosing Weight 63.636 kg, Total Volume: 1,000, Start date: 01/05/19 9:08:00 LOG BRANDER, Duration: 30 day, Stop date: 02/04/19 9:07:00 CDT, For IMU and ICU use only. See Order Comments!! , 1.69, m2 Tylenol No 650 mg, Memoria 01-05 Route: PO, l 14:04: ONCE, [place] 00 Dosing Weight 63.636, kg, Priority: NOW, Start date: 01/05/19 8:04:00 LOG BRANDER, Stop date: 01/05/19 8:04:00 LOG BRANDER vancomycin 2018- No Notes: Memor ia - TIME l 04:00: CRITICAL Dion[place] 00 MEDICATION (Same As: Vancocin) For adult patients only: Round to nearest 250 mg per Medical Staff approval Albuterol No Notes: Memori a 0.833 MG/ML 01-05 (Same as: l / 00:00: Duoneb) [place] Ipratropium 00 Jansen 0.167 MG/ML Inhalant Solution [DuoNeb] Calcium No Notes: Memoria Carbonate 2- (Same As: l 500 MG 18:35: Tums) [place] Chewable 00 Calcium Tablet Carbonate 500 mg = 200 mg elemental calcium Dose = mg calcium carbonate ( mg elemental calcium) Potassium No Notes: Memori a Chloride 2- (Same as: l 18:35: KCL) Infuse no faster than 10 mEq/hr if given peripheral ly. sodium No Notes: Memoria phosphate 2-26 Infuse l 18:35: over 4 [place] 00 hour. Do not infuse phosphorou s concurrent ly in the same line as TPN or IVF that contains calcium. For double lumen central lines, phosphorou s may be infused in a separate lumen from TPN. potassium No Notes: Memori a phosphate 2-26 (Same as: l 18:35: K [place] Phosphate. ) Do not infuse phosphorou s concurrent ly in the same line as TPN or IVF that contains calcium. For double lumen central lines, phosphorou s may be infused in a separate lumen from TPN. 1 mMol phoshate has 1.47 mEq potassium Infuse over 4 hours Calcium No Notes: [facility]oria Gluconate 2- WASTE: F/P l 18:35: - Sink; E [place] 00 - Municipal Trash Bin Magnesium No Notes: Memori a Sulfate 01-04 WASTE: F/P l 18:35: - Sink; E - Municipal Trash Bin potassium No Notes: Memori a phosphate-s 01-04 (Same as: l odium 18:35: Phos-NaK) [place] phosphate 00 Each 1.5 250 mg-280 gm pkt has mg-160 mg 250mg oral powder phosphorou for s. Mix reconstitut w/2.5oz ion water and stir. Magnesium No Notes: Memori a Oxide 01-04 (Same as: l 18:35: Mag-Ox [place] 00 400) Magnesium oxide 462sn=923p g elemental magnesium Dose=____m g magnesium oxide [...] as: l / 15:00: Duoneb) Ipratropium 00 Jansen 0.167 MG/ML Inhalant Solution [DuoNeb] Prevacid No Notes: Memoria 2-25 Take 1 l 22:30: hour 00 before or 2 hours after meal; Expires in 14 days. Shake well before use. (Same as:Prevaci d) Compound ed Product - formulatio n not commercial ly available* * Ondansetron No 4 mg, Memor ia 2-25 Route: l 15:48: IVP, ONCE, Dosing Weight 63.636, kg, PRN Nausea & Vomiting, Start date: 01/03/19 9:48:00 LOG BRANDER Flumazenil 2019-0 No 0.2 mg, Farhat cornell 2-25 Route: l 15:48: IVP, PRN, [place] 00 Dosing Weight 63.636, kg, PRN Benzodiaze pine Reversal, Initial dose, Start date: 01/03/19 9:48:00 LOG BRANDER, Duration: 30 day, Stop date: 02/02/19 10:47:00 CDT Naloxone 2019-0 No 0.4 mg, Memori a 2- Route: l 15:48: IVP, [place] 00 Q2MIN, Dosing Weight 63.636, kg, PRN Narcotic Reversal, Start date: 01/03/19 9:48:00 LOG BRANDER, Duration: 8 doses or times, Stop date: Limited # of times Oxycodone 2019-0 No 5 mg, Memoria 2-25 Route: NG, l 15:48: Drug form: [place] 00 LIQ, Q4H, Dosing Weight 63.636, kg, PRN Pain Score 4-6, Start date: 01/03/19 9:48:00 LOG BRANDER, Duration: 30 day, Stop date: 02/02/19 9:47:00 CDT Morphine 2019-0 No 2 mg, Memoria 2-25 Route: l 15:48: IVP, [place] 00 Q5Min, Dosing Weight 63.636, kg, PRN Pain Score 4-6, Start date: 01/03/19 9:48:00 LOG BRANDER, Duration: 5 doses or times, Stop date: Limited # of times Labetalol 2019-0 No 10 mg, Memori a 2-25 Route: l 15:48: IVP, [place] 00 Q5Min, Dosing Weight 63.636, kg, PRN Elevated BP, Start date: 01/03/19 9:48:00 LOG BRANDER, Duration: 5 doses or times, Stop date: Limited # of times Acetaminoph 2019-0 No 1,000 mg, M emoria en 2- Route: PO, l 15:48: Drug form: [place] 00 TAB, ONCE, Dosing Weight 63.636, kg, PRN Pain Score 1-3, Start date: 01/03/19 9:48:00 LOG BRANDER Labetalol 2019-0 No Notes: Memori a 2-24 With food. l 14:20: (Same as:Trandat e, Normodyne) potassium No 1 pkt, Memori a phosphate-s 2-23 Route: PO, l odium 23:00: Dosing [place] phosphate 00 Weight 250 mg-280 63.636, mg-160 mg kg, BID, oral powder Start for date: reconstitut 01/01/19 ion 17:00:00 LOG BRANDER, Duration: 30 day, Stop date: 01/31/19 9:00:00 CDT Hydralazine No Notes: Farhat cornell 2-23 (Same as: l 22:03: Apresoline ) Push over 5 minutes potassium No Notes: Memori a phosphate-s 2-23 (Same as: l odium 18:33: Phos-NaK) [place] phosphate 00 Each 1.5 250 mg-280 gm [...] 2-21 not exceed l 15:41: 4 gm/day. (Same as: Tylenol) heparin No Notes: Memoria sodium, 2-21 porcine l porcine 14:00: heparin [place] 2500 UNT/ML 00 Injectable Solution sennosides, No Notes: Farhat cornell DETENTION 8.6 MG 2-21 (Same as: l Oral Tablet 03:00: Senokot) He rm docusate No Notes: Memoria sodium 2-21 (Same as: l 03:00: Colace) Amlodipine No Notes: Memor ia 2-20 (Same as: l 21:38: Norvasc) lisinopril No 40 mg = 1 Me moria 40 mg oral 2-20 tab, PO, l tablet 16:24: Daily, 0 Refill(s) omega-3 No PO, 0 Memoria polyunsatur 2-20 Refill(s) l ated fatty 16:24: Diony acids 00 amLODIPine No 5 mg = 1 Mem oria 5 mg oral 2-20 tab, PO, l tablet 16:24: Daily, 0 Dion[place] 00 Refill(s) Aspirin 81 No 81 mg = 1 Me moria MG Enteric 2-20 tab, PO, l Coated 16:24: Daily, # [place] Tablet 00 90 tab, 3 Refill(s) Alpha No PO, 0 Memoria Lipoic Acid 2-20 Refill(s) l 16:24: [place] 00 Vitamin E No PO, Daily, Me moria 2-20 0 l 16:24: Refill(s) [place] 00 Estrogens, No 0.3 mg = 1 M emoria Conjugated 2-20 tab, PO, 0 l (DETENTION) 0.3 16:24: Refill(s) Her whaley MG Oral 00 Tablet [Premarin] Co-Q10 100 No 100 mg = 1 M emoria mg oral 2-20 cap, PO, l capsule 16:24: Daily, 0 Rene n 00 Refill(s) Labetalol No Notes: Memori a 2-20 With food. l 15:09: (Same [place] 00 as:Trandat e, Normodyne) Keppra No Notes: Memoria 2-20 Same as l 15:00: Kera Mix with 100 mL NS, LR or D5W MEDICATION WASTE Product Size: 500 mg Product Wasted: ___ mg Famotidine No Notes: Memor ia 2-20 (Same as: l 15:00: Pepcid) Can be dilute in 5-10cc NS IVP: Slow IV push over at least 2 minutes. Saline No Notes: Memoria Flush 0.9% 2-20 (Same as: l 15:00: BD [place] 00 Posiflush) sennosides, No Notes: Farhat cornell DETENTION 8.6 MG 2-20 (Same as: l Oral Tablet 15:00: Senokot) He rm docusate No Notes: Memoria sodium 2-20 (Same [...] Total Volume: 20, Start date: 12/29/18 5:36:00 LOG BRANDER, Dur... NS (Bolus) No 1,000 mL, Me moria IV 2-20 1,000 l 11:36: ml/hr, Infuse Over: 1 hr, Route: IV, 1,000, Drug form: INJ, ONCE, Priority: STAT, Dosing Weight 63.636 kg, Start date: 12/29/18 5:36:00 LOG BRANDER, Stop date: 12/29/18 5:36:00 LOG BRANDER chlorhexidi No Notes: Farhat cornell ne 2-20 (Same As: l gluconate 10:00: Peridex) Herm selene 1.2 MG/ML 00 Mouthwash Dextrose No 25 gm, 50 Farhat cornell 50% Syringe 2-20 mL, Route: l 09:27: IVP, Drug Form: INJ, Dosing Weight 63.636, kg, PRN, PRN Blood Glucose Results, Start date: 12/29/18 3:27:00 LOG BRANDER, Duration: 30 day, Stop date: 01/28/19 4:26:00 CDT Glucagon No 1 mg, Memoria 2-20 Route: IM, l 09:27: Drug form: PDR/INJ, PRN, Dosing Weight 63.636, kg, PRN Blood Glucose Results, Start date: 12/29/18 3:27:00 LOG BRANDER, Duration: 30 day, Stop date: 01/28/19 4:26:00 CDT Insulin 2019-0 No 60 Memoria regular 2-20 units) l 09:27: WASTE: F/P [place] - Black; E - Municipal Trash Bin Stable for 28 days at room temperatur e Expires in days from ____Date chlorhexidi 2018-0 No Notes: Farhat cornell ne 2-20 (Same As: l gluconate 09:27: Peridex) Herm selene 1.2 MG/ML 00 Mouthwash Zofran 2018- No Notes: Memoria 2-20 (Same as: l 09:27: Zofran) MEDICATION WASTE Product Size: 4 mg Product Wasted: ___ mg Tylenol 2018- No Notes: Do Memor ia 2-20 not exceed l 09:27: 4 gm/day. [place] (Same as: Tylenol) Labetalol 2019- No 10 mg, 2 Farhat cornell 2-20 mL, Route: l 09:27: IVP, Drug form: INJ, Q1H, Dosing Weight 63.636, kg, PRN Hypertensi on, Start date: 12/29/18 3:27:00 LOG BRANDER, Duration: 30 day, Stop date: 01/28/19 4:26:00 CDT Hydralazine 2018-0 No Notes: Farhat cornell 2-20 (Same as: l 09:27: Apresoline ) Push over 5 minutes normal 2019- No 1,000 mL, Memori a saline 0.9% 2-20 Rate: 50 l IV 1,000 mL 09:26: ml/hr, Herm Infuse over: 20 hr, Route: IV, Dosing Weight 63.636 kg, Total Volume: 1,000, Start date: 12/29/18 3:26:00 LOG BRANDER, Duration: 30 day, Stop date: 01/28/19 3:25:00 CDT, 1.69, m2 Nicardipine 2019-0 No Notes: Farhat cornell 2-20 Same as: l 09:26: Cardene [place] 00 Concentrat ion: (0.1 mg/ 1 ml) Potassium No Notes: Memori a Chloride 2-20 (Same as: l 09:24: Potassium Chloride) Magnesium No Notes: Memori a Oxide 2-20 (Same as: l 09:24: Mag-Ox [place] 00 400) Magnesium oxide 566nm=787p g elemental magnesium Dose=____m g magnesium oxide (___mg elemental magnesium) Magnesium No Notes: Memori a Sulfate 2-20 WASTE: F/P l 09:24: - Sink; E [place] 00 - Municipal Trash Bin potassium No Notes: Memori a phosphate-s 2-20 (Same as: l odium 09:24: Phos-NaK) [place] phosphate 00 Each 1.5 250 mg-280 gm pkt has mg-160 mg 250mg oral powder phosphorou for s. Mix reconstitut w/2.5oz ion water and stir. sodium No Notes: Memoria phosphate 2-20 Infuse l 09:24: over 4 [place] 00 hour. Do not infuse phosphorou s concurrent ly in the same line as TPN or IVF that contains calcium. For double lumen central lines, phosphorou s may be infused in a separate lumen from TPN. potassium No Notes: Memori a phosphate 2-20 (Same as: l 09:24: K [place] 00 Phosphate. ) Do not infuse phosphorou s concurrent ly in the same line as TPN or IVF that contains calcium. For double lumen central lines, phosphorou s may be infused in a separate lumen from TPN. 1 mMol phoshate has 1.47 mEq potassium Infuse over 4 hours Calcium No Notes: [facility]oria Gluconate 2-20 WASTE: F/P l 09:24: - Sink; E - Municipal Trash Bin Calcium No Notes: Memoria Carbonate 2-20 (Same As: l 500 MG 09:24: Tums) [place] Chewable 00 Calcium Tablet Carbonate 500 mg = 200 mg elemental calcium Dose = mg calcium carbonate ( mg elemental calcium) fentaNYL No Route: IV, Mem oria (ANES) 2-20 Drug form: l 07:34: INJ, ONCE, Stop date: 12/29/18 1:34:00 LOG BRANDER calcium 2019-0 No Route: IV, Farhat cornell chloride 2-20 Drug form: l (ANES) 06:54: INJ, ONCE, Deb Stop date: 12/29/18 0:54:00 LOG BRANDER propofol 2019-0 No Route: IV, Mem oria (ANES) 2-20 Drug form: l 06:24: INJ, ONCE, Stop date: 12/29/18 0:24:00 LOG BRANDER rocuronium 2018- No Route: IV, M emoria (ANES) 2-20 Drug form: l 06:24: INJ, ONCE, Stop date: 12/29/18 0:24:00 LOG BRANDER ceFAZolin 2019- No Route: IV, Me moria (ANES) 2-20 Drug form: l 06:14: INJ, ONCE, Stop date: 12/29/18 0:14:00 LOG BRANDER dexamethaso 2018- No Route: IV, Memoria ne (ANES) 2-20 Drug form: l 06:14: INJ, ONCE, Stop date: 12/29/18 0:14:00 LOG BRANDER Isolyte S 2018- No Route: IV, Me moria PH 7.4 2-20 Total l (ANES) 1000 06:12: Volume: Her whaley mL 00 1,000, Start date: 12/29/18 0:12:00 LOG BRANDER, Stop date: 12/29/18 1:12:00 LOG BRANDER mannitol 2019-0 No Route: IV, Mem oria (ANES) 200 2-20 Drug form: l mg 05:50: INJ, Start [place] 00 date: 12/28/18 23:50:00 LOG BRANDER, Stop date: 12/29/18 0:50:00 LOG BRANDER potassium 2019-0 No Route: IV, Me moria chloride 2-20 Drug form: l (ANES) 0.2 05:47: INJ, Start H ermann mEq date: 12/28/18 23:47:00 LOG BRANDER, Stop date: 12/29/18 0:47:00 LOG BRANDER levETIRAcet 2018-0 No Route: IV, Memoria am (ANES) 2-20 Drug form: l 100 mg 05:45: INJ, Start Deb nn 00 date: 12/28/18 23:45:00 LOG BRANDER, Stop date: 12/29/18 0:45:00 LOG BRANDER SUFentanil 2019-0 No Route: IV, M emoria (ANES) 50 2-20 Drug form: l microgram 05:36: INJ, Start He rmann date: 12/28/18 23:36:00 LOG BRANDER, Stop date: 12/29/18 0:36:00 LOG BRANDER Sodium 2019-0 No Route: IV, Memor ia Chloride 2-20 Total l 0.9% IV 05:36: Volume: [place] (ANES) 500 00 500, Start mL date: 12/28/18 23:36:00 LOG BRANDER, Stop date: 12/29/18 0:36:00 LOG BRANDER propofol 2019-0 No Route: IV, Mem oria (ANES) 10 2-20 Drug form: l mg 05:36: INJ, Start Diony date: 12/28/18 23:36:00 LOG BRANDER, Stop date: 12/29/18 0:36:00 LOG BRANDER Sodium 2018-0 No Route: IV, Memor ia Chloride 2-20 Total l 0.9% IV 05:30: Volume: Dion[place] (ANES) 1000 00 1,000, mL Start date: 12/28/18 23:30:00 LOG BRANDER, Stop date: 12/29/18 0:30:00 LOG BRANDER Saline 2019-0 No Notes: Memoria Flush 0.9% 2-20 (Same as: l 05:15: BD [place] 00 Posiflush) Labetalol 2018- No 140mmHg, Mem oria 2-20 Start l 05:15: date: [place] 00 12/28/18 23:15:00 LOG BRANDER, Duration: 3 doses or times, Stop date: Limited # of times Sodium 2019-0 No 250 mL, Memoria Chloride 2-20 Rate: To l 0.9% 05:00: prime line [place] (titrate) 00 and flush 250 mL remaining blood products., Dosing Weight 63.636, kg, Route: IV, Total Volume: 250, Start Date: 12/28/18 23:00:00 LOG BRANDER, Duration: 30 day, Stop date: 01/27/19 22:59:00 CDT, Replace Every: 24 hr iodixanol No 60 mL, Memori a 2-20 Route: l 04:57: IVP, Drug Form: SOLN, Dosing Weight 63.636, kg, ONCALL, STAT, Start date: 12/28/18 22:57:00 LOG BRANDER, Duration: 1 doses or times, Dose = 2.2ml/kg, Max dose = 100ml -- "To be infused by Radiology Staff ONLY" Nicardipine No Notes: Farhat cornell 2-20 Same as: l 04:54: Cardene [place] 00 Concentrat ion: (0.2 mg /1 ml ) propofol No Notes: If M emoria mg/mL 2-20 Diprivan - l (Titrate.) 04:54: change Deb nn IV 1,000 mg 00 bottle & tubing every 12 hr Per state nursing law propofol can only be given by a nurse if patient is intubated or being intubated (unless the nurse is a ETH[employer]LEN[employer]XIDE PANELBOARD OPERATOR). Same as: Diprivan Propofol No Notes: If Farhat cornell 2-20 Diprivan - l 04:53: change [place] 00 bottle & tubing every 12 hr Per state nursing law propofol can only be given by a nurse if patient is intubated or being intubated (unless the nurse is a ETHYLENE [employer] PANELBOARD OPERATOR). Same as: Diprivan Rocuronium No Notes: Memor ia 2-20 (Same as: l 04:53: Zemeron) [place] 00 Keppra No Notes: Memoria 2-20 Same as l 04:34: Keppra Mix with 100 mL NS, LR or D5W MEDICATION WASTE Product Size: 500 mg Product Wasted: ___ mg Saline No Notes: Memoria Flush 0.9% 2-20 (Same as: l 03:53: BD Posiflush) Vital Signs Vital Name Observation Time Observation Value Comments Source Temperature Oral (F) 2019-09-05 13:00:00 97.7 F [facility] [place] Heart Rate 2019-09-05 13:00:00 [facility] 2019-09-05 13:00:00 Memori al [place] Systolic (mm Hg) 2019-09-05 13:00:00 Farhat rial [place] Diastolic (mm Hg) 2019-09-05 13:00:00 Mem orial [place] Temperature Oral (F) 2019-09-05 08:35:00 98.1 F [facility] [place] Heart Rate 2019-09-05 08:35:00 [facility] [place] Respitory Rate 2019-09-05 08:35:00 Mem[facility] al [place] Systolic (mm Hg) 2019-09-05 08:35:00 Farhat rial [place] Diastolic (mm Hg) 2019-09-05 08:35:00 Mem orial [place] Temperature Oral (F) 2019-09-05 01:20:00 98.4 F [facility] [place] Heart Rate 2019-09-05 01:20:00 [facility] [place] Respitory Rate 2019-09-05 01:20:00 Memori al [place] Systolic (mm Hg) 2019-09-05 01:20:00 Farhat rial [place] Diastolic (mm Hg) 2019-09-05 01:20:00 Mem orial [place] Height 2019-09-02 21:19:00 157.48 cm [facility] [place] Weight 2019-09-02 21:19:00 [facility] [place] BMI Calculated 2019-09-02 21:19:00 [facility] [place] Temperature Oral (F) 2019-07-22 12:29:00 97.9 F [facility] [place] Heart Rate 2019-07-22 12:29:00 [facility] [place] Respitory Rate 2019-07-22 12:29:00 Mem[facility] al [place] Systolic (mm Hg) 2019-07-22 12:29:00 Farhat rial [place] Diastolic (mm Hg) 2019-07-22 12:29:00 Mem orial [place] Temperature Oral (F) 2019-07-22 09:46:00 98.0 F [facility] [place] Heart Rate 2019-07-22 09:46:00 [facility] [place] Respitory Rate 2019-07-22 09:46:00 [facility] [place] Systolic (mm Hg) 2019-07-22 09:46:00 Farhat rial [place] Diastolic (mm Hg) 2019-07-22 09:46:00 Mem orial [place] Systolic (mm Hg) 2019-07-22 05:23:00 Farhat rial [place] Diastolic (mm Hg) 2019-07-22 05:23:00 Mem orial [place] Heart Rate 2019-07-22 05:23:00 [facility] [place] Temperature Oral (F) 2019-07-22 04:28:00 97.8 F [facility] [place] Respitory Rate 2019-07-22 04:28:00 [facility] [place] Height 2019-07-20 12:49:00 160.02 cm [facility] [place] Weight 2019-07-20 12:49:00 [facility] [place] BMI Calculated 2019-07-20 12:49:00 [facility] [place] Height 2019-07-15 18:48:00 160.02 cm [facility] [place] Weight 2019-07-15 18:48:00 [facility] [place] BMI Calculated 2019-07-15 18:48:00 [facility] [place] Diastolic (mm Hg) 2019-02-11 13:00:00 Mem orial [place] Systolic (mm Hg) 2019-02-11 13:00:00 Farhat rial [place] Respitory Rate 2019-02-11 13:00:00 [facility] al [place] Heart Rate 2019-02-11 13:00:00 [facility] [place] Systolic (mm Hg) 2019-02-11 00:30:00 Farhat rial [place] Diastolic (mm Hg) 2019-02-11 00:30:00 Mem orial [place] Respitory Rate 2019-02-11 00:30:00 [facility] [place] Heart Rate 2019-02-11 00:30:00 [facility] [place] Systolic (mm Hg) 2019-02-10 18:00:00 Farhat rial [place] Diastolic (mm Hg) 2019-02-10 18:00:00 Mem orial [place] Heart Rate 2019-02-10 18:00:00 [facility] [place] Respitory Rate 2019-02-10 17:30:00 Mem[facility] al [place] Temperature Oral (F) 2019-02-02 18:00:00 98.2 F [facility] [place] Weight 2019-01-20 00:54:00 [facility] [place] BMI Calculated 2019-01-20 00:54:00 [facility] [place] Height 2019-01-20 00:54:00 160.02 cm [facility] [place] Temperature Oral (F) 2019-01-20 00:40:00 98 F [facility] [place] Systolic (mm Hg) 2019-01-19 22:20:00 Farhat rial [place] Diastolic (mm Hg) 2019-01-19 22:20:00 Mem orial [place] Heart Rate 2019-01-19 22:20:00 [facility] [place] Heart Rate 2019-01-19 20:50:00 [facility] [place] Temperature Oral (F) 2019-01-19 20:50:00 98 F [facility] [place] Systolic (mm Hg) 2019-01-19 20:50:00 Farhat rial [place] Diastolic (mm Hg) 2019-01-19 20:50:00 Mem orial [place] Respitory Rate 2019-01-19 20:50:00 [facility] al [place] Respitory Rate 2019-01-19 17:26:00 [facility] [place] Systolic (mm Hg) 2019-01-19 17:26:00 Farhat rial [place] Diastolic (mm Hg) 2019-01-19 17:26:00 Mem orial [place] Heart Rate 2019-01-19 17:26:00 [facility] [place] Temperature Oral (F) 2019-01-19 17:26:00 97.9 F [facility] [place] Respitory Rate 2019-01-19 12:20:00 [facility] al [place] Temperature Oral (F) 2019-01-19 12:20:00 97.6 F [facility] [place] Height 2019-01-06 18:59:00 157.48 cm [facility] [place] Weight 2019-01-06 18:59:00 [facility] [place] Weight 2019-01-04 19:40:00 [facility] [place] Height 2019-01-04 19:40:00 157.48 cm [facility] [place] Weight 2019-01-04 14:57:00 [facility] [place] Height 2019-01-04 14:57:00 157.48 cm [facility] [place] BMI Calculated 2018-12-29 03:41:00 [facility] [place] Procedures Procedure Date / Time Performed Performing Clinician [facility] e Craniotomy [facility] [place] Hysterectomy [facility] [place] Encounters Start End Encounter Admission Attending Care Care Encounter Source Date/Time Date/Time Type Type Clinicians Facility Department ID 2019-07-20 Inpatient [id number] [facility] 05:56:00 2019-09-04 2019-09-05 Outpatient EDIN Samson [id number] 12:55:00 12:45:00 98 2019-07-20 2019-07-22 Outpatient NISH Christine [facility] [id number] 05:56:00 10:47:00 Wolf Nevarez 2019-06-13 2019-06-14 Outpatient MHMISCHER MHMISCHER [id number] 13:48:16 23:59:59 00 2019-01-19 2019-02-11 Outpatient Jody MHTIRR TIR[facility] [id number] 19:20:00 14:45:00 , Nikola 00 2018-12-28 2019-01-19 Outpatient Kiesha [facility] [id number] 21:40:00 19:01:00 Noureldin 50 Mohamed Results Test Description Test Time Test Comments [...] code = MCH) 29.7 pg 27.0-31.0 [facility] PbkvdqmXRJNJDLWYN6710-08-95 08:14:[facility].8[facility] 2019-09[facility]05 08:14:0015.2[facility] JvnyvygMOQPGSDADW8923-43-08 08:14:38539Bgjrkzpu DlddtujTBQZRNHGXR8554-96-56 08:14:008.6[facility] TwupsrwFMPTVJAJRL1853-27-60 08:14:0063.3[facility] MavgnjmYKLMDYUENE2684-49-18 08:14:0016.4[facility] [place] UZWFTXTMCW3899-40-58 08:14:0013.3[facility] JszauehKYMXVGADEU8621-34-73 08:14:00 5.6[facility] MouuhcaCWVJQAYQVU4210-02-24 08:14:001.4[facility] 2019-09-05 08:14:002.2[facility] WsfdbzbKXNONKDVQI1026-07-07 08:14:000.6[facility] PhabjjxLOBRYOBIFQ4659-62-26 08:14:000.5[facility] YsrdlbgDVZVJGOIVU1482-59-73 08:14:000.2[facility]CHE[facility] XABSC2301-07-56 20:09:0099[facility]ann[facility] ZVMIO7397-69-18 20:09:009[facility]annCHE[facility] UBSMC1603-79-66 20:09:000.77 [facility] MFYTN1078-33-63 20:09:50972Xsmpmnsh HermannCHEM PANEL 2019-09-04 20:09:003.9[facility]annCHEM MFJYX3525-02-08 20:09:70791Otyrpnno HermannCHEM ALMAG9208-71-62 20:09:0026[facility]annCHEM OBNLX7283-41-59 20:09:008.2[facility]annCHEM FQYMX6362-95-03 20:09:0081[facility]annCHEM ORKYJ6077-89-16 20:09:008.9[facility] XmrfqwyHSRCIFSZXY8810-36-66 20:09:0071.4 [facility] VvzdohwOINOKUUKLS0014-28-13 20:09:0011.2[facility] HermannHEMATOLOGY 2019-09-04 20:09:0012.7[facility] KgoevrbZFHQEORDMD0048-76-91 20:09:003.8[facility] SubjfrgRVHPNHKPYB9143-36-55 20:09:000.9[facility] XjdjdpjQBNPPWCFIH6076-49-17 20:09:002.7[facility] XfutnspCMDMNEETPA3592-89-38 20:09:000.4[facility] XIOIYWBALM7356-70-14 20:09:000.5[facility] TpxdzmvTQKCLTFGHP2890-13-25 20:09:000.1 [facility] OoxvarsYVTDQOFISM3227-96-82 20:09:003.8[facility] HermannHEMATOLOGY 2019-09-04 20:09:003.77[facility] JdkkpojVJYBHIGHNO0807-01-26 20:09:0011.5[facility] NvjsnguNMPXUAKXBB8941-68-76 20:09:0033.6[facility] HgyftixUSBGQBRPYN6457-07-81 20:09:0089.1[facility] WimbhjbJCLXJDFNDF7000-93-28 20:09:00 Test Item Value Reference Range Interpretation Comments MCH (test code = MCH) 30.6 pg 27.0-31.0 [facility] SgtstbxUHQIPBMBNL0399-95-17 20:09:0034.4[facility] HermannHEMATOLOGY 2019-09-04 20:09:0015.3[facility] ZvsyhweMBHTWJOAUV0916-59-19 20:09:85017Syxhajnz HsbhpibWFBOUSEKUW0947-85-98 20:09:008.0[facility]annDRUG XACXWB0784-03-45 19:51:00Negative *NA*(09/02/19 2:51 PM)[facility]annDR[facility] JNSYFJ3690-52-95 19:51:00Negative *NA*(09/02/19 2:51 PM)[facility]annDR[facility] SAGVVE8100-54-31 19:51:00Negative *NA*(09/02/19 2:51 PM)[facility]annDR[facility] MYZMFP3551-24-89 19:51:00Negative *NA*(09/02/19 2:51 PM)[facility]annDR[facility] VFNVFP8130-65-65 19:51:00Negative *NA*(09/02/19 2:51 PM)[facility]DR[facility] HBAGXO3416-78-38 19:51:00Negative *NA*(09/02/19 2:51 PM)[facility] SNGMGC5748-07-83 19:51:00Negative *NA*(09/02/19 2:51 PM)[facility] CPFSER2117-08-11 19:51:00Negative *NA*(09/02/19 2:51 PM)[facility]ann[facility] UTXEPU2932-94-76 19:51:00Negative *NA*(09/02/19 2:51 PM)[facility] LOPQNK3419-50-90 19:51:00See Note (09/02/19 2:51 PM)[facility] OIIRV2747-18-56 19:51:00Yellow *NA*(09/02/19 2:51 PM)[facility] UPBBG5292-12-39 19:51:00Marked *ABN*(09/02/19 2:51 PM)[facility] MZWXW4697-59-98 19:51:00 Test Item Value Reference Range Interpretation Comments UA Spec Grav (test code = UA Spec 1.009 1 Grav) [facility] LHURC6894-10-15 19:51:00 Test Item Value Reference Range Interpretation Comments UA pH (test code = UA pH) 7.0 1 5.0-8.0 [facility] HQUXW0252-03-54 19:51:00Negative *NA*(09/02/19 2:51 PM)[facility] LRLIL9849-41-66 19:51:00Negative (09/02/19 2:51 PM) [facility] TDGGF2443-69-68 19:51:00Negative (09/02/19 2:51 PM) [facility] CXLQR5130-31-00 19:51:00Negative (09/02/19 2:51 PM) [facility] KUWEE3995-06-22 19:51:002[facility] TYIKI4307-10-67 19:51:0050[facility]annCHEM UOZHD2313-85-98 19:23:10839 [facility]annCHEM UKDGD7974-04-85 19:23:0010[facility] HermannCHEM PANEL 2019-09-02 19:23:000.89[facility] HermannCHEM WUOWT3195-97-21 19:23:29882Hfgilxxe HermannCHEM MRCNT5092-66-51 19:23:003.6[facility]annCHEM UTRER3594-82-42 19:23:38772Xjnpwjci HermannCHEM STQVI4438-70-02 19:23:0025[facility]annCHE[facility] LPKLN9248-50-01 19:23:009.1[facility]annCHEM QOFBN5784-66-17 19:23:007.3 [facility]annCHEM SPLNO1116-91-35 19:23:003.8[facility] HermannCHEM PANEL 2019-09-02 19:23:0014[facility]annCHEM IUUJD9072-50-35 19:23:0018[facility]annCHEM YLNKJ1116-72-30 19:23:0085[facility]annCHEM IYKWN0725-75-98 19:23:000.6[facility]annCHEM WRAMW8179-30-32 19:23:0067[facility]annCHEM MZZWT1756-03-29 19:23:008.6[facility]annCHEM WAGAJ9028-82-23 19:23:00 Test Item Value Reference Range Interpretation Comments B/C Ratio (test code = B/C Ratio) 11 1 05-03 [facility]annCHEM HOVAG5670-55-69 19:23:003.5[facility] HermannCHEM PANEL 2019-09-02 19:23:00 Test Item Value Reference Range Interpretation Comments A/G Ratio (test code = A/G Ratio) 1.1 1 0.7-1.6 [facility]annCHEM RSDIZ7084-95-13 19:23:001.5[facility] HermannHEMATOLOGY 2019-09-02 19:23:006.1[facility] MqsgdibELWGQXRWHH4106-85-76 19:23:004.39[facility] CuahdzsESKPHRHFEW8545-10-38 19:23:0013.3[facility] AnnjnluINKQMZINGN5633-96-29 19:23:0038.7[facility] XzfrjdjMLSRQEWKAA7365-12-44 19:23:0088.2[facility] BQPDRDIZZC4079-64-72 19:23:00 Test Item Value Reference Range Interpretation Comments MCH (test code = MCH) 30.2 pg 27.0-31.0 [facility] GybnpdmIROGFFTECT8911-68-81 19:23:0034.2[facility] HermannHEMATOLOGY 2019-09-02 19:23:0015.4[facility] MjxedatJNCJYJEZXK5853-41-42 19:23:11316Rxoidior SsvqpwcCHGMPJKEUD1426-90-15 19:23:007.8[facility] PqffacnUXLJRYHULQ6895-60-24 19:23:0084.9[facility] CiiixqnDYUGKWPYPV5966-08-43 19:23:006.4[facility] JRQGZLEWRX7912-65-47 19:23:008.2[facility] EnaomhaPBXVTKAYGJ1133-27-89 19:23:000.1 [facility] LtcsricRVHYTENVYH8598-73-79 19:23:000.4[facility] HermannHEMATOLOGY 2019-09-02 19:23:005.2[facility] NldqpeqCQBEMRJYNF1240-24-14 19:23:000.4[facility] NeeepweUHECSHOFYQ9199-46-60 19:23:000.5[facility] HermannCHEM PQAJG1732-98-91 06:31:0088[facility] HermannCHEM GVDES7117-53-14 06:31:0010[facility] HermannCHEM AIVDO9544-16-53 06:31:000.82[facility] HermannCHEM MNHJG3410-12-87 06:31:84107 [facility]annCHEM ZVPUQ5137-29-74 06:31:005.0[facility] HermannCHEM PANEL 2019-07-21 06:31:95126Ymtkmpik HermannCHEM QOGNT4131-99-97 06:31:0027[facility] HermannCHEM ORBOU4258-41-42 06:31:009.0[facility] HermannCHEM XNUKE1885-63-87 06:31:0010.0[facility] HermannCHEM JFPHZ3581-06-99 06:31:0075[facility]annCHEM GULMW8558-35-16 06:31:001.9[facility] HermannCHEM LYAEX4276-71-13 06:31:003.6 [facility] LiaykpoJEGLPORKFW7062-98-61 06:31:006.5[facility] HermannHEMATOLOGY 2019-07-21 06:31:003.99[facility] HlyfmgcVDGNYTZJOZ8176-52-33 06:31:0012.1[facility] XdggvlnYPFHFJIYLA9399-47-51 06:31:0036.2[facility] ElcwcosSUJYWIEBUM4522-30-46 06:31:0090.6[facility] GdesdseQYAOCOEJVG2797-14-34 06:31:00 Test Item Value Reference Range Interpretation Comments MCH (test code = MCH) 30.4 pg 27.0-31.0 [facility] XnvrichCYTFQIWKIM8341-31-68 06:31:0033.5[facility] HermannHEMATOLOGY 2019-07-21 06:31:0014.4[facility] JahrzbjYWNRZRVSAP8227-41-73 06:31:42382Sqknbywd UiimldbWOJASRILTH7635-36-50 06:31:009.3[facility] YsiicziMYXSEFBYZH4374-71-16 06:31:0080.3[facility] IucvzauLXOVRJPGTM5232-08-03 06:31:009.0[facility] [place] VOPNJRCESZ3369-29-16 06:31:009.6[facility] QotukhbNRWJHQUYXL7717-37-61 06:31:000.6 [facility] MzvkapbMMKCIDGAGL5621-34-97 06:31:000.5[facility] HermannHEMATOLOGY 2019-07-21 06:31:005.2[facility] HqhmkgeCDFNVFHJNX4232-26-19 06:31:000.6[facility] VwssrzjSSHGABXFTG3745-97-52 06:31:000.6[facility] HermannBLOOD BANK RESULTS 2019-07-20 12:43:00Negative (07/20/19 7:43 AM)[facility] HermannELECTROLYTES 2019-07-20 12:43:0013.0[facility] UjyvfegAIOMJOKWCISO3149-34-35 12:43:0099[facility] YhmmigoUNKRJNIDPXPS3467-91-04 12:43:0012[facility] QbmqtvrYLNYEEKTRGEQ7394-57-67 12:43:001.04[facility] MfjtavgNZGCUSIDYXOV6293-77-12 12:43:48833Kglrsvdu [place] LIWRSPWHDWBL0959-90-78 12:43:004.0[facility] AwixkolARVSNALYPBXQ5245-29-20 12:43:26600Bueuhfhm TkxyyzpMPPWJCATEXQO6908-14-17 12:43:0027[facility] ITAINMQOPKFY5306-62-59 12:43:009.2[facility] EdvnaozXXPOZGTPQMKS1683-39-61 12:43:0057[facility] UnhlwgjJOXQUEIRLF5845-46-00 12:43:0061.4[facility] HYIGAGKSFW3824-45-01 12:43:0019.7[facility] PwoduxkDAPSIHCFJA1586-04-42 12:43:00 14.1[facility] OjptbxgJMWJKHAEXK9680-66-49 12:43:001.8[facility] HermannHEMATOLOGY 2019-07-20 12:43:003.0[facility] TtrnxsgZRKUBCJGSU1103-70-31 12:43:001.9[facility] ElndaeuFJFTBUQQEJ7882-65-17 12:43:000.6[facility] PujjdkkIKIIMFSNRM3248-70-91 12:43:000.4[facility] RsegnseLNHHWNQUCI5714-52-16 12:43:000.1[facility] [place] AHYEAKQPAG5587-78-99 12:43:000.1[facility] VxiyfzaGGPJTTHMUX2480-35-79 12:43:003.0 [facility] IrdkjzyOLJSUGOLYR4963-67-29 12:43:004.32[facility] HermannHEMATOLOGY 2019-07-20 12:43:0013.3[facility] ScsjufjIQOFYLHGQD9921-20-48 12:43:0039.0[facility] PutmcwsGCBMPRWTPB1986-56-99 12:43:0090.2[facility] HbburdjHAJGOPCQJQ2672-27-65 12:43:00 Test Item Value Reference Range Interpretation Comments MCH (test code = MCH) 30.7 pg 27.0-31.0 [facility] ZexupxxRXZSGWKLNF3397-81-90 12:43:0034.1[facility] HermannHEMATOLOGY 2019-07-20 12:43:0014.1[facility] CvzdfhcCZEDPQBBJP9780-45-44 12:43:09131Lkdhxpmh UvlrqarPXFUKVYSMT7077-14-04 12:43:008.2[facility] CnsqlicIQMCRSXPXN0367-88-39 12:43:00 Test Item Value Reference Range Interpretation Comments INR (test code = INR) 1.01 1 0.85-1.17 [facility] IopmaiwCNMSITXDIG3864-50-56 12:43:00 Test Item Value Reference Range Interpretation Comments PT (test code = PT) 13.1 s 12.0-14.7 [facility] DkngyaqFFIEEYUXXP7047-99-04 12:43:00 Test Item Value Reference Range Interpretation Comments PTT (test code = PTT) 27.5 s 22.9-35.8 [facility] HermannCHEM JXGRD6972-00-47 10:07:003.5[facility] HermannCHEM PANEL 2019-02-09 10:07:00 Test Item Value Reference Range Interpretation Comments B/C Ratio (test code = B/C Ratio) 16 1 6-25 [facility] HermannCHEM ODQIX2844-63-79 10:07:0012.9[facility] HermannCHEM PANEL 2019-02-09 10:07:00 Test Item Value Reference Range Interpretation Comments A/G Ratio (test code = A/G Ratio) 0.9 1 0.7-1.6 [facility] HermannCHEM ROMWR0923-88-66 10:07:0095[facility] HermannCHEM PANEL 2019-02-09 10:07:003.9[facility] HermannCHEM MKILW2848-91-90 10:07:50948Jcsnehjn HermannCHEM CKUBH4030-42-52 10:07:0025[facility] HermannCHEM DWJVJ6602-57-04 10:07:009.7[facility] HermannCHEM WFNCK8682-49-81 10:07:000.2[facility] HermannCHEM DMGCP1282-48-72 10:07:006.8[facility] HermannCHEM EFIGD2985-18-76 10:07:0014 [facility]annCHEM JXCYI9865-80-57 10:07:000.63[facility] HermannCHEM PANEL 2019-02-09 10:07:83540Cmyswvgz HermannCHEM GVLBU4083-70-65 10:07:0024[facility] HermannCHEM VGJLH1197-57-09 10:07:003.3[facility] HermannCHEM NGKAJ8046-61-23 10:07:0087[facility] HermannCHEM AUVPP2333-27-29 10:07:0077[facility] HermannCHEM BDQND1438-16-52 10:07:0010[facility] HermannCHEM RLHUS6339-21-03 10:07:002.3 [facility] YwwaefmWQDWRXGZER4362-92-21 10:07:000.1[facility] HermannHEMATOLOGY 2019-02-09 10:07:000.2[facility] KxfefqcVKEGVRXSWH1439-67-89 10:07:000.5[facility] SylsffzQOSZQPJPBW3892-67-27 10:07:000.8[facility] FhlmwxeYTKWWVJVLK9691-50-76 10:07:001.8[facility] LlhbsznRWSPOUCZKX1363-31-28 10:07:0054.1[facility] NIBGEILGPD4153-33-77 10:07:002.0[facility] SihdwsgGDIJNPNXSZ9348-99-00 10:07:005.0 [facility] XucjccuAONRFAOEWI9599-28-77 10:07:0015.2[facility] HermannHEMATOLOGY 2019-02-09 10:07:0023.7[facility] WbdjislNYMNFOXJOR5605-80-10 10:07:008.1[facility] HihyhucHLXQAXYLIY9757-05-29 10:07:86350Hxowxbuh YztftyjFPWWYKFTHU3873-63-89 10:07:00 Test Item Value Reference Range Interpretation Comments MCH (test code = MCH) 30.3 pg 27.0-31.0 [facility] OnzupinJYLBXHDJYM6720-26-23 10:07:0089.5[facility] HermannHEMATOLOGY 2019-02-09 10:07:0015.7[facility] HrvrqyoICMSDSQCMM6060-09-31 10:07:0033.8[facility] JwbgiuvVTLIWBPLWM8010-84-79 10:07:0011.8[facility] JnihowqAHVSDIKEIK8082-16-88 10:07:003.89[facility] RmmprdbUFMNDXGMNI3987-29-78 10:07:003.3[facility] HNQKZMVXKU6927-10-70 10:07:0034.8[facility] IbroqteGEUYANFYFUZP6083-14-60 10:26:00 104[facility] FoztpbkSRBIZHUTNPGM6568-11-10 10:26:003.9[facility] FZOVRUCPDYRV7412-20-11 10:26:0026[facility] SmgwcvhVIFEWMXSGTNX2144-82-48 10:26:00 90[facility] RchrmexOXFKSMTENFIZ1416-49-11 10:26:0013[facility] HermannELECTROLYTES 2019-02-04 10:26:000.61[facility] EccfsbqKATINLNEFTID5815-86-54 10:26:05032 [facility] LqyabukJGYXFBEJYEIY3202-00-81 10:26:0096[facility] HermannELECTROLYTES 2019-02-04 10:26:009.6[facility] GubhxhsWSYPZUOOTWSY0375-09-82 10:26:0011.9 [facility] HermannGENTAMICIN:SUSC:PT:ISOLATE:ORDQN:QUW2831-32-96 05:35:00 Escherichia coliMemorial HermannURINE AND FFWKQ5606-04-58 23:06:0013[facility] MABCT9230-18-22 23:06:00>182[facility] STOOL 2019-02-02 23:06:00 Test Item Value Reference Range Interpretation Comments UA pH (test code = UA pH) 6.0 1 5.0-8.0 [facility] GIPBZ0810-89-42 23:06:00 Test Item Value Reference Range Interpretation Comments UA Spec Grav (test code = UA Spec 1.010 1 Grav) [facility] LJIRR4927-76-97 23:06:00Large *ABN*(02/02/19 6:06 PM) [facility] WSBNF3581-15-42 23:06:00Negative *NA*(02/02/19 6:06 PM) [facility] YXPUD9616-42-57 23:06:00Negative *NA*(02/02/19 6:06 PM) [facility] JFZKG6558-19-68 23:06:00<1.0[facility] SCYQX3127-91-91 23:06:00Positive *ABN*(02/02/19 6:06 PM)[facility] RMJRZ2323-76-51 23:06:00Negative *NA*(02/02/19 6:06 PM)[facility] UTUQV1367-07-80 23:06:00Negative (02/02/19 6:06 PM)[facility] ONMPQ7721-86-67 23:06:00Dark Yellow *NA*(02/02/19 6:06 PM)[facility] MJPVV6096-20-59 23:06:00Marked *ABN*(02/02/19 6:06 PM)[facility] HermannCHEM NJWTA1685-27-80 09:47:002.1[facility] HermannCHEM RQMOV5333-42-76 09:47:0096 [facility]annCHEM GJEPX0459-28-28 09:47:000.3[facility] HermannCHEM PANEL 2019-02-02 09:47:007.0[facility] HermannCHEM ZAYPS6149-94-42 09:47:0015[facility] HermannCHEM FPYRI4264-47-51 09:47:0024[facility]annCHEM PHAAC6550-40-49 09:47:0010.1[facility] HermannCHEM EXKSQ6205-36-00 09:47:21442Pcfyjjtr HermannCHEM XASIY0302-69-36 09:47:0015[facility]annCHEM TSSSL4240-56-23 09:47:000.60 [facility]annCHEM GCMRP9919-56-97 09:47:62108Sozaragj HermannCHEM PANEL 2019-02-02 09:47:004.0[facility] HermannCHEM AODBD7241-45-88 09:47:0082[facility]annCHEM XFREQ5115-81-25 09:47:0023[facility]annCHEM OXALB4704-95-20 09:47:003.3[facility]annCHEM XEXAY2537-17-10 09:47:0093[facility]annCHEM XBMGL4101-78-96 09:47:00 Test Item Value Reference Range Interpretation Comments A/G Ratio (test code = A/G Ratio) 0.9 1 0.7-1.6 [facility]annCHEM FBEVL3115-02-12 09:47:00 Test Item Value Reference Range Interpretation Comments B/C Ratio (test code = B/C Ratio) 25 1 6-25 [facility]annCHEM BYYWY0083-40-77 09:47:003.7[facility] HermannCHEM PANEL 2019-02-02 09:47:0015.0[facility] WjpyelyLRPLPTXGEB4413-14-20 09:47:0011.4[facility] ShngfepTYUJHXRGSR3766-56-03 09:47:0033.7[facility] RiddyqnDAEKWKROXD4299-91-81 09:47:003.73[facility] JkazledRJXVIDOTJM4133-97-30 09:47:0016.3[facility] [place] OATZRYSEKL9725-73-77 09:47:0090.3[facility] AlepzcxBVACSSINEU9506-41-21 09:47:00 Test Item Value Reference Range Interpretation Comments MCH (test code = MCH) 30.5 pg 27.0-31.0 [facility] GzafwrzVDNPAYTJSA5715-32-31 09:47:0033.7[facility] HermannHEMATOLOGY 2019-02-02 09:47:009.5[facility] XkwlrufAJYAXVCJPU4311-67-78 09:47:56772Qborszty GzzxaxgPWRVDBKUAF4614-90-07 09:47:006.2[facility] TlakujsXXKLTPEECO2358-99-69 09:47:000.2[facility] HmpammqZGUXBWSKUC6629-21-39 09:47:000.8[facility] HVSQCGOWVE4659-93-69 09:47:000.1[facility] AaekkriXKXRHVXZWI7812-85-94 09:47:00 12.7[facility] XnamkwtLMQPOPZEAK8197-92-98 09:47:003.3[facility] HermannHEMATOLOGY 2019-02-02 09:47:0072.8[facility] EegwyxxBFBXXFGGAO5624-83-43 09:47:0010.3[facility] JrctpqpWUYDNUYMOB0474-57-35 09:47:000.6[facility] WxroekjIZTQIUBXPM8368-08-63 09:47:000.9[facility] WepkeyjZNPLRRCNZY7379-05-60 09:47:004.5[facility] HermannCHEM WSHJN4403-41-53 10:07:003.4[facility] HermannCHEM PEOZJ8620-08-84 10:07:70028 [facility]annCHEM FLITV5704-46-85 10:07:000.5[facility] HermannCHEM PANEL 2019-01-26 10:07:006.9[facility] HermannCHEM QCCNU3333-78-18 10:07:0024[facility] HermannCHEM UIIPN3780-06-20 10:07:0039[facility] HermannCHEM JXOPF3979-42-51 10:07:00 Test Item Value Reference Range Interpretation Comments A/G Ratio (test code = A/G Ratio) 1.0 1 0.7-1.6 [facility]annCHEM MFLQK0565-79-44 10:07:00 Test Item Value Reference Range Interpretation Comments B/C Ratio (test code = B/C Ratio) 17 1 6-25 [facility]annCHEM EVRBY3284-04-85 10:07:003.5[facility] HermannCHEM PANEL 2019-01-26 10:07:002.2[facility] TntnwfcFPRRMFMJPR9136-69-39 10:07:000.1[facility] DsyffooNDYIKWAZMH9888-78-74 10:07:0022.1[facility] WkrbdquCFFFKLBDBC0062-74-44 10:07:007.5[facility] ZkeasteBVNRJXWZXI3500-13-63 10:07:000.2[facility] [place] QRFEQWEJMP5114-24-36 10:07:000.5[facility] TfxpfojKMPIRPXLKY3253-57-01 10:07:00 54.3[facility] BpjrfvcWIFCOZMLTU6029-59-10 10:07:0014.2[facility] HermannHEMATOLOGY 2019-01-26 10:07:000.7[facility] YoljgjcBRAYEVGTFS0195-64-94 10:07:001.7[facility] JofdwqcPCVCCNWPDF6933-82-86 10:07:001.9[facility] TthfzkgJPHZXNGYCH6422-02-67 10:07:77300Wrmhbvwq UtckpthOOGDBBKLNM9160-10-98 10:07:0016.2[facility] [place] XJSRNXTMMA5813-35-54 10:07:0033.7[facility] AciqoofOXXKNICLKU5086-82-24 10:07:00 9.1[facility] YoaeojqAGGEJIWBVM9947-51-07 10:07:003.2[facility] HermannHEMATOLOGY 2019-01-26 10:07:00 Test Item Value Reference Range Interpretation Comments MCH (test code = MCH) 30.2 pg 27.0-31.0 [facility] DtioudoITMRFYINRL9369-45-17 10:07:0033.4[facility] HermannHEMATOLOGY 2019-01-26 10:07:0011.2[facility] AmyblyqCHPHMKWQYU0627-12-25 10:07:003.73[facility] DbyukjiKKXQXADDKG7968-93-58 10:07:0089.7[facility] HermannCHEM DYUXQ2114-30-57 10:09:003.1[facility] XkgvnfcMJVPPDHAEW9772-73-75 10:09:001+ *ABN*(01/20/19 5:09 AM)[facility] AemlqdpCNGEMXSGRP0068-92-68 10:09:00Normal (01/20/19 5:09 AM)[facility] RmnlzvgJAUHJJLBXD5373-87-88 10:09:0026.9[facility] WywaxufMGHSREWWIKIO3257-95-22 16:13:003.2[facility] NwtkyyrONYEEHMSSYHB0480-06-89 16:13:71566Kebgqfey Dion[facility] ANZDVJTLEVRR3400-18-15 16:13:0029[facility] JjqaxgoJKPRCDQDRLYU8194-40-51 16:13:00 12.2[facility] VswyvncTPIESCJDZPJN8232-73-04 16:13:009.3[facility] [place] FNNQWEUIRYMZ5722-18-26 16:13:0083[facility] RuclvqaSIZFPOJQINDB1798-59-50 16:13:00 142[facility] ZwjvztzTBAFADGQJRDN5318-67-21 16:13:003.2[facility] OJUTMHLXPPMR0099-28-26 16:13:000.76[facility] AdbltrzLFOIQEYHXHFQ0207-22-82 16:13:44117Rrffkwmi AstyjtyZLKRXMOWSOPV7617-38-45 16:13:0011[facility] HermannCHEM ESGIK0803-03-76 08:47:003.0[facility] HermannCHEM YJHCF4974-90-49 08:47:002.0 [facility] HermannCHEM EPCSY4588-13-87 08:47:0093[facility] HermannCHEM PANEL 2019-01-19 08:47:0013.1[facility] HermannCHEM QNTZC0224-22-84 08:47:009.2[facility] HermannCHEM PEHTZ3628-76-70 08:47:17303Hwlzmmyn HermannCHEM NHAVI8047-73-46 08:47:0029[facility] HermannCHEM ODFRT7376-74-94 08:47:0011[facility]annCHE[facility] IKXME8238-85-96 08:47:000.66[facility]annCHEM KFVAC7360-89-46 08:47:002.1 [facility]CHE[facility] CDKUJ3688-88-54 08:47:47196Vxvhdszx HermannCHEM PANEL 2019-01-19 08:47:0097[facility] EyzhemkFCULXKTBOC0304-22-16 08:47:0015.1[facility] YcghuamRBIXRWWUBM3395-82-07 08:47:0034.1[facility] WxtcxxpAHNPKXCUKW7256-75-46 08:47:26650Xqfksabs YvqchrbPHZVOJBTOF8511-92-62 08:47:00 Test Item Value Reference Range Interpretation Comments MCH (test code = MCH) 30.1 pg 27.0-31.0 [facility] GgcqjqjGTXIWCAQLD5311-63-90 08:47:0088.3[facility]annHEMATOLOGY 2019-01-19 08:47:007.5[facility] JyrtkgxBGTEQJRXWC6212-12-83 08:47:003.77[facility] PwxwaoqUYEOEFXIQM4615-71-04 08:47:003.7[facility] IpcabmnBDIVZUFWZG0355-31-92 08:47:0033.3[facility] EjaqsszLGLSPVLHZH8418-86-91 08:47:0011.4[facility] [place] VYJKMWHEGV8856-24-88 08:47:0013.6[facility] QatimdfSGIRJUIMAN6846-13-16 08:47:00 15.6[facility] CfjyjbnXAQXBZNOBJ9013-08-90 08:47:000.2[facility]annHEMATOLOGY 2019-01-19 08:47:000.1[facility] VfdkztjZMYMFRVONH7355-40-94 08:47:002.8[facility] QcbioxoLOWTXGDVUL4332-00-76 08:47:004.5[facility] ZbmkvwjWMBTOSHFWJ6583-31-02 08:47:002.4[facility] HfkbvplGUFXCXKWOH8868-69-17 08:47:000.5[facility] VQCOONVJEL2326-06-02 08:47:000.6[facility] BhhwfqrRFDZWXXHLN5956-46-23 08:47:00 63.5[facility] TywvpjvQYCZITDACEMI6521-19-08 09:46:0025[facility] QYCNFJQRTQII4686-35-34 09:46:60494Hfxcpapl CxvrgqxQBWOIZCREMIU8234-89-68 09:46:0094[facility] AoibvniSHOMYZOWEFEP1427-02-05 09:46:0011.5[facility] NWIGVBTXJAXB1260-25-04 09:46:008.7[facility] ZaimbbgYZSXCPTESAKJ9614-28-71 09:46:86075Jeewfupx GnrueyuOWVIIEWEWSMH1300-93-85 09:46:000.63[facility] SUWMPWQYYFUQ2189-57-34 09:46:0086[facility] IqqntuiYOHAELCEXFWL0384-16-21 09:46:00 24[facility] HermannCARDIAC CINMRSL1357-83-12 22:38:94700Hnolkeqz HermannCHEM NSTMU9645-10-06 08:20:003.1[facility]annCHEM ZYWVC8795-34-51 08:20:002.1 [facility] DlnoryyFMLVNIIIYE7845-73-63 08:20:009.8[facility]annHEMATOLOGY 2019-01-11 08:20:003.48[facility] VdmhgmfAJGWMQXJTW9517-33-87 08:20:0010.5[facility] TbjfneoLLTRHMNDFC6416-20-30 08:20:007.0[facility] QldgqhwGJYPKUVWOW6637-63-65 08:20:0089.6[facility] ZhrhwssSSKSKAYAMA2379-09-79 08:20:00 Test Item Value Reference Range Interpretation Comments MCH (test code = MCH) 30.0 pg 27.0-31.0 [facility] DfbnuefGWGXPVPBWN1442-45-32 08:20:0033.5[facility]annHEMATOLOGY 2019-01-11 08:20:0014.4[facility] AosdbqxEMVNFFXCDZ3760-72-49 08:20:0031.2[facility] BopvufuYZXDSQMGYU9612-94-89 08:20:13914Inacwnfk YgfawegDRRZGAWBYA7092-49-72 08:20:000.3[facility] SidydgxKEXGNZBLZK5315-65-10 08:20:000.1[facility] CWWVRHQRJQ8925-93-76 08:20:002.7[facility] OvncrxxMLIWOMQERW6305-92-73 08:20:000.5 [facility] NynudpqIFRBWRXEJX8289-25-69 08:20:008.3[facility]annHEMATOLOGY 2019-01-11 08:20:000.6[facility] QzfxxrpXPDKNBFSHR0685-39-99 08:20:000.6[facility] KdglmtlMGKLADYZGZ8402-63-21 08:20:0084.7[facility] FvyimeqXWQJPIHXYP5979-20-74 08:20:005.7[facility] OgrmnuhPMKIXQSERI1357-64-75 08:20:006.4[facility]annCHEM HEXMH7190-25-01 10:37:002.2[facility]annCHEM WKYNT4663-21-54 10:37:003.4 [facility] TdsauxgULUXZPMWMQ7902-88-94 10:37:08286Yymbveis HermannHEMATOLOGY 2019-01-10 10:37:007.4[facility] YlfvltvCFTGDZGUII1378-60-91 10:37:0014.7[facility] OeebcvbOWWAPTOFWO6471-25-54 10:37:00 Test Item Value Reference Range Interpretation Comments MCH (test code = MCH) 30.3 pg 27.0-31.0 [facility] IiszmabQUBEOGGGVD0863-77-06 10:37:0034.1[facility]annHEMATOLOGY 2019-01-10 10:37:009.8[facility] KbkuugsJSMLRDPWJO7721-26-12 10:37:0010.0[facility] CitquevVTINCEKNBE5019-40-35 10:37:003.29[facility] BgxvddvAPRPMKOYRJ2063-29-90 10:37:0089.0[facility] GwdsxbpWWCPWNJBVL9604-60-02 10:37:0029.3[facility] NNJKSKDFHI6647-12-80 10:37:0083.9[facility] JkvxpvgXDGUHGQRUH3037-97-07 10:37:00 5.4[facility] ZciqukiDAOYCAUBKX1522-58-47 10:37:007.2[facility]annHEMATOLOGY 2019-01-10 10:37:000.3[facility] WbdrnxcRFNVRMFTLF2285-80-75 10:37:000.1[facility] InicqszBUSHPKGBUV7548-99-52 10:37:000.8[facility] ExazpetFROLUKERNF8962-06-34 10:37:000.5[facility] NzbdsrcPGTMPWUUQV8704-28-67 10:37:002.7[facility] BEFBPVNNLK4398-97-94 10:37:008.2[facility] EjeiixvKMFISWNWFU4144-38-85 10:37:000.7 [facility]annPARATHYROID ZODCHEH8133-05-54 10:37:001.19[facility] PARATHYROID DOMYMXH8302-61-95 10:37:001.18[facility] WgmpvleRQIQYDRLWK9139-05-20 10:37:0015.9[facility] BdrsjrkJUSOIDIASO8665-81-28 07:41:00 Test Item Value Reference Range Interpretation Comments INR (test code = INR) 1.01 1 0.85-1.17 [facility] QvglozqECJZHNUMOB0357-11-74 07:41:00 Test Item Value Reference Range Interpretation Comments PT (test code = PT) 13.1 s 12.0-14.7 [facility] DzskrlcXGPHYEYTUM0356-01-09 07:41:00 Test Item Value Reference Range Interpretation Comments PTT (test code = PTT) 30.3 s 22.9-35.8 [facility]annPARATHYROID ZGGNGZJ4821-16-93 07:41:001.13[facility] PARATHYROID QFLLBMB6073-87-30 07:41:001.18[facility] HermannPARATHYROID PROFILE 2019-01-08 06:39:001.10[facility] HermannPARATHYROID TMKKAUL0423-81-48 06:39:00 1.04[facility] SofriwzRQACOEUIWG9699-76-16 02:28:00 Test Item Value Reference Range Interpretation Comments Vanco Tr TND (test code = Vanco Tr 2000 1 TND) [facility] PtepibeUOVPXYDYHT2852-72-04 02:28:0012.5[facility]annCHEM PANEL 2019-01-06 10:31:000.95[facility] HermannCHEM IDOWY1109-49-63 15:46:98851Renogcdh HermannURINE UCTO8935-47-13 15:46:0063[facility]annURINE JDFI8672-94-92 15:46:74056Wopqghlu HermannBACTERIAL - IOUPBCZX9096-75-20 00:15:00Positive 1*ABN*(01/04/19 6:15 PM)[facility] BMXWW7980-40-35 15:48:00<1 [facility] GRZMG7995-64-27 15:48:00Negative (01/04/19 9:48 AM) [facility] XANWZ9278-07-88 15:48:00<1[facility] ZOULP9413-96-34 15:48:00Negative *NA*(01/04/19 9:48 AM)[facility] WMKPT6082-13-92 15:48:004.0[facility] ODHTA8629-47-03 15:48:00 Negative (01/04/19 9:48 AM)[facility] NMVWF4230-69-42 15:48:00 Negative (01/04/19 9:48 AM)[facility] GPHXD8989-71-04 15:48:00 Test Item Value Reference Range Interpretation Comments UA pH (test code = UA pH) 6.5 1 5.0-8.0 [facility] ISHIN1892-06-72 15:48:00Clear (01/04/19 9:48 AM) [facility] SBURA8541-90-93 15:48:00 Test Item Value Reference Range Interpretation Comments UA Spec Grav (test code = UA Spec 1.027 1 Grav) [facility] [id number] 15:48:00Yellow *NA*(01/04/19 9:48 AM) [facility] BzfkesjGXJCMYVKBG2890-43-92 06:05:00 Test Item Value Reference Range Interpretation Comments PT (test code = PT) 12.5 s 12.0-14.7 [facility] FxnjuatJBTTLLIPSG3928-61-45 06:05:00 Test Item Value Reference Range Interpretation Comments INR (test code = INR) 0.95 1 0.85-1.17 [facility]annMOLECULAR [id number] 09:20:00Negative (01/02/19 3:20 AM)[facility] UjyshraKMTJYYKJOB0504-00-86 12:25:02202Lwkpqvdt HermannBACTERIAL - [id number] 09:47:00Negative (12/29/18 3:47 AM)[facility]annCARDIAC BNTMRTF8952-19-05 09:47:000.02[facility]annCHEM LSKQQ3615-61-31 09:47:001.8 [facility]annCHE[facility] [id number] 09:47:005.8[facility]annCHEM PANEL 2018-12-29 09:47:003.1[facility]annCHEM [id number] 09:47:00 Test Item Value Reference Range Interpretation Comments B/C Ratio (test code = B/C Ratio) 18 1 6-25 [facility]annCHE[facility] [id number] 09:47:0069[facility]annCHEM PANEL 2018-12-29 09:47:0023[facility] HermannCHEM [id number] 09:47:0020[facility]annCHEM RASVE4506-70-81 09:47:002.7[facility]annCHEM [id number] 09:47:00 Test Item Value Reference Range Interpretation Comments A/G Ratio (test code = A/G Ratio) 1.1 1 0.7-1.6 [facility]annCHEM XNWFA9831-09-04 09:47:000.4[facility]annDRUG SCREEN 2018-12-29 09:47:00Negative *NA*(12/29/18 3:47 [...] code = INR) 1.10 1 0.85-1.17 [facility] BerzhliMXJLUHDWSH8099-26-98 09:47:00 Test Item Value Reference Range Interpretation Comments PT (test code = PT) 14.0 s 12.0-14.7 [facility] VjgksvnUKYTTYGFHR3323-64-06 09:47:00 Test Item Value Reference Range Interpretation Comments PTT (test code = PTT) 26.1 s 22.9-35.8 [facility] AidnoykFNVWFVMLFG3030-25-67 09:47:00 Test Item Value Reference Range Interpretation Comments R-time Rapid (test code = R-time 0.6 min 0.4-0.7 Rapid) [facility]TgodzpiBNJBAQOVSP9576-95-93 09:47:00 Test Item Value Reference Range Interpretation Comments Split Point Rapid (test code = Split 0.5 min Point Rapid) [facility] ClinicMcwjjloHDIRZDHZWX2139-71-20 09:47:00 Test Item Value Reference Range Interpretation Comments ACT (TEG) Rapid (test code = ACT (TEG) 105 s 86-118 Rapid) [facility]NuuqqinFDSEYWAHYW7558-75-07 09:47:00 Test Item Value Reference Range Interpretation Comments Angle Rapid (test code = Angle 76 degrees 64-80 Rapid) [facility] NorthwestBdxtkyzHDFNQHEKBM6119-42-53 09:47:00 Test Item Value Reference Range Interpretation Comments K-time Rapid (test code = K-time 1.2 min 0.6-2.3 Rapid) [facility] NorthwestVvqgshrHVXECLGZTW5289-52-01 09:47:008.9[facility]annHEMATOLOGY 2018-12-29 09:47:00 Test Item Value Reference Range Interpretation Comments Max Amplitude Rapid (test code = Max 64 mm 52-71 Amplitude Rapid) [facility] ClinicYoikhlyAZVMANLCKE9260-91-28 09:47:002.7[facility] IjianbbIBFISH7157-85-49 09:47:00 Test Item Value Reference Range Interpretation Comments CHD Risk (test code = CHD Risk) 1.78 1 3.90-5.80 [facility] GaeiexgBCHNML5053-46-54 09:47:0077[facility] IowdcwvIAPMPH3439-42-39 09:47:11628Fsxwxbvq GvipgeqOSYPPF3618-16-90 09:47:0032[facility] HermannLIPIDS 2018-12-29 09:47:0054[facility] LgdscjqWUKHOQ1932-25-89 09:47:00 Test Item Value Reference Range Interpretation Comments VLDL (test code = VLDL) 6 1 [facility] [id number] 09:47:002[facility] [id number] 09:47:00Negative (12/29/18 3:47 AM)[facility] [id number] 09:47:00Negative (12/29/18 3:47 AM)[facility] [id number] 09:47:00Negative (12/29/18 3:47 AM)[facility] [id number] 09:47:00Negative *NA*(12/29/18 3:47 AM)[facility] [id number] 09:47:00 Test Item Value Reference Range Interpretation Comments UA pH (test code = UA pH) 7.5 1 5.0-8.0 [facility] [id number] 09:47:00 Test Item Value Reference Range Interpretation Comments UA Spec Grav (test code = UA Spec 1.027 1 Grav) [facility] [id number] 09:47:00Slight *ABN*(12/29/18 3:47 AM) [facility] [id number] 09:47:00Light Yellow *NA*(12/29/18 3:47 AM)[facility] [id number] 05:11:00Negative (12/28/18 11:11 PM)[facility]roeDxxbxajZZCUFAIUQD8419-59-26 05:11:000.8[facility]HE[facility] 2018-12-29 05:11:00 Test Item Value Reference Range Interpretation Comments Split Point Rapid (test code = Split 0.5 min Point Rapid) [facility]roeYhzfmcbODZYEMMMSG2765-67-21 05:11:00 Test Item Value Reference Range Interpretation Comments ACT (TEG) Rapid (test code = ACT (TEG) 105 s 86-118 Rapid) [facility]roeTjfgmsrXPPJWYBJOB1588-47-97 05:11:00 Test Item Value Reference Range Interpretation Comments R-time Rapid (test code = R-time 0.6 min 0.4-0.7 Rapid) [facility]roeJzxwvsoDAPCVQBYJF3654-43-24 05:11:00 Test Item Value Reference Range Interpretation Comments K-time Rapid (test code = K-time 0.8 min 0.6-2.3 Rapid) [facility]roeBxgzjatLZNHIGOOJI1001-48-22 05:11:0012.0[facility] CenterHE[facility] 2018-12-29 05:11:00 Test Item Value Reference Range Interpretation Comments Max Amplitude Rapid (test code = Max 71 mm 52-71 Amplitude Rapid) [facility]SkvahfoDWAKCWFHCN1713-62-84 05:11:00 Test Item Value Reference Range Interpretation Comments Angle Rapid (test code = Angle 80 degrees 64-80 Rapid) [facility] [id number] 05:00:00Product available (12/28/18 11:00 PM)[facility] NorthwestCHEM [id number] 04:08:000.6[facility]annCARDIAC KPGDLIJ8149-53-17 03:55:0067[facility]annCARDIAC [id number] 03:55:00 <0.02[facility] XwyebuuZWAAILWSJL8227-52-09 03:55:00 Test Item Value Reference Range Interpretation Comments PTT (test code = PTT) 20.2 s 22.9-35.8 [facility] HospitalDdywrwpLTZATTEAML2015-49-86 03:55:00Normal (12/28/18 9:55 PM)[facility] HospitalExdrpvmHFEBWMKWDQ9925-14-36 03:55:00Normal (12/28/18 9:55 PM)[facility]
--- NOTE | 2020-06-05 14:51 | RAD REPORT ---
EXAM DESCRIPTION: Michelle Single View06/05/2020 2:18 pm CLINICAL HISTORY: Chest pain COMPARISON: April 2020 FINDINGS: No significant change in the moderate reticulonodular bilateral lung opacities The heart is mildly enlarged
[2020-06-05 15:17] LABS: Urine Blood NEGATIVE (NEG); Urine Glucose NEGATIVE (NEG); Urine Protein NEGATIVE (NEG)
[2020-06-05] MEDS ORDERED: CEFTRIAXONE/SWI 1gm 1 GM/10 ML SYR ONE (15:51)
--- NOTE | 2020-06-05 15:54 | EDPHYS ---
Physician Documentation [facility] Name: Mayi oCe Age: 64 yrs Sex: Female : 1955 Arrival Date: 06/05/2020 Time: 12:42 Bed 14 Private MD: ED Physician Richard Sal HPI: 06/05 15:43 This 64 yrs old Female presents to ER via EMS with complaints of Fall Injury. bhavani 15:43 Details of fall: The patient fell from a height, off furniture, approximately 4 feet. bhavani Onset: The symptoms/episode began/occurred just prior to arrival. Associated injuries: The patient sustained no obvious injury. Severity of symptoms: At their worst the symptoms were mild, in the emergency department the symptoms are unchanged. The patient has not experienced similar symptoms in the past. Historical: - Allergies: 12:52 No Known Allergies; tw2 - Home Meds: 12:52 lisinopril Oral [Active]; amlodipine oral [Active]; tw2 12:53 R sided paralysis [Active]; ss - PMHx: 12:53 Aphasia; Crohn's; CVA; Diverticulitis; Heart Murmur; Hypertension; Seizures; ss - Immunization history:: Adult Immunizations. - Social history:: Smoking status: . - Immunization history: Last tetanus immunization: - up to date. ROS: 15:43 Constitutional: Negative for fever, chills, and weight loss, Eyes: Negative for injury, bhavani pain, redness, and discharge, ENT: Negative for injury, pain, and discharge, Neck: Negative for injury, pain, and swelling, Cardiovascular: Negative for chest pain, palpitations, and edema, Respiratory: Negative for shortness of breath, cough, wheezing, and pleuritic chest pain, Abdomen/GI: Negative for abdominal pain, nausea, vomiting, diarrhea, and constipation, Back: Negative for injury and pain, : Negative for injury, bleeding, discharge, and swelling, MS/Extremity: Negative for injury and deformity, Skin: Negative for injury, rash, and discoloration, Psych: Negative for depression, anxiety, suicide ideation, homicidal ideation, and hallucinations, Allergy/Immunology: Negative for hives, rash, and allergies, Endocrine: Negative for neck swelling, polydipsia, polyuria, polyphagia, and marked weight changes, Hematologic/Lymphatic: Negative for swollen nodes, abnormal bleeding, and unusual bruising. 15:43 Neuro: Negative for altered mental status, dizziness, weakness, acute changes. Exam: 15:43 Constitutional: This is a well developed, well nourished patient who is awake, alert, bhavani and in no acute distress. Head/Face: Normocephalic, atraumatic. Eyes: Pupils equal round and reactive to light, extra-ocular motions intact. Lids and lashes normal. Conjunctiva and sclera are non-icteric and not injected. Cornea within normal limits. Periorbital areas with no swelling, redness, or edema. ENT: Nares patent. No nasal discharge, no septal abnormalities noted. Tympanic membranes are normal and external auditory canals are clear. Oropharynx with no redness, swelling, or masses, exudates, or evidence of obstruction, uvula midline. Mucous membranes moist. Neck: Trachea midline, no thyromegaly or masses palpated, and no cervical lymphadenopathy. Supple, full range of motion without nuchal rigidity, or vertebral point tenderness. No Meningismus. Chest/axilla: Normal chest wall appearance and motion. Nontender with no deformity. No lesions are appreciated. Respiratory: Lungs have equal breath sounds bilaterally, clear to auscultation and percussion. No rales, rhonchi or wheezes noted. No increased work of breathing, no retractions or nasal flaring. Abdomen/GI: Soft, non-tender, with normal bowel sounds. No distension or tympany. No guarding or rebound. No evidence of tenderness throughout. Back: No spinal tenderness. No costovertebral tenderness. Full range of motion. Female : Normal external genitalia. Skin: Warm, dry with normal turgor. Normal color with no rashes, no lesions, and no evidence of cellulitis. MS/ Extremity: Pulses equal, no cyanosis. Neurovascular intact. Full, normal range of motion. Neuro: Awake and alert, GCS 15, oriented to person, place, time, and situation. Cranial nerves II-XII grossly intact. Motor strength 5/5 in all extremities. Sensory grossly intact. Cerebellar exam normal. Normal gait. Psych: Awake, alert, with orientation to person, place and time. Behavior, mood, and affect are within normal limits. 15:43 Cardiovascular: Rate: bradycardic, Rhythm: regular, irregular, Pulses: no pulse deficits are appreciated, Heart sounds: normal, Edema: is not appreciated, JVD: is not appreciated. 15:55 ECG was reviewed by the Attending Physician. [facility] Vital Signs: 12:52 BP 153 / 74; Pulse 55; Resp 15; Temp 97.8(TE); Pulse Ox 99% on R/A; Weight 52.16 kg (R);tw2 16:03 BP 134 / 73; Pulse 59; Resp 18; Pulse Ox 98% on R/A; Pain 0/10; ll1 17:33 BP 138 / 73; Pulse 59; Resp 18; Temp 98.0; Pulse Ox 98% on R/A; Pain 0/10; ll1 Stacy Coma Score: 16:03 Eye Response: spontaneous(4). Verbal Response: oriented(5). Motor Response: obeys ll1 commands(6). Total: 15. Trauma Score (Adult): 16:03 Eye Response: spontaneous(1); Verbal Response: oriented(1); Motor Response: obeys ll1 commands(2); Systolic BP: > 89 mm Hg(4); Respiratory Rate: 10 to 29 per min(4); [place] Score: 15; Trauma Score: 12 MDM: 12:50 Patient medically screened. [facility] 15:44 Differential diagnosis: closed head injury, contusion, fracture, multiple trauma, bhavani sprain, strain. Data reviewed: vital signs, nurses notes, lab test result(s), EKG, radiologic studies, CT scan, plain films. Data interpreted: cafeteria monitor: rate is 55 beats/min, Pulse oximetry: on room air is 99 %. Test interpretation: by ED physician or midlevel provider: ECG, plain radiologic studies. Counseling: I had a detailed discussion with the patient and/or guardian regarding: the historical points, exam findings, and any diagnostic results supporting the discharge/admit diagnosis, lab results, radiology results, the need for outpatient follow up, for definitive care, a family practitioner. ED course: pt at baseline, no changes, uti only. 06/05 13:01 Order name: Basic Metabolic Panel; Complete Time: 15:34 [facility] 06/05 13:01 Order name: CBC with Diff; Complete Time: 15:34 [facility] 06/05 13:01 Order name: LFT's; Complete Time: 15:34 [facility] 06/05 13:01 Order name: Magnesium; Complete Time: 15:34 [facility] 06/05 13:01 Order name: NT PRO-BNP; Complete Time: 15:34 [facility] 06/05 13:01 Order name: Troponin (emerg Dept Use Only); Complete Time: 15:34 [facility] 06/05 13:01 Order name: XRAY Chest (1 view); Complete Time: 15:34 [facility] 06/05 13:01 Order name: EKG; Complete Time: 13:02 [facility] 06/05 13:01 Order name: Cardiac monitoring; Complete Time: 13:12 [facility] 06/05 13:01 Order name: CT Head C Spine; Complete Time: 15:34 [facility] 06/05 13:01 Order name: Urine Culture [facility] 06/05 15:07 Order name: Urine Dipstick--Ancillary (enter results); Complete Time: 15:34 06/05 13:01 Order name: EKG - Nurse/Tech; Complete Time: 13:12 [facility] 06/05 13:01 Order name: IV Saline Lock; Complete Time: 13:03 [facility] 06/05 13:01 Order name: Labs collected and sent; Complete Time: 13:03 [facility] 06/05 13:01 Order name: O2 Per Protocol; Complete Time: 13:03 [facility] 06/05 13:01 Order name: O2 Sat Monitoring; Complete Time: 13:02 [facility] 06/05 13:01 Order name: Urine Dipstick-Ancillary (obtain specimen); Complete Time: 14:59 bhavani EC:55 Rate is 56 beats/min. Rhythm is regular. QRS [place] is Normal. MA interval is normal. QRS bhavani interval is normal. QT interval is normal. No Q waves. T waves are Normal. No ST changes noted. Clinical impression: Normal ECG and No evidence of ischemia. Interpreted by me. Reviewed by me. Administered Medications: 13:27 Drug: NS 0.9% 1000 ml Route: IV; Rate: 125 ml/hr; Site: right forearm; 1 16:01 Follow up: Response: No adverse reaction; RASS: Alert and Calm (0); IV Status: ll1 Completed infusion; IV Intake: 250ml 15:45 Drug: Rocephin 1 grams Route: IV; Rate: per protocol; Site: right antecubital; ll1 16:00 Follow up: Response: No adverse reaction; RASS: Alert and Calm (0); IV Status: ll1 Completed infusion; IV Intake: 20ml Disposition: 06/05/20 15:53 Discharged to Home. Impression: Fall due to bumping against object, Urinary tract infection, site not specified. - Condition is Stable. - Discharge Instructions: Head Injury, Adult, Urinary Tract Infection, Adult, Urinary Tract Infection, Adult, Hueh-ij-Ffcz, Fall Prevention in the Home, Kiea-tw-Hijb, Head Injury, Adult, Ofdb-xd-Hfkv. - Prescriptions for Augmentin 500- 125 mg Oral Tablet - take 1 tablet by ORAL route every 8 hours for 7 days; 14 tablet. - SBAR form, Medication Reconciliation Form, Thank You Letter, Antibiotic Education, Prescription Opioid Use form. - Follow up: Private Physician; When: 2 - 3 days; Reason: Recheck today's complaints, Continuance of care, Re-evaluation by your physician. - Problem is new. - Symptoms have improved. Signatures: Dispatcher [employer] EDMS Richard Sal MD MD cha Smirch, Shelby, RN RN Shea Arce RN RN [facility] Sina Calvo RN RN 1 Corrections: (The following items were deleted from the chart) 12:56 12:52 PMHx: Aphasia; tw2 tw 12:56 12:52 PMHx: Crohn's; tw2 tw 12:56 12:52 PMHx: CVA; tw2 tw2 12:56 12:52 PMHx: Diverticulitis; tw2 tw2 12:56 12:52 PMHx: Heart Murmur; tw2 tw2 12:56 12:52 PMHx: Hypertension; tw2 tw2 12:56 12:52 PMHx: Seizures; tw2 tw2 17:38 15:53 06/05/2020 15:53 Discharged to Home. Impression: Fall due to bumping against ll1 object; Urinary tract infection, site not specified. Condition is Stable. Forms are Medication Reconciliation Form, Thank You Letter, Antibiotic Education, Prescription Opioid Use. Follow up: Private Physician; When: 2 - 3 days; Reason: Recheck today's complaints, Continuance of care, Re-evaluation by your physician. Problem is new. Symptoms have improved. bhavani
--- NOTE | 2020-06-05 15:54 | ER ---
Nurse's Notes [facility] Name: Mayi Coe Age: 64 yrs Sex: Female : 1955 Arrival Date: 06/05/2020 Time: 12:42 Bed 14 Private MD: Diagnosis: Fall due to bumping against object;Urinary tract infection, site not specified Presentation: 06/05 12:47 Chief complaint: halfway staff member reports that it appeared that patient ss attempted to transfer herself from wheelchair to bed and fell on the floor. 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 Maria D with [facility] states that patient is typically able to answer "yes" and "no" to questions, but is not answering as she typically would now. Coronavirus screen: unable to assess. Pt has aphasia. Ebola Screen: Patient denies exposure to infectious person. Patient denies travel to an Ebola-affected area in the 21 days before illness onset. Initial Sepsis Screen: Does the patient meet any 2 criteria? No. Patient's initial sepsis screen is negative. Does the patient have a suspected source of infection? No. Patient's initial sepsis screen is negative. Risk Assessment: Do you want to hurt yourself or someone else? Patient reports no desire to harm self or others. Onset of symptoms was June 05, 2020 at 09:30. 12:47 Method Of Arrival: EMS: [facility] 12:47 Acuity: CRISTINE 3 ss 17:35 Care prior to arrival: None. Mechanism of Injury: Fall. Trauma event details: Injury ll1 occurred in the [facility]. Triage Assessment: 12:47 General: Appears in no apparent distress. slender, Behavior is calm. Pain: Denies pain. tw2 Trauma Activation: Not Applicable Physician: ED Physician; Name: ; Notified At: ; Arrived At: Physician: General Surgeon; Name: ; Notified At: ; Arrived At: Physician: Radiology; Name: ; Notified At: ; Arrived At: Physician: Respiratory; Name: ; Notified At: ; Arrived At: Physician: Lab; Name: ; Notified At: ; Arrived At: Historical: - Allergies: 12:52 No Known Allergies; tw2 - Home Meds: 12:52 lisinopril Oral [Active]; amlodipine oral [Active]; tw2 12:53 R sided paralysis [Active]; ss - PMHx: 12:53 Aphasia; Crohn's; CVA; Diverticulitis; Heart Murmur; Hypertension; Seizures; ss - Immunization history:: Adult Immunizations. - Social history:: Smoking status: . - Immunization history: Last tetanus immunization: - up to date. Screenin:53 Abuse screen: Denies threats or abuse. Nutritional screening: No deficits noted. tw2 Tuberculosis screening: No symptoms or risk factors identified. Fall Risk Secondary diagnosis (15 points) impaired mobility. Primary Survey: 12:54 NO uncontrolled hemorrhage observed. A: The patient is alert. Airway: patent. tw2 Breathing/Chest: Respiratory pattern: regular, Respiratory effort: spontaneous, unlabored. Circulation: Heart tones present. Skin temperature: cool, EMS reports "we got rained on a little on the way into the facility", pt dried off with towels at this time.. Disability Alert. Exposure/Environment: All clothing and personal items were removed. Forensic evidence collection is not deemed to be indicated at this time. Items placed in patient belonging bag. There is no evidence of uncontrolled external bleeding. 17:34 Reassessment Airway Airway Patent Breathing/Chest Respiratory pattern Regular ll1 Respiratory effort Spontaneous Unlabored Breath sounds Clear Chest inspection Symmetrical Circulation Heart tones Present Pulses Palpable Color Duson. Assessment: 13:05 General: Appears in no apparent distress. Behavior is calm, cooperative. Pain: Denies ll1 pain. Neuro: No deficits noted. Cardiovascular: No deficits noted. Respiratory: No deficits noted. GI: No deficits noted. Musculoskeletal: No deficits noted. Denies. Injury Description: found on floor by bed, denies pain. 14:05 Reassessment: Patient appears in no apparent distress at this time. No changes from ll1 previously documented assessment. Patient and/or family updated on plan of care and expected duration. Pain level reassessed. Patient is alert, oriented x 3, equal unlabored respirations, skin warm/dry/pink. 15:00 Reassessment: Patient appears in no apparent distress at this time. No changes from ll1 previously documented assessment. Patient and/or family updated on plan of care and expected duration. Pain level reassessed. Patient is alert, oriented x 3, equal unlabored respirations, skin warm/dry/pink. 16:00 Reassessment: Patient appears in no apparent distress at this time. No changes from ll1 previously documented assessment. Patient and/or family updated on plan of care and expected duration. Pain level reassessed. Patient is alert, oriented x 3, equal unlabored respirations, skin warm/dry/pink. 17:00 Reassessment: Patient appears in no apparent distress at this time. No changes from ll1 previously documented assessment. Patient and/or family updated on plan of care and expected duration. Pain level reassessed. Patient is alert, oriented x 3, equal unlabored respirations, skin warm/dry/pink. Vital Signs: 12:52 BP 153 / 74; Pulse 55; Resp 15; Temp 97.8(TE); Pulse Ox 99% on R/A; Weight 52.16 kg (R);tw2 16:03 BP 134 / 73; Pulse 59; Resp 18; Pulse Ox 98% on R/A; Pain 0/10; ll1 17:33 BP 138 / 73; Pulse 59; Resp 18; Temp 98.0; Pulse Ox 98% on R/A; Pain 0/10; ll1 Hampton Coma Score: 16:03 Eye Response: spontaneous(4). Verbal Response: oriented(5). Motor Response: obeys ll1 commands(6). Total: 15. Trauma Score (Adult): 16:03 Eye Response: spontaneous(1); Verbal Response: oriented(1); Motor Response: obeys ll1 commands(2); Systolic BP: > 89 mm Hg(4); Respiratory Rate: 10 to 29 per min(4); Hampton Score: 15; Trauma Score: 12 ED Course: 12:42 Patient arrived in ED. bd 12:47 Bed in low position. Call light in reach. Side rails up X2. Pulse ox on. NIBP on. Warm tw2 blanket given. 12:49 Richard Sal MD is Attending Physician. bhavani 12:52 Triage completed. ss 12:53 Arm band placed on right wrist. ss 12:54 Patient maintains SpO2 saturation greater than 95% on room air. Thermoregulation: warm tw2 blanket given to patient. 12:57 Sina Calvo, BELKIS is Primary Nurse. ll1 13:05 Inserted saline lock: 22 gauge in right forearm, using aseptic technique. Blood ll1 collected. 13:36 CT Head C Spine In Process Unspecified. EDMS 14:18 XRAY Chest (1 view) In Process Unspecified. EDMS 16:06 Report given to shelter staff. No questions about patient condition at this time. ll1 16:12 IV discontinued, intact, bleeding controlled, No redness/swelling at site. Pressure ll1 dressing applied. 17:34 No provider procedures requiring assistance completed. ll1 Administered Medications: 13:27 Drug: NS 0.9% 1000 ml Route: IV; Rate: 125 ml/hr; Site: right forearm; ll1 16:01 Follow up: Response: No adverse reaction; RASS: Alert and Calm (0); IV Status: ll1 Completed infusion; IV Intake: 250ml 15:45 Drug: Rocephin 1 grams Route: IV; Rate: per protocol; Site: right antecubital; ll1 16:00 Follow up: Response: No adverse reaction; RASS: Alert and Calm (0); IV Status: ll1 Completed infusion; IV Intake: 20ml Intake: 16:00 IV: 20ml; Total: 20ml. ll1 16:01 IV: 250ml; Total: 270ml. ll1 16:03 PO: 0ml; Total: 270ml. ll1 Outcome: 15:53 Discharge ordered by MD. beckham 17:36 Discharged to shelter. Report called to [facility] nurse ll1 17:36 Condition: stable 17:36 Discharge instructions given to patient, shelter, Instructed on discharge instructions, follow up and referral plans. medication usage, Demonstrated understanding of instructions, follow-up care, medications, Prescriptions given X 1. 17:36 Patient's length of stay in the Emergency Department was greater than 2 hours. 17:38 Patient left the ED. ll1 Signatures: Dispatcher [employer] EDMS Alana Vicente Corey, MD MD cha Smirch, Shelby, RN RN ss Shea Arce RN RN tw2 Sina Calvo RN RN ll1 Corrections: (The following items were deleted from the chart) 12:56 12:52 PMHx: Aphasia; tw2 tw 12:56 12:52 PMHx: Crohn's; tw tw 12:56 12:52 PMHx: CVA; tw2 tw 12:56 12:52 PMHx: Diverticulitis; tw tw 12:56 12:52 PMHx: Heart Murmur; 12:52 PMHx: Hypertension; 12:52 PMHx: Seizures;
[2020-06-05 17:44] VITALS: O2SAT 98
[2020-06-05 17:46] VITALS: BP 138/73; TEMP 98
--- NOTE | 2020-06-07 07:37 | EKG ---
Test Date: 2020-06-05 Test Time: 13:18:58 Police Captain: NICHO MEASUREMENT RESULTS: Intervals: Rate: 56 MA: 196 QRSD: 78 QT: 430 QTc: 414 [place]: P: 70 MA: 196 QRS: 63 T: 84 INTERPRETIVE STATEMENTS: Sinus bradycardia Cannot rule out Anterior infarct, age undetermined Abnormal ECG Compared to ECG 05/02/2020 23:17:20 Myocardial infarct finding now present Sinus rhythm no longer present ST (T wave) deviation no longer present Electronically Signed On 06-07-20 07:32:53 CDT by Sathya Gonzalez
== END 2020-06-05 17:38 | disposition home or self-care (01) ==
LOC: ER 12:40
DX: N39.0 Urinary tract infection, site not specified (principal); W08.XXXA Fall from other furniture, initial encounter; Y93.9 Activity, unspecified; Y92.9 Unspecified place or not applicable; I10 Essential (primary) hypertension; G40.909 Epilepsy, unspecified, not intractable, without status epilepticus
CPT/HCPCS: 96361; 93005; 87088; 85025; 87086; 80048; 36415; 83735; 80076; 81003; 84484; 83880; 70450; 72125; 71045; 96374; 99284; J0696; J7040; 87077; 87186

== ENCOUNTER 2020-12-27 11:47 | Emergency (ER) | payer OTHER ==
[2020-12-27 12:20] LABS: Absolute Lymphocytes (CBC) 0.6 K/uL (0.7-4.9); Basophils % 1.3 % (0-1.3); Hematocrit 40.6 % (36.0-45.0); Lymphocytes % 17.4 % (15.3-44.8); MPV 8.7 fL (7.6-11.3); RBC Red Blood Cell Count 4.55 M/uL (3.86-4.86)
--- NOTE | 2020-12-27 12:35 | RAD REPORT ---
EXAM DESCRIPTION: CT - Head Brain Wo Cont - 12/27/2020 12:25 pm CLINICAL HISTORY: SLURRED SPEECH, known brain mass COMPARISON: Head Brain Wo Cont dated 05/03/2020; Brain W/Wo Cont dated 12/11/2020 TECHNIQUE: Axial 5 mm thick images of the head were obtained without IV contrast. All CT scans are performed using dose optimization technique as appropriate and may include automated exposure control or mA/KV adjustment according to patient size. FINDINGS: No intracranial hemorrhage has developed. Patient has a known large 6 centimeter mass in t he region of the left thalamus and posterior frontal lobe. No gross change in the size of the mass. T he amount of mass effect does not appear substantially different from the comparison study. Extensive white matter signal abnormality is present. Left craniotomy surgical changes are noted. No acute cor tical based infarction identified. There is sulcal effacement along the left frontoparietal lobe from the mass effect of the lesion. Mastoid air cells and visualized portions of the paranasal sinuses are clear. No acute bony findings. IMPRESSION: No intracranial hemorrhage. An acute cortical based infarction is not identified. The large 6 centimeter left cerebral mass has not clearly changed in size from December 11 and the m ass-effect is not appear to be substantially different.
--- NOTE | 2020-12-27 12:35 | RAD REPORT ---
EXAM DESCRIPTION: RAD - Chest Single View - 12/27/2020 12:23 pm CLINICAL HISTORY: COUGH Chest pain. COMPARISON: Chest Single View dated 06/05/2020; Chest Single View dated 05/02/2020; Abdomen Acute Seri es dated 12/22/2019; Chest Single View dated 05/11/2019 FINDINGS: Portable technique limits examination quality. Pulmonary interstitial markings are mildly prominent bilaterally which may indicate interstitial pulm onary edema. The heart is mildly enlarged in size. No displaced fractures.Moderate dextroscoliosis of the thoracic spine. IMPRESSION: Mild CHF suspected.
[2020-12-27 12:39] LABS: ALT/SGPT 31 U/L (12-78); AST/SGOT 23 U/L (15-37); Albumin 3.8 g/dL (3.4-5.0); Alkaline Phosphatase 101 U/L (45-117); BUN Blood Urea Nitrogen 16 mg/dL (7-18); Bicarbonate 30 mmol/L (21-32); Bilirubin Direct 0.1 mg/dL (0-0.2); Bilirubin Total 0.5 mg/dL (0.2-1.0); Glucose Level 78 mg/dL (74-106); Magnesium 2.3 mg/dL (1.8-2.4); NT PRO-BNP 167 pg/mL (<125); Potassium 3.2 mmol/L (3.5-5.1); Protein, Total 7.9 g/dL (6.4-8.2); Sodium Level 142 mmol/L (136-145); Troponin (Emerg Dept Use Only) < 0.02 ng/mL (0.0-0.045)
--- NOTE | 2020-12-27 12:46 | ER ---
Nurse's Notes [facility] Name: Mayi Coe Age: 65 yrs Sex: Female : 1955 Arrival Date: 12/27/2020 Time: 11:48 Bed 24 Private MD: Diagnosis: Malignant neoplasm of brain-terminal condition, HOSPICE Presentation: 12/27 11:48 Chief complaint: EMS states: Left eye droop and uneven pupils upon waking today. Hx of hb CVA w/left facial droop, right sided weakness, and aphasia. Coronavirus screen: At this time, the client does not indicate any symptoms associated with coronavirus-19. Ebola Screen: No symptoms or risks identified at this time. Initial Sepsis Screen: Does the patient meet any 2 criteria? No. Patient's initial sepsis screen is negative. Does the patient have a suspected source of infection? No. Patient's initial sepsis screen is negative. Risk Assessment: Do you want to hurt yourself or someone else? Patient reports no desire to harm self or others. Onset of symptoms was December 27, 2020. 11:48 Method Of Arrival: EMS: [facility] 11:48 Acuity: CRISTINE 3 hb Stroke Activation: Symptom onset > 6 hours Physician: Stroke Attending; Name: ; Notified At: ; Arrived At: Physician: Chief Stroke Resident; Name: ; Notified At: ; Arrived At: Physician: Stroke Resident; Name: ; Notified At: ; Arrived At: Physician: ED Attending; Name: ; Notified At: ; Arrived At: Physician: ED Resident; Name: ; Notified At: ; Arrived At: Historical: - Allergies: 11:54 No Known Allergies; hb - Home Meds: 11:54 amlodipine oral [Active]; lisinopril Oral [Active]; lactulose 20 gram/30 mL oral soln hb as needed [Active]; 11:57 pantoprazole 40 mg oral TbEC 1 tab once daily [Active]; furosemide 20 mg Oral tab 1 tab hb once daily [Active]; carvedilol 6.25 mg oral tab 1 tab 2 times per day [Active]; Women's One Daily 18 mg iron-400 mcg-500 mg Ca oral tab [Active]; amlodipine 5 mg tab 1 tab once daily [Active]; labetalol 100 mg Oral tab daily [Active]; lisinopril 10 mg Oral tab 1 tab once daily [Active]; levetiracetam 500 mg oral tab 1 tab 2 times per day [Active]; gabapentin 300 mg oral cap nightly [Active]; duloxetine 60 mg oral cpDR 1 cap nightly [Active]; memantine 5 mg oral tab 2 tabs nightly [Active]; - PMHx: 11:54 CVA; right side weakness, aphasia; hb 11:57 GERD; dysphagia; hb - Immunization history:: Adult Immunizations up to date. - Social history:: Smoking status: Patient denies any tobacco usage or history of. - Family history:: not pertinent. Screenin:14 Abuse screen: Denies threats or abuse. Denies injuries from another. Nutritional hb screening: No deficits noted. Tuberculosis screening: No symptoms or risk factors identified. Fall Risk Total Crockett Fall Scale indicates Low Risk Score (25-44 pts). Fall prevention measures have been instituted. Side Rails Up X 2 Frequent Obs/Assesments occuring As available Patient and Family Educated on Fall Prevention Program and strategies. Assessment: 12:15 VAN Scoring: Arm Drift: Flaccid/no antigravity Visual Disturbance: Aphasia: Expressive ph aphasia noted. Provider notified of +VAN scoring. Neglect: No neglect noted. Reassessment: Pt hx of malignant brain tumor. 12:30 General: Appears in no apparent distress. slender, well groomed, Behavior is calm, ph cooperative, appropriate for age. Pain: Denies pain. Neuro: Level of Consciousness is awake, alert, obeys commands, Oriented to person, place, Weakness in right arm(s) leg(s) Speech with expressive aphasia noted, Facial droop on left, Pupils are irregular. Cardiovascular: Capillary refill < 3 seconds in bilateral fingers Patient's skin is warm and dry. Respiratory: Airway is patent Respiratory effort is even, unlabored. GI: No signs and/or symptoms were reported involving the gastrointestinal system. Derm: Skin is intact, Skin is pink, warm \T\ dry. 13:00 Patient has been NPO before screening. The patient is alert, and able to follow ph commands. The patient exhibits slurred or garbled speech. The patient is exhibiting difficulty speaking. The patient failed the bedside swallow screening. The patient will be kept NPO until cleared by Speech Therapy or Physician. Provider notified of bedside swallow screening results: Richard Sal MD. The patient does not exhibit difficulty understanding words. The patient is able to swallow own secretions with no drooling or need for suction. did not attempt swallow screen w/ water, pt hx of dysphagia hx of dysphagia. T-PA (Activase) Screening: Contraindications: Patient reports onset of signs and symptoms of stroke greater than 6 hours ago: Intracranial neoplasm, AV Malformation, Aneurysm:. 14:50 Reassessment: Patient appears in no apparent distress at this time. Patient and/or ph family updated on plan of care and expected duration. Pain level reassessed. Dr Sal spoke w/ pt's child(vilma) who have decided that pt will be placed on hospice d/t terminal condition, pt to be d/c back to [facility], transfer cancelled. 16:25 Reassessment: Report called to Maria D, nurse at [facility], also spoke w/ Natalya cheung (director?), informed both that Dr Sal wrote orders for social service consult for hospice and for pt to be d/c back to [facility]. 16:45 Reassessment: [place] [facility] at bedside, report given to Yamilex EMT-P, pt cleaned of ph urinary incontinence before transported back to [facility]. Vital Signs: 11:48 BP 129 / 66; Pulse 66; Resp 16; Temp 97.9; Pulse Ox 100% on R/A; Pain 0/10; hb 13:30 BP 127 / 76; Pulse 64; Resp 18; Pulse Ox 99% on R/A; ph 14:50 BP 130 / 75; Pulse 61; Resp 16; Pulse Ox 98% ; dm14 16:00 BP 124 / 62; Pulse 64; Resp 16; Temp 98.0; Pulse Ox 99% on R/A; ph NIH Stroke Scale Scores: 12:15 NIHSS Score: 15 ph ED Course: 11:48 Patient arrived in ED. hb 11:50 Triage completed. hb 11:50 Richard Sal MD is Attending Physician. bhavani 11:57 Arm band placed on. hb 12:00 Patient has correct armband on for positive identification. Bed in low position. Call ph light in reach. Side rails up X 1. Pulse ox on. NIBP on. Door closed. Noise minimized. Warm blanket given. 12:05 Radiology exam delayed due to pt going to mri and ct-- will give to us when done. hr 12:14 Initial lab(s) drawn, by me, sent to lab. Maintain EMS IV. Dressing intact. Good blood hb return noted. Site clean \T\ dry. Gauge \T\ site: 18g LFA. 12:23 XRAY Chest (1 view) In Process Unspecified. EDMS 12:24 CT Head Brain wo Cont In Process Unspecified. EDMS 12:37 Cindi Ward, BELKIS is Primary Nurse. dm14 12:51 Brain W/Wo Cont In Process Unspecified. EDMS 15:45 Laith Younger MD is Referral Physician. bhavani 16:45 No provider procedures requiring assistance completed. IV discontinued, intact, ph bleeding controlled, No redness/swelling at site. Pressure dressing applied. Administered Medications: 13:40 Drug: NS 0.9% 500 ml Route: IV; Rate: bolus; Site: left forearm; dm14 14:45 Follow up: Response: No adverse reaction; IV Status: Completed infusion; IV Intake: ph 500ml 14:00 Drug: Pepcid 20 mg Route: IVP; Site: left forearm; dm14 15:53 Follow up: Response: No adverse reaction ph 14:02 Drug: Decadron - Dexamethasone 10 mg Route: IVP; Site: left forearm; dm14 16:27 Follow up: Response: No adverse reaction ph 14:05 Drug: foLIC Acid 1 mg Route: IVPB; Site: left forearm; dm14 16:27 Follow up: Response: No adverse reaction; IV Status: Completed infusion ph 14:47 Drug: Keppra 500 mg Route: IV; Rate: per protocol; Site: left forearm; dm14 15:05 Follow up: Response: No adverse reaction; IV Status: Completed infusion ph 14:48 Drug: NS 0.9% 1000 ml Route: IV; Rate: 125 ml/hr; Site: left forearm; dm14 16:28 Follow up: Response: No adverse reaction; IV Status: Completed infusion ph Intake: 14:45 IV: 500ml; Total: 500ml. ph Outcome: 12:46 ER care complete, transfer ordered by . bhavani 15:50 Discharge ordered by . bhavani 16:51 Patient left the ED. hb 16:51 Discharged to [facility]. Report called to [facility] 16:51 Condition: stable 16:51 Instructed on follow up and referral plans. NIH Stroke Scale - NIH Stroke Score Date: 12/27/2020 Time: 12:15 Total Score = 15 1a. Level of Consciousness (LOC) - 0(Alert) 1b. Level of Consciousness (LOC) (Year \T\ Age) - 1(One) 1c. LOC Commands (Open \T\ Closes Eyes/Camp Tender) - 0(Both) 2. Best Gaze (Lateral Gaze Paresis) - 0(Normal) 3. Visual Field Loss - 0(No visual loss) 4. Facial Palsy - 2(Partial paralysis) 5a. Left Arm: Motor (10-second hold) - 0(No drift) 5b. Right Arm: Motor (10-second hold) - 3(No effort against gravity) 6a. Left Leg: Motor (5-second hold - always test supine) - 0(No drift) 6b. Right Leg: Motor (5-second hold - always test supine) - 3(No effort against gravity) 7. Limb Ataxia (finger/nose \T\ heel/marino - test with eyes open) - 2(Present in two limbs) 8. Sensory Loss (pinprick arms/legs/face) - 0(Normal) 9. Best Language: Aphasia (description/naming/reading) - 2(Severe aphasia) 10. Dysarthria (speech clarity - read or repeat words) - 2(Severe) 11. Extinction and Inattention (visual/tactile/auditory/spatial/personal) - 0(No abnormality) Initials: ph Signatures: Dispatcher [employer] Richard Jha MD MD cha Rod, Haley hr Hall, Patricia, RN RN Dori Holder, BELKIS TAMAYO Cindi Ward RN RN dm14
--- NOTE | 2020-12-27 12:46 | EDPHYS ---
Physician Documentation [facility] Name: Mayi Coe Age: 65 yrs Sex: Female : 1955 Arrival Date: 12/27/2020 Time: 11:48 Bed 24 Private MD: ED Physician Richard Sal HPI: 12/27 11:55 This 65 yrs old Female presents to ER via EMS with complaints of Facial Droop.bhavani 11:55 The patient presents to the emergency department with weakness of the LEFT EYE LID, bhavani PUPIL FIXED AND MIN REACTIVE, 3-4 MM. Onset: The symptoms/episode began/occurred this morning, awoke this way. Context: occurred at home. Associated signs and symptoms: The patient has no apparent associated signs or symptoms. Severity of symptoms: At their worst the symptoms were mild in the emergency department the symptoms are unchanged. Patient's baseline: Neuro: alert and fully oriented. Current symptoms: left eyelid droop, left pupil 3-4 mm. The patient has not experienced similar symptoms in the past. Historical: - Allergies: 11:54 No Known Allergies; hb - Home Meds: 11:54 amlodipine oral [Active]; lisinopril Oral [Active]; lactulose 20 gram/30 mL oral soln hb as needed [Active]; 11:57 pantoprazole 40 mg oral TbEC 1 tab once daily [Active]; furosemide 20 mg Oral tab 1 tab hb once daily [Active]; carvedilol 6.25 mg oral tab 1 tab 2 times per day [Active]; Women's One Daily 18 mg iron-400 mcg-500 mg Ca oral tab [Active]; amlodipine 5 mg tab 1 tab once daily [Active]; labetalol 100 mg Oral tab daily [Active]; lisinopril 10 mg Oral tab 1 tab once daily [Active]; levetiracetam 500 mg oral tab 1 tab 2 times per day [Active]; gabapentin 300 mg oral cap nightly [Active]; duloxetine 60 mg oral cpDR 1 cap nightly [Active]; memantine 5 mg oral tab 2 tabs nightly [Active]; - PMHx: 11:54 CVA; right side weakness, aphasia; hb 11:57 GERD; dysphagia; hb - Immunization history:: Adult Immunizations up to date. - Social history:: Smoking status: Patient denies any tobacco usage or history of. - Family history:: not pertinent. ROS: 11:55 Constitutional: Negative for fever, chills, and weight loss, ENT: Negative for injury, bhavani pain, and discharge, Neck: Negative for injury, pain, and swelling, Cardiovascular: Negative for chest pain, palpitations, and edema, Respiratory: Negative for shortness of breath, cough, wheezing, and pleuritic chest pain, Abdomen/GI: Negative for abdominal pain, nausea, vomiting, diarrhea, and constipation, Back: Negative for injury and pain, : Negative for injury, bleeding, discharge, and swelling, MS/Extremity: Negative for injury and deformity, Skin: Negative for injury, rash, and discoloration, Neuro: Negative for headache, weakness, numbness, tingling, and seizure, Psych: Negative for depression, anxiety, suicide ideation, homicidal ideation, and hallucinations, Allergy/Immunology: Negative for hives, rash, and allergies, Endocrine: Negative for neck swelling, polydipsia, polyuria, polyphagia, and marked weight changes, Hematologic/Lymphatic: Negative for swollen nodes, abnormal bleeding, and unusual bruising. 11:55 Eyes: Positive for lid droopy, left, left pupil 3-4 mm minimally reactive. Exam: 11:59 Constitutional: This is a well developed, well nourished patient who is awake, alert, bhavani and in no acute distress. Head/Face: Normocephalic, atraumatic. ENT: Nares patent. No nasal discharge, no septal abnormalities noted. Tympanic membranes are normal and external auditory canals are clear. Oropharynx with no redness, swelling, or masses, exudates, or evidence of obstruction, uvula midline. Mucous membranes moist. Neck: Trachea midline, no thyromegaly or masses palpated, and no cervical lymphadenopathy. Supple, full range of motion without nuchal rigidity, or vertebral point tenderness. No Meningismus. Chest/axilla: Normal chest wall appearance and motion. Nontender with no deformity. No lesions are appreciated. Cardiovascular: Regular rate and rhythm with a normal S1 and S2. No gallops, murmurs, or rubs. Normal PMI, no JVD. No pulse deficits. Respiratory: Lungs have equal breath sounds bilaterally, clear to auscultation and percussion. No rales, rhonchi or wheezes noted. No increased work of breathing, no retractions or nasal flaring. Abdomen/GI: Soft, non-tender, with normal bowel sounds. No distension or tympany. No guarding or rebound. No evidence of tenderness throughout. Back: No spinal tenderness. No costovertebral tenderness. Full range of motion. Female : Normal external genitalia. Skin: Warm, dry with normal turgor. Normal color with no rashes, no lesions, and no evidence of cellulitis. MS/ Extremity: Pulses equal, no cyanosis. Neurovascular intact. Full, normal range of motion. Neuro: Awake and alert, GCS 15, oriented to person, place, time, and situation. Cranial nerves II-XII grossly intact. Motor strength 5/5 in all extremities. Sensory grossly intact. Cerebellar exam normal. Normal gait. Psych: Awake, alert, with orientation to person, place and time. Behavior, mood, and affect are within normal limits. 11:59 Eyes: Pupils: dilated, in left eye, right pupil is approximately 4 mm(s), Extraocular movements: intact throughout, Conjunctiva: normal, Corneas: are normal, no acute changes, Sclera: no appreciated abnormality, no acute changes, Anterior chamber: normal, no acute changes, Lids and lashes: appear normal, no acute changes. Vital Signs: 11:48 BP 129 / 66; Pulse 66; Resp 16; Temp 97.9; Pulse Ox 100% on R/A; Pain 0/10; hb 13:30 BP 127 / 76; Pulse 64; Resp 18; Pulse Ox 99% on R/A; ph 14:50 BP 130 / 75; Pulse 61; Resp 16; Pulse Ox 98% ; dm14 16:00 BP 124 / 62; Pulse 64; Resp 16; Temp 98.0; Pulse Ox 99% on R/A; ph NIH Stroke Scale Scores: 12:15 NIHSS Score: 15 ph MDM: 11:50 Patient medically screened. [facility] 12:01 Data reviewed: vital signs, nurses notes, lab test result(s), EKG, radiologic studies, bhavani CT scan, plain films. Data interpreted: clean up person: rate is 66 beats/min, rhythm is regular, Pulse oximetry: on room air is 100 %. Test interpretation: by ED physician or midlevel provider: ECG, plain radiologic studies. Counseling: I had a detailed discussion with the patient and/or guardian regarding: the historical points, exam findings, and any diagnostic results supporting the discharge/admit diagnosis, lab results, radiology results. 12/27 11:55 Order name: Basic Metabolic Panel [facility] 12/27 11:55 Order name: CBC with Diff [facility] 12/27 11:55 Order name: LFT's [facility] 12/27 11:55 Order name: Magnesium [facility] 12/27 11:55 Order name: NT PRO-BNP [facility] 12/27 11:55 Order name: PT-INR; Complete Time: 13:14 [facility] 12/27 11:55 Order name: Troponin (emerg Dept Use Only); Complete Time: 13:14 [facility] 12/27 11:55 Order name: Sed Rate; Complete Time: 13:14 [facility] 12/27 11:55 Order name: CRP; Complete Time: 13:14 [facility] 12/27 11:56 Order name: Basic Metabolic Panel; Complete Time: 13:14 [facility] 12/27 11:56 Order name: CBC with Automated Diff; Complete Time: 13:14 [facility] 12/27 11:56 Order name: Liver (Hepatic) Function; Complete Time: 13:14 [facility] 12/27 11:56 Order name: Magnesium; Complete Time: 13:14 [facility] 12/27 11:56 Order name: NT PRO-BNP; Complete Time: 13:14 [facility] 12/27 11:55 Order name: XRAY Chest (1 view); Complete Time: 13:14 [facility] 12/27 11:55 Order name: EKG; Complete Time: 11:56 [facility] 12/27 11:55 Order name: Cardiac monitoring; Complete Time: 16:26 [facility] 12/27 11:55 Order name: EKG - Nurse/Tech; Complete Time: 16:27 [facility] 12/27 11:55 Order name: CT Head Brain wo Cont; Complete Time: 13:14 [facility] 12/27 12:40 Order name: Brain W/Wo Cont; Complete Time: 13:44 [facility] 12/27 15:49 Order name: SARS-COV-2 RT PCR [facility] 12/27 11:55 Order name: IV Saline Lock; Complete Time: 16:26 [facility] 12/27 11:55 Order name: Labs collected and sent; Complete Time: 16:26 [facility] 12/27 11:55 Order name: O2 Per Protocol; Complete Time: 16:26 [facility] 12/27 11:55 Order name: O2 Sat Monitoring; Complete Time: 16:26 bhavani Administered Medications: 13:40 Drug: NS 0.9% 500 ml Route: IV; Rate: bolus; Site: left forearm; dm14 14:45 Follow up: Response: No adverse reaction; IV Status: Completed infusion; IV Intake: ph 500ml 14:00 Drug: Pepcid 20 mg Route: IVP; Site: left forearm; dm14 15:53 Follow up: Response: No adverse reaction ph 14:02 Drug: Decadron - Dexamethasone 10 mg Route: IVP; Site: left forearm; dm14 16:27 Follow up: Response: No adverse reaction ph 14:05 Drug: foLIC Acid 1 mg Route: IVPB; Site: left forearm; dm14 16:27 Follow up: Response: No adverse reaction; IV Status: Completed infusion ph 14:47 Drug: Keppra 500 mg Route: IV; Rate: per protocol; Site: left forearm; dm14 15:05 Follow up: Response: No adverse reaction; IV Status: Completed infusion ph 14:48 Drug: NS 0.9% 1000 ml Route: IV; Rate: 125 ml/hr; Site: left forearm; dm14 16:28 Follow up: Response: No adverse reaction; IV Status: Completed infusion ph Disposition: 12/27/20 15:50 Discharged to Home. Impression: Malignant neoplasm of brain - terminal condition, HOSPICE. - Condition is Stable. - Discharge Instructions: Hospice. - Prescriptions for dexamethasone 2 mg Oral tablet - take 1 tablet by ORAL route 2 times per day; 14 tablet. Keppra 500 mg Oral Tablet - take 1 tablet by ORAL route every 12 hours; 30 tablet. - Medication Reconciliation Form, Thank You Letter, Antibiotic Education, Prescription Opioid Use form. - Follow up: Laith Younger MD; When: 2 - 3 days; Reason: Recheck today's complaints, Continuance of care, Re-evaluation by your physician. Follow up: Private Physician; When: 2 - 3 days; Reason: Recheck today's complaints, Continuance of care, Re-evaluation by your physician. - Problem is an ongoing problem. - Symptoms have worsened. NIH Stroke Scale - NIH Stroke Score Date: 12/27/2020 Time: 12:15 Total Score = 15 1a. Level of Consciousness (LOC) - 0(Alert) 1b. Level of Consciousness (LOC) (Year \T\ Age) - 1(One) 1c. LOC Commands (Open \T\ Closes Eyes/Ct Technician) - 0(Both) 2. Best Gaze (Lateral Gaze Paresis) - 0(Normal) 3. Visual Field Loss - 0(No visual loss) 4. Facial Palsy - 2(Partial paralysis) 5a. Left Arm: Motor (10-second hold) - 0(No drift) 5b. Right Arm: Motor (10-second hold) - 3(No effort against gravity) 6a. Left Leg: Motor (5-second hold - always test supine) - 0(No drift) 6b. Right Leg: Motor (5-second hold - always test supine) - 3(No effort against gravity) 7. Limb Ataxia (finger/nose \T\ heel/marino - test with eyes open) - 2(Present in two limbs) 8. Sensory Loss (pinprick arms/legs/face) - 0(Normal) 9. Best Language: Aphasia (description/naming/reading) - 2(Severe aphasia) 10. Dysarthria (speech clarity - read or repeat words) - 2(Severe) 11. Extinction and Inattention (visual/tactile/auditory/spatial/personal) - 0(No abnormality) Initials: ph Signatures: Dispatcher [employer] EDMS Richard Sal MD MD cha Baxter, Heather, BELKIS TAMAYO Cindi Ward RN RN [id number] Malu Faria RN ph Corrections: (The following items were deleted from the chart) 12:37 12:02 Carotid Artery Bilateral+US.RAD.BRZ ordered. EDWV EDWV 12:40 11:56 MR STROKE PROTOCOL+MRI.RAD.BRZ ordered. EDWV EDWV 14:52 13:46 CORONAVIRUS+MR.LAB.BRZ ordered. EDWV EDWV 15:44 12:46 12/27/2020 12:46 Transfer ordered to [facility]. Diagnosis is Malignant neoplasm of brain, unspecified - mass effect 6 cm. Reason for transfer: Higher level of care. Accepting physician is to [facility] [place]. Condition is Fair. Problem is an ongoing problem. Symptoms have worsened. [facility] 16:51 15:50 12/27/2020 15:50 Discharged to Home. Impression: Malignant neoplasm of hb brain - terminal condition, HOSPICE. Condition is Stable. Forms are Medication Reconciliation Form, Thank You Letter, Antibiotic Education, Prescription Opioid Use. Follow up: Laith Younger; When: 2 - 3 days; Reason: Recheck today's complaints, Continuance of care, Re-evaluation by your physician. Follow up: Private Physician; When: 2 - 3 days; Reason: Recheck today's complaints, Continuance of care, Re-evaluation by your physician. Problem is an ongoing problem. Symptoms have worsened. bhavani
[2020-12-27 12:47] LABS: C-Reactive Protein < 2.90 mg/L (<3.00)
--- NOTE | 2020-12-27 13:18 | RAD REPORT ---
EXAM DESCRIPTION: MRI - Brain W/Wo Cont - 12/27/2020 12:51 pm CLINICAL HISTORY: WEAKNESS Headache, drowsiness COMPARISON: Head Brain Wo Cont dated 12/27/2020; Brain W/Wo Cont dated 12/11/2020; Brain W/Wo Cont date d 10/29/2020 TECHNIQUE: Multi-sequence, multiplanar MR imaging of the brain was performed with contrast. 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 Additional component anteriorly demonstrates mild increase in size currently measuring 21 x 13 mm, previously 19 x 9 mm. Moderate size increase is seen in the enhancing mass in the brainstem previous ly measuring 6 mm, currently measuring 16 x 11 mm. The degree of mass effect upon the left lateral ve ntricle appears slightly greater although no significant sub-falcine herniation is seen Moderate confluent T2 and FLAIR hyperintensity in the periventricular deep white matter is again seen , unchanged. Diffusion-weighted imaging is negative for acute CVA. IMPRESSION: Mild increase in size of the neoplastic mass in the left basal ganglia with mild increas e in mass effect on the left lateral ventricle. No significant subfalcine herniation. No acute CVA or other acute finding demonstrated.
[2020-12-27] MEDS ORDERED: NA CHLORIDE 0.9% 1,000 ML ONE (13:52)
[2020-12-27] MEDS ORDERED: levETIRAcetam 500 MG in NA CHLORIDE 0.9% 100 ML IV ONE (14:00)
[2020-12-27] MEDS ORDERED: dexAMETHasone 10 MG/ML VIAL ONE (14:12)
[2020-12-27] MEDS ORDERED: FAMOTIDINE 20 MG/2 ML VIAL IV ONE (14:13)
[2020-12-27] MEDS ORDERED: FOLIC ACID 5 MG/ML VIAL ONE (14:14)
[2020-12-27 17:20] VITALS: TEMP 97.9
[2020-12-27 17:21] VITALS: BP 130/75; O2SAT 98
== END 2020-12-27 16:51 | disposition home or self-care (01) ==
LOC: ER 11:47
DX: C71.9 Malignant neoplasm of brain, unspecified (principal); R29.715 NIHSS score 15; I69.351 Hemiplegia and hemiparesis following cerebral infarction affecting right dominant side; Z20.822 Contact with and (suspected) exposure to COVID-19
CPT/HCPCS: 96365; 85025; 80048; 36415; 83735; 85610; 80076; 85652; 84484; 83880; 86140; 70450; 71045; 70553; 96375; 99284; U0003; A9577; J1100; J1953; J7030